=== PATIENT | male | born 1985 | race Caucasian/White ===

== ENCOUNTER 2017-10-28 10:52 | Day surgery (SDC) | payer OTHER ==
[2017-10-25 14:57] VITALS: BMI 23.0
--- NOTE | 2017-10-26 15:07 | History and Physical ---
History & Physical Date Oct 26, 2017. Chief Complaint right arm foreign body History of Present Illness The patient is a 32 year old male with complaints of a foreign body in his right forearm after doing metal work in his garage. A piece of metal came off of the work and implanted into his arm. He was seen at [facility] in [place] and the PA there tried to remove the piece of metal but was unsuccessful. He is now being set up for surgical tx. Past Medical/Surgical History PMH: None Past surgical hx: none Social hx: Denies tobacco use. 1-2 alcoholic drinks per day. Fam. Hx: noncontributory Allergies Coded Allergies: No Known Allergies (Unverified , 10/25/17) Home Medications Scheduled Buprenorphine Hcl (Subutex), 1.75 TAB SL DAILY Cephalexin Monohydrate (Keflex), 1 CAP PO BID Pantoprazole (Protonix), 40 MG PO QAM [Magnesium], 250 MG PO QPM [Vitamin D], 400 UNITS PO QPM Scheduled PRN Ranitidine (Zantac), 150 MG PO BID PRN for RN Physical Examination Skin: warm/dry, no rash Eyes: normal inspection ENT: normal ENT inspection Head: normocephalic, atraumatic Neck: supple, no adenopathy, trachea midline Respiratory/Chest: lungs clear, normal breath sounds, no respiratory distress Cardiovascular: regular rate, rhythm Abdomen / GI: normal bowel sounds, non tender Extremities: + pertinent finding (Right forearm: sutured laceration/incision near the dorsoradial aspect of the arm. No erythema. No streaking.) Neurologic/Psych: no motor/sensory deficits, alert, oriented x 3 Diagnosis Right upper extremity foreign body near the dorsoradial aspect of the forearm/ wrist. Plan of Treatment Recommend removal of the foreign body from the right forearm. All potential risks, benefits, complications, alternatives, and rehab have been discussed and the patient wishes to proceed. He will be scheduled for 10.28.17.
[~2017-10-28] VITALS: Ht 190.5 cm; Wt 86.4 kg
[~2017-10-28 10:52] MED LIST: BUPR8SUB19 SL; CEPH500C PO; LACTATED RINGER'S 1000ML 1,000 ML IV SCH; MAGNESIUM PO; PANT40TA PO; RANI150T85 PO; VITAMIN D PO
[2017-10-28] MEDS ORDERED: PROPOFOL IV EMULSION 10 MG/ML 20 ML VIAL IV ONE ×2 (10:56→14:16)
[2017-10-28] MEDS ORDERED: ONDANSETRON INJ 2 MG/ML 2 ML VIAL ONE (10:56)
[2017-10-28] MEDS ORDERED: LIDOCAINE HCL 2% 2 ML VIAL (20MG/ML) ONE (10:56)
[2017-10-28] MEDS ORDERED: DEXAMETHASONE SOD INJ 4 MG/ML VIAL ONE (10:56)
[2017-10-28] MEDS ORDERED: FENTANYL CITRATE INJ 50 MCG/1 ML 2 ML VIAL ONE (10:57)
[2017-10-28] MEDS ORDERED: MIDAZOLAM HCL 1 MG/ML 2ML VIAL ONE ×2 (10:57→12:32)
[2017-10-28 11:16] VITALS: BP 136/87; PULSE 56; TEMP 36.7; O2SAT 100; Ht 190.5 cm; Wt 86.4 kg
[2017-10-28] MEDS ORDERED: KETOROLAC TROMETHAMINE 30 MG/ML VIAL ONE ×2 (12:13→14:28)
[2017-10-28] MEDS ORDERED: ONDANSETRON INJ 2 MG/ML 2 ML VIAL IV PRN (12:15)
[2017-10-28] MEDS ORDERED: ATROPINE SULFATE 0.1 MG/ML 5ML SYR IV PRN (12:15)
[2017-10-28] MEDS ORDERED: EpHEDrine SULFATE INJ 50 MG/ML AMP IV PRN (12:15)
--- NOTE | 2017-10-28 13:31 | History & Physical Bridge Note ---
H&P Re-Evaluation Bridge Note: I have examined the patient, reviewed the History & Physical and in the interval since the performance of the History & Physical I have noted the following changes of clinical significance: No changes noted
[2017-10-28] MEDS ORDERED: CEFAZOLIN SOD 2000MG/15 ML IV PUSH IV ONE (13:40)
[2017-10-28] MEDS ORDERED: BUPIVACAINE/EPINEPHRINE 0.5% MPF 1:200,000 30 ML VIAL ONE (13:41)
[2017-10-28] MEDS ORDERED: BACITRACIN 50000 UNIT VIAL ONE (13:42)
[2017-10-28] MEDS ORDERED: BUPIVACAINE 0.5 % 5 MG/1 ML MPF 30ML VIAL ONE (13:42)
[2017-10-28] MEDS ORDERED: NURSING VERBAL MED ORDER ONE (13:45)
[2017-10-28] MEDS ORDERED: ACETAMINOPHEN 1000 MG/100 ML IV IV ONE (14:14)
[2017-10-28] MEDS ORDERED: EpHEDrine SULFATE 50MG/5ML SYR ONE (14:28)
[2017-10-28] MEDS ORDERED: PHENYLEPHRINE 100MCG/ML 5ML SYR ONE (14:28)
--- NOTE | 2017-10-28 15:00 | DIAGNOSTIC IMAGING REPORT ---
R FOREARM 2 VIEWS ROUTINE HISTORY: 32 years-old Male RT ARM FOREIGN BODY REMOVAL acute right arm pain status post foreign body removal COMPARISON: None available TECHNIQUE: 3 spot fluoroscopic images of the right forearm were obtained utilizing 39.2 seconds fluoroscopy time FINDINGS: There is skin irregularity with soft tissue swelling of the lateral aspect of the distal forearm which is likely postsurgical without opaque foreign body identified. No fracture. IMPRESSION: Fluoroscopic assistance as above. Please see procedural report for further details. The above report was generated using voice recognition software. It may contain grammatical, syntax or spelling errors. Electronically signed by: Praveen Ortiz M.D. 10/28/2017 2:58 PM Dictated Date/Time: 10/28/2017 2:56 PM
--- NOTE | 2017-10-28 15:07 | [facility] Post Operative Brief Note ---
Immediate Operative Summary Operative Date Oct 28, 2017. Pre-Operative Diagnosis Right upper extremity foreign body near the dorsoradial aspect of the forearm/wrist Post-Operative Diagnosis Right upper extremity foreign body near the dorsoradial aspect of the forearm/wrist Procedure(s) Performed Right Forearm Foreign Object Removal Surgeon Dr. Callahan Recovery Room Rn Surgeon(s) None Estimated Blood Loss 7 ml Findings Consistent with Post-Op Diagnosis Specimens A. Right Arm Foreign body Drains None (local) Anesthesia Type General Complication(s) none Disposition Accompanied Pt To Recover: no Disposition: Recovery Room / PACU
--- NOTE | 2017-10-28 15:43 | Anesthesiology Progress Note ---
Anesthesia Post Op Note Date & Time Oct 28, 2017 at 15:20 Vital Signs Vital Signs Past 12 Hours Date Time Temp Pulse Resp B/P (MAP) Pulse Ox O2 Delivery O2 Flow Rate FiO2 10/28/17 11:16 36.7 56 18 136/87 (103) 100 Room Air Notes Mental Status: alert / awake / arousable, participated in evaluation Pt Amnestic to Procedure: Yes Nausea / Vomiting: adequately controlled Pain: adequately controlled Airway Patency, RR, SpO2: stable & adequate BP & HR: stable & adequate Hydration State: stable & adequate Anesthetic Complications: no major complications apparent Patient is doing well in recovery with no complaints.
[2017-10-28 15:50] VITALS: BP 144/79; PULSE 53; TEMP 36.3; O2SAT 99
--- NOTE | 2017-10-28 16:14 | Discharge Instructions ---
Discharge Instructions Date of Service Oct 28, 2017. Admission Reason for Admission: Foreign Body of Right Upper Arm Discharge Discharge Diagnosis / Problem: Foreign Body of Right Upper Arm Discharge Goals Goal(s): Decrease discomfort, Improve function Activity Recommendations Activity Limitations: per Instructions/Follow-up section . Instructions / Follow-Up Instructions / Follow-Up ACTIVITY RECOMMENDATIONS: * Avoid lifting anything heavier than a medium water glass until your first post operative visit. SPECIAL CARE INSTRUCTIONS: * Your bandage should be left in place until Tuesday. * Some drainage onto the dressing may occur. This is normal. * If the bandage feels excessively tight, you may loosen the elastic bandage. Then call the physician's office for further instructions. * If possible, keep your hand elevated above the level of your heart for the first 3 post operative days. You may use a sling if necessary. * You should move your fingers regularly (50-100 motions per hour) unless otherwise instructed. SPECIAL PRECAUTIONS: * If you notice increased drainage, fever over 101 degrees F. or severe, unremitting pain, call your physician/office at . * You may have been prescribed pain medication. If you experience nausea and/or skin rash, discontinue this medication and contact our office for an alternative medication. FOLLOW UP VISIT: If appointment is not already scheduled: Please call [facility] to make a follow-up appointment with Garry Vilchis PA-C for 2 weeks post-op after your surgery at . Current Hospital Diet Patient's current hospital diet: Discharge Diet Recommended Diet: Regular Diet Procedures Procedures Performed: Right Forearm Foreign Object Removal Pending Studies Studies pending at discharge: no Medical Emergencies . Who to Call and When: Medical Emergencies: If at any time you feel your situation is an emergency, please call [phone] immediately. . Non-Emergent Contact Non-Emergency issues call your: Primary Care Provider, Surgeon Call Non-Emergent contact if: temperature is above 101, your pain is worsening , wound has increased drainage, wound has increased redness . "Provider Documentation" section prepared by Yossi Callahan. .
[2017-10-28 16:20] VITALS: BP 154/97; PULSE 55; TEMP 36.1; O2SAT 100
--- NOTE | 2017-11-15 22:19 | OPERATIVE REPORT ---
DATE OF OPERATION: 10/28/2017 PREOPERATIVE DIAGNOSIS: Right upper extremity foreign body adjacent to the dorsal radial aspect of the forearm. POSTOPERATIVE DIAGNOSIS: Right upper extremity foreign body adjacent to the dorsal radial aspect of the forearm. PROCEDURE: Right dorsal radial forearm removal of foreign body. SURGEON: Dr. Yossi Callahan. PILING CUTTER: None. ANESTHESIA: General with local. SPECIMENS: Foreign body, right dorsal radial forearm with bevel tip appearance of possible broken needle. DRAINS: None. COMPLICATIONS: None. BLOOD LOSS: 7 mL PERTINENT HISTORY: This is a 32-year-old gentleman who stated that he was working with a wire brush grinding wheel and apparently one of the grinding wheel bits broke off and states that it lodged in his right dorsal radial forearm. He was seen in the Emergency Department. They attempted removal at that time, unable to perform removal. Patient was then seen by orthopedics then scheduled for surgery as indicated. Patient has a history of IV drug abuse; however, was apparently noted to be drug free for the last several years per the patient. 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 All potential risks, benefits, complications, alternatives, rehab, potential for incomplete relief of symptoms, need for further surgery, DVT, PE, , pain, swelling, scarring, weakness, neurovascular injury, wound complications were discussed with the patient. The patient decided to proceed with the procedure as indicated. DESCRIPTION OF PROCEDURE: Patient was taken to operative suite, placed supine on the operating room table. After review of the consent and identification of proper operative site, patient was then anesthetized, general anesthetic administered. Tourniquet applied high on the right upper extremity over cast padding. Right upper extremity was then sterilely prepped and draped in usual fashion, elevated, and the tourniquet was then inflated to 250 mmHg. There was no exsanguination performed due to the nature of the foreign body in the forearm. Next, the area of a small punctate laceration and previous scarring in the dorsal radial aspect was then incised with a 15 blade scalpel. Careful dissection was performed through the cicatrix from the previous trauma and then careful dissection was performed proximal and distal to the area of the prior scarring to expand the incision to properly localize the foreign body as noted by previous radiographs. The incision was then carefully deepened through the scar and the fascia. The brachioradialis was identified, retracted and protected. Radial nerve was identified, retracted and protected. Next, the C-arm fluoroscope was then used to help localize the metallic foreign body. It was grasped with a small needle class b driver and the metallic oblong cylindrical hollow bevel tip foreign body was removed. It was noted to be broken, had the appearance of a hollow bevel tips broken needle possibly 25 or 27 gauge and this was then passed off as specimen and sent to pathology for confirmation of identification. Next, the region was then copiously irrigated with sterile normal saline until clear. Post-removal fluoroscopic scans were obtained in multiple projections to confirm removal of foreign body, which indeed had occurred. Next, the incision was then loosely closed with nylon sutures. The incision site was then injected with 0.5% Marcaine plain and then the sterile compressive dressing was applied overwrapped with a Webril and Lee wrap. A sterile compressive dressing was applied consisting of Xeroform gauze, sterile 4 x 4's, sterile cast padding, and Lee wrap. The tourniquet was released. The patient was awakened and taken to recovery in stable condition. I attest to the content of the Intraoperative Record and any orders documented therein. Any exception s are noted below.
== END 2017-10-28 16:40 | disposition home or self-care (01) ==
LOC: C.ACU 10:52
PROVIDERS: ATTEND Orthopaedic Surgery Sports Medicine
DX: S50.851A Superficial foreign body of right forearm, initial encounter (principal); W31.1XXA Contact with metalworking machines, initial encounter; Y92.008 Other place in unspecified non-institutional (private) residence as the place of occurrence of the external cause; K21.9 Gastro-esophageal reflux disease without esophagitis

== ENCOUNTER 2020-03-20 11:35 | Inpatient (IN) ==
[2020-03-20] MEDS ORDERED: ACETAMINOPHEN 325 MG TAB PO PRN ×2 (13:21→21:00)
[2020-03-20] MEDS ORDERED: ONDANSETRON INJ 2 MG/ML 2 ML VIAL IV PRN (13:21)
--- NOTE | 2020-03-20 13:48 | History & Physical Report ---
Date of Service March 20, 2020 Assessment & Plan (1) Acute pancreatitis: - admit to med surg - NSS x 1 L stat followed by aggressive fluid replacement with 200 ml/hr for now. PT had received total 2 L earlier today. - Follow am bmp and lipase with am labs - Pt on buprenorphine, continue, Avoid other opiods for pain. - pain control with tylenol IV for now, once nausea improved give PO. - zofran and phenergan IV for antiemetics - Cessation of alcohol use will need to be reinforced throughout admission - heavy etoh of whiskey and beer precipitated this event - no hx of pancreatitis before (2) Hx of intravenous drug use, in remission: - Last use was 11 years ago - Continue subutex (3) Tobacco use: - Smokes 1/3 ppd, denied need for nicotine patch (4) Alcohol abuse: - hx of such as above, cessation encouraged - Ativan protocol ordered, last drink was reported as 4 days ago per pt, tachycardic initially at 100 but now down to 59, improving. (5) DVT prophylaxis: teds, ambulatory CODE: Full Dispo: From home, likely to remain in the hospital x 1-2 days. History of Present Illness Primary Care Provider: Jatinder Low MD This is a 34 yo M with PMhx of alcohol abuse, IVDA 11 years ago [place], hx of endocarditis, tobacco abuse, who presented with acute abdominal pain and nausea/vomiting [facility] early this morning. He was diagnosed with acute pancreatitis on CT. He has not been eating or drinking anything for the past 4 days, only few sips of water occasionally. Pt notes he is a heavy drinker, has 6-7 beers daily, and has been mixing Black Velvet (whiskey) with soda, and can drink a 5th of this in 2 days. He was found to have acute pancreatitis on CT scan at OSH and elevated lipase of 12,706. His last drink was 4 days ago, he denies agitation, sweats, or withdrawal symptoms. His last BM was last Tuesday. He is urinating but it is very dark. Reports the ride here from [place] was not easy, and that his pain has been exacerbated by it. Allergies Allergy/AdvReac Type Severity Reaction Status Date / Time No Known Allergies Allergy Unverified 10/28/17 11:36 Home Medications Home Medications Medication Instructions Recorded Confirmed Type BUPRENORPHINE HCL (SUBUTEX) 1.5 tab SUBLINGUAL DAILY 7 Days 10/25/17 03/20/20 History #13 tab Pantoprazole (Protonix) 40 mg PO QAM #30 tab 10/25/17 03/20/20 History Nexium 40 mg PO DAILY 03/20/20 03/20/20 History trazodone 25 mg PO HS 03/20/20 03/20/20 History Past Med/Surg History Medical History Alcohol abuse Hx of intravenous drug use, in remission Tobacco use Family History (Updated 03/21/20 @ 08:37 by Juan Francisco Garcia) Other Family history non-contributory Social History Smoking Status: Current every day smoker Hx Alcohol Use: Yes Alcohol type: beer and hard liquor Hx Substance Use: Yes Preferred Language: Bulgarian Communication Ability: Effective Regional Director Required: No Beliefs That Will Affect Care: None Current Living Situation: Spouse Feels Safe at Home: Yes Safety Concerns: Feels Safe At This Time Review of Systems Review of Systems: Constitutional: No fever, sweats or chills Eyes: No diplopia, no worsening or blurred vision ENT: normal hearing, no trouble swallowing Respiratory: No cough, sputum, dyspnea at rest or on exertion Cardiovascular: No chest pain, tightness or palpitations Abdomen: + as per HPI, +pain, nausea, vomiting. No diarrhea. Last BM was tuesday. Musculoskeletal: No joint pain, calf pain, swelling Neurologic: No weakness, numbness/tingling, or balance problems Psychiatric: No anxiety or depression Skin: No rash or itch Physical Exam Physical Exam: General: awake, alert, mild distress, turning in bed frequently due to pain Head: Normocephalic, atraumatic ENT: PERRL, EOMI, no pharyngeal exudate, mucous membranes moist Chest: Clear to auscultation, on room air, no adventitious breath sounds Cardiac: +Sinus tach with HR = 100, no murmur, no JVD, normal peripheral pulses, good capillary refill Abdominal: +Hypoactive BS x 4 quadrants, nondistended, soft, + pain with palpation in the epigastric region, +guarding, no rebound tenderness. Extremities: Normal inspection, no peripheral edema or erythema, calfs nontender to palpation Psych: Normal mood and affect Neuro: AAO x 3, strength intact bilaterally and rated 5/5, no motor deficits, speech is clear, no peripheral sensory deficits Results & Data Results & Data ([facility]) Diagnostic Findings CT abd/pelvis Impression: -acute pancreatitis, moderate ascites, hepatic steatosis Code Status & VTE Plan Code Status Full code - discussed with the pt at bedside Supervising Physician Co-Signing Physician Notes Attending Attestation and Admission Note: Pt seen/examined, chart reviewed, care plan d/w VANNA Mccarthy. I agree w/ the ospina components of her documentation. 34yo male with prior IV drug abuse and prior episode of endocarditis years ago - drug abuse in remission - but continues with heavy etoh use presenting as transfer from [facility] with acute pancreatitis. CT abd/pelvis with pancreatitis, no biliary tract abnormalities, and moderate reactive ascites. Lipase 12,000. U/a somewhat suggestive of UTI. Pt c/o severe pain in abdomen during my bedside visit. PMH, allergies, meds, sochx, famhx - reviewed VSS, BPs high gen - looks uncomfortable due to abd pain mouth - MM dry heart - RRR, s1 s2 lungs - CTA b/l abd - liver edge palpable; BS+; tender mid-abdomen; BS present but decreased ext - no edema A/P: acute alcoholic pancreatitis abnormal LFTs - 2nd to etoh? could patient have HepB or HepC with prior IV drug abuse? reactive ascites seen on outside hospital CT heavy alcohol use ??UTI based on u/a at [place] change IVF to LR; keep rate 200cc/hr allow IV dilaudid prn; he was counseled that the effectiveness of dilaudid may be diminished by his subutex. NPO. IV H2 derrell. IV thiamine, folic acid. alcohol withdrawal protocol. need to call [place] about urine culture. strongly consider HepB and HepC testing. consider RUQ u/s to rule out biliary cause of pancreatitis but most likely this was from etoh. Juan Francisco Garcia MD PG Care Time/CCT Total # of Minutes Spent Total Time Spent with Patient: Total time spent is greater than 50% in coordination of care (as documented) at patient's floor/unit and/or counseling patient: Coding Level of Care Code 17243 Initial Inpt Care Lvl 3 Diagnoses Acute pancreatitis K85.90 Hx of intravenous drug use, in remission Z87.898 Tobacco use Z72.0 Alcohol abuse F10.10 DVT prophylaxis Z29.9
[2020-03-20] MEDS ORDERED: PROMETHAZINE HCL 12.5 MG in SODIUM CHLORIDE 0.9% 50 ML IV PRN (16:49)
[2020-03-20] MEDS: SODIUM CHLORIDE 0.9% 1000ML 1,000 ML IV SCH (17:02)
[2020-03-20] MEDS ORDERED: SODIUM CHLORIDE 0.9% 1000ML 1,000 ML IV SCH (17:07)
[2020-03-20] MEDS ORDERED: ACETAMINOPHEN 1000 MG/100 ML IV IV PRN (17:18)
[2020-03-20] MEDS ORDERED: ATIVAN IV ALCOHOL WITHDRAWL IV SCH (17:30)
[2020-03-20 17:43] LABS: Albumin Level 3.4 gm/dl (3.4-5.0); BUN Creatinine Ratio 13.9 (10-20); Calcium 9.1 mg/dl (8.5-10.1); Creatinine Clr Calc Pharmacy 164.5 ml/min; Est GFR (African American) 140.9; Est GFR (Non-African American) 121.6; Potassium 3.7 mmol/L (3.5-5.1)
[2020-03-20] MEDS ORDERED: LORAZEPAM 1MG IV ACTIVE PROTOCOL IV PRN (17:45)
[2020-03-20] MEDS ORDERED: LORAZEPAM 2MG IV ACTIVE PROTOCOL IV PRN (17:45)
[2020-03-20] MEDS ORDERED: LORAZEPAM 3MG IV ACTIVE PROTOCOL IV PRN (17:45)
[2020-03-20] MEDS ORDERED: LORAZEPAM 1MG TAB ACTIVE PROTOCOL PO PRN (17:45)
[2020-03-20 17:46] LABS: Albumin Globulin Ratio 0.9 (0.9-2); Globulin 3.9 gm/dl (2.5-4.0); Total Protein 7.3 gm/dl (6.4-8.2)
[2020-03-20] MEDS: TRAZODONE HCL 50 MG TAB PO SCH (20:17)
[2020-03-20] MEDS ORDERED: FOLIC ACID 1 MG in SYRINGE 9.8 ML IV ONE (20:30)
[2020-03-20] MEDS: THIAMINE HCL 200 MG in SODIUM CHLORIDE 0.9% 50 ML IV SCH (20:47)
[2020-03-20] MEDS: LACTATED RINGER'S 1,000 ML IV SCH (21:49)
[2020-03-20] MEDS: HYDROmorphone INJ 1 MG/ML SYRINGE IV PRN (21:49)
[2020-03-20] MEDS: FAMOTIDINE 20 MG in SYRINGE 3 ML IV SCH (21:49)
[2020-03-21] MEDS: HYDROmorphone INJ 1 MG/ML SYRINGE IV PRN (00:50)
[2020-03-21] MEDS: LACTATED RINGER'S 1,000 ML IV SCH ×5 (03:22→23:27)
[2020-03-21 06:34] LABS: Albumin Level 3.6 gm/dl (3.4-5.0); BUN Creatinine Ratio 8.4 (10-20); Creatinine Clr Calc Pharmacy 188.4 ml/min; Est GFR (Non-African American) 128.5; Potassium 3.3 mmol/L (3.5-5.1)
[2020-03-21 06:37] LABS: Albumin Globulin Ratio 0.9 (0.9-2); Bilirubin,Total 1.1 mg/dl (0.2-1); Globulin 3.9 gm/dl (2.5-4.0); Total Protein 7.5 gm/dl (6.4-8.2)
[2020-03-21 06:39] LABS: Basophils # (auto) 0.01 K/uL (0-0.2); Basophils % (auto) 0.1 %; Hematocrit (blood only) 40.3 % (42-52); Hemoglobin 14.3 g/dL (14.0-18.0); Immature Granulocytes # (auto) 0.01 K/uL (0.00-0.02); Immature Granulocytes % (auto) 0.1 %; Lymphocytes # (auto) 0.67 K/uL (1.2-3.4); Lymphocytes % (auto) 6.5 %; Mean Corpuscular Hemoglobin 33.3 pg (25-34); Mean Corpuscular Hgb Conc 35.5 g/dL (32-36); Mean Corpuscular Volume 93.9 fL (80-100); Mean Platelet Volume 10.1 fL (7.4-10.4); Monocytes # (auto) 0.77 K/uL (0.11-0.59); Monocytes % (auto) 7.4 %; Neutrophils % (auto) 85.9 %; Platelet Count 158 K/uL (130-400); RDW Coefficient of Variation 12.3 % (11.5-14.5); RDW Standard Deviation 41.5 fL (36.4-46.3); Red Blood Count 4.29 M/uL (4.7-6.1); White Blood Count 10.36 K/uL (4.8-10.8)
[2020-03-21] MEDS: buprenorphine HCL 8 MG SUBL SL SCH (08:41)
[2020-03-21] MEDS: THIAMINE HCL 200 MG in SODIUM CHLORIDE 0.9% 50 ML IV SCH ×2 (08:42→21:55)
[2020-03-21] MEDS: FOLIC ACID 1 MG in SYRINGE 9.8 ML IV SCH (08:44)
[2020-03-21] MEDS: FAMOTIDINE 20 MG in SYRINGE 3 ML IV SCH ×2 (08:51→21:55)
[2020-03-21] MEDS ORDERED: PANTOprazole 40 MG TAB PO SCH (09:00)
[2020-03-21] MEDS ORDERED: NEXIUM 40 MG PO SCH (09:00)
--- NOTE | 2020-03-21 11:21 | Medical Student H&P ---
Date of Service March 21, 2020 Assessment & Plan (1) Alcohol abuse: - Patient has significant hx of alcohol abuse dirnks 8-12 beers a day. has been abusing alcohol since he was 16. -Patient is willing to enroll in alcohol detoxification facility for rehabilitation - Plan is to admit patient to facility upon discharge. (2) Acute pancreatitis: - Patient Lipase was very high at a level above 3000. - Patient has been NPO for 24 hours - Continue IV hydration N/S at maintenance rate. - Patients pain is currently controlled. Will hold narcotics for now - Will slowly introducing food back into his diet over the next day. 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 -Stopped using heroin over 11 years ago -Patient currently takes buprenorphine (5) Tobacco use: - Uses one can of smokeless tobacco every 3 days - Smokes cigarettes when he drinks. Only a few cigarettes each time. -Encourage patient to enroll in tobacco cessation program -F/U with [facility] Admission and Anticipated Discharge Date Admission Date: March 20, 2020 History of Present Illness Primary Care Provider: Jatinder Low MD 34 y/o male with a hx of alcohol abuse and drinks 8-12 beers a night. He also has a remote hx of IV drug use and currently takes subutex. He presents today after transfer from [facility]. Patient was not feeling well five days ago. He has had symptoms of fatigue and some mild nausea and thought he had a cold. This progressed to severe epigastric pain with nausea and vomiting x 2 days ago. The pain was sharp and radiated across his abdomen. He was not able to eat or drink without having to vomit. He reported to the [facility] ED 2 nights ago. His pancreatic lipase was very high with a level above 3000. He was diagnosed with pancreatitis and placed on NPO. He was transferred to [facility] last night due to a bed shortage at [facility]. Today he is feeling much better. He does not endorse any nausea or vomiting. His adm pain has significantly decreased. He now has some minor epigastric discomfort that he describes as feeling like a he had a bruise. He says that he is hungry and he has not been able to eat any food since 3 days ago. He also has not had a bm x 5 days ago. He does not have any known hx of gall stones or fam hx of gall stones. He did not have any melena, hematochezia or steatorrhea. He does not endorse any SOB, chest pain, dizziness, palpitations, tremors, hallucinations, fever or chills. Allergies Allergy/AdvReac Type Severity Reaction Status Date / Time No Known Allergies Allergy Unverified 10/28/17 11:36 Home Medications Home Medications Medication Instructions Recorded Confirmed Type Pantoprazole (Protonix) 40 mg PO QAM #30 tab 10/25/17 03/20/20 History Nexium 40 mg PO DAILY 03/20/20 03/20/20 History trazodone 25 mg PO HS 03/20/20 03/20/20 History BUPRENORPHINE HCL (SUBUTEX) 1.5 tab SUBLINGUAL DAILY 7 Days #2 03/22/20 Rx tab Past Med/Surg History Medical History Alcohol abuse Hx of intravenous drug use, in remission Tobacco use Family History (Updated 03/21/20 @ 08:37 by Juan Francisco Garcia) Other Family history non-contributory Social History Smoking Status: Current every day smoker Hx Alcohol Use: Yes Alcohol type: beer and hard liquor Hx Substance Use: Yes Preferred Language: Faroese Communication Ability: Effective Soap Worker Required: No Beliefs That Will Affect Care: None Current Living Situation: Spouse Feels Safe at Home: Yes Review of Systems no fever, no chills, no malaise, no weight loss and no weight gain no diplopia, no eye pain and no worsening vision no dizziness no cough, no dyspnea, no hemoptysis and no pain on inspiration no chest pain, no chest pain with activity, no dyspnea at rest and no dyspnea on exertion as per Subjective / HPI no dysuria, no urinary frequency and no hematuria no myalgia, no muscle weakness and no body aches no rash, no erythema, no change in skin color and no unusual bruising no localized weakness, no loss of sensation and no paresthesia no hopelessness, no suicidal ideation and no homicidal ideation Physical Exam Constitutional: + acute distress and average body habitus Respiratory: normal respiratory effort, lungs clear to auscultation Cardiovascular: RRR, no murmur, no edema Heart Sounds: normal S1 and normal S2; no click, no gallop and no cardiac rub Vessels: dorsalis pedis pulses present; no JVD Extremities: no edema Gastrointestinal (Abdomen): Inspection/Auscultation: abdomen normal to inspection and normal bowel sounds Percussion/Palpation: + hepatomegaly and + abdomen firm; abdomen nontender and no guarding Results & Data ([facility]) Vital Signs (Past 12 Hours) Vital Signs Temp Pulse Pulse Resp BP Pulse Ox 03/21/20 07:08 36.9 C 89 16 154/88 H 97 03/21/20 03:20 36.9 C 76 15 157/83 H 96 03/21/20 00:36 68 180/85 H 03/20/20 23:21 36.7 C 68 16 171/91 H 100 Supervising Attestation This is a medical student note.
[2020-03-21] MEDS: TRAZODONE HCL 50 MG TAB PO SCH (22:02)
[2020-03-21] MEDS: SODIUM CHLORIDE 0.9% 1000ML 1,000 ML IV SCH (23:44)
[2020-03-22] MEDS: LACTATED RINGER'S 1,000 ML IV SCH ×2 (04:27→08:27)
[2020-03-22 06:32] LABS: Hematocrit (blood only) 38.1 % (42-52); Hemoglobin 13.5 g/dL (14.0-18.0); Mean Corpuscular Hemoglobin 33.8 pg (25-34); Mean Corpuscular Hgb Conc 35.4 g/dL (32-36); Mean Corpuscular Volume 95.5 fL (80-100); Mean Platelet Volume 9.3 fL (7.4-10.4); Platelet Count 131 K/uL (130-400); RDW Coefficient of Variation 12.1 % (11.5-14.5); RDW Standard Deviation 41.9 fL (36.4-46.3); Red Blood Count 3.99 M/uL (4.7-6.1); White Blood Count 14.77 K/uL (4.8-10.8)
[2020-03-22 07:02] LABS: Alanine Aminotransferase 22 U/L (12-78); Albumin Level 2.5 gm/dl (3.4-5.0); Aspartate Aminotransferase 24 U/L (15-37); BUN Creatinine Ratio 9.6 (10-20); Blood Urea Nitrogen 5 mg/dl (7-18); Calcium 7.9 mg/dl (8.5-10.1); Carbon Dioxide 29 mmol/L (21-32); Chloride 99 mmol/L (98-107); Creatinine Clr Calc Pharmacy 204.9 ml/min; Est GFR (African American) > 150.0; Glucose 96 mg/dl (70-99); Potassium 2.9 mmol/L (3.5-5.1); Sodium 136 mmol/L (136-145)
[2020-03-22 07:05] LABS: Albumin Globulin Ratio 0.6 (0.9-2); Alkaline Phosphatase 93 U/L (45-117); Bilirubin,Total 0.9 mg/dl (0.2-1); Total Protein 6.5 gm/dl (6.4-8.2)
--- NOTE | 2020-03-22 07:30 | Hospitalist Progress Note ---
Date of Service March 21, 2020 Assessment & Plan (1) Acute pancreatitis: - admit to med surg - continue IVF. -[place]ase improved [place] 3000 [place] [address] -will place on clear liquid diet and see how patient tolerates this. - Follow am bmp and lipase with am labs - Pt on buprenorphine, continue, Avoid other opiods for pain. - pain control with tylenol IV for now, once nausea improved give PO. - zofran and phenergan IV for antiemetics - Cessation of alcohol use will need to be reinforced throughout admission - heavy etoh of whiskey and beer precipitated this event - no hx of pancreatitis before (2) Hx of intravenous drug use, in remission: - Last use was 11 years ago - Continue subutex (3) Tobacco use: - Smokes 1/3 ppd, denied need for nicotine patch (4) Alcohol abuse: - hx of such as above, cessation encouraged - Ativan protocol ordered, last drink was reported as 4 days ago per pt, tachycardic initially at 100 ; improving. (5) DVT prophylaxis: skye, ambulatory CODE: Full Dispo: possible discharge tomorrow. Admission and Anticipated Discharge Date Admission Date: March 20, 2020 Subjective Patient appears to be feeling better. He states he has a plan to quit drinking. He reports feeling hungry and is interested in eating. He reports his abd. pain has improved. Review of Systems Review of Systems: All systems reviewed & are unremarkable except as noted in HPI & below Physical Exam Physical Exam: General: awake, alert, in no distress Head: Normocephalic, atraumatic ENT: PERRL, EOMI, no pharyngeal exudate, mucous membranes moist Chest: Clear to auscultation, on room air, no adventitious breath sounds Cardiac: +Sinus tach no murmur, no JVD, normal peripheral pulses, good capillary refill Abdominal: +Hypoactive BS x 4 quadrants, nondistended, soft, +no tenderness to palpation in the epigastric region, no guarding, no rebound tenderness. Extremities: Normal inspection, no peripheral edema or erythema, calfs nontender to palpation Psych: Normal mood and affect Neuro: AAO x 3, strength intact bilaterally and rated 5/5, no motor deficits, speech is clear, no peripheral sensory deficits Results & Data Results & Data ([facility]) Vital Signs (Past 12 Hours) Vital Signs Temp Pulse Resp BP Pulse Ox 03/21/20 23:30 36.9 C 03/21/20 23:14 37.9 C H 109 H 18 145/84 H 95 PG Care Time/CCT Total # of Minutes Spent Total Time Spent with Patient: Total time spent is greater than 50% in coordination of care (as documented) at patient's floor/unit and/or counseling patient: Coding Level of Care Code 62941 Subseq Hosp Care Lvl 2 Diagnoses Acute pancreatitis K85.90 Hx of intravenous drug use, in remission Z87.898 Tobacco use Z72.0 Alcohol abuse F10.10 DVT prophylaxis Z29.9 Time Spent (min) 25
[2020-03-22] MEDS: buprenorphine HCL 8 MG SUBL SL SCH (08:24)
[2020-03-22] MEDS: FAMOTIDINE 20 MG in SYRINGE 3 ML IV SCH (08:26)
[2020-03-22] MEDS: FOLIC ACID 1 MG in SYRINGE 9.8 ML IV SCH (08:26)
[2020-03-22] MEDS: THIAMINE HCL 200 MG in SODIUM CHLORIDE 0.9% 50 ML IV SCH (08:26)
[2020-03-22] MEDS ORDERED: POTASSIUM CHLORIDE 20 MEQ TABCR PO SCH (09:00)
[2020-03-22] MEDS ORDERED: ACETAMINOPHEN 325 MG TAB PO PRN (09:11)
--- NOTE | 2020-03-22 17:03 | Discharge Summary ---
Date of Service March 22, 2020 Admission HPI Per Admitting Provider 34 y/o male with a hx of alcohol abuse and drinks 8-12 beers a night. He also has a remote hx of IV drug use and currently takes subutex. He presents today after transfer from [facility]. Patient was not feeling well five days ago. He has had symptoms of fatigue and some mild nausea and thought he had a cold. This progressed to severe epigastric pain with nausea and vomiting x 2 days ago. The pain was sharp and radiated across his abdomen. He was not able to eat or drink without having to vomit. He reported to the [facility] ED 2 nights ago. His pancreatic lipase was very high with a level above 3000. He was diagnosed with pancreatitis and placed on NPO. He was transferred to [facility] last night due to a bed shortage at [facility]. Today he is feeling much better. He does not endorse any nausea or vomiting. His adm pain has significantly decreased. He now has some minor epigastric discomfort that he describes as feeling like a he had a bruise. He says that he is hungry and he has not been able to eat any food since 3 days ago. He also has not had a bm x 5 days ago. He does not have any known hx of gall stones or fam hx of gall stones. He did not have any melena, hematochezia or steatorrhea. He does not endorse any SOB, chest pain, dizziness, palpitations, tremors, hallucinations, fever or chills. Principal Diagnosis Alcohol-induced pancreatitis Discharge Exam Constitutional WD/WN, vitals as above Eyes EOM intact bilaterally; no conjunctival abnormality ENMT external ear and nose normal, oropharynx normal Neck trachea midline, no thyromegaly normal visual inspection Respiratory normal respiratory effort, lungs clear to auscultation no respiratory distress Cardiovascular RRR, no murmur, no edema Gastrointestinal (Abdomen) Inspection/Auscultation: abdomen normal to inspection; abdomen not distended Musculoskeletal no cyanosis or clubbing, extremities motor strength 5/5 Skin no rashes, warm and dry Neurologic moves all extremities and awake Psychiatric Orientation: alert, oriented to person and cooperative Discharge Data Allergies Allergy/AdvReac Type Severity Reaction Status Date / Time No Known Allergies Allergy Unverified 10/28/17 11:36 Consultations 03/20/20 13:20 Consult Case Management - Discharge Planning Routine Hospital Course (1) Acute pancreatitis: - Lipase improved [place] 3000 [place] [address]. Due to alcohol. - Gradual increase in diet with good tolerance. - Initially saw the patient on 03/22. He informed me he felt well and had been eating and would not be spending another night in the hospital. He had already called his girlfriend to pick him up. Given his overall good status, I didn't feel this was inappropriate, though he does have continued mild leukocytosis and borderline fever. - Declined additional alcohol resources from our CM, reporting he just needs to be "more open" about his drinking. (2) Hx of intravenous drug use, in remission: - Last use was 11 years ago - Continue subutex (3) Tobacco use: - Smokes 1/3 ppd, denied need for nicotine patch (4) Alcohol abuse: - hx of such as above, cessation encouraged - Ativan protocol ordered, last drink was reported as 4 days ago per pt, tachycardic initially at 100. - Resolved by discharge. Total Time Total Time Spent Total Time Spent (In Minutes): 35 Discharge Plan Discharge Items Patient Disposition: Home - Self-Care Reason For Visit: ACUTE PANCREATITIS Discharge Diagnosis: Pancreatitis from drinking alcohol Activity: Resume your previous activity Non-emergency contact: Primary Care Provider Call non-emergency contact if: your symptoms worsen Follow-up/Referrals: Jatinder Low MD [Primary Care Provider] - Diet: Low Fat Addtl Attending Provider Instructions: You were admitted to the hospital for pancreatitis from drinking alcohol. Please do not drink any alcohol at all because once this happens, you are pre-disposed to have it happen again. Please follow up with your alcohol counseling. Pending Studies at Discharge: No Stand-Alone Forms: My [facility] [employer], Work/School Release (Inpt), Smoking Cessation Medications and DC Order Prescriptions: Continued Pantoprazole (Protonix) 40 MG tablet 40 mg PO QAM Qty: 30 RF: 0 trazodone 25 mg 25 mg PO HS RF: 0 Nexium 40 mg 40 mg PO DAILY RF: 0 BUPRENORPHINE HCL (SUBUTEX) 8 MG SUB 1.5 tab Sublingual DAILY 7 Days Qty: 2 RF: 0 Discharge Orders: Discharge Order (Routine); Ordered 03/22/20 Ordered By: Marino Samson Admission Data Admit Date/Time: 08/13/20 16:29 Attending Provider: Marino Samson Admit Provider: Juan Francisco Garcia Primary Care Provider: Jatinder Low Other Interventions: Discharge Summary Assessment (RN) Last Done: 03/22/20 13:36 Coding Level of Care Code D/C Day Management >30 mins Diagnoses Acute pancreatitis K85.90 Hx of intravenous drug use, in remission Z87.898 Tobacco use Z72.0 Alcohol abuse F10.10
== END 2020-03-22 15:12 | disposition home or self-care (01) | DRG 440 ==
LOC: 3W 16:29 → SUATTDRO 16:29

== ENCOUNTER 2023-08-17 19:35 | Inpatient (IN) ==
[2023-08-17 21:29] LABS: Basophils # (auto) 0.02 K/uL (0.00-0.20); Basophils % (auto) 0.2 %; Eosinophils # (auto) 0.04 K/uL (0.00-0.50); Eosinophils % (auto) 0.3 %; Hemoglobin 11.4 g/dl (14.0-18.0); Immature Granulocytes # (auto) 0.23 K/uL (0.01-0.20); Immature Granulocytes % (auto) 1.8 %; Lymphocytes # (auto) 0.93 K/uL (1.20-3.40); Lymphocytes % (auto) 7.4 %; Mean Corpuscular Volume 102.7 fL (80.0-100.0); Mean Platelet Volume 9.4 fL (9.4-12.4); Monocytes # (auto) 0.75 K/uL (0.11-0.59); Neutrophils # (auto) 10.56 K/uL (1.40-6.50); Neutrophils % (auto) 84.3 %; Platelet Count 184 K/uL (130-400); RDW Coefficient of Variation 15.7 % (11.5-14.5); RDW Standard Deviation 58.3 fL (36.4-46.3); Red Blood Count 2.92 M/uL (4.70-6.10); White Blood Count 12.53 K/ul (4.8-10.8)
[2023-08-17] MEDS ORDERED: SODIUM CHLORIDE 0.9% 500 ML IV ONE (21:49)
[2023-08-17 21:50] LABS: Blood Urea Nitrogen 4 mg/dl (6-23)
[2023-08-17 21:51] LABS: Magnesium 1.2 mg/dl (1.7-2.4)
[2023-08-17 21:52] LABS: Alanine Aminotransferase 135 U/L (7-52); Albumin Globulin Ratio 0.7 (0.9-2); Albumin Level 2.8 gm/dl (3.4-5.0); Anion Gap 17 (3-11); Aspartate Aminotransferase 404 U/L (13-39); Calcium 7.5 mg/dl (8.6-10.3); Carbon Dioxide 23 mmol/L (21-32); Chloride 83 mmol/L (98-107); Globulin 4.1 gm/dl (2.5-4.0); Glucose 102 mg/dl (70-99(Fasting)); Potassium 2.9 mmol/L (3.5-5.1); Sodium 123 mmol/L (136-145); Total Protein 6.9 gm/dl (6.0-8.3); Troponin I High Sensitivity 9.5 pg/ml (0-20)
[2023-08-17 21:54] LABS: Partial Thromboplastin Ratio 2.2; Partial Thromboplastin Time 61 Seconds (21-31); Prothrombin Time 59.7 Seconds (9.0-12.0)
[2023-08-17] MEDS ORDERED: POTASSIUM CHLORIDE / WTR 10 MEQ/100 ML PLCT IV ONE (21:57)
[2023-08-17 22:04] LABS: Bilirubin,Total 34.5 mg/dl (0.2-1.0)
[2023-08-17] MEDS ORDERED: CALCIUM GLUCONATE 1,000 MG/60 ML BAG IV STA (22:07)
--- NOTE | 2023-08-17 22:07 | Emergency Department Note ---
Impression & Plan Acute liver failure, Acute hyponatremia, Hypomagnesemia, Hypokalemia, Hypocalcemia, Coagulopathy, Jaundice ED Provider Note NAME: SUSAN MARES AGE: 37 SEX: M : 1985 ARRIVES VIA: Walk-In INFORMANT: [Patient] ED PROVIDER(S): [Portillo Soto MD] CHIEF COMPLAINT: Skin problem HISTORY OF PRESENT ILLNESS: The patient is a 37-year-old male who is a heavy alcohol user. He has cut back on his alcohol intake the last month. He states that for 6 months, he has had some upper epigastric pain and some chest pain. The chest pain seems present a lot of times when he exhales. He saw his doctors office. He was referred to cardiology. He had a Holter monitor done. He was told by cardiology that his symptoms were likely from his medications. Apparently, on the Holter, they found a lot of extra beats. The patient states that his chest pain has continued despite the medication changes. In the last week, he has noticed a yellowness to his skin. He has noticed some swelling of his legs and some weeping of fluid from the legs. He does complain of pain in the epigastrium and right upper quadrant. There has has been no cough or congestion. No fever. He was never told that he had any issues with his liver. He has though had pancreatitis in the past. PMHx/PSHx/Social Hx: See Below PHYSICAL EXAM: GENERAL: Patient is in no acute distress. HEENT: No acute trauma, normocephalic atraumatic, mucous membranes moist, no nasal congestion. NECK: No stridor, no adenopathy, no meningismus, trachea is midline. LUNGS: Clear to auscultation bilaterally, no wheeze, no rhonchi, breath sounds equal. HEART: Mildly tachycardic, regular rhythm, no obvious murmur. ABDOMEN: Soft, tender in the epigastrium and right upper quadrant, some abdominal distention noted. EXTREMITIES: No cyanosis, full range of motion of all the joints without pain or difficulty. Patient does have some pedal edema with some chronic skin change. There is some weeping of clear fluid noted to the left leg. NEUROLOGIC: Oriented x 3, no acute motor or sensory deficits, no focal weakness. SKIN: Significant jaundice, no diaphoresis. DIFFERENTIAL DIAGNOSIS: Liver failure, renal failure, electrolyte imbalance, pancreatitis, biliary obstruction, cardiac ischemia, dysrhythmia, anemia, among others. EMERGENCY DEPARTMENT PROCEDURES: MEDICAL DECISION MAKING: There is a mild leukocytosis, this could be consistent with infection or just the stress of his current situation. Patient was anemic with a hemoglobin of 11.4. There was a normal platelet count. INR and PTT were elevated, likely from his severe liver disease. Renal panel testing showed a low sodium, low potassium, low calcium and low magnesium. Liver enzymes were quite elevated, bilirubin was over 34. A lipase value could not be run because of the icteric blood. ECG showed a sinus tachycardia, no obvious ischemia. Cardiac enzyme testing x 1 was not consistent with acute cardiac injury. Chest film does not show mediastinal widening, pneumonia or pneumothorax. Abdominal and pelvis CT shows some liver enlargement, no bowel obstruction, some trace ascites was seen. The pancreas was seen to be quite atrophic. No acute surgical process by CT imaging. On exam, the patient was quite jaundiced with pedal edema. The patient received IV saline, 500 cc. He received IV potassium, IV magnesium and IV calcium. The patient is quite ill. He is in acute liver failure. His MELD score is quite high. I explained my findings to the patient. He understands the seriousness of his diagnosis. I did speak with GI, the patient is not in need of emergent transfer to tertiary care this evening. The patient will be hospitalized. He requires hydration, electrolyte replacement and very close monitoring. I did speak with case management, the on-call hospitalist was consulted. Prior/Outside records/notes reviewed: Urology note from 06/20/2020 discussing his presentation for gross hematuria. No concerning findings by urology workup. ECG per my interpretation: Indication was tachycardia. The ECG shows a sinus tachycardia with a rate of 114. There is some diffuse nonspecific ST change. No ST elevation, no PVCs. The QTc is 496. Continuous Cardiac Monitoring per my interpretation: An order was placed for continuous cardiac monitoring. The monitor shows a rate of 102 with sinus tachycardia. Imaging/x-ray results per my interpretation: Chest x-ray does not show mediastinal widening, pneumonia or pneumothorax. Chronic Medical/Social conditions affecting care: Alcoholism Care/Management discussed with: Case management, the on-call hospitalist. GI- Dr. Herrera. Level of care consideration(s): After review of the information above and other included data: --I believe the patient requires escalation of care to admission Critical Care Note: I have personally spent 47 minutes of critical care time in the direct management of this patient. This includes bedside care, interpretation of diagnostic studies, and testing, discussion with consultants, patient, and family members, and other required patient management activities. This 47 minutes is in excess of all separately billable procedures. DISPOSITION: Admission Past Med/Surg History Medical History GERD (gastroesophageal reflux disease) Hx of intravenous drug use, 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, [address] drugs and in remission and on program Surgical History No history of previous surgery Family History Other Family history non-contributory Social History Smoking Status: Current every day smoker Tobacco Type: Cigarettes Cigarettes Per Day: 6-10 cig a day; Second Hand Exposure: No; Do You Dip or Chew Tobacco: Yes (advised); Hx Alcohol Use: No (quit) Hx Substance Use: Yes Last Used Substance Other:: over 10 years ago and no longer a problem follow with program Preferred Language: Amharic Communication Ability: Effective Phlebotomist Associate Required: No Beliefs That Will Affect Care: None Current Living Situation: Spouse Feels Safe at Home: Yes Assistive Devices: None Allergies Allergies Allergy/AdvReac Type Severity Reaction Status Date / Time carvedilol AdvReac Intermediate "MADE ME Verified 08/17/23 21:50 REALLY SICK". Home Meds Home Medications Medication Instructions Recorded Confirmed pantoprazole 40 mg tablet,delayed 40 mg PO QAM 05/13/20 08/17/23 release buprenorphine HCl 8 mg sublingual 2 mg sublingual DAILY 09/24/21 08/17/23 tablet Results & Data (ED) Vital Signs Vital Signs - 24 hr 08/17/23 19:51 08/17/23 21:09 08/17/23 21:09 Temperature 36.5 C Temperature Source Temporal Artery Scan Pulse Rate 115 H Pulse Rate [Apical] 104 H Respiratory Rate 16 18 Respiratory Effort / Characteristics Non-Labored Spontaneous Respiratory Depth Normal Respiratory Pattern Regular Blood Pressure 95/70 L Blood Pressure [Right Arm] 110/76 Blood Pressure Mean 78 Blood Pressure Mean [Right Arm] 87 Blood Pressure Position [Right Arm] Lying Pulse Oximetry 98 98 97 Oxygen Delivery Method Room Air Room Air Room Air Sepsis Recent Fever Within 48 Hours No Sepsis New/Unexplained Change in Mental Status No Sepsis Action Taken by Nursing No Action Required 08/17/23 21:12 Temperature Temperature Source Pulse Rate 91 H Pulse Rate [Apical] Respiratory Rate Respiratory Effort / Characteristics Respiratory Depth Respiratory Pattern Blood Pressure Blood Pressure [Right Arm] Blood Pressure Mean Blood Pressure Mean [Right Arm] Blood Pressure Position [Right Arm] Pulse Oximetry Oxygen Delivery Method Sepsis Recent Fever Within 48 Hours Sepsis New/Unexplained Change in Mental Status Sepsis Action Taken by Usp Medications Current Medication List: was personally reviewed by me Laboratory Data Attestation: I reviewed the patient's lab results. 08/17/23 21:10 08/17/23 21:10 Lab Results 08/17/23 08/17/23 Range/Units 21:10 21:11 WBC 12.53 H (4.8-10.8) K/ul RBC 2.92 L (4.70-6.10) M/uL Hgb 11.4 L (14.0-18.0) g/dl Hct 30.0 L (42.0-52.0) % MCV 102.7 H (80.0-100.0) fL MCH 39.0 H (25.0-34.0) pg MCHC 38.0 H (32.0-36.0) g/dL RDW Std Deviation 58.3 H (36.4-46.3) fL RDW Coeff of Danny 15.7 H (11.5-14.5) % Plt Count 184 (130-400) K/uL MPV 9.4 (9.4-12.4) fL Immature Gran % (Auto) 1.8 % Neut % (Auto) 84.3 % Lymph % (Auto) 7.4 % [place] % (Auto) 6.0 % Eos % (Auto) 0.3 % Baso % (Auto) 0.2 % Reticulocyte % (Auto) 3.6 H (0.5-2.0) % Neut # (Auto) 10.56 H (1.40-6.50) K/uL Lymph # (Auto) 0.93 L (1.20-3.40) K/uL [place] # (Auto) 0.75 H (0.11-0.59) K/uL Eos # (Auto) 0.04 (0.00-0.50) K/uL Baso # (Auto) 0.02 (0.00-0.20) K/uL Reticulocyte # 0.10 (0.02-0.10) 10^6/uL Immature Gran # (Auto) 0.23 H (0.01-0.20) K/uL PT 59.7 H (9.0-12.0) Seconds INR 6.1 H* (0.9-1.1) APTT 61 H (21-31) Seconds PTT Ratio 2.2 Sodium 123 L (136-145) mmol/L Potassium 2.9 L (3.5-5.1) mmol/L Chloride 83 L (98-107) mmol/L Carbon Dioxide 23 (21-32) mmol/L Anion Gap 17 H (3-11) BUN 4 L (6-23) mg/dl Creatinine TNP Est Cr Clr Drug Dosing TNP Est GFR ( Amer) TNP Est GFR (Non-Af Amer) TNP BUN/Creatinine Ratio TNP Glucose 102 H (70-99(Fasting)) mg/dl Osmolality 260 L (280-300) mOsm/kg Calcium 7.5 L (8.6-10.3) mg/dl Magnesium 1.2 L (1.7-2.4) mg/dl Total Bilirubin 34.5 H (0.2-1.0) mg/dl AST 404 H (13-39) U/L ALT 135 H (7-52) U/L Alkaline Phosphatase TNP Ammonia TNP Troponin I High Sens 9.5 (0-20) pg/ml Total Protein 6.9 (6.0-8.3) gm/dl Albumin 2.8 L (3.4-5.0) gm/dl Globulin 4.1 H (2.5-4.0) gm/dl Albumin/Globulin Ratio 0.7 L (0.9-2) Lipase TNP Procalcitonin 0.86 H (0-0.5) ng/ml Administered Medications Magnesium Sulfate/Dextrose (Magnesium Sulfate / D5w) 1 gm in 100 mls @ 100 mls/hr IV Q1H MUNA Stop: 08/17/23 23:56 Last Admin: 08/17/23 22:48 Dose: 100 mls/hr Documented By: ELIJAH Discontinued Medications Sodium Chloride (Nss) 500 mls @ 999 mls/hr IV .Q31M ONE Stop: 08/17/23 22:19 Last Admin: 08/17/23 21:54 Dose: 999 mls/hr Documented By: ELIJAH Potassium Chloride (K Apolinar / Wtr) 10 meq in 100 mls @ 100 mls/hr IV ONE ONE Stop: 08/17/23 22:56 Last Admin: 08/17/23 22:48 Dose: 100 mls/hr Documented By: ELIJAH Calcium Gluconate () 1,000 mg in 60 mls @ 240 mls/hr IV NOW STA Stop: 08/17/23 22:21 Last Infusion: 08/17/23 22:48 Dose: Infused Documented By: Admin: 08/17/23 22:20 Dose: 240 mls/hr Documented By: ELIJAH Ioversol (Optiray 320 500ml) 77 ml IV ONCE ONE Stop: 08/17/23 22:30 Last Admin: 08/17/23 22:30 Dose: 77 ml Documented By: FELICIA Imaging Data Radiologist's Impression: Chest X-Ray 08/17/23 19:56 SINGLE VIEW CHEST CLINICAL HISTORY: Fever FINDINGS: An AP, portable, upright chest radiograph is obtained. No prior studies are available for comparison at the time of dictation. The examination is degraded by portable technique and apical lordotic positioning. The cardiomediastinal silhouette is unremarkable. There is elevation of the right hemidiaphragm with right basilar atelectasis. The lungs and pleural spaces are otherwise clear. No pneumothorax is seen. The bony thorax is grossly intact. IMPRESSION: No active disease in the chest. ACT 112: Negative or not required by law. Electronically signed by: Portillo Loja M.D. 08/17/2023 10:21 PM Abdomen/Pelvis CT 08/17/23 21:49 Exam(s): CT ABDOMEN + PELVIS With Contrast IV Amt: 77 ml [id number] EXAM: CT Abdomen and Pelvis With Intravenous Contrast CLINICAL HISTORY: jaundice, abd pain. TECHNIQUE: Axial computed tomography images of the abdomen and pelvis with intravenous contrast. CTDI is 16.85 mGy and DLP is 931.67 mGy-cm. Automated exposure control was utilized for the study. A dose lowering technique was utilized adhering to the principles of ALARA. CONTRAST: Patient received 77 ml [id number] of IV contrast COMPARISON: CT abdomen and pelvis dated 09/24/2001 FINDINGS: Lung bases: Unremarkable. No mass. No consolidation. ABDOMEN: Liver: Progressive, slightly variable, hepatic steatosis involving the liver which is larger in size. Gallbladder and bile ducts: Cholecystectomy. No ductal dilation. Pancreas: The pancreas is diffusely atrophic in appearance when compared to the previous examination. Questionable subtle fat stranding noted about the head of the pancreas. No abnormal mass or ductal dilation. Spleen: Unremarkable. No splenomegaly. Adrenals: Unremarkable. No mass. Kidneys and ureters: Unremarkable. No solid mass. No hydronephrosis. Stomach and bowel: The stomach is decompressed. No bowel obstruction. Mucosal prominence of jejunal loops is new from the previous exam. Mural fat deposition within the ascending colon is noted. Minimal stool burden. PELVIS: Appendix: No findings to suggest acute appendicitis. Bladder: Unremarkable. No mass. Reproductive: Unremarkable as visualized. ABDOMEN and PELVIS: Intraperitoneal space: Mild free fluid noted in the dependent pelvis. No loculation. No free air. Bones/joints: No acute fracture. No dislocation. Soft tissues: Unremarkable. Vasculature: Unremarkable. No abdominal aortic aneurysm. Lymph nodes: Unremarkable. No enlarged lymph nodes. IMPRESSION: 1. The pancreas is diffusely atrophic in appearance when compared to the previous examination. Questionable subtle fat stranding noted about the head of the pancreas. No abnormal mass or ductal dilation. 2. The stomach is decompressed. No bowel obstruction. Mucosal prominence of jejunal loops is new from the previous exam. No pneumoperitoneum. 3. Progressive, slightly variable, hepatic steatosis involving the liver which is larger in size. 4. Mild free fluid noted in the dependent pelvis. No loculation. This may represent reactive changes from the small bowel process or represent new small volume ascites from the progressive hepatic changes. Electronically signed by: Jah Pimentel MD 08/17/23 23:07 PM Discharge Plan Visit Data Chief Complaint: Skin Problem Stated Complaint: YELLOW OF SKIN ED Provider: Portillo Soto Discharge Problem: Acute liver failure, Acute hyponatremia, Hypomagnesemia, Hypokalemia, Hypocalcemia, Coagulopathy, Jaundice Patient Disposition: Admitted As Inpatient Condition: Serious Forms Stand Alone Forms: [employer] Prescriptions Prescriptions: No Action pantoprazole 40 mg tablet,delayed release (DR/EC) 40 mg PO QAM buprenorphine HCl 8 mg tablet, sublingual 2 mg SUBLINGUAL DAILY Rx Instructions: PER PT "WEANED TO 1/4 OF A TAB". Referrals Referrals: Jatinder Low MD [Primary Care Provider] - Discharge Problem: Acute liver failure Qualifiers: Hepatic coma status: without hepatic coma Qualified Code(s): K72.00 - Acute and subacute hepatic failure without coma
[2023-08-17 22:18] LABS: INR 6.1 (0.9-1.1)
--- NOTE | 2023-08-17 22:22 | XRay Report ---
SINGLE VIEW CHEST CLINICAL HISTORY: Fever FINDINGS: An AP, portable, upright chest radiograph is obtained. No prior studies are available for c omparison at the time of dictation. The examination is degraded by portable technique and apical lord otic positioning. The cardiomediastinal silhouette is unremarkable. There is elevation of the right h emidiaphragm with right basilar atelectasis. The lungs and pleural spaces are otherwise clear. No pne umothorax is seen. The bony thorax is grossly intact. IMPRESSION: No active disease in the chest. ACT 112: Negative or not required by law. Electronically signed by: Portillo Loja M.D. 08/17/2023 10:21 PM
[2023-08-17] MEDS ORDERED: OPTIRAY 320 500ml IV ONE (22:29)
[2023-08-17] MEDS ORDERED: PHYTONADIONE 10 MG in DEXTROSE 5% 50 ML IV ONE (22:45)
[2023-08-17] MEDS: MAGNESIUM SULFATE / D5W 1 GM/100 ML BAG IV SCH (22:48)
[2023-08-17] MEDS ORDERED: POTASSIUM CHLORIDE CRTAB 20 MEQ TABCR PO STA (22:54)
--- NOTE | 2023-08-17 23:08 | CT Scan Report ---
Exam(s): CT ABDOMEN + PELVIS With Contrast IV Amt: 77 ml [id number] EXAM: CT Abdomen and Pelvis With Intravenous Contrast CLINICAL HISTORY: jaundice, abd pain. TECHNIQUE: Axial computed tomography images of the abdomen and pelvis with intravenous contrast. CTDI is 16.85 mGy and DLP is 931.67 mGy-cm. Automated exposure control was utilized for the study. A dose lowering technique was utilized adhering to the principles of ALARA. CONTRAST: Patient received 77 ml of IV contrast COMPARISON: CT abdomen and pelvis dated 09/24/2001 FINDINGS: Lung bases: Unremarkable. No mass. No consolidation. ABDOMEN: Liver: Progressive, slightly variable, hepatic steatosis involving the liver which is larger in size. Gallbladder and bile ducts: Cholecystectomy. No ductal dilation. Pancreas: The pancreas is diffusely atrophic in appearance when compared to the previous examination. Questionable subtle fat stranding noted about the head of the pancreas. No abnormal mass or ductal dilation. Spleen: Unremarkable. No splenomegaly. Adrenals: Unremarkable. No mass. Kidneys and ureters: Unremarkable. No solid mass. No hydronephrosis. Stomach and bowel: The stomach is decompressed. No bowel obstruction. Mucosal prominence of jejunal loops is new from the previous exam. Mural fat deposition within the ascending colon is noted. Minimal stool burden. PELVIS: Appendix: No findings to suggest acute appendicitis. Bladder: Unremarkable. No mass. Reproductive: Unremarkable as visualized. ABDOMEN and PELVIS: Intraperitoneal space: Mild free fluid noted in the dependent pelvis. No loculation. No free air. Bones/joints: No acute fracture. No dislocation. Soft tissues: Unremarkable. Vasculature: Unremarkable. No abdominal aortic aneurysm. Lymph nodes: Unremarkable. No enlarged lymph nodes. IMPRESSION: 1. The pancreas is diffusely atrophic in appearance when compared to the previous examination. Questionable subtle fat stranding noted about the head of the pancreas. No abnormal mass or ductal dilation. 2. The stomach is decompressed. No bowel obstruction. Mucosal prominence of jejunal loops is new from the previous exam. No pneumoperitoneum. 3. Progressive, slightly variable, hepatic steatosis involving the liver which is larger in size. 4. Mild free fluid noted in the dependent pelvis. No loculation. This may represent reactive changes from the small bowel process or represent new small volume ascites from the progressive hepatic changes. Electronically signed by: Jah Pimentel MD 08/17/23 23:07 PM
[2023-08-17] MEDS ORDERED: THIAMINE HCL 100 MG in SYRINGE 9 ML IV STA (23:11)
[2023-08-17 23:16] LABS: Reticulocyte % 3.6 % (0.5-2.0); Reticulocytes # 0.1 10^6/uL (0.02-0.10)
[2023-08-17] MEDS ORDERED: cefTRIAXone SODIUM 2,000 MG/50 ML BAG IV STA (23:56)
[2023-08-17] MEDS ORDERED: ALBUMIN 25% 25 GM/100 ML VIAL IV STA (23:58)
[2023-08-18 00:03] LABS: Folate (Folic Acid),Ser orPlas 4.33 ng/ml (>5.38)
[2023-08-18 00:04] LABS: Vitamin B12 > 1500 pg/ml (180-914)
[2023-08-18 00:17] LABS: Iron 110 mcg/dl (35-175); Transferrin < 95 mg/dl (200-360)
[2023-08-18 00:19] LABS: Thyroid Stimulating Hormone 0.905 uIu/ml (0.300-4.500)
[2023-08-18 00:26] LABS: Appearance Urine Cloudy (Clear); Blood Urine Negative (Negative); Cast Urine Automated 0 /lpf (0-5); Color Urine Dark Yellow; Glucose Urine UA Negative (Negative); Ketones Urine Negative (Negative); Leukocyte Esterase Urine Trace (Negative); Nitrite Urine Positive (Negative); Protein Urine Trace (Negative); RBC Urine Automated 0-4 /hpf (0-4); Specific Gravity Urine 1.017 (1.000-1.030); Urobilinogen Urine Negative (Negative)
[2023-08-18 00:44] LABS: Bilirubin Urine 3+ (Negative)
[2023-08-18 00:55] LABS: Bacteria Urine Automated 1+ (Negative)
[2023-08-18 00:57] LABS: Influenza A virus by PCR Negative (Neg); Influenza B virus by PCR Negative (Neg); RSV by PCR Negative (Neg); SARS CoV2 RNA(COVID-19) Ceph NEGATIVE (Negative)
[2023-08-18] MEDS ORDERED: MAGNESIUM SULFATE / D5W 1 GM/100 ML BAG IV ONE (01:00)
--- NOTE | 2023-08-18 01:18 | History & Physical Report ---
Date of Service August 18, 2023 Assessment & Plan (1) Hepatic failure: Plan: Hepatic steatosis, abnormal LFTs, coagulopathy History HCV status post Rx Ongoing alcohol abuse Severe sepsis SIRS plus lactic acidosis ? Complicated UTI Hyponatremia, hypokalemia, hypomagnesemia secondary to illness New onset anemia, patient denies overt GI/ bleed symptoms, FOBT done at the ER was negative. hx second-degree AV block type I (Wenckebach) atrial septal aneurysm chronic pain on Suboxone hx GERD ongoing tobacco abuse past history IVDU PCU [facility] transfer once bed available. (Patient accepted for transfer by Dr. Espinoza of Hospitalist service.) GI consult re: liver failure Vitamin K for coagulopathy CS, Ceftriaxone Hyponatremia workup, careful correction of sodium Recheck lactic acid and serum sodium after initial fluid bolus given at the ER (Guideline recommended 30 cc/kg crystalloid fluid administration over 3 hours currently precluded by concerns for rapid correction of serum sodium.) Utilize albumin for now Replace electrolytes Anemia workup DIONNE S at risk protocol Nicotine patch as needed DVT prophylaxis. SCDs Re: Coagulopathy Full code Patient friend requesting updates from providers. Rosalia Earl, contact #[phone]. Total critical care time was 50 minutes. Text document was generated using [employer] voice recognition software. It may contain grammatical or spelling errors. Kindly contact undersigned for clarification of any documentation item in question. History of Present Illness Chief Complaint: Weakness, lightheadedness Primary Care Provider: Jatinder Low MD History obtained from patient, family, and records. Medical history significant for second-degree AV block type I (Wenckebach), atrial septal aneurysm, HCV status post Rx, chronic pain on Suboxone, GERD, ongoing alcohol/tobacco abuse, past history IVDU. Last confinement March 2020 for alcoholic pancreatitis. 6 months history of intermittent palpitations and syncopal events. Outpatient ZIO monitor showed second-degree AV block type I Wenckebach. [facility] cardiology recommended stopping Subutex and/or clonidine. Outpatient TTE from March 2023 showed EF of 60 to 64%. No significant valvular disease. Incidental finding of atrial septal aneurysm probably congenital. Patient clonidine stopped. Syncopal events almost daily still happening as per patient with head/facial trauma last month leading to dental injury. Patient denies headache symptoms. No witnessed seizures at home. 2 weeks ago, patient had sinus congestion symptoms. Patient consulted urgent care center in [place]. He was noted to be jaundiced at the clinic. ER consultation recommended but patient declined. Unrecalled antibiotic taken for sinus infection. Worsening lightheadedness symptoms in the last week. Patient denies chest pain or unusual cough symptoms. SOB from weakness. Chronic upper achy belly pain without black or bloody stools. Some nausea with bilious emesis. Poor appetite. Patient denies headache symptoms. Episodic confusion noted at home by friend. Last EtOH intake was a few days ago. Patient brought to ER by friend for evaluation. Initial SBP of 90s upon arrival at the ER. [facility] GI specialist on-call (Dr. Herrera) recommended transfer to tertiary center. Patient accepted for transfer by [facility] hospital service after discussion with [facility] waste management engineer pending bed availability. 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 Home Medications Medication Instructions Recorded Confirmed Type pantoprazole 40 mg tablet,delayed 40 mg PO QAM 05/13/20 08/17/23 History release buprenorphine HCl 8 mg sublingual 2 mg sublingual DAILY 09/24/21 08/17/23 History tablet Past Med/Surg History Medical History GERD (gastroesophageal reflux disease) Hx of intravenous drug use, 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 drugs and in remission and on program Surgical History No history of previous surgery Family History Other Family history non-contributory Social History Smoking Status: Current every day smoker Tobacco Type: Cigarettes Cigarettes Per Day: 6-10 cig a day; Second Hand Exposure: No; Do You Dip or Chew Tobacco: Yes (advised); Hx Alcohol Use: No (quit) Hx Substance Use: Yes Last Used Substance Other:: over 10 years ago and no longer a problem follow with program Preferred Language: Occitan Communication Ability: Effective Bottling Machine Operator Required: No Beliefs That Will Affect Care: None Current Living Situation: Spouse Feels Safe at Home: Yes Assistive Devices: None Review of Systems Review of Systems: As per HPI, all other systems reviewed and negative Physical Exam Physical Exam: GENERAL: Slightly anxious, no respiratory distress, chronically ill, looks older than stated age SKIN: Jaundiced, warm, chronic rash over upper and lower extremities. HEENT: Alopecia, pale palpebral conjunctivae, no ptosis, icteric sclerae, dry buccal mucosa, chronic lip asymmetry from previous facial trauma, partially edentulous NECK : Supple, no tenderness CHEST : CTA, no tenderness HEART : RRR, no obvious murmurs ABDOMEN: Some distention, nontender RECTAL : Intact sphincter, brown stool (FOBT negative) EXTREMITIES : No LE swelling/tenderness, no other conspicuous deformities noted NEUROLOGIC : Coherent, chronic facial asymmetry, gait and stance not assessed Results & Data Results & Data Vital Signs (Past 12 Hours) Vital Signs Temp Pulse Pulse Resp BP BP Pulse Ox 08/18/23 01:11 89 08/17/23 21:12 91 H 08/17/23 21:09 97 08/17/23 21:09 104 H 18 110/76 98 08/17/23 19:51 36.5 C 115 H 16 95/70 L 98 O2 Del Method 08/18/23 01:11 08/17/23 21:12 08/17/23 21:09 Room Air 08/17/23 21:09 Room Air 08/17/23 19:51 Room Air Laboratory Results Laboratory Results WBC 12.53 K/ul (4.8-10.8) H 08/17/23 21:10 RBC 2.92 M/uL (4.70-6.10) L 08/17/23 21:10 Hgb 11.4 g/dl (14.0-18.0) L 08/17/23 21:10 Hct 30.0 % (42.0-52.0) L 08/17/23 21:10 MCV 102.7 fL (80.0-100.0) H 08/17/23 21:10 MCH 39.0 pg (25.0-34.0) H 08/17/23 21:10 MCHC 38.0 g/dL (32.0-36.0) H 08/17/23 21:10 RDW Std Deviation 58.3 fL (36.4-46.3) H 08/17/23 21:10 RDW Coeff of Danny 15.7 % (11.5-14.5) H 08/17/23 21:10 Plt Count 184 K/uL (130-400) 08/17/23 21:10 MPV 9.4 fL (9.4-12.4) 08/17/23 21:10 Immature Gran % (Auto) 1.8 % 08/17/23 21:10 Neut % (Auto) 84.3 % 08/17/23 21:10 Lymph % (Auto) 7.4 % 08/17/23 21:10 [place] % (Auto) 6.0 % 08/17/23 21:10 Eos % (Auto) 0.3 % 08/17/23 21:10 Baso % (Auto) 0.2 % 08/17/23 21:10 Reticulocyte % (Auto) 3.6 % (0.5-2.0) H 08/17/23 21:10 Neut # (Auto) 10.56 K/uL (1.40-6.50) H 08/17/23 21:10 Lymph # (Auto) 0.93 K/uL (1.20-3.40) L 08/17/23 21:10 [place] # (Auto) 0.75 K/uL (0.11-0.59) H 08/17/23 21:10 Eos # (Auto) 0.04 K/uL (0.00-0.50) 08/17/23 21:10 Baso # (Auto) 0.02 K/uL (0.00-0.20) 08/17/23 21:10 Reticulocyte # 0.10 10^6/uL (0.02-0.10) 08/17/23 21:10 Immature Gran # (Auto) 0.23 K/uL (0.01-0.20) H 08/17/23 21:10 PT 59.7 Seconds (9.0-12.0) H 08/17/23 21:10 INR 6.1 (0.9-1.1) H* 08/17/23 21:10 APTT 61 Seconds (21-31) H 08/17/23 21:10 PTT Ratio 2.2 08/17/23 21:10 Sodium 123 mmol/L (136-145) L 08/17/23 21:10 Potassium 2.9 mmol/L (3.5-5.1) L 08/17/23 21:10 Chloride 83 mmol/L (98-107) L 08/17/23 21:10 Carbon Dioxide 23 mmol/L (21-32) 08/17/23 21:10 Anion Gap 17 (3-11) H 08/17/23 21:10 BUN 4 mg/dl (6-23) L 08/17/23 21:10 Creatinine TNP 08/17/23 21:10 Est Cr Clr Drug Dosing TNP 08/17/23 21:10 Est GFR ( Amer) TNP 08/17/23 21:10 Est GFR (Non-Af Amer) TNP 08/17/23 21:10 BUN/Creatinine Ratio TNP 08/17/23 21:10 Glucose 102 mg/dl (70-99(Fasting)) H 08/17/23 21:10 Osmolality 260 mOsm/kg (280-300) L 08/17/23 21:11 Lactate 3.5 mmol/L (0.4-2.0) H* 08/17/23 23:35 Calcium 7.5 mg/dl (8.6-10.3) L 08/17/23 21:10 Magnesium 1.2 mg/dl (1.7-2.4) L 08/17/23 21:10 Iron 110 mcg/dl (35-175) 08/17/23 21:10 Transferrin < 95 mg/dl (200-360) L 08/17/23 21:10 Ferritin TNP 08/17/23 21:10 Total Bilirubin 34.5 mg/dl (0.2-1.0) H 08/17/23 21:10 AST 404 U/L (13-39) H 08/17/23 21:10 ALT 135 U/L (7-52) H 08/17/23 21:10 Alkaline Phosphatase TNP 08/17/23 21:10 Ammonia TNP 08/17/23 21:10 Troponin I High Sens 9.5 pg/ml (0-20) 08/17/23 21:10 Total Protein 6.9 gm/dl (6.0-8.3) 08/17/23 21:10 Albumin 2.8 gm/dl (3.4-5.0) L 08/17/23 21:10 Globulin 4.1 gm/dl (2.5-4.0) H 08/17/23 21:10 Albumin/Globulin Ratio 0.7 (0.9-2) L 08/17/23 21:10 Lipase TNP 08/17/23 21:10 Vitamin B12 > 1500 pg/ml (180-914) H 08/17/23 21:10 Folate 4.33 ng/ml (>5.38) L 08/17/23 21:10 Procalcitonin 0.86 ng/ml (0-0.5) H 08/17/23 21:11 TSH 0.905 uIu/ml (0.300-4.500) 08/17/23 21:10 Urine Color Dark Yellow 08/17/23 23:56 Urine Appearance Cloudy (Clear) A 08/17/23 23:56 Urine pH 7.0 (4.5-7.5) 08/17/23 23:56 Ur Specific Pease 1.017 (1.000-1.030) 08/17/23 23:56 Urine Protein Trace (Negative) H 08/17/23 23:56 Urine Glucose (UA) Negative (Negative) 08/17/23 23:56 Urine Ketones Negative (Negative) 08/17/23 23:56 Urine Blood Negative (Negative) 08/17/23 23:56 Urine Nitrite Positive (Negative) A 08/17/23 23:56 Urine Bilirubin 3+ (Negative) H 08/17/23 23:56 Urine Urobilinogen Negative (Negative) 08/17/23 23:56 Ur Leukocyte Esterase Trace (Negative) H 08/17/23 23:56 Urine WBC (Auto) 1-5 /hpf (0-5) 08/17/23 23:56 Urine RBC (Auto) 0-4 /hpf (0-4) 08/17/23 23:56 U Hyaline Cast (Auto) 0 /lpf (0-5) 08/17/23 23:56 U Epithel Cells (Auto) 10-20 /lpf (0-5) H 08/17/23 23:56 Urine Bacteria (Auto) 1+ (Negative) H 08/17/23 23:56 Urine Crystals Not Reportable 08/17/23 23:56 Other Crystals Ammonium Biurate (None Prsent) A 08/17/23 23:56 Urine Osmolality 148 mOsm/kg (500-800) L 08/17/23 23:56 Ur Random Sodium < 10 mmol/L 08/17/23 23:56 SARS-CoV-2 (PCR) NEGATIVE (Negative) 08/17/23 23:56 Influenza Type A (PCR) Negative (Neg) 08/17/23 23:56 Influenza Type B (PCR) Negative (Neg) 08/17/23 23:56 RSV (RT-PCR) Negative (Neg) 08/17/23 23:56 Blood Type O Positive 08/17/23 23:35 Antibody Screen NEGATIVE 08/17/23 23:35 Impressions Chest X-Ray 08/17/23 19:56 SINGLE VIEW CHEST CLINICAL HISTORY: Fever FINDINGS: An AP, portable, upright chest radiograph is obtained. No prior studie s are available for comparison at the time of dictation. The examination is degraded by portable technique and apical lordotic positioning. The cardiomediastinal silhouette is unremarkable. There is elevation of the right hemidiaphragm with right basilar atelectasis. The lungs and pleural spaces are otherwise clear. No pneumothorax is seen. The bony thorax is grossly intact. IMPRESSION: No active disease in the chest. ACT 112: Negative or not required by law. Electronically signed by: Portillo Loja M.D. 08/17/2023 10:21 PM Abdomen/Pelvis CT 08/17/23 21:49 Exam(s): CT ABDOMEN + PELVIS With Contrast IV Amt: 77 ml [id number] EXAM: CT Abdomen and Pelvis With Intravenous Contrast CLINICAL HISTORY: jaundice, abd pain. TECHNIQUE: Axial computed tomography images of the abdomen and pelvis with intravenous contrast. CTDI is 16.85 mGy and DLP is 931.67 mGy-cm. Automated exposure control was utilized for the study. A dose lowering technique was utilized adhering to the principles of ALARA. CONTRAST: Patient received 77 ml [id number] of IV contrast COMPARISON: CT abdomen and pelvis dated 09/24/2001 FINDINGS: Lung bases: Unremarkable. No mass. No consolidation. ABDOMEN: Liver: Progressive, slightly variable, hepatic steatosis involving the liver which is larger in size. Gallbladder and bile ducts: Cholecystectomy. No ductal dilation. Pancreas: The pancreas is diffusely atrophic in appearance when compared to the previous examination. Questionable subtle fat stranding noted about the head of the pancreas. No abnormal mass or ductal dilation. Spleen: Unremarkable. No splenomegaly. Adrenals: Unremarkable. No mass. Kidneys and ureters: Unremarkable. No solid mass. No hydronephrosis. Stomach and bowel: The stomach is decompressed. No bowel obstruction. Mucosal prominence of jejunal loops is new from the previous exam. Mural fat deposition within the ascending colon is noted. Minimal stool burden. PELVIS: Appendix: No findings to suggest acute appendicitis. Bladder: Unremarkable. No mass. Reproductive: Unremarkable as visualized. ABDOMEN and PELVIS: Intraperitoneal space: Mild free fluid noted in the dependent pelvis. No loculation. No free air. Bones/joints: No acute fracture. No dislocation. Soft tissues: Unremarkable. Vasculature: Unremarkable. No abdominal aortic aneurysm. Lymph nodes: Unremarkable. No enlarged lymph nodes. IMPRESSION: 1. The pancreas is diffusely atrophic in appearance when compared to the previous examination. Questionable subtle fat stranding noted about the head of the pancreas. No abnormal mass or ductal dilation. 2. The stomach is decompressed. No bowel obstruction. Mucosal prominence of jejunal loops is new from the previous exam. No pneumoperitoneum. 3. Progressive, slightly variable, hepatic steatosis involving the liver which is larger in size. 4. Mild free fluid noted in the dependent pelvis. No loculation. This may represent reactive changes from the small bowel process or represent new small volume ascites from the progressive hepatic changes. Electronically signed by: Jah Pimentel MD 08/17/23 23:07 PM Diagnostic Findings EKG as per my interpretation : Rate 115, sinus tachycardia, normal axis, T wave abnormalities inferior and anterolateral leads
--- OUTSIDE RECORDS SUMMARY | 2023-08-18 03:24 | External Medical Summary | Summary of Care ---
Author Name Unknown Organization [facility] Address [address] [facility] [place] [address] Phone [phone] Care Team Providers Care Residential Youth Counselor Name Role Phone Jatinder Low MD Primary Care Provider [phone] Reason for Visit * Reason Onset Date Comments Test Results 03/10/2023 Encounter Details Date Type Department Care Team Description 03/10/2023 Telephone Cardiology, [facility] [address] [facility] [place] [id number] Angel Sadler PA-C [address] [place] [id number] Test Results Allergies No known active allergiesdocumented as of this encounter (statuses as of 03/10/2023) Medications Medication Sig Dispensed Refills Start Date End Date Status buprenorphine HCl (SUBUTEX) 8 MG Sublingual tablet 0 08/15/2017 Active Pantoprazole Sodium 40 MG Oral Tablet Delayed Release (Protonix)Indications :Gastroesophageal reflux disease without esophagitis,Epigastri c pain TAKE ONE TABLET BY MOUTH IN THE MORNING 90 Tablet 1 10/29/2022 Active cloNIDine HCl 0.1 MG Oral Tablet (Catapres)Indications :HTN, goal below 140/90 Take 1 Tablet by mouth in the morning and 1 Tablet before bedtime. 60 Tablet 5 01/04/2023 Active documented as of this encounter (statuses as of 03/10/2023) Active Problems Problem Noted Date HTN, goal below 140/90 02/24/2023 Dizziness 02/24/2023 Atrioventricular block, Mobitz type 1, W enckebach 02/24/2023 Syncope 02/24/2023 Palpitations 02/24/2023 Gastroesophageal reflux disease without esophagitis 11/29/2017 Raynaud's phenomenon without gangrene documented as of this encounter (statuses as of 03/10/2023) Resolved Problems Problem Noted Date Resolved Date Routine child health exam 04/18/20022016 documented as of this encounter (statuses as of 03/10/2023) Immunizations Name Administration Dates Next Due Seasonal Influenza, Quadriva lent, No Preserve, 6 Mons & Above, IM 05/28/2022,04/29/2020,04/27/2019 TDAP (age 11 and older)(Adacel) 02/06/2016 documented as of this encounter Social History Tobacco Use Types Packs/Day Years Used Date Smoking Tobacco: Every Day Cigarettes 0.1 14 Started: 2002 Smokeless Tobacco: Current Chew Comments:2-3 cigarettes a da y as of 02/24/23. No chew in the last month as of 02/24/23 Alcohol Use Standard Drinks/Week Comments Not Currently 0 (1 standard drink = 0.6 oz pur e alcohol) Alcohol Habits Answer Date Recorded How often do you have a drink containing alcohol ? Not asked 10/08/2020 How many drinks containing a lcohol do you have on a typical day when you are drinking? 7 to 9 10/08/2020 How often do you have six or more drinks on one occasion? Not asked 10/08/2020 Food Insecurity Answer Date Recorded Within the past 12 months, y ou worried that your food would run out before you got money to buy more. Never true 06/10/2020 Within the past 12 months, t he food you bought just didn't last and you didn't have money to get more. Never true 06/10/2020 Sex Assigned at Date Recorded Not on file Job Start Date Occupation Industry Not on file Not on file Not on file documented as of this encounter Miscellaneous Notes * Telephone Encounter - Anderson Adkins LPN - 03/10/2023 4:39 PM EDT Sent patient a M-DAQ message to make aware. ----- Message from Angel Sadler PA-C sent at 03/10/2023 4:37 PM EDT ----- March 10, 2023 TTE Interpretation Summary (as per Dr. Suarez): The left ventricular cavity size is normal. The LV wall thickness is normal. The left ventricular wall motion is normal. The qualitative LV ejection fraction is 60- 64% (normal). The left ventricular diastolic function is mildly abnormal (grade I). There is no significant valvular disease. There is no evidence of an atrial septal defectbut resolution does not allow assessment for a patent foramen ovale. There is an atrial septal aneurysm. Echo looks OK. Incidental finding of an atrial septal aneurysm (bulging/bowing of the interatrial septum, probably congenital). Nothing further needed/recommended based on echo findings at this time. documented in this encounter Plan of Treatment Health Maintenance Due Date Last Done Comments COVID-19 Vaccine (#1) 03/15/1985 Pneumococcal Vaccine: Pediatrics (0 to 5 Years) and At-Risk Patients (6 to 64 Years) (1 - PCV) 1990 Albumin/Creatinine Ratio 2002 Hepatitis C Screening 2002 Depression Screening, Annual for Pts 12 and Over 06/10/2021 06/10/2020 Influenza Vaccine (FLU shot) (#1) 2023 05/28/2022, 04/29/2020, 04/27/2019 GFR 01/11/2024 01/10/2023, 09/08, 09/24/2021, Additional history exists DTaP,Tdap,and Td Vaccines (3 - Td or Tdap) 02/05/2026 02/06/2016, 11/19/2001 Hepatitis B Completed 11/29/2000, 05/08, 03/22/1997 GARDASIL-HPV IMMUNIZATION SERIES Aged Out No longer eligible based on patient's age to complete this topic MENINGOCOCCAL (MENACTRA/MENVEO) Aged Out No longer eligible based on patient's age to complete this topic documented as of this encounter Medical Devices Not on filedocumented as of this encounter Care Teams Residential Youth Counselor Relationship Specialty Start Date End Date Jatinder Low MD [address] [place] [address] [place] [phone] PCP - General Family Medicine 11/19/16 documented as of this encounter
--- OUTSIDE RECORDS SUMMARY | 2023-08-18 03:24 | External Medical Summary | Summary of Care ---
Author Name Unknown Organization [facility] Address [address] [facility] [place] [address] Phone [phone] Care Team Providers Care Slat Basket Maker Helper Name Role Phone Jatinder Douglas MD Primary Care Provider Reason for Visit * Reason Onset Date Comments Medication Refill 08/02/2023 Encounter Details Date Type Department Care Team (Late st Contact Info) Description 08/02/2023 Refill Family Medicine [address] [address] Jatinder Douglas MD [address] [place] [address] [place] [address] Gastroesophageal reflux disease without esophagitis; Epigastric pain Allergies No known active allergiesdocumented as of this encounter (statuses as of 08/03/2023) Medications Medication Sig Dispensed Refills Start Date End Date Status buprenorphine HCl (SUBUTEX) 8 MG Sublingual tablet 0 08/15/2017 Active cloNIDine HCl 0.1 MG Oral Tablet (Catapres)Indicat ions:HTN, goal below 140/90 Take 1 Tablet by mouth in the morning and 1 Tablet before bedtime. 60 Tablet 5 01/04/2023 Active Pantoprazole Sodium 40 MG Oral Tablet Delayed Release (Protonix)Indicat ions:Gastroesopha geal reflux disease without esophagitis,Epiga stric pain Take 1 Tablet by mouth in the morning. In the morning.. 90 Tablet 1 08/03/2023 Active Pantoprazole Sodium 40 MG Oral Tablet Delayed Release (Protonix)Indicat ions:Gastroesopha geal reflux disease without esophagitis,Epiga stric pain TAKE ONE TABLET BY MOUTH IN THE MORNING 90 Tablet 1 04/26/2023 08/02/2023 Discontinued (Refill) documented as of this encounter (statuses as of 08/03/2023) Active Problems Problem Noted Date Diagnosed Date HTN, goal below 140/90 02/24/2023 Dizziness 02/24/2023 Atrioventricular block, Mobitz type 1, Wenckebac h 02/24/2023 Syncope 02/24/2023 Palpitations 02/24/2023 Gastroesophageal reflux disease without esophagi tis 11/29/2017 Raynaud's phenomenon without gangrene 11/19/2016 documented as of this encounter (statuses as of 08/03/2023) Resolved Problems Problem Noted Date Diagnosed Date Resolved Date Routine child health exam 04/18/2002 documented as of this encounter (statuses as of 08/03/2023) Immunizations Name Administration Dates Next Due Seasonal Influenza, PF, 6 M & above, IM , (FluLaval or Fluzone) 05/28/2022,04/29/2020,04/27/2019 TDAP (age 11 and older)(Adacel) 02/06/2016 [...] drink = 0.6 oz pur e alcohol) AUDIT-C Answer Date Recorded Q1: How often do you have a drink containing alc ohol? Not asked 10/08/2020 Q2: How many drinks containi ng alcohol do you have on a typical day when you are drinking? 7 to 9 10/08/2020 Q3: How often do you have six or more drinks on one occasion? Not asked 10/08/2020 PHQ-2 Answer Date Recorded PHQ-2 Score 0 06/10/2020 Hunger Vital Sign Answer Date Recorded Worried About Running Out of Food in the Last Ye ar Never true 04/02/2019 Ran Out of Food in the Last Year Never true 04/02/2019 Sex and Gender Information Value Date Recorded Sex Assigned at Not on file Gender Identity Male 02/10/2023 7:15 PM EDT Sexual Orientation Straight 02/10/2023 7: 15 PM EDT Job Start Date Occupation Industry Not on file Not on file Not on file documented as of this encounter Miscellaneous Notes * [facility]36 AM EST Signed Prescriptions: Disp Refills Pantoprazole Sodium 40 MG Oral Tablet Jessica*90 Tab*1 Sig: Take 1 Tablet by mouth in the morning. In the morning..Authorizing Provider: JATINDER DOUGLAS User: AURELIANO RAMSEY * [facility] - [facility] 10[facility]36 AM EST Per refill protocol patient needs magnesium and vitamin B-12 labs on file within the past 2 years while using PPIs. Lab work was already ordered. Patient may obtain with next routine labs. Thank you, Aureliano Ramsey, PharmD Clinical Pharmacist [facility] ([facility]) (Formerly Telepharmacy) [phone] 08/03/2023, 10:36 AM documented in this encounter Plan of Treatment Health Maintenance Due Date Last Done Comments COVID-19 Vaccine (#1) 03/15/1985 Pneumococcal Vaccine: Pediatrics (0 to 5 Years) and At-Risk Patients (6 to 64 Years) (1 - PCV) 1990 Albumin/Creatinine Ratio 2002 Hepatitis C Screening 2002 Depression Screening 06/10/2021 06/10/2020 Influenza Vaccine (FLU shot) (#1) [...] Not on filedocumented as of this encounter Visit Diagnoses Diagnosis Gastroesophageal reflux disease without esophagitis Esophageal reflux Epigastric pain Abdominal pain, epigastric documented in this encounter Care Teams Slat Basket Maker Helper Relationship Specialty Start Date End Date Jatinder Douglas MD [address] [place] [address] [place] [phone] PCP - General Family Medicine 11/19/16 documented as of this encounter
--- OUTSIDE RECORDS SUMMARY | 2023-08-18 03:24 | External Medical Summary | Summary of Care ---
Author Name Unknown Organization [facility] Address [address] [facility] [place] [address] Phone [phone] Care Team Providers Care Product Development Engineer Name Role Phone Jatinder Low MD Primary Care Provider + [phone] Reason for Visit * Reason Comments eRx-Medication Refill Encounter Details Date Type Department Care Team Description 04/25/2023 Refill Family Medicine [address] [place] [address] Darnell Samuels PA-C [address] [place] [address] [place] [id number] Encounter for long-term (current) use of medications*; Gastroesophageal reflux disease without esophagitis; Epigastric pain Allergies No known active allergiesdocumented as of this encounter (statuses as of 04/26/2023) Medications Medication Sig Dispensed Refills Start Date [...] IN THE MORNING 90 Tablet 1 04/26/2023 Active Pantoprazole Sodium 40 MG Oral Tablet Delayed Release (Protonix)Indicat ions:Gastroesopha geal reflux disease without esophagitis,Epiga stric pain TAKE ONE TABLET BY MOUTH IN THE MORNING 90 Tablet 1 10/29/2022 04/26/2023 Discontinued documented as of this encounter (statuses as of 04/26/2023) Active Problems Problem Noted Date HTN, goal below 140/90 02/24/2023 Dizziness 02/24/2023 Atrioventricular block, Mobitz type 1, W enckebach 02/24/2023 Syncope 02/24/2023 Palpitations 02/24/2023 Gastroesophageal reflux disease without esophagitis 11/29/2017 Raynaud's phenomenon without gangrene documented as of this encounter (statuses as of 04/26/2023) Resolved Problems Problem Noted Date Resolved Date Routine child health exam 04/18/20022016 documented as of this encounter (statuses as of 04/26/2023) Immunizations Name Administration Dates Next Due Seasonal Influenza, PF, 6 mo ns & Above, IM , (Flulaval) 05/28/2022,04/29/2020,04/27/2019 TDAP (age 11 and older)(Adacel) 02/06/2016 [...] encounter Miscellaneous Notes * Telephone Encounter - Linnette Weeks [facility] - 04/26/2023 11:45 AM EDTSigned Prescriptions: Disp Refills Pantoprazole Sodium 40 MG Oral Tablet Jessica*90 Tab*1 Sig: TAKE ONE TABLET BY MOUTH IN THE MORNINGAuthorizing Provider: DARNELL SAMUELS User: LINNETTE WEEKS N * Telephone Encounter - Linnette Weeks [facility] - 04/26/2023 11:44 AM EDT Per refill protocol patient needs magnesium and vitamin B-12 labs on file within the past 2 years while using PPIs. Lab work ordered. Patient may obtain with next routine labs. Thanks, Linnette Weeks Clinical Pharmacist [facility] ([facility]) (Formerly Telepharmacy) [phone] 04/26/2023, 11:44 AM documented in this encounter Plan of Treatment Scheduled Orders Name Type Priority Associated Diagnoses Orde r Schedule MAGNESIUM Lab Routine Encounter for long-term (current) use of medications Expected: 05/03/2023 (Approximate), Expires: 04/26/2024 VITAMIN B12 Lab Routine Encounter for long-term (current) use of medications Expected: 05/03/2023 (Approximate), Expires: 04/26/2024 Health Maintenance Due Date Last Done Comments [...] as of this encounter Visit Diagnoses Diagnosis Encounter for long-term (current) use of medications- Primary Encounter for long-term (current) use of other medications Gastroesophageal reflux disease without esophagitis Esophageal reflux Epigastric pain Abdominal pain, epigastric documented in this encounter Care Teams Product Development Engineer Relationship Specialty Start Date End Date Jatinder Low MD [address] [place] [address] [place] [address] PCP - General Family Medicine 11/19/16 documented as of this encounter
--- OUTSIDE RECORDS SUMMARY | 2023-08-18 03:24 | External Medical Summary | Summary of Care ---
Author Name Unknown Organization [facility] Address [address] [facility] [place] [address] Phone [phone] Care Team Providers Care Brown Sourer Name Role Phone Jatinder Low MD Primary Care Provider + [phone] Reason for Referral * Precert (Within 10 days (routine)) - Pending Review Specialty Diagnoses / Procedures Referred By Contac t Referred To Contact Cardiac Studies Diagnoses Palpitations Syncope, unspecified syncope type Procedures ECHO, COMPLETE (2D), TRANS-THORACIC Angel Sadler PA-C [address] [place] [address] Referral ID Status Reason Start Date Expiration Date Visits Requested Visits Authorized [id number] Pending Review Precert 03/02/[phone] Reason for Visit * Reason Comments New Consultation Zio showed Wenckebac h 2nd degree AV block. Dizziness when bending over or standing up for few seconds and will become nausea and have SOB along with heart burn. Palpitations ongoing. Diaphoretic very easily and will have cold sweats at nights. 2 episodes of syncope in the last month- does not believe he was unconscious long. * Evaluate & Treat - Unlimited Visits (Within 10 days (routine)) - Pending Review Specialty Diagnoses / Procedures Referred By Contact Referred To Contact Cardiovascular Medicine / Cardiology Diagnoses Wenckebach second degree AV block Moni Fleming PA-C [address] [place] [address] [place] [address] Referral ID Status Reason Start Date Expiration Date Visits Requested Visits Authorized [id number] Pending Review Specialty Services Required 01/21/[phone] Encounter Details Date Type Department Care Team Description 02/24/2023 Office Visit Cardiology, [facility] [address] [place] [address] Angel Sadler PA-C [address] [place] [address] Atrioventricular block, Mobitz type 1, Wenckebach*; Palpitations; Syncope, unspecified syncope type; Dizziness; HTN, goal below 140/90 Allergies No known active allergiesdocumented as of this encounter (statuses as of 02/24/2023) Medications Medication Sig Dispensed Refills Start Date [...] as of this encounter (statuses as of 02/24/2023) Active Problems Problem Noted Date HTN, goal below 140/90 02/24/2023 Dizziness 02/24/2023 Atrioventricular block, Mobitz type 1, W enckebach 02/24/2023 Syncope 02/24/2023 Palpitations 02/24/2023 Gastroesophageal reflux disease without esophagitis 11/29/2017 Raynaud's phenomenon without gangrene documented as of this encounter (statuses as of 02/24/2023) Resolved Problems Problem Noted Date Resolved Date Routine child health exam 04/18/20022016 documented as of this encounter (statuses as of 02/24/2023) Immunizations Name Administration Dates Next Due Seasonal Influenza, Quadriva lent, No Preserve, 6 Mons & Above, IM 05/28/2022,04/29/2020,04/27/2019 TDAP (age 11 and older)(Adacel) 02/06/2016 documented as of this encounter Social History Tobacco Use Types Packs/Day Years Used Date Smoking Tobacco: Every Day Cigarettes 0.1 14 Started: 2002 Smokeless Tobacco: Current Chew Tobacco Cessation:Ready to Q uit: Not Asked; Counseling Given: Not Answered Comments:2-3 cigarettes a day as of 02/24/23. No chew in the [...] on file documented as of this encounter Last Filed Vital Signs Vital Sign Reading Time Taken Comments Blood Pressure 128/86 02/24/2023 11:24 AM EDT Pulse 108 02/24/2023 11:24 AM EDT Temperature - - Respiratory Rate 15 02/24/2023 11:24 AM EDT Oxygen Saturation - - Inhaled Oxygen Concentration - - Weight 76.9 kg (169 lb 8 oz) 02/24/2023 11:24 AM EDT Height - - Body Mass Index 21.19 05/28/2022 1:19 PM EDT documented in this encounter Progress Notes * Angel Sadler PA-C - 02/24/2023 11:28 AM EDT Date of Service: February 24, 2023 Cardiology Consultation Reason for Consultation: Luna Mathew History of Present Illness: Jimmy Yu is a 37 year old male who follows with Ms. Cinthya Ramirez, Family Nurse Practitioner, [facility] ([phone]) and Dr. Jatinder Low MD/Moni Fleming PA-C Ppioid use disorder, prescribed Buprenorphine (Subutex), He notes having high blood pressure the last 1.5 to 2 years. Approximately 4 months ago he was prescribed clonidine for the hypertension and anxiety that was associated with his recent divorce. Over the last 3 months or so he is had intermittent symptoms that he believes are side effects of clonidine. He describes getting winded, feeling asthough he is breathing through a blanket from time to time, feeling his heart is hitting hard against the chest. He notes experiencing dizziness with positional change as well as significant diaphoresis with simple activities. Notes occasionally missing clonidine, missing said medication x 3 days last week. He describes two episodes of syncope, one occurring approximately one month ago and one two weeks ago that was witnessed by his friend who was present for today's consultation. He notes sleeping in a recliner, getting up promptly to go to the bathroom and developing significant dizziness, having to hang on to the fall before finding himself on the floor. No prior cardiac history. Past Medical History: Opioid use disorder, on Subutex History of MRSA, prior chest abscess, right lower leg wound GERD Raynauds phenomenon Past Medical History: Diagnosis Date Acute pancreatitis 03/20/2020 [facility] History of drug abuse (HCC) on Subutex Idiopathic acute pancreatitis without infection or necrosis 09/24/2021 CT showed no necrosis, lipase 770, refused admission Raynaud's phenomenon without gangrene 11/19/2016 Screening for HIV without presence of risk factors 11/19/2016 negative Past Surgical History: Procedure Laterality Date EGD, FLEXIBLE, DIAGNOSTIC 09/24/2020 reflux esophagitis / ESOPHAGOGASTRODUODENOSCOPY (EGD), FLEXIBLE, TRANSORAL, DIAGNOSTIC performed byNika Langford DO at [facility] EGD, W/ENDOSCOPIC US 09/24/2020 fatty liver / ESOPHAGOGASTRODUODENOSCOPY (EGD), FLEXIBLE, TRANSORAL, ENDOSCOPIC ULTRASOUND performed by Nika Langford DO at [facility] FLUORO UPPER GI WITHOUT AIR WO KUB 08/22/2017 minimal GE reflux, no ulcer or scarring LAPAROSCOPY; CHOLECYSTECTOMY Family History: Mother without cardiac history, committed suicide. Father is alive without cardiac issues. Three brothers without cardiac issues. Paternal grandfather recently passed with a ? PE Social History: Smoker , 1/2 pack per day. + Chew. No significant alcohol use. Ten year history of heroin use, clean x1.5 years. One year history of methamphetamine use, last 1.5 years ago. Recently . 16-year-old daughter. Lives in [facility] [place] to [place] [employer]. Works at [employer] Review of Systems is as stated above, negative, or noncontributory. Review of patient's allergies indicates: No Known Allergies Current Outpatient Medications Medication Sig Dispense Refill buprenorphine HCl (SUBUTEX) 8 MG Sublingual tablet Pantoprazole Sodium 40 MG Oral Tablet Delayed Release (Protonix) TAKE ONE TABLET BY MOUTH IN THE MORNING 90 Tablet 1 cloNIDine HCl 0.1 MG Oral Tablet (Catapres) Take 1 Tablet by mouth in the morning and 1 Tablet before bedtime. 60 Tablet 5 No current facility-administered medications for this visit. OBJECTIVE/PHYSICAL EXAMINATION: BP 128/86 | Pulse 108 | Resp 15 | Wt 76.9 kg (169 lb 8 oz) | BMI 21.19 kg/m | BSA 2.02 m General: Alert and no distress Skin: No rash Eyes: PER. Conjunctiva pink, sclera clear. HENT: Normocephalic. Atraumatic. Neck: No carotid bruits. No JVD. Heart: Regular 100 bpm. No murmur. No rub. No gallop. PMI is nondisplaced. Lungs: Clear to auscultation Abdomen: +BS. Extremities: No clubbing, cyanosis, or edema. Pulses: Posterior tibial=2/4. Limited neurological examination: No focal deficit. Data Reviewed: January 04, 2023 EKG: Normal sinus rhythm. Possible left atrial enlargement. QTc 443 ms. December 2022 Zio Monitor: Duration: 8 days, 11 hours. Patient had a min HR of 28 bpm, max HR of 177 bpm, and avg HR of 78 bpm. Predominant underlying rhythm was Sinus Rhythm. Second Degree AV Block-Mobitz I (Wenckebach) was present. Isolated SVEs were rare (<1.0%), and no SVE Couplets or SVE Triplets were present. Isolated VEs were rare (<1.0%), VE Couplets were rare (<1.0%), and no VE Triple ts were present. Ventricular Trigeminy was present. Symptoms correlate with normal sinus rhythm, and sinus tachycardia. Laboratory work from January 10, 2023 reviewed and discussed today. TSH normal. CBC within normal limits, H&H 15.3 and 43.7. White blood cell count normal, 4.24. Platelet count 220 K. basic metabolicpanel demonstrated the following: BUN low at 4. Creatinine normal at 0 point 7. Sodium normal 139. Potassium normal 4.0. Chloride normal at 98. Anion gap elevated at 18. Glucose elevated at 149. Calci um normal at 9.9. ASSESSMENT: 1. Palpitations occurring in association with sinus rhythm as well as sinus tachycardia via December 2022 Zio monitor. 2. Asymptomatic second-degree AV block type 1, Wenckebach via December 2022 Zio Monitor. 3. Suspected adverse reactions/side effects of buprenorphine (Subutex) and/or clonidine RECOMMENDATIONS/PLAN: Recommend follow-up with Subutex provider, Cinthya Ramirez. Consider alternative medical treatment. Recommend referral for resting echocardiography to evaluate the heart structurally. No indication for permanent pacemaker implantation. Mr. Yu states that he understands the proposed plan and verbally consents. Patient advised to call with any questions, concerns, comments, etc. Cardiac follow-up with the results of the echocardiogram or as needed. ER with emergencies. Angel Sadler PA-C Department of Cardiology documented in this encounter Nursing Notes * Anderson Adkins LPN - 02/24/2023 11:23 AM EDT Patient identified by full name and date of Chief Complaint Patient presents with New Consultation Zio showed Wenckebach 2nd degree AV block. Dizziness when bending over or standing up for few seconds and will become nausea and have SOB along with heart burn. Palpitations ongoing. Diaphoretic veryeasily and will have cold sweats at nights. 2 episodes of syncope in the last month- does not believe he was unconscious long. Examination Room: 2 Name: Jimmy Yu Date of : (1985). Reason for Visit: New Patient Interim Hospitalization(s): Denies Problems/Concerns: See chief complaint Chest Pain/SOB: See chief complaint [facility] Discussed: Not applicable [facility] is a way you can talk to your provider online through e-mail. Would you like to sign up? I can activate it for you? ALREADY ACTIVE Patient was instructed to not get up on the exam table until directed and assisted by their provider; patient is to remain seated in the chair/ wheelchair/ exam table for fall prevention and safety reasons. Patient is aware to have assistance to step down off exam table with personnel. Patient voiced full comprehension of instructions. documented in this encounter Plan of Treatment Upcoming Encounters Date Type Specialty Care Team Description 03/10/2023 Cardiac Studies Cardiac Studies Scheduled Orders Name Type Priority Associated Diagnoses Orde r Schedule ECHO, COMPLETE (2D), TRANS-THORACIC Echocardiology Routine Palpitations Syncope, unspecified syncope type Expected: 03/02/2023, Expires: 02/24/2024 Health Maintenance Due Date Last Done Comments [...] as of this encounter Visit Diagnoses Diagnosis Atrioventricular block, Mobitz type 1, Wenckebach- Primary Other second degree atrioventricular block Palpitations Syncope, unspecified syncope type Dizziness Dizziness and giddiness HTN, goal below 140/90 Unspecified essential hypertension documented in this encounter Care Teams Brown Sourer Relationship Specialty Start Date End Date Jatinder Low MD [address] [place] [address] [place] [address] PCP - General Family Medicine 11/19/16 documented as of this encounter"
[2023-08-18] MEDS ORDERED: LORazepam 1 MG in SYRINGE 0.5 ML IV PRN (03:58)
[2023-08-18] MEDS ORDERED: ACETAMINOPHEN 325 MG TAB PO PRN (04:07)
[2023-08-18] MEDS ORDERED: PROMETHAZINE HCL 6.25 MG in SODIUM CHLORIDE 0.9% 50 ML IV PRN (04:07)
[2023-08-18] MEDS: MAGNESIUM SULFATE / D5W 1 GM/100 ML BAG IV SCH (04:29)
[2023-08-18] MEDS: ALBUMIN 25% 25 GM/100 ML VIAL IV SCH ×2 (05:40→18:37)
[2023-08-18] MEDS ORDERED: MAGNESIUM SULFATE 1GM / D5W BAG IV ONE ×2 (07:59→11:18)
[2023-08-18 09:26] LABS: Amphetamines+Metham, Urine Neg (Neg); Barbiturates, Urine Neg (Neg); Benzodiazepine, Urine Neg (Neg); Cocaine, Urine Neg (Neg); MDMA (Ecstacy), Urine Neg (Neg); Marijuana, Urine Neg (Neg); Methadone, Urine Neg (Neg); Opiate, Urine Neg (Neg); Phencyclidine, Urine Neg (Neg)
[2023-08-18 10:26] LABS: Basophils # (auto) 0.01 K/uL (0.00-0.20); Basophils % (auto) 0.1 %; Eosinophils # (auto) 0.04 K/uL (0.00-0.50); Eosinophils % (auto) 0.5 %; Hematocrit (blood only) 24.6 % (42.0-52.0); Hemoglobin 9.3 g/dl (14.0-18.0); Immature Granulocytes # (auto) 0.09 K/uL (0.01-0.20); Immature Granulocytes % (auto) 1.1 %; Lymphocytes # (auto) 0.74 K/uL (1.20-3.40); Lymphocytes % (auto) 9.1 %; Mean Corpuscular Hemoglobin 39.6 pg (25.0-34.0); Mean Corpuscular Hgb Conc 37.8 g/dL (32.0-36.0); Mean Corpuscular Volume 104.7 fL (80.0-100.0); Mean Platelet Volume 9.3 fL (9.4-12.4); Monocytes # (auto) 0.62 K/uL (0.11-0.59); Monocytes % (auto) 7.7 %; Neutrophils # (auto) 6.59 K/uL (1.40-6.50); Neutrophils % (auto) 81.5 %; Platelet Count 133 K/uL (130-400); RDW Coefficient of Variation 16.3 % (11.5-14.5); RDW Standard Deviation 61.5 fL (36.4-46.3); Red Blood Count 2.35 M/uL (4.70-6.10); White Blood Count 8.09 K/ul (4.8-10.8)
[2023-08-18] MEDS ORDERED: AcetylCYSTEINE IV 21 HR REGIMEN (>40KG) IV STA (10:29)
[2023-08-18] MEDS ORDERED: STAT IV/IM STA (10:29)
[2023-08-18] MEDS: FOLIC ACID 1 MG TAB PO SCH (10:34)
[2023-08-18] MEDS: MULTIVITAMIN TAB PO SCH (10:34)
[2023-08-18] MEDS: PANTOprazole 40 MG TAB PO SCH (10:34)
[2023-08-18] MEDS ORDERED: DEXTROSE 5% IV STA (10:35)
[2023-08-18] MEDS ORDERED: ACETYLCYSTEINE IV STA (10:35)
--- NOTE | 2023-08-18 10:37 | Gastrointestinal Consultation ---
Date of Consultation August 18, 2023 Assessment & Plan (1) Alcohol abuse: (2) Acute liver failure: Pt is a 37 yo male presented w weakness, jaundice, noted to have markedly elevated LFTs & lipase. Hx of HCV infection (treated) ETOH abuse, pancreatitis. DDx: DILI (recent amoxicillin use), ETOH hepatitis, viral hepatitis. MELD 35 (using Cr from 01/2023 of 0.6) Maddrey Discriminant Function Score 34.5 - Electrolyte correction per primary team - Trend LFTs; F/U urine and blood cultures - Serologies to r/o acute hepatitis a/b/e, HCV RNA, AIH serologies, EBV/HSV/CMV/Parvo serologies - Recommend transfer to tertiary care center for liver transplant eval, however pt refuses - N-Acytelcysteine 21 hr protocol - Prednisolone 40mg daily - Diet as tolerated - Strict ETOH cessation recommended - No APAP >2 a day if needed; avoid hepatotoxic med Supervising Physician Co-Signing Physician Notes I saw and evaluated the patient, he had previously been seen by our service several years ago and was found to have complications related to alcoholic liver disease in addition to longstanding drug abuse. The patient has not yet attended a treatment program and is continue to drink alcohol. His present MELD score is quite elevated at approximately 35 high mortality of up to 66% at 90 days. Given this I wonder if the patient would be best served with referral to a center with transplant capabilities. As there does not appear to be evidence of an infection at the present time we are recommending a course of prednisolone for 4 weeks for treatment of alcoholic hepatitis as he does have a significant elevation of his MADDREY score (35) Recomendations referral to a transplant center low sodium diet (< 2gm) thiamine / folate replacment Monitor electrolytes (Na, Mg, Phos) watch for withdrawl viral serologies (HAV, HBV, HCV RNA, CMV, EBV and HEV) Begin Prednisolone and NAC as above History of Present Illness Reason for Consultation: Liver Failure Requesting Physician: Dr. Shira Jeffery Attending Physician: Dr. Nika Langford History of Present Illness Patient is a 37 years old male with history of AV block type I, atrial septum aneurysm, HCV s/p treatment, chronic pain on Suboxone, GERD, history of IV drug use, alcoholic pancreatitis with confinement back in March 2020, alcohol and tobacco abuse who presented to the ED with complaints of worsening weakness and jaundice for the past 2 weeks. Denies any fevers but has had sore throat, sinus congestion, reportedly given amoxicillin few weeks ago for URI symptoms. Denies any chest pain or shortness of breath. Feels that his abdomen is distended but no pain. Did have some nausea with bilious emesis without any hematemesis or coffee-ground emesis. Bowel movements nonbloody nor having any black tarry stools. Patient reports that he went through a divorce couple years ago and started drinking alcohol. Last alcohol intake was a few days ago. On evaluation here he was noted to be anemic, with macrocytosis, no thrombocytopeni a, he was coagulopathic with INR 6.2. He has hyponatremia with sodium of 127 and hypokalemia with potassium 3.9. BUN normal but creatinine unable to be performed due to jaundice sample. Lipase elevated at 770. LFTs elevated with T. bili of 34.5, AST 404, ALT 135, alkaline phosphatase not able to be performed due to jaundice sample. CT abd/pelvis w contrast: 1. The pancreas is diffusely atrophic in appearance when compared to theprevious examination. Questionable subtle fat stranding noted about the head of the pancreas. No abnormal mass or ductal dilation. 2. The stomach is decompressed. No bowel obstruction. Mucosal prominence of jejunal loops is new from the previous exam. No pneumoperitoneum. 3. Progressive, slightly variable, hepatic steatosis involving the liver which is larger in size. 4. Mild free fluid noted in the dependent pelvis. No loculation. This may represent reactive changes from the small bowel process or represent new small volume ascites from the progressive hepatic changes. MELD: 21 (using previous Cr of 0.6) [facility] Discriminant Function score: 34.5 Allergies Allergy/AdvReac Type Severity Reaction Status Date / Time carvedilol AdvReac Intermediate "MADE ME Verified 08/17/23 21:50 REALLY SICK". Home Medications Medication Instructions Recorded Confirmed Type pantoprazole 40 mg tablet,delayed 40 mg PO QAM 05/13/20 08/17/23 History release buprenorphine HCl 8 mg sublingual 2 mg sublingual DAILY 09/24/21 08/17/23 History tablet Patient History Medical History GERD (gastroesophageal reflux disease) Hx of intravenous drug use, 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 drugs and in remission and on program Surgical History No history of previous surgery Family History Other Family history non-contributory Social History Smoking Status: Current every day smoker Tobacco Type: Cigarettes Cigarettes Per Day: 6-10 cig a day; Second Hand Exposure: No; Do You Dip or Chew Tobacco: Yes (advised); Hx Alcohol Use: No (quit) Hx Substance Use: Yes Last Used Substance Other:: over 10 years ago and no longer a problem follow with program Preferred Language: Belgian Communication Ability: Effective Electronic Health Records Specialist Required: No Beliefs That Will Affect Care: None Current Living Situation: Spouse Feels Safe at Home: Yes Assistive Devices: None Review of Systems Review of Systems: All systems reviewed & are unremarkable except as noted in HPI & below Physical Exam Constitutional: WD/WN, vitals as above well groomed, cooperative and comfortable Eyes: PERRL, conjunctivae normal, anicteric sclerae ENMT: external ear and nose normal, oropharynx normal (icteric sclera ) Respiratory: normal respiratory effort, lungs clear to auscultation Cardiovascular: RRR, no murmur, no edema Gastrointestinal (Abdomen): normal bowel sounds, soft, nontender, no hepatosplenomegaly Skin: no rashes, warm and dry + jaundice Neurologic: Motor/Sensory: + tremor Psychiatric: A+Ox3, euthymic affect Lymphatic: no lymphedema Results & Data Vital Signs (Past 12 Hours) Vital Signs Pulse Pulse Resp BP BP Pulse Ox Pulse Ox 08/18/23 06:53 84 08/18/23 06:43 82 20 121/67 93 08/18/23 06:00 82 13 95/59 L 08/18/23 06:00 98 08/18/23 05:30 78 16 08/18/23 05:11 84 08/18/23 05:00 82 16 96/58 L 08/18/23 04:30 84 13 108/67 96 08/18/23 04:00 83 12 107/65 97 08/18/23 03:43 97 H 16 97 08/18/23 03:00 81 12 08/18/23 03:00 98 08/18/23 02:30 86 12 96/63 L 08/18/23 02:00 90 23 102/62 98 08/18/23 01:30 85 14 108/74 08/18/23 01:11 89 08/18/23 01:00 90 13 114/76 08/18/23 00:30 82 15 101/67 08/18/23 00:00 84 13 103/71 99 08/17/23 23:43 82 15 124/77 08/17/23 23:00 83 15 100 O2 Del Method O2 Del Method 08/18/23 06:53 08/18/23 06:43 Room Air 08/18/23 06:00 08/18/23 06:00 Room Air 08/18/23 05:30 08/18/23 05:11 08/18/23 05:00 08/18/23 04:30 Room Air 08/18/23 04:00 Room Air 08/18/23 03:43 Room Air 08/18/23 03:00 08/18/23 03:00 Room Air 08/18/23 02:30 08/18/23 02:00 Room Air 08/18/23 01:30 08/18/23 01:11 08/18/23 01:00 08/18/23 00:30 08/18/23 00:00 Room Air 08/17/23 23:43 08/17/23 23:00 Room Air (2) Acute liver failure Hepatic coma status: without hepatic coma Qualified Code(s): K72.00 - Acute and subacute hepatic failure without coma
[2023-08-18 10:57] LABS: Prothrombin Time 30.3 Seconds (9.0-12.0)
[2023-08-18] MEDS: LACTATED RINGER'S 1,000 ML IV SCH ×3 (11:22→18:45)
[2023-08-18 11:31] LABS: Blood Urea Nitrogen 3 mg/dl (6-23)
[2023-08-18 11:32] LABS: Alkaline Phosphatase 233 U/L (34-104)
[2023-08-18 11:34] LABS: Magnesium 2.4 mg/dl (1.7-2.4)
[2023-08-18 11:40] LABS: Alanine Aminotransferase 94 U/L (7-52); Albumin Globulin Ratio 1.1 (0.9-2); Albumin Level 3.1 gm/dl (3.4-5.0); Anion Gap 12 (3-11); Aspartate Aminotransferase 262 U/L (13-39); Calcium 7.7 mg/dl (8.6-10.3); Carbon Dioxide 26 mmol/L (21-32); Chloride 91 mmol/L (98-107); Globulin 2.8 gm/dl (2.5-4.0); Glucose 148 mg/dl (70-99(Fasting)); Potassium 2.5 mmol/L (3.5-5.1); Sodium 129 mmol/L (136-145); Total Protein 5.9 gm/dl (6.0-8.3)
[2023-08-18] MEDS ORDERED: ACETYLCYSTEINE IV ONE ×2 (11:45→15:45)
[2023-08-18] MEDS ORDERED: DEXTROSE 5% IV ONE ×2 (11:45→15:45)
[2023-08-18] MEDS: prednisoLONE sod phosphate 15 MG/5 ML PO SCH (11:54)
--- NOTE | 2023-08-18 12:41 | Electrocardiogram Report ---
Test Reason : Blood Pressure : / mmHG Vent. Rate : 114 BPM Atrial Rate : 114 BPM P-R Int : 140 ms QRS Dur : 086 ms QT Int : 360 ms P-R-T Axes : 055 037 013 degrees QTc Int : 496 ms Sinus tachycardia Left atrial enlargement Diffuse Minor Nonspecific T wave abnormality Abnormal ECG No previous ECGs available Confirmed by Wojciech Brizuela ([id number]) on 08/18/2023 12:41:02 PM Referred By: REFERRED SELF Confirmed By:Wojciech Brizuela
[2023-08-18] MEDS: buprenorphine HCL 2 MG SUBL SL SCH (13:34)
[2023-08-18] MEDS ORDERED: PNEUMOCOCCAL VACCINE (PCV20) 20-VAL CONJ-DIP CRM/PF 0.5 ML SYR IM ONE (17:37)
[2023-08-18] MEDS ORDERED: POTASSIUM CHLORIDE CRTAB 20 MEQ TABCR PO STA (17:59)
--- NOTE | 2023-08-18 18:12 | Communication Note ---
Date of Service: August 18, 2023 Pt was seen in the early AM. Was sitting at the foot of the bed. At first stating that he did not want to be transferred but upon being advised that it was being recommended as the services he needed for definitive management were not in house, he was agreeable. Replete electrolytes especially potassium. Repeat CMP ordered for midnight. Repeat lactate ordered, mag and phos, will follow. Currently on LR, NAC and steroids started by GI, appreciate recs. Awaiting transfer. For further details, please see H & P from the same date.
[2023-08-18] MEDS ORDERED: LACTATED RINGER'S 1,000 ML IV SCH (18:15)
[2023-08-18 20:19] LABS: Magnesium 2.3 mg/dl (1.7-2.4); Phosphorus < 1.0 mg/dl (2.5-4.9)
[2023-08-18] MEDS: POTASSIUM CHLORIDE / WTR 10 MEQ/100 ML PLCT IV SCH ×3 (20:55→23:04)
[2023-08-18] MEDS ORDERED: POTASSIUM PHOSPHATE 40 MMOL in SODIUM CHLORIDE 0.9% 1,000 ML IV ONE (21:15)
[2023-08-19] MEDS: POTASSIUM CHLORIDE / WTR 10 MEQ/100 ML PLCT IV SCH (00:06)
[2023-08-19] MEDS ORDERED: POTASSIUM PHOS 3 MMOL/1 ML INFUSION IV ONE (01:00)
[2023-08-19] MEDS: LACTATED RINGER'S 1,000 ML IV SCH ×2 (01:07→14:03)
[2023-08-19 07:53] LABS: INR 2.2 (0.9-1.1); Prothrombin Time 22.9 Seconds (9.0-12.0)
[2023-08-19 08:50] LABS: Alanine Aminotransferase 75 U/L (7-52); Albumin Globulin Ratio 1.1 (0.9-2); Albumin Level 2.6 gm/dl (3.4-5.0); Anion Gap 9 (3-11); Aspartate Aminotransferase 166 U/L (13-39); Bilirubin,Total 27.7 mg/dl (0.2-1.0); Calcium 7.7 mg/dl (8.6-10.3); Carbon Dioxide 26 mmol/L (21-32); Chloride 101 mmol/L (98-107); Globulin 2.4 gm/dl (2.5-4.0); Glucose 119 mg/dl (70-99(Fasting)); Phosphorus 1.6 mg/dl (2.5-4.9); Potassium 2.9 mmol/L (3.5-5.1); Sodium 136 mmol/L (136-145)
[2023-08-19] MEDS: cefTRIAXone SODIUM 2,000 MG in DEXTROSE 5 % MINI-B 50 ML IV SCH (09:18)
[2023-08-19 09:21] LABS: Basophils # (auto) 0.01 K/uL (0.00-0.20); Basophils % (auto) 0.1 %; Eosinophils # (auto) 0.01 K/uL (0.00-0.50); Eosinophils % (auto) 0.1 %; Hematocrit (blood only) 22.3 % (42.0-52.0); Hemoglobin 8.1 g/dl (14.0-18.0); Immature Granulocytes # (auto) 0.07 K/uL (0.01-0.20); Immature Granulocytes % (auto) 0.9 %; Lymphocytes # (auto) 0.66 K/uL (1.20-3.40); Lymphocytes % (auto) 8.7 %; Mean Corpuscular Hemoglobin 39.5 pg (25.0-34.0); Mean Corpuscular Hgb Conc 36.3 g/dL (32.0-36.0); Mean Corpuscular Volume 108.8 fL (80.0-100.0); Mean Platelet Volume 8.9 fL (9.4-12.4); Monocytes # (auto) 0.67 K/uL (0.11-0.59); Monocytes % (auto) 8.8 %; Neutrophils # (auto) 6.19 K/uL (1.40-6.50); Neutrophils % (auto) 81.4 %; Platelet Count 101 K/uL (130-400); RDW Coefficient of Variation 16.6 % (11.5-14.5); RDW Standard Deviation 65.4 fL (36.4-46.3); Red Blood Count 2.05 M/uL (4.70-6.10); White Blood Count 7.61 K/ul (4.8-10.8)
[2023-08-19] MEDS: THIAMINE HCL 100 MG TAB PO SCH (09:24)
[2023-08-19] MEDS: prednisoLONE sod phosphate 15 MG/5 ML PO SCH (09:24)
[2023-08-19] MEDS: FOLIC ACID 1 MG TAB PO SCH (09:24)
[2023-08-19] MEDS: PANTOprazole 40 MG TAB PO SCH (09:25)
[2023-08-19] MEDS: MULTIVITAMIN TAB PO SCH (09:25)
[2023-08-19] MEDS ORDERED: POTASSIUM CHLORIDE CRTAB 20 MEQ TABCR PO STA ×2 (09:28→18:04)
[2023-08-19] MEDS ORDERED: POTASSIUM PHOS 3 MMOL/1 ML INFUSION IV STA (09:31)
[2023-08-19] MEDS ORDERED: POTASSIUM PHOSPHATE 24 MMOL in SODIUM CHLORIDE 0.9% 500 ML IV ONE (09:45)
--- NOTE | 2023-08-19 09:48 | Gastroenterology Progress Note ---
Date of Service August 19, 2023 Assessment & Plan (1) Alcohol abuse: (2) Acute liver failure: Plan: Pt is a 37 yo male presented w weakness, jaundice, noted to have markedly elevated LFTs & lipase. Hx of HCV infection (treated) ETOH abuse, pancreatitis. DDx: DILI (recent amoxicillin use), ETOH hepatitis, viral hepatitis. MELD 35 (using Cr from 01/2023 of 0.6) Maddrey Discriminant Function Score 34.5 - Electrolyte correction per primary team - Trend LFTs; F/U urine culture - Serologies to r/o acute hepatitis a/b/e, HCV RNA, AIH serologies, EBV/HSV/CMV/Parvo serologies - Recommend transfer to tertiary care center for liver transplant eval, however pt refuses - N-Acytelcysteine 21 hr protocol - Prednisolone 40mg daily ; Calculate Lille score at day 7 - Diet as tolerated - Strict ETOH cessation recommended; would benefit from rehab/counseling program - No APAP >2 a day if needed; avoid hepatotoxic med Admission and Anticipated Discharge Date Admission Date: August 18, 2023 Subjective He denies CP, SOB, abd pain, n/v. Stools loose, but denies any blood Review of Systems Review of Systems: All systems reviewed & are unremarkable except as noted in HPI & below Physical Exam Constitutional: WD/WN, vitals as above well groomed, cooperative and comfortable Eyes: PERRL, conjunctivae normal, anicteric sclerae ENMT: external ear and nose normal, oropharynx normal (icteric sclera ) Respiratory: normal respiratory effort, lungs clear to auscultation Cardiovascular: RRR, no murmur, no edema Gastrointestinal (Abdomen): normal bowel sounds, soft, nontender, no hepatosplenomegaly Skin: no rashes, warm and dry + jaundice Neurologic: Motor/Sensory: + tremor and + asterixis Psychiatric: A+Ox3, euthymic affect Lymphatic: no lymphedema Results & Data Vital Signs (Past 12 Hours) Vital Signs Temp Pulse Pulse Resp BP Pulse Ox O2 Del Method 08/19/23 08:10 36.4 C L 83 18 96/61 L 96 Room Air 08/19/23 06:00 08/19/23 04:02 37.0 C 87 20 131/91 96 Room Air 08/19/23 00:51 74 08/18/23 23:07 36.4 C L 92 H 20 128/89 95 Room Air O2 Del Method 08/19/23 08:10 08/19/23 06:00 Room Air 08/19/23 04:02 08/19/23 00:51 08/18/23 23:07 (2) Acute liver failure Hepatic coma status: without hepatic coma Qualified Code(s): K72.00 - Acute and subacute hepatic failure without coma
[2023-08-19] MEDS: buprenorphine HCL 2 MG SUBL SL SCH (10:21)
[2023-08-19 12:46] LABS: Alanine Aminotransferase 79 U/L (7-52); Albumin Globulin Ratio 1.2 (0.9-2); Albumin Level 2.8 gm/dl (3.4-5.0); Anion Gap 9 (3-11); Aspartate Aminotransferase 170 U/L (13-39); Bilirubin,Total 33.9 mg/dl (0.2-1.0); Calcium 7.7 mg/dl (8.6-10.3); Carbon Dioxide 25 mmol/L (21-32); Chloride 100 mmol/L (98-107); Globulin 2.4 gm/dl (2.5-4.0); Glucose 133 mg/dl (70-99(Fasting)); Potassium 2.8 mmol/L (3.5-5.1); Sodium 134 mmol/L (136-145); Total Protein 5.2 gm/dl (6.0-8.3)
[2023-08-19] MEDS: POT PHOSPHATE MONOBASIC W/ SOD TAB PO SCH ×3 (14:04→19:39)
--- NOTE | 2023-08-19 19:13 | Hospitalist Progress Note ---
Date of Service August 19, 2023 Assessment & Plan (1) Hepatic failure: Plan: Pt is a 37yoM with PMhx significant for second-degree AV block type I (Wenckebach), atrial septal aneurysm, HCV status post Rx, chronic pain on Suboxone, GERD, ongoing alcohol/tobacco abuse, past history IVDU admitted with acute hepatic failure and currently awaiting transfer. Sepsis WBC elevated >12K on admission, tachycardic Chest XRAY with no acute changes CT abd/pelvis with no major acute findings, questionable pancreatic fat stranding UA suggestive of infection, urine Cx with NGTD Blood Cx x 2 with NGTD lactate elevated at 3.5 on admission, remained elevated after multiple attempts at fluid resuscitation SIRS plus lactic acidosis Pt without documented fever, but with abdominal pain, very jaundiced, liver enzymes elevated. Currently on Rocephin, continue Acute hepatic failure Elevated liver enzymes/Transaminitis Pt without documented fever, but with abdominal pain, very jaundiced, liver enzymes elevated. Hx of heavy chronic alcohol use CT abd/pelvis with no major acute findings, questionable pancreatic fat stranding Does not appear to be acute cholangitis at this time, GI consult placed with the following recommendations: "referral to a transplant center low sodium diet (< 2gm) thiamine / folate replacement Monitor electrolytes (Na, Mg, Phos) watch for withdrawal viral serologies (HAV, HBV, HCV RNA, CMV, EBV and HEV) Begin Prednisolone and NAC..." Pt completed 21hr NAC protocol Follow liver enzymes Continue antibiotics C transfer once bed available (Patient accepted for transfer by Dr. Espinoza of Hospitalist service.) Hepatic steatosis, abnormal LFTs, coagulopathy History HCV status post Rx Ongoing alcohol abuse GI followup as above AWSS protocol for withdrawal monitoring and treatment Electrolyte Abnormalities, severe Hypophosphatemia- consistently as low as 1.3. Repleted with daily scheduled phos supplements and IV supplementation Hypokalemia- repleted with daily scheduled po potassium supplements and IV supplementation Hyponatremia- currently within normal limits after fluid resuscitation Hx of IV Drug Use Chronic Pain On suboxone Pt states he has been weaning himself down, currently wants only 1mg New onset anemia Thrombocytopenia Hgb 11.4 on admission patient denies overt GI/ bleed symptoms, FOBT done at the ER was negative. Macrocytosis noted- folate level decreased on supplementation B12 currently oversupplemented Low blood counts likely in setting of chronic alcohol use hx second-degree AV block type I (Wenckebach) EKG with sinus tachycardia hs-trop of 9.5, within normal limits Continue telemetry monitoring Consider Cardiology followup if changes GERD Continue home ppi Diet: Clear liquid, low sodium DVT prophylaxis: SCDs Re: Coagulopathy CODE STATUS: Full code [place] [facility] [place] [facility] [place] friend requesting updates from providers. Ms. Rosalia Elliott, contact #[phone]. Admission and Anticipated Discharge Date Admission Date: August 18, 2023 Subjective Pt was seen with friend at bedside. Denied acute concerns. Review of Systems Review of Systems: All systems reviewed & are unremarkable except as noted in Subjective Physical Exam Physical Exam: General: Alert, oriented. Jaundiced Skin: Jaundiced skin Psych: Appropriate mood and affect Neuro: No gross deficits HEENT: jaundiced head and neck, scleral icterus CV: RRR Resp: Breath sounds clear bilaterally, no increased effort of breathing. Abdomen: Soft, nontender Extremities: edema in lower extremities bilaterally. Results & Data Results & Data Vital Signs (Past 12 Hours) Vital Signs Temp Pulse Pulse Resp BP Pulse Ox O2 Del Method 08/19/23 12:15 36.5 C 80 18 110/75 97 Room Air 08/19/23 10:53 74 08/19/23 08:10 36.4 C L 83 18 96/61 L 96 Room Air 08/19/23 06:00 08/19/23 04:02 37.0 C 87 20 131/91 96 Room Air O2 Del Method 08/19/23 12:15 08/19/23 10:53 08/19/23 08:10 08/19/23 06:00 Room Air 08/19/23 04:02
[2023-08-19] MEDS: NSS + 20MEQ KCL 20 MEQ/1,000 ML BAG IV SCH (19:34)
[2023-08-19] MEDS: POTASSIUM CHLORIDE CRTAB 20 MEQ TABCR PO SCH (20:20)
[2023-08-20] MEDS: NSS + 20MEQ KCL 20 MEQ/1,000 ML BAG IV SCH ×4 (01:50→20:45)
[2023-08-20] MEDS: cefTRIAXone SODIUM 2,000 MG in DEXTROSE 5 % MINI-B 50 ML IV SCH (04:49)
[2023-08-20 05:37] LABS: Basophils # (auto) 0.01 K/uL (0.00-0.20); Basophils % (auto) 0.1 %; Eosinophils # (auto) 0.01 K/uL (0.00-0.50); Eosinophils % (auto) 0.1 %; Hematocrit (blood only) 21.9 % (42.0-52.0); Hemoglobin 7.8 g/dl (14.0-18.0); Immature Granulocytes % (auto) 1.2 %; Lymphocytes # (auto) 0.67 K/uL (1.20-3.40); Mean Corpuscular Hemoglobin 40.2 pg (25.0-34.0); Mean Corpuscular Hgb Conc 35.6 g/dL (32.0-36.0); Mean Corpuscular Volume 112.9 fL (80.0-100.0); Mean Platelet Volume 9.4 fL (9.4-12.4); Monocytes # (auto) 0.75 K/uL (0.11-0.59); Neutrophils # (auto) 6.79 K/uL (1.40-6.50); Neutrophils % (auto) 81.6 %; Platelet Count 104 K/uL (130-400); RDW Coefficient of Variation 17.2 % (11.5-14.5); RDW Standard Deviation 70.4 fL (36.4-46.3); Red Blood Count 1.94 M/uL (4.70-6.10); White Blood Count 8.33 K/ul (4.8-10.8)
[2023-08-20 06:07] LABS: Alanine Aminotransferase 72 U/L (7-52); Anion Gap 8 (3-11); Aspartate Aminotransferase 139 U/L (13-39); Calcium 7.6 mg/dl (8.6-10.3); Carbon Dioxide 22 mmol/L (21-32); Chloride 109 mmol/L (98-107); Glucose 81 mg/dl (70-99(Fasting)); Potassium 3.3 mmol/L (3.5-5.1); Prothrombin Time 20.7 Seconds (9.0-12.0); Sodium 139 mmol/L (136-145)
[2023-08-20 06:08] LABS: Albumin Level 2.4 gm/dl (3.4-5.0); Bilirubin,Total 26.9 mg/dl (0.2-1.0); Globulin 2.3 gm/dl (2.5-4.0); Total Protein 4.7 gm/dl (6.0-8.3)
[2023-08-20 06:09] LABS: Phosphorus 1.3 mg/dl (2.5-4.9); Target Cells 1+
[2023-08-20 06:10] LABS: Alkaline Phosphatase 162 U/L (34-104); Magnesium 1.7 mg/dl (1.7-2.4)
[2023-08-20] MEDS ORDERED: POTASSIUM PHOS 3 MMOL/1 ML INFUSION IV STA (06:25)
[2023-08-20] MEDS ORDERED: POTASSIUM CHLORIDE PWD 20 MEQ PACK PO STA (06:26)
[2023-08-20] MEDS ORDERED: POTASSIUM PHOSPHATE 30 MMOL in SODIUM CHLORIDE 0.9% 500 ML IV ONE (06:45)
[2023-08-20] MEDS: buprenorphine HCL 2 MG SUBL SL SCH (08:50)
[2023-08-20] MEDS: POT PHOSPHATE MONOBASIC W/ SOD TAB PO SCH ×4 (08:51→19:58)
[2023-08-20] MEDS: POTASSIUM CHLORIDE CRTAB 20 MEQ TABCR PO SCH ×2 (08:51→19:57)
[2023-08-20] MEDS: THIAMINE HCL 100 MG TAB PO SCH ×2 (08:51→11:41)
[2023-08-20] MEDS: prednisoLONE sod phosphate 15 MG/5 ML PO SCH (08:51)
[2023-08-20] MEDS: MULTIVITAMIN TAB PO SCH (08:51)
[2023-08-20] MEDS: PANTOprazole 40 MG TAB PO SCH (08:51)
[2023-08-20] MEDS: FOLIC ACID 1 MG TAB PO SCH (08:51)
--- NOTE | 2023-08-20 21:35 | Hospitalist Progress Note ---
Date of Service August 20, 2023 Assessment & Plan (1) Hepatic failure: Plan: Pt is a 37yoM with PMhx significant for second-degree AV block type I (Wenckebach), atrial septal aneurysm, HCV status post Rx, chronic pain on Suboxone, GERD, ongoing alcohol/tobacco abuse, past history IVDU admitted with acute hepatic failure and currently awaiting transfer. Sepsis WBC elevated >12K on admission, tachycardic Chest XRAY with no acute changes CT abd/pelvis with no major acute findings, questionable pancreatic fat stranding UA suggestive of infection, urine Cx with NGTD Blood Cx x 2 with NGTD lactate elevated at 3.5 on admission, remained elevated after multiple attempts at fluid resuscitation SIRS plus lactic acidosis Pt without documented fever, but with abdominal pain, very jaundiced, liver enzymes elevated. Currently on Rocephin, continue Acute hepatic failure Elevated liver enzymes/Transaminitis Pt without documented fever, but with abdominal pain, very jaundiced, liver enzymes elevated. Hx of heavy chronic alcohol use CT abd/pelvis with no major acute findings, questionable pancreatic fat stranding Does not appear to be acute cholangitis at this time, GI consult placed with the following recommendations: "referral to a transplant center low sodium diet (< 2gm) thiamine / folate replacement Monitor electrolytes (Na, Mg, Phos) watch for withdrawal viral serologies (HAV, HBV, HCV RNA, CMV, EBV and HEV) Begin Prednisolone and NAC..." Pt completed 21hr NAC protocol Follow liver enzymes Continue antibiotics C transfer once bed available (Patient accepted for transfer by Dr. Espinoza of Hospitalist service.) Hepatic steatosis, abnormal LFTs, coagulopathy History HCV status post Rx Ongoing alcohol abuse GI followup as above AWSS protocol for withdrawal monitoring and treatment Electrolyte Abnormalities, severe Hypophosphatemia- consistently as low as 1.3. Repleted with daily scheduled phos supplements and IV supplementation Hypokalemia- repleted with daily scheduled po potassium supplements and IV supplementation Hyponatremia- currently within normal limits after fluid resuscitation Hx of IV Drug Use Chronic Pain On suboxone Pt states he has been weaning himself down, currently wants only 1mg New onset anemia Thrombocytopenia Hgb 11.4 on admission patient denies overt GI/ bleed symptoms, FOBT done at the ER was negative. Macrocytosis noted- folate level decreased on supplementation B12 currently oversupplemented Low blood counts likely in setting of chronic alcohol use hx second-degree AV block type I (Wenckebach) EKG with sinus tachycardia hs-trop of 9.5, within normal limits Continue telemetry monitoring Consider Cardiology followup if changes GERD Continue home ppi Diet: Clear liquid, low sodium DVT prophylaxis: SCDs Re: Coagulopathy CODE STATUS: Full code [place] [facility] [place] requesting updates from providers. Ms. Rosalia Elliott, contact #[phone]. Admission and Anticipated Discharge Date Admission Date: August 18, 2023 Subjective Pt with lots of questions today. Discussion of suboxone dose. States that he does not want to have to pay out of pocket and has been weaning himself off, currently down to 1mg. States that this is the dose he would like to receive here. Review of Systems Review of Systems: All systems reviewed & are unremarkable except as noted in Subjective Physical Exam Physical Exam: General: Alert, oriented. Jaundiced Skin: Jaundiced skin Psych: Appropriate mood and affect Neuro: No gross deficits HEENT: jaundiced head and neck, scleral icterus CV: RRR Resp: Breath sounds clear bilaterally, no increased effort of breathing. Abdomen: Soft, nontender Extremities: edema in lower extremities bilaterally. Results & Data Results & Data Vital Signs (Past 12 Hours) Vital Signs Temp Pulse Pulse Resp BP Pulse Ox O2 Del Method 08/20/23 11:37 84 08/20/23 11:23 36.9 C 96 H 18 105/71 95 Room Air 08/20/23 08:00 36.5 C 90 18 100/62 96 Room Air 08/20/23 05:52 08/20/23 03:46 36.6 C 81 20 106/73 94 Room Air O2 Del Method 08/20/23 11:37 08/20/23 11:23 08/20/23 08:00 08/20/23 05:52 Room Air 08/20/23 03:46
--- NOTE | 2023-08-20 22:30 | Discharge Summary ---
Discharge Summary Date of Service August 20, 2023 Notes For Next Care Provider See summary below Medication Changes From Visit See summary below Admission HPI Per Admitting Provider History obtained from patient, family, and records. Medical history significant for second-degree AV block type I (Wenckebach), atrial septal aneurysm, HCV status post Rx, chronic pain on Suboxone, GERD, ongoing alcohol/tobacco abuse, past history IVDU. Last confinement March 2020 for alcoholic pancreatitis. 6 months history of intermittent palpitations and syncopal events. Outpatient ZIO monitor showed second-degree AV block type I Wenckebach. [facility] cardiology recommended stopping Subutex and/or clonidine. Outpatient TTE from March 2023 showed EF of 60 to 64%. No significant valvular disease. Incidental finding of atrial septal aneurysm probably congenital. Patient clonidine stopped. Syncopal events almost daily still happening as per patient with head/facial trauma last month leading to dental injury. Patient denies headache symptoms. No witnessed seizures at home. 2 weeks ago, patient had sinus congestion symptoms. Patient consulted urgent care center in [place]. He was noted to be jaundiced at the clinic. ER consultation recommended but patient declined. Unrecalled antibiotic taken for sinus infection. Worsening lightheadedness symptoms in the last week. Patient denies chest pain or unusual cough symptoms. SOB from weakness. Chronic upper achy belly pain without black or bloody stools. Some nausea with bilious emesis. Poor appetite. Patient denies headache symptoms. Episodic confusion noted at home by friend. Last EtOH intake was a few days ago. Patient brought to ER by friend for evaluation. Initial SBP of 90s upon arrival at the ER. [facility] GI specialist on-call (Dr. Herrera) recommended transfer to tertiary center. Patient accepted for transfer by [facility] hospital service after discussion with [facility] supervisor [employer] former pending bed availability. 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 HEENT: Alopecia, pale palpebral conjunctivae, no ptosis, icteric sclerae, dry buccal mucosa, chronic lip asymmetry from previous facial trauma, partially edentulous NECK : Supple, no tenderness CHEST : CTA, no tenderness HEART : RRR, no obvious murmurs ABDOMEN: Some distention, nontender RECTAL : Intact sphincter, brown stool (FOBT negative) EXTREMITIES : No LE swelling/tenderness, no other conspicuous deformities noted NEUROLOGIC : Coherent, chronic facial asymmetry, gait and stance not assessed Principal Dx & Hospital Course #1 = Principal Diagnosis (1) Hepatic failure: Pt is a 37yoM with PMhx significant for second-degree AV block type I (Wenckebach), atrial septal aneurysm, HCV status post Rx, chronic pain on Suboxone, GERD, ongoing alcohol/tobacco abuse, past history IVDU admitted with acute hepatic failure and currently awaiting transfer. Sepsis WBC elevated >12K on admission, tachycardic Chest XRAY with no acute changes CT abd/pelvis with no major acute findings, questionable pancreatic fat stranding UA suggestive of infection, urine Cx with NGTD Blood Cx x 2 with NGTD lactate elevated at 3.5 on admission, remained elevated after multiple attempts at fluid resuscitation SIRS plus lactic acidosis Pt without documented fever, but with abdominal pain, very jaundiced, liver enzymes elevated. Currently on Rocephin, continue Acute hepatic failure Elevated liver enzymes/Transaminitis Pt without documented fever, but with abdominal pain, very jaundiced, liver enzymes elevated. Hx of heavy chronic alcohol use CT abd/pelvis with no major acute findings, questionable pancreatic fat stranding Does not appear to be acute cholangitis at this time, GI consult placed with the following recommendations: "referral to a transplant center low sodium diet (< 2gm) thiamine / folate replacement Monitor electrolytes (Na, Mg, Phos) watch for withdrawal viral serologies (HAV, HBV, HCV RNA, CMV, EBV and HEV) Begin Prednisolone and NAC..." Pt completed 21hr NAC protocol Follow liver enzymes Continue antibiotics C transfer once bed available (Patient accepted for transfer by Dr. Espinoza of Hospitalist service.) Hepatic steatosis, abnormal LFTs, coagulopathy History HCV status post Rx Ongoing alcohol abuse GI followup as above AWSS protocol for withdrawal monitoring and treatment Electrolyte Abnormalities, severe Hypophosphatemia- consistently as low as 1.3. Repleted with daily scheduled phos supplements and IV supplementation Hypokalemia- repleted with daily scheduled po potassium supplements and IV supplementation Hyponatremia- currently within normal limits after fluid resuscitation Hx of IV Drug Use Chronic Pain On suboxone Pt states he has been weaning himself down, currently wants only 1mg New onset anemia Thrombocytopenia Hgb 11.4 on admission patient denies overt GI/ bleed symptoms, FOBT done at the ER was negative. Macrocytosis noted- folate level decreased on supplementation B12 currently oversupplemented Low blood counts likely in setting of chronic alcohol use hx second-degree AV block type I (Wenckebach) EKG with sinus tachycardia hs-trop of 9.5, within normal limits Continue telemetry monitoring Consider Cardiology followup if changes GERD Continue home ppi Diet: Clear liquid, low sodium DVT prophylaxis: SCDs Re: Coagulopathy CODE STATUS: Full code Dispo: Awaiting transfer to [facility] Patient friend requesting updates from providers. Ms. Rosalia Elliott, contact #[phone]. Discharge Exam General: Alert, oriented. Jaundiced Skin: Jaundiced skin Psych: Appropriate mood and affect Neuro: No gross deficits HEENT: jaundiced head and neck, scleral icterus CV: RRR Resp: Breath sounds clear bilaterally, no increased effort of breathing. Abdomen: Soft, nontender Extremities: edema in lower extremities bilaterally. Updated Medication List Medication Instructions Recorded Confirmed Type pantoprazole 40 mg tablet,delayed 40 mg PO QAM 05/13/20 08/17/23 History release buprenorphine HCl 8 mg sublingual 2 mg sublingual DAILY 09/24/21 08/17/23 History tablet Hospital Stay Data Consultations 08/17/23 22:39 ED Decision to Admit Stat 08/18/23 04:15 Burn CD for patient Stat 08/18/23 05:10 Consult Gastroenterology Routine Diagnostic Imagining Performed 08/17/23 21:49 CT abd pelvis IV con only Stat Chest X-Ray 08/17/23 19:56 SINGLE VIEW CHEST CLINICAL HISTORY: Fever FINDINGS: An AP, portable, upright chest radiograph is obtained. No prior studies are available for comparison at the time of dictation. The examination is degraded by portable technique and apical lordotic positioning. The cardiomediastinal silhouette is unremarkable. There is elevation of the right hemidiaphragm with right basilar atelectasis. The lungs and pleural spaces are otherwise clear. No pneumothorax is seen. The bony thorax is grossly intact. IMPRESSION: No active disease in the chest. ACT 112: Negative or not required by law. Electronically signed by: Portillo Loja M.D. 08/17/2023 10:21 PM Abdomen/Pelvis CT 08/17/23 21:49 Exam(s): CT ABDOMEN + PELVIS With Contrast IV Amt: 77 ml EXAM: CT Abdomen and Pelvis With Intravenous Contrast CLINICAL HISTORY: jaundice, abd pain. TECHNIQUE: Axial computed tomography images of the abdomen and pelvis with intravenous contrast. CTDI is 16.85 mGy and DLP is 931.67 mGy-cm. Automated exposure control was utilized for the study. A dose lowering technique was utilized adhering to the principles of ALARA. CONTRAST: Patient received 77 ml [id number] of IV contrast COMPARISON: CT abdomen and pelvis dated 09/24/2001 FINDINGS: Lung bases: Unremarkable. No mass. No consolidation. ABDOMEN: Liver: Progressive, slightly variable, hepatic steatosis involving the liver which is larger in size. Gallbladder and bile ducts: Cholecystectomy. No ductal dilation. Pancreas: The pancreas is diffusely atrophic in appearance when compared to the previous examination. Questionable subtle fat stranding noted about the head of the pancreas. No abnormal mass or ductal dilation. Spleen: Unremarkable. No splenomegaly. Adrenals: Unremarkable. No mass. Kidneys and ureters: Unremarkable. No solid mass. No hydronephrosis. Stomach and bowel: The stomach is decompressed. No bowel obstruction. Mucosal prominence of jejunal loops is new from the previous exam. Mural fat deposition within the ascending colon is noted. Minimal stool burden. PELVIS: Appendix: No findings to suggest acute appendicitis. Bladder: Unremarkable. No mass. Reproductive: Unremarkable as visualized. ABDOMEN and PELVIS: Intraperitoneal space: Mild free fluid noted in the dependent pelvis. No loculation. No free air. Bones/joints: No acute fracture. No dislocation. Soft tissues: Unremarkable. Vasculature: Unremarkable. No abdominal aortic aneurysm. Lymph nodes: Unremarkable. No enlarged lymph nodes. IMPRESSION: 1. The pancreas is diffusely atrophic in appearance when compared to the previous examination. Questionable subtle fat stranding noted about the head of the pancreas. No abnormal mass or ductal dilation. 2. The stomach is decompressed. No bowel obstruction. Mucosal prominence of jejunal loops is new from the previous exam. No pneumoperitoneum. 3. Progressive, slightly variable, hepatic steatosis involving the liver which is larger in size. 4. Mild free fluid noted in the dependent pelvis. No loculation. This may represent reactive changes from the small bowel process or represent new small volume ascites from the progressive hepatic changes. Electronically signed by: Jah Pimentel MD 08/17/23 23:07 PM Pending Results Patient Have Any Pending Studies at Discharge: Yes Discharge Instructions Given to Patient (Per Discharging Provider) Pt is a 37yoM with PMhx significant for second-degree AV block type I (Wenckebach), atrial septal aneurysm, HCV status post Rx, chronic pain on Suboxone, GERD, ongoing alcohol/tobacco abuse, past history IVDU admitted with acute hepatic failure and currently awaiting transfer. Sepsis WBC elevated >12K on admission, tachycardic Chest XRAY with no acute changes CT abd/pelvis with no major acute findings, questionable pancreatic fat stranding UA suggestive of infection, urine Cx with NGTD Blood Cx x 2 with NGTD lactate elevated at 3.5 on admission, remained elevated after multiple attempts at fluid resuscitation SIRS plus lactic acidosis Pt without documented fever, but with abdominal pain, very jaundiced, liver enzymes elevated. Currently on Rocephin, continue Acute hepatic failure Elevated liver enzymes/Transaminitis Pt without documented fever, but with abdominal pain, very jaundiced, liver enzymes elevated. Hx of heavy chronic alcohol use CT abd/pelvis with no major acute findings, questionable pancreatic fat stranding Does not appear to be acute cholangitis at this time, GI consult placed with the following recommendations: "referral to a transplant center low sodium diet (< 2gm) thiamine / folate replacement Monitor electrolytes (Na, Mg, Phos) watch for withdrawal viral serologies (HAV, HBV, HCV RNA, CMV, EBV and HEV) Begin Prednisolone and NAC..." Pt completed 21hr NAC protocol Follow liver enzymes Continue antibiotics [facility] transfer once bed available (Patient accepted for transfer by Dr. Espinoza of Hospitalist service.) Hepatic steatosis, abnormal LFTs, coagulopathy History HCV status post Rx Ongoing alcohol abuse GI followup as above AWSS protocol for withdrawal monitoring and treatment Electrolyte Abnormalities, severe Hypophosphatemia- consistently as low as 1.3. Repleted with daily scheduled phos supplements and IV supplementation Hypokalemia- repleted with daily scheduled po potassium supplements and IV supplementation Hyponatremia- currently within normal limits after fluid resuscitation Hx of IV Drug Use Chronic Pain On suboxone Pt states he has been weaning himself down, currently wants only 1mg New onset anemia Thrombocytopenia Hgb 11.4 on admission patient denies overt GI/ bleed symptoms, FOBT done at the ER was negative. Macrocytosis noted- folate level decreased on supplementation B12 currently oversupplemented Low blood counts likely in setting of chronic alcohol use hx second-degree AV block type I (Wenckebach) EKG with sinus tachycardia hs-trop of 9.5, within normal limits Continue telemetry monitoring Consider Cardiology followup if changes GERD Continue home ppi Diet: Clear liquid, low sodium DVT prophylaxis: SCDs Re: Coagulopathy CODE STATUS: Full code Dispo: Awaiting transfer to [facility] Patient friend requesting updates from providers. Delilah Rosalia Azulanca, contact #[phone]. Pt was also seen by GI with the following recommendations: "referral to a transplant center low sodium diet (< 2gm) thiamine / folate replacment Monitor electrolytes (Na, Mg, Phos) watch for withdrawl viral serologies (HAV, HBV, HCV RNA, CMV, EBV and HEV) Begin Prednisolone and NAC as above" Total Time Total Time Spent Total Time Spent (In Minutes): > 30 minutes
[2023-08-21 01:17] LABS: Reference Quest Test 2 REPORT; Reference Quest Test 3 REPORT
[2023-08-21] MEDS ORDERED: buprenorphine HCL 2 MG SUBL SL SCH (09:00)
[2023-08-22 11:43] LABS: HBSAG NON-REACTIVE (NON-REACTIVE); Hepatitis A Antibody IgM NON-REACTIVE (NON-REACTIVE); Hepatitis B Core Antibody IgM NON-REACTIVE (NON-REACTIVE); Hepatitis C Vira RNA (Log) PCR <1.18 DETECTED Log IU/mL (NOT DETECTED); Hepatitis C Viral RNA by PCR <15 DETECTED IU/mL (NOT DETECTED)
[2023-08-23 20:41] LABS: HSV Type 1 DNA Not Detected (Not Detected); HSV Type 1&2 DNA Source Serum; HSV Type 2 DNA Not Detected (Not Detected)
[2023-08-25 10:17] LABS: Alpha 1 Antitrypsin 153 mg/dL (83-199); Anti Mitochondrial Antibody NEGATIVE (NEGATIVE); Anti Nuclear Antibody Screen NEGATIVE (NEGATIVE); CMV IgG Antibody <0.60 U/mL; CMV IgM Antibody <30.00 AU/mL; Ceruloplasmin 24 mg/dL (18-36); Parvovirus IgG 2.7 (<0.9); Parvovirus IgM 0.9 (<0.9); Smooth Muscle Antibody NEGATIVE (NEGATIVE)
== END 2023-08-20 21:57 | disposition short-term general hospital (02) | DRG 441 ==
LOC: ED 19:35 → EDINP 08-18 03:56 → 4W 08-18 17:05

== ENCOUNTER 2023-09-16 15:06 | Inpatient (IN) ==
--- NOTE | 2023-09-16 15:25 | ED Triage Note ---
Date of Service September 16, 2023 Provider in Triage Author: Lisa Costa History of Present Illness This patient was briefly evaluated while in triage. An abbreviated physical exam was performed. This patient is a 38-year-old Male who presents to the ED for evaluation of confusion, change in medication, shob, worsening of jaundice. Physical Exam Initial orders for labs and / or imaging were placed and patient was placed in t he waiting area until a bed is available. Please see further documentation for the full ED course.
--- NOTE | 2023-09-16 16:19 | XRay Report ---
SINGLE VIEW CHEST CLINICAL HISTORY: Generalized weakness. FINDINGS: An AP, portable, upright chest radiograph is compared to study dated 08/26/2023. The cardiom ediastinal silhouette is unremarkable. There is chronic elevation of the right hemidiaphragm with mil d atelectasis. The lungs and pleural spaces are otherwise clear. No pneumothorax is seen. The bony th orax is grossly intact. IMPRESSION: No active disease in the chest. ACT 112: Negative or not required by law. Electronically signed by: Portillo Loja M.D. 09/16/2023 4:18 PM
--- NOTE | 2023-09-16 16:47 | Electrocardiogram Report ---
Test Reason : Blood Pressure : / mmHG Vent. Rate : 105 BPM Atrial Rate : 105 BPM P-R Int : 138 ms QRS Dur : 084 ms QT Int : 350 ms P-R-T Axes : 033 -07 022 degrees QTc Int : 462 ms Sinus tachycardia Poor R wave progression, consider anterior CT vs. lead placement vs. LVH Abnormal ECG When compared with ECG of 26-AUG-2023 12:39, QT has lengthened Confirmed by Latrell De Guzman ([id number]) on 09/16/2023 4:47:23 PM Referred By: Confirmed By:Latrell De Guzman
[2023-09-16 16:59] LABS: Hematocrit (blood only) 36.8 % (42.0-52.0); Hemoglobin 12.6 g/dl (14.0-18.0); Mean Corpuscular Hemoglobin 37.5 pg (25.0-34.0); Mean Corpuscular Hgb Conc 34.2 g/dL (32.0-36.0); Mean Corpuscular Volume 109.5 fL (80.0-100.0); Mean Platelet Volume 11.1 fL (9.4-12.4); Platelet Count 160 K/uL (130-400); RDW Coefficient of Variation 13.3 % (11.5-14.5); RDW Standard Deviation 53.4 fL (36.4-46.3); Red Blood Count 3.36 M/uL (4.70-6.10); White Blood Count 25.23 K/ul (4.8-10.8)
[2023-09-16 17:15] LABS: Basophils # (auto) 0.09 K/uL (0.00-0.20); Basophils % (auto) 0.4 %; Eosinophils # (auto) 0.02 K/uL (0.00-0.50); Eosinophils % (auto) 0.1 %; Immature Granulocytes # (auto) 0.69 K/uL (0.01-0.20); Immature Granulocytes % (auto) 2.7 %; Lymphocytes # (auto) 0.39 K/uL (1.20-3.40); Lymphocytes % (auto) 1.5 %; Macrocytosis Present; Monocytes # (auto) 0.78 K/uL (0.11-0.59); Monocytes % (auto) 3.1 %; Neutrophils # (auto) 23.26 K/uL (1.40-6.50); Neutrophils % (auto) 92.2 %; Polychromasia 1+; Tear Drop Cells 1+
[2023-09-16 17:17] LABS: Alanine Aminotransferase 168 U/L (7-52); Albumin Globulin Ratio 0.9 (0.9-2); Albumin Level 2.7 gm/dl (3.4-5.0); Anion Gap 17 (3-11); Aspartate Aminotransferase 224 U/L (13-39); Bilirubin,Total 24.9 mg/dl (0.2-1.0); Calcium 7.8 mg/dl (8.6-10.3); Carbon Dioxide 17 mmol/L (21-32); Chloride 96 mmol/L (98-107); Globulin 2.9 gm/dl (2.5-4.0); Glucose 219 mg/dl (70-99(Fasting)); Potassium 2.9 mmol/L (3.5-5.1); Sodium 130 mmol/L (136-145); Total Protein 5.6 gm/dl (6.0-8.3)
[2023-09-16 17:18] LABS: Alkaline Phosphatase 242 U/L (34-104)
--- NOTE | 2023-09-16 17:21 | Emergency Department Note ---
Impression & Plan Acute liver failure, Jaundice ED Provider Note NAME: MARISA MARES AGE: 38 SEX: M : 1985 ARRIVES VIA: Walk-In INFORMANT: Patient, ED PROVIDER(S): Edyta Saleh MD CHIEF COMPLAINT: Increased jaundice, confusion HPI: This is a 38-year-old male with history of hepatic failure, jaundice presenting for confusion, and difficulty walking. Patient is with his friend/roommate who the patient states is his legal POA. She is a good historian and tells me that over the past few days patient was recently decreased on his lactulose dosing and increased on a new diuretic pill. He has had increasing confusion of these past few days and has become more unsteady on his feet. More wobbly as they say. His eyes has also become significant more yellow. ROS: See above HPI for pertinent positives & negatives. A total of 10 systems reviewed and were otherwise negative. PAST MEDICAL HISTORY: See Below PAST SURGICAL HISTORY: See Below FAMILY HISTORY: See Below SOCIAL HISTORY: See Below HOME MEDICATIONS: See Below ALLERGIES: See Below VITALS: See Below PHYSICAL EXAMINATION: General: Significantly jaundiced Head: Normocephalic and atraumatic, Eyes: Normal inspection, extraocular muscles intact,scleral icterus Ear, nose, throat: Normal external exam Neck: Normal range of motion Respiratory: lungs clear to auscultation bilaterally Cardiovascular: Regular rate/rhythm, no murmur GI: soft, nontender, no guarding or rebound, nondistended Extremities: 3+ pitting edema to bilateral lower extremities, no significant asterixis at this time Neuro: The patient awake and alert, appropriately conversive, no focal deficits, symmetric faces Skin: Warm, dry, and intact MEDICAL DECISION MAKING: This is a 38-year-old male with history of liver failure, jaundice presenting for confusion/difficulty walking. Patient is very significantly jaundiced at this time. He was decreased on lactulose, increased on a new diuretic pill. As time patient appears to be not significantly confused but does state he feels confused to me. He otherwise gets his care at [facility] and is supposed to see a mud grinder on October 17 but has not seen them yet. He was recently transferred there previously where they gave him medications to help lower his ammonia level -Patient after significant abnormal, his lactic acid is 6.9, his bilirubin is 24.9. He also has an significant elevated leukocytosis to 25. Despite patient having no clear signs of sepsis such as hypotension, fever, pain, shortness of breath, will do septic workup due to patient's obviously decompensated liver failure -LFTs are also elevated persistently -To do bedside ultrasound to look for areas for paracentesis. Unfortunately patient is, fluid, bowel break against the abdominal wall. Do not believe there is enough space in order to do diagnostic paracentesis at this time. -However patient does have no abdominal tenderness, pain, fluctuance, warmth making peritonitis unlikely -Discussed with on-call mud grinder [facility] who states that patient could likely stay here as there is no acute intervention that they would do there. -Started ceftriaxone empirically for patient's possible sepsis. Patient is have 3+ pitting edema to bilateral lower extremities making fluid resuscitation somewhat difficult. With his previously reported shortness of breath, will defer fluid resuscitation at this time -Patient admitted to hospitalist service, Dr. Navarro while here -Patient's labs are unable to be done such as ammonia due to patient's significant icterus - Differential diagnosis: Elevated ammonia, decompensated liver failure, sepsis ER treatment provided: See below Diagnostics interpreted by me: ECG: ECG independently interpreted by me with sinus tachycardia, rate of 105, normal axis, normal MA, normal QRS, normal QTc, no ST segment elevations consistent with STEMI criteria Cardiac Monitoring: An order was placed for continuous cardiac monitoring. The monitor shows a rate 88 with sinus Laboratory studies: As stated above and show below. Imaging studies: See below. Critical Care Note: I have personally spent 35 minutes of critical care time in the direct management of this patient. This includes bedside care, interpretation of diagnostic studies, and testing, discussion with consultants, patient, and family members, and other required patient management activities. This 35 minutes is in excess of all separately billable procedures. 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 Surgical History No history of previous surgery Family History Other Family history non-contributory Social History Smoking Status: Former smoker Tobacco Type: Cigarettes Cigarettes Per Day: 3; Second Hand Exposure: Yes; Do You Dip or Chew Tobacco: Yes; Hx Alcohol Use: Yes Alcohol type: beer and hard liquor Hx Substance Use: Yes Last Used Substance Other:: ~ 2 years ago Preferred Language: Serbian Communication Ability: Effective Presetter Operator Required: No Beliefs That Will Affect Care: None Current Living Situation: Other Current Living Situation Comment: Friend Feels Safe at Home: Yes Assistive Devices: None Allergies Allergies Allergy/AdvReac Type Severity Reaction Status Date / Time carvedilol AdvReac Intermediate "MADE ME Verified 09/16/23 17:49 REALLY SICK". clonidine AdvReac Intermediate "MADE ME Verified 09/16/23 17:49 REALLY SICK". Home Meds Home Medications Medication Instructions Recorded Confirmed pantoprazole 40 mg tablet,delayed 40 mg PO QAM 05/13/20 09/16/23 release Therapeutic-M/Lutein Tablet 1 tab PO QDL 08/26/23 09/16/23 baclofen 10 mg tablet 10 mg PO TID 08/26/23 09/16/23 folic acid 1 mg tablet 1 mg PO QAM 08/26/23 09/16/23 lactulose 10 gram/15 mL oral See Rx Instructions .Route .COMPLEX 08/26/23 09/16/23 solution (Constulose) potassium, sodium phosphates 280 1 packet PO TID 08/26/23 09/16/23 mg-160 mg-250 mg oral powder packet (Phos-NaK) prednisolone sodium phosphate 15 0 mg PO QAM 08/26/23 09/16/23 mg/5 mL (3 mg/mL) oral solution thiamine HCl (vitamin B1) 100 mg 100 mg PO QAM 08/26/23 09/16/23 tablet (Vitamin B-1) furosemide 20 mg tablet 20 mg PO QAM 09/16/23 09/16/23 ondansetron HCl 4 mg tablet 4 mg PO Q8H PRN Nausea And Vomiting 09/16/23 09/16/23 rifaximin 550 mg tablet (Xifaxan) 550 mg PO BID 09/16/23 09/16/23 Results & Data (ED) Vital Signs Vital Signs - 24 hr 09/16/23 15:22 09/16/23 16:33 09/16/23 16:37 Temperature 36 C L Temperature Source Temporal Artery Scan Pulse Rate 80 86 84 Pulse Rate from SpO2 Sensor 86 Respiratory Rate 18 16 Respiratory Effort / Characteristics Non-Labored Spontaneous Respiratory Depth Normal Blood Pressure 110/78 Blood Pressure Mean 88 Pulse Oximetry 100 100 Oxygen Delivery Method Room Air Room Air Sepsis Recent Fever Within 48 Hours No Sepsis New/Unexplained Change in Mental Status No Sepsis Action Taken by Nursing No Action Required 09/16/23 16:40 09/16/23 16:50 09/16/23 17:00 Temperature Temperature Source Pulse Rate 89 92 H Pulse Rate from SpO2 Sensor 86 Respiratory Rate 15 18 Respiratory Effort / Characteristics Respiratory Depth Blood Pressure 101/66 Blood Pressure Mean 77 Pulse Oximetry 97 99 95 Oxygen Delivery Method Room Air Room Air Room Air Sepsis Recent Fever Within 48 Hours Sepsis New/Unexplained Change in Mental Status Sepsis Action Taken by Nursing 09/16/23 17:30 09/16/23 18:00 09/16/23 18:30 Temperature Temperature Source Pulse Rate 77 88 80 Pulse Rate from SpO2 Sensor Respiratory Rate 19 17 18 Respiratory Effort / Characteristics Respiratory Depth Blood Pressure 119/72 108/80 Blood Pressure Mean 87 89 Pulse Oximetry 99 99 100 Oxygen Delivery Method Room Air Room Air Room Air Sepsis Recent Fever Within 48 Hours Sepsis New/Unexplained Change in Mental Status Sepsis Action Taken by Nursing 09/16/23 18:50 09/16/23 19:00 09/16/23 19:10 Temperature Temperature Source Pulse Rate 81 85 87 Pulse Rate from SpO2 Sensor 81 84 87 Respiratory Rate 19 21 24 Respiratory Effort / Characteristics Respiratory Depth Blood Pressure Blood Pressure Mean Pulse Oximetry 99 100 99 Oxygen Delivery Method Sepsis Recent Fever Within 48 Hours Sepsis New/Unexplained Change in Mental Status Sepsis Action Taken by Nursing 09/16/23 19:20 09/16/23 19:30 09/16/23 19:51 Temperature Temperature Source Pulse Rate 79 82 Pulse Rate from SpO2 Sensor 78 82 Respiratory Rate 17 14 Respiratory Effort / Characteristics Non-Labored Respiratory Depth Normal Blood Pressure Blood Pressure Mean Pulse Oximetry 100 98 Oxygen Delivery Method Sepsis Recent Fever Within 48 Hours Sepsis New/Unexplained Change in Mental Status Sepsis Action Taken by Nursing 09/16/23 19:54 09/16/23 19:59 09/16/23 20:00 Temperature Temperature Source Pulse Rate 88 94 H Pulse Rate from SpO2 Sensor 89 Respiratory Rate 20 12 Respiratory Effort / Characteristics Respiratory Depth Blood Pressure Blood Pressure Mean Pulse Oximetry 98 100 Oxygen Delivery Method Room Air Sepsis Recent Fever Within 48 Hours Sepsis New/Unexplained Change in Mental Status Sepsis Action Taken by Nursing 09/16/23 20:10 09/16/23 20:12 09/16/23 20:20 Temperature 36.6 C Temperature Source Oral Pulse Rate 82 78 Pulse Rate from SpO2 Sensor 80 78 Respiratory Rate 22 17 Respiratory Effort / Characteristics Respiratory Depth Blood Pressure Blood Pressure Mean Pulse Oximetry 100 100 Oxygen Delivery Method Sepsis Recent Fever Within 48 Hours Sepsis New/Unexplained Change in Mental Status Sepsis Action Taken by Nursing 09/16/23 20:30 09/16/23 20:40 09/16/23 20:43 Temperature Temperature Source Pulse Rate 81 76 84 Pulse Rate from SpO2 Sensor 79 77 Respiratory Rate 21 17 Respiratory Effort / Characteristics Respiratory Depth Blood Pressure Blood Pressure Mean Pulse Oximetry 100 100 Oxygen Delivery Method Sepsis Recent Fever Within 48 Hours Sepsis New/Unexplained Change in Mental Status Sepsis Action Taken by Nursing 09/16/23 20:50 09/16/23 21:00 09/16/23 21:10 Temperature Temperature Source Pulse Rate 77 78 79 Pulse Rate from SpO2 Sensor 78 78 79 Respiratory Rate 16 19 13 Respiratory Effort / Characteristics Respiratory Depth Blood Pressure Blood Pressure Mean Pulse Oximetry 100 99 98 Oxygen Delivery Method Sepsis Recent Fever Within 48 Hours Sepsis New/Unexplained Change in Mental Status Sepsis Action Taken by Nursing 09/16/23 21:20 Temperature Temperature Source Pulse Rate 88 Pulse Rate from SpO2 Sensor 88 Respiratory Rate 15 Respiratory Effort / Characteristics Respiratory Depth Blood Pressure Blood Pressure Mean Pulse Oximetry 99 Oxygen Delivery Method Sepsis Recent Fever Within 48 Hours Sepsis New/Unexplained Change in Mental Status Sepsis Action Taken by Nursing Laboratory Data 09/16/23 16:24 09/16/23 16:24 Lab Results 09/16/23 09/16/23 09/16/23 Range/Units 16:24 18:19 18:56 WBC 25.23 H (4.8-10.8) K/ul RBC 3.36 L (4.70-6.10) M/uL Hgb 12.6 L (14.0-18.0) g/dl POC Hgb (14.0-18.0) g/dl Hct 36.8 L (42.0-52.0) % POC Hct (42-52) % MCV 109.5 H (80.0-100.0) fL MCH 37.5 H (25.0-34.0) pg MCHC 34.2 (32.0-36.0) g/dL RDW Std Deviation 53.4 H (36.4-46.3) fL RDW Coeff of Danny 13.3 (11.5-14.5) % Plt Count 160 (130-400) K/uL MPV 11.1 (9.4-12.4) fL Immature Gran % (Auto) 2.7 % Neut % (Auto) 92.2 % Lymph % (Auto) 1.5 % Hardin % (Auto) 3.1 % Eos % (Auto) 0.1 % Baso % (Auto) 0.4 % Neut # (Auto) 23.26 H (1.40-6.50) K/uL Lymph # (Auto) 0.39 L (1.20-3.40) K/uL Hardin # (Auto) 0.78 H (0.11-0.59) K/uL Eos # (Auto) 0.02 (0.00-0.50) K/uL Baso # (Auto) 0.09 (0.00-0.20) K/uL Immature Gran # (Auto) 0.69 H (0.01-0.20) K/uL Polychromasia 1+ Macrocytosis Present Tear Drop Cells 1+ PT 20.4 H (9.0-12.0) Seconds INR 1.9 H (0.9-1.1) POC Sodium (135-144) mmol/L Sodium 130 L (136-145) mmol/L POC Potassium (3.3-5.0) mmol/L Potassium 2.9 L (3.5-5.1) mmol/L POC Chloride (101-112) mmol/L Chloride 96 L (98-107) mmol/L Carbon Dioxide 17 L (21-32) mmol/L POC Total CO2 (24-31) mmol/L Anion Gap 17 H (3-11) POC Anion Gap (16-25) mmol/L POC BUN (7-18) mg/dl BUN TNP Creatinine TNP POC Creatinine (0.6-1.3) mg/dl Est Cr Clr Drug Dosing TNP Est GFR ( Amer) TNP Est GFR (Non-Af Amer) TNP BUN/Creatinine Ratio TNP Glucose 219 H (70-99(Fasting)) mg/dl POC Glucose (other) (70-99) mg/dl Osmolality 291 (280-300) mOsm/kg Lactate 6.9 H* 4.8 H* (0.4-2.0) mmol/L Calcium 7.8 L (8.6-10.3) mg/dl POC Ioniz Calcium Margarita (1.12-1.32) mmol/l Magnesium 1.6 L (1.7-2.4) mg/dl Total Bilirubin 24.9 H (0.2-1.0) mg/dl AST 224 H (13-39) U/L ALT 168 H (7-52) U/L Alkaline Phosphatase 242 H (34-104) U/L Ammonia TNP Troponin I High Sens 18.9 (0-20) pg/ml Total Protein 5.6 L (6.0-8.3) gm/dl Albumin 2.7 L (3.4-5.0) gm/dl Globulin 2.9 (2.5-4.0) gm/dl Albumin/Globulin Ratio 0.9 (0.9-2) TSH 1.418 (0.300-4.500) uIu/ml Urine Color Dark Yellow Urine Appearance Clear (Clear) Urine pH 6.0 (4.5-7.5) Ur Specific [place] 1.016 (1.000-1.030) Urine Protein Negative (Negative) Urine Glucose (UA) Negative (Negative) Urine Ketones Negative (Negative) Urine Blood Negative (Negative) Urine Nitrite Positive A (Negative) Urine Bilirubin 3+ H (Negative) Urine Urobilinogen Negative (Negative) Ur Leukocyte Esterase Trace H (Negative) Urine WBC (Auto) 0 (0-5) /hpf Urine RBC (Auto) 0-4 (0-4) /hpf U Hyaline Cast (Auto) 10-30 H (0-5) /lpf U Epithel Cells (Auto) 0-5 (0-5) /lpf Urine Bacteria (Auto) Negative (Negative) 09/16/23 Range/Units 19:02 WBC (4.8-10.8) K/ul RBC (4.70-6.10) M/uL Hgb (14.0-18.0) g/dl POC Hgb 12.2 L (14.0-18.0) g/dl Hct (42.0-52.0) % POC Hct 36 L (42-52) % MCV (80.0-100.0) fL MCH (25.0-34.0) pg MCHC (32.0-36.0) g/dL RDW Std Deviation (36.4-46.3) fL RDW Coeff of Danny (11.5-14.5) % Plt Count (130-400) K/uL MPV (9.4-12.4) fL Immature Gran % (Auto) % Neut % (Auto) % Lymph % (Auto) % Hardin % (Auto) % Eos % (Auto) % Baso % (Auto) % Neut # (Auto) (1.40-6.50) K/uL Lymph # (Auto) (1.20-3.40) K/uL Hardin # (Auto) (0.11-0.59) K/uL Eos # (Auto) (0.00-0.50) K/uL Baso # (Auto) (0.00-0.20) K/uL Immature Gran # (Auto) (0.01-0.20) K/uL Polychromasia Macrocytosis Tear Drop Cells PT (9.0-12.0) Seconds INR (0.9-1.1) POC Sodium 133 L (135-144) mmol/L Sodium (136-145) mmol/L POC Potassium 2.9 L (3.3-5.0) mmol/L Potassium (3.5-5.1) mmol/L POC Chloride 99 L (101-112) mmol/L Chloride (98-107) mmol/L Carbon Dioxide (21-32) mmol/L POC Total CO2 18 L (24-31) mmol/L Anion Gap (3-11) POC Anion Gap 20.0 (16-25) mmol/L POC BUN 28 H (7-18) mg/dl BUN Creatinine POC Creatinine 1.6 H (0.6-1.3) mg/dl Est Cr Clr Drug Dosing Est GFR ( Amer) Est GFR (Non-Af Amer) BUN/Creatinine Ratio Glucose (70-99(Fasting)) mg/dl POC Glucose (other) 148 H (70-99) mg/dl Osmolality (280-300) mOsm/kg Lactate (0.4-2.0) mmol/L Calcium (8.6-10.3) mg/dl POC Ioniz Calcium Margarita 1.03 L (1.12-1.32) mmol/l Magnesium (1.7-2.4) mg/dl Total Bilirubin (0.2-1.0) mg/dl AST (13-39) U/L ALT (7-52) U/L Alkaline Phosphatase (34-104) U/L Ammonia Troponin I High Sens (0-20) pg/ml Total Protein (6.0-8.3) gm/dl Albumin (3.4-5.0) gm/dl Globulin (2.5-4.0) gm/dl Albumin/Globulin Ratio (0.9-2) TSH (0.300-4.500) uIu/ml Urine Color Urine Appearance (Clear) Urine pH (4.5-7.5) Ur Specific [place] (1.000-1.030) Urine Protein (Negative) Urine Glucose (UA) (Negative) Urine Ketones (Negative) Urine Blood (Negative) Urine Nitrite (Negative) Urine Bilirubin (Negative) Urine Urobilinogen (Negative) Ur Leukocyte Esterase (Negative) Urine WBC (Auto) (0-5) /hpf Urine RBC (Auto) (0-4) /hpf U Hyaline Cast (Auto) (0-5) /lpf U Epithel Cells (Auto) (0-5) /lpf Urine Bacteria (Auto) (Negative) Administered Medications Albumin Human (Albumin 25%) 25 gm in 100 mls @ 50 mls/hr IV Q2H MUNA Stop: 09/17/23 01:14 Last Admin: 09/16/23 23:46 Dose: 50 mls/hr Documented By: Infusion: 09/16/23 23:06 Dose: Infused Documented By: Admin: 09/16/23 21:06 Dose: 50 mls/hr Documented By: GIANNI Discontinued Medications Ceftriaxone Sodium (Rocephin) 2,000 mg in 50 mls @ 100 mls/hr IV NOW STA Stop: 09/16/23 18:51 Last Infusion: 09/16/23 20:20 Dose: Infused Documented By: Admin: 09/16/23 19:20 Dose: 100 mls/hr Documented By: GIANNI Thiamine HCl 100 mg/ Syringe 10 mls @ 2 mls/min IV NOW ONE Stop: 09/16/23 21:19 Last Admin: 09/16/23 21:26 Dose: 2 mls/min Documented By: GIANNI Cefepime HCl (Maxipime) 2,000 mg in 20 mls @ 5 mls/min IV NOW ONE; Protocol Stop: 09/16/23 21:18 Last Admin: 09/16/23 22:53 Dose: 5 mls/min Documented By: GIANNI Phytonadione 10 mg/ Dextrose 51 mls @ 102 mls/hr IV ONE ONE Stop: 09/16/23 22:08 Last Admin: 09/16/23 22:54 Dose: 102 mls/hr Documented By: GIANNI Ioversol (Optiray 320 500ml) 88 ml IV ONCE ONE Stop: 09/16/23 19:48 Last Admin: 09/16/23 19:47 Dose: 88 ml Documented By: MOJGAN Lactulose (Lactulose Syrup 30 Gm/45 Ml Udp) 30 gm PO NOW ONE Stop: 09/16/23 21:16 Last Admin: 09/16/23 21:17 Dose: 30 gm Documented By: GIANNI Potassium Chloride (Potassium Chloride Crtab 20 Meq Tabcr) 40 meq PO NOW ONE Stop: 09/16/23 21:16 Last Admin: 09/16/23 21:06 Dose: 40 meq Documented By: GIANNI Potassium Chloride (Potassium Chloride Crtab 20 Meq Tabcr) 40 meq PO NOW STA Stop: 09/16/23 21:39 Last Admin: 09/16/23 22:53 Dose: 40 meq Documented By: IGANNI Imaging Data Radiologist's Impression: Chest X-Ray 09/16/23 15:10 SINGLE VIEW CHEST CLINICAL HISTORY: Generalized weakness. FINDINGS: An AP, portable, upright chest radiograph is compared to study dated 08/26/2023. The cardiomediastinal silhouette is unremarkable. There is chronic elevation of the right hemidiaphragm with mild atelectasis. The lungs and pleural spaces are otherwise clear. No pneumothorax is seen. The bony thorax is grossly intact. IMPRESSION: No active disease in the chest. ACT 112: Negative or not required by law. Electronically signed by: Portillo Loja M.D. 09/16/2023 4:18 PM Abdomen/Pelvis CT 09/16/23 18:20 Exam(s): CT ABDOMEN + PELVIS With Contrast IV Amt: 88ML OPTIRAY 320 EXAM: CT Abdomen and Pelvis With Intravenous Contrast CLINICAL HISTORY: Reason for exam: abd pain. TECHNIQUE: Axial computed tomography images of the abdomen and pelvis with intravenous contrast. CTDI is 24.03 mGy and DLP is 1432.15 mGy-cm. Automated exposure control was utilized for the study. A dose lowering technique was utilized adhering to the principles of ALARA. CONTRAST: Patient received 88ML OPTIRAY 320 of IV contrast COMPARISON: No relevant prior studies available. FINDINGS: Lung bases: Unremarkable. No mass. No consolidation. ABDOMEN: Liver: Unremarkable. No mass. Gallbladder and bile ducts: Cholecystectomy. No ductal dilation. Pancreas: Unremarkable. No mass. No ductal dilation. Spleen: Unremarkable. No splenomegaly. Adrenals: Unremarkable. No mass. Kidneys and ureters: Unremarkable. No solid mass. No hydronephrosis. Stomach and bowel: Wall thickening of small bowel, concerning for enteritis versus spontaneous bacterial peritonitis. No obstruction. PELVIS: Appendix: No findings to suggest acute appendicitis. Bladder: Unremarkable. No mass. Reproductive: Unremarkable as visualized. ABDOMEN and PELVIS: Intraperitoneal space: Abdominal and pelvic ascites. No free air. Bones/joints: No acute fracture. No dislocation. Soft tissues: Anasarca. Vasculature: Unremarkable. No abdominal aortic aneurysm. Lymph nodes: Unremarkable. No enlarged lymph nodes. IMPRESSION: Ascites. Wall thickening of small bowel, concerning for enteritis versus spontaneous bacterial peritonitis. Electronically signed by: Ubaldo Soto MD 09/16/23 20:43 PM Chest X-Ray 09/16/23 18:20 SINGLE VIEW CHEST CLINICAL HISTORY: Leukocytosis. FINDINGS: An AP, portable, upright chest radiograph is compared to study performed earlier the same day 09/16/2023. The examination is degraded by portable technique and patient rotation. The cardiomediastinal silhouette is unremarkable. There is chronic elevation of the right hemidiaphragm with bibasilar atelectasis. The lungs and pleural spaces are otherwise clear. No pneumothorax is seen. The bony thorax is grossly intact. IMPRESSION: No active disease in the chest. No change from today's earlier examination. ACT 112: Negative or not required by law. Electronically signed by: Portillo Loja M.D. 09/16/2023 6:51 PM Discharge Plan Visit Data Chief Complaint: Confusion Stated Complaint: JAUNDICE, CONFUSION, DEHYDRATION ED Provider: Edyta Saleh Discharge Problem: Acute liver failure, Jaundice
[2023-09-16 17:31] LABS: Troponin I High Sensitivity 18.9 pg/ml (0-20)
[2023-09-16 17:35] LABS: Thyroid Stimulating Hormone 1.418 uIu/ml (0.300-4.500)
[2023-09-16 18:33] LABS: Appearance Urine Clear (Clear); Bacteria Urine Automated Negative (Negative); Blood Urine Negative (Negative); Color Urine Dark Yellow; Epithelial Cell Urine Auto 0-5 /lpf (0-5); Glucose Urine UA Negative (Negative); Ketones Urine Negative (Negative); Leukocyte Esterase Urine Trace (Negative); Nitrite Urine Positive (Negative); Protein Urine Negative (Negative); RBC Urine Automated 0-4 /hpf (0-4); Specific Gravity Urine 1.016 (1.000-1.030); Urobilinogen Urine Negative (Negative); WBC Urine Automated 0 /hpf (0-5)
[2023-09-16 18:35] LABS: Bilirubin Urine 3+ (Negative)
--- NOTE | 2023-09-16 18:52 | XRay Report ---
SINGLE VIEW CHEST CLINICAL HISTORY: Leukocytosis. FINDINGS: An AP, portable, upright chest radiograph is compared to study performed earlier the same d ay 09/16/2023. The examination is degraded by portable technique and patient rotation. The cardiomedia stinal silhouette is unremarkable. There is chronic elevation of the right hemidiaphragm with bibasil ar atelectasis. The lungs and pleural spaces are otherwise clear. No pneumothorax is seen. The bony t horax is grossly intact. IMPRESSION: No active disease in the chest. No change from today's earlier examination. ACT 112: Negative or not required by law. Electronically signed by: Portillo Loja M.D. 09/16/2023 6:51 PM
[2023-09-16] MEDS: cefTRIAXone SODIUM 2,000 MG/50 ML BAG IV STA (19:20)
[2023-09-16] MEDS: OPTIRAY 320 500ml IV ONE (19:47)
--- NOTE | 2023-09-16 20:15 | History & Physical Report ---
Date of Service September 16, 2023 Assessment & Plan (1) Severe sepsis with lactic acidosis: (2) Hepatic failure: (3) Hypokalemia: (4) Acute hyponatremia: (5) Alcohol abuse: (6) Hx of intravenous drug use, in remission: (7) GERD (gastroesophageal reflux disease): Plan Mr. Yu is a 37 year old male who was recently admitted 08/18-08/20 for severe sepsis and was transferred to [facility] where he was treated for alcoholic hepatitis with ascites. Today he presents with generalized fatigue and weakness. He reports feeling dizzy as well. Since his hospitalization the only medication changes include a new prescription for prednisone and Lasix and he has been in the process of lowering his lactulose due to increased bowel movements. He started taking his Lasix on Tuesday this week and reports that he has been urinating very infrequently. He reports that since Tuesday he has only urinated 4 or 5 times. He does not have any hematuria and his stream is uninterrupted but his urine is tea colored and coffee colored as he reports. Patient has a complex past medical history that includes history of AV block type I, atrial septum aneurysm, HCV s/p treatment, chronic pain, GERD, history of IV drug use, and alcoholic pancreatitis. Reports smoking 3 cigarettes/day, has abstained from alcohol for the last month and a half and his last IV drug use was 1 year ago. ER physician evaluated for possible paracentesis, but limited fluid identified. Leukocytosis WBC 25.23, lactic acid 4.8, chronic hyponatremia serum sodium 130, serum potassium 2.9, ammonia level undetectable, AST 2024, ALT 168, alk phos 24 2. Calculated MELD score 21. Abdomen/pelvis CT: Ascites, wall thickening of small bowel, concerning for enteritis versus spontaneous bacterial peritonitis. This is an unfortunate gentleman that meets SIRS criteria with lactic acidosis and concerns for SBP. Will admit to PCU for IV antibiotics, IV albumin, electrolyte replacement; slowly correct sodium, will check coag levels, repeat Ammonia level, nicotine patch, teds and SCDs for now pending coagulopathy workup GI consultation, indwelling Mo with bladder scan to monitor oliguria and consider nephrology consultation for input with regards to worsening hepatitis with possible kidney failure with oliguria. Severe sepsis with lactic acidosis: Acute Likely secondary to UTI vs SBP secondary to alcoholic Hepatitis UA positive for nitrates Leukocytosis 25.23, lactate 4.8 Blood cultures pending Troponin 18.9; will trend x 1. Do not suspect ACS or other ischemic demand due to sepsis Ishmael pedraza placed in ER Ceftriaxone started in ED; continue and adjust based on culture results Abdomen/Pelvis CT: Ascites, wall thickening of small bowel, concerning for enteritis versus spontaneous bacterial peritonitis GI Consultation placed Alcoholic Hepatitis: Chronic Secondary to alcohol use Recent admission transferred to [facility] treated for alcohol hepatitis MELD score 21 Ammonia level undetectable today; seems to be improving as pt mental status improving AST 224, ALT 168, alk phos 242 Thiamine and folate ordered Last alcohol intake 1.5 months ago Takes Xifaxan; continue Recent decrease of Lactulose due to increased BM's Check Coags Electrolyte abnormalities: Hypokalemia: Hyponatremia: Serum potassium 2.9; replace IV Serum sodium 130; cautious correction Serum mag ordered History of IV drug abuse: Chronic Was weaned off of Suboxone over last few months IV Subutex last use last year Tobacco use: Smokes 3 cigarettes per day Would like a Nicotine patch Disposition: PCP: Dr. 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 We discussed this tonight and patient has a living father who is estranged from and a 17-year-old daughter. Goal is to have Rafael Lancaster visit them during this admission for completed decision-maker paperwork. I spent a total of 87 minutes coordinating, documenting, and providing care for this patient excluding time spent in the performance of separately billed services. All of the aforementioned completed while collaborating with the assigned attending physician for a full treatment plan. Please see their addendum for further details. History of Present Illness Chief Complaint: [facility] Primary Care Provider: Radha Sigala MD Mr. Yu is a 37 year old male who was recently admitted 08/18-08/20 for severe sepsis and was transferred to [facility] where he was treated for alcoholic hepatitis with ascites. Today he presents with generalized fatigue and weakness. He reports feeling dizzy as well. Since his hospitalization the only medication changes include a new prescription for prednisone and Lasix and he has been in the process of lowering his lactulose due to increased bowel movements. He started taking his Lasix on Tuesday this week and reports that he has been urinating very infrequently. He reports that since Tuesday he has only urinated 4 or 5 times. He does not have any hematuria and his stream is uninterrupted but his urine is tea colored and coffee colored as he reports. Patient has a complex past medical history that includes history of AV block type I, atrial septum aneurysm, HCV s/p treatment, chronic pain, GERD, history of IV drug use, and alcoholic pancreatitis. Reports smoking 3 cigarettes/day, has abstained from alcohol for the last month and a half and his last IV drug use was 1 year ago Leukocytosis WBC 25.23, lactic acid 4.8, chronic hyponatremia serum sodium 130, serum potassium 2.9, ammonia level undetectable, AST 2024, ALT 168, alk phos 242. Calculated MELD score 21. Abdomen/pelvis CT: Ascites, wall thickening of small bowel, concerning for enteritis versus spontaneous bacterial peritonitis. 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 We discussed this tonight and patient has a living father who is estranged from and a 17-year-old daughter. Goal is to have Rafael Lancaster visit them during this admission for completed decision-maker paperwork. This is an unfortunate gentleman that meets SIRS criteria with lactic acidosis and concerns for SBP. Will admit to PCU for IV antibiotics, IV albumin, electrolyte replacement; slowly correct sodium, will check coag levels, repeat Ammonia level, nicotine patch, teds and SCDs for now pending coagulopathy workup GI consultation, indwelling Mo with bladder scan to monitor oliguria and consider nephrology consultation for input with regards to worsening hepatitis with possible kidney failure with oliguria. Patient will be admitted for further evaluation and management. Please see A/P for further details. Allergies Allergy/AdvReac Type Severity Reaction Status Date / Time carvedilol AdvReac Intermediate "MADE ME Verified 09/16/23 17:49 REALLY SICK". clonidine AdvReac Intermediate "MADE ME Verified 09/16/23 17:49 REALLY SICK". Home Medications Medication Instructions Recorded Confirmed Type pantoprazole 40 mg tablet,delayed 40 mg PO QAM 05/13/20 09/16/23 History release Therapeutic-M/Lutein Tablet 1 tab PO QDL 08/26/23 09/16/23 History baclofen 10 mg tablet 10 mg PO TID 08/26/23 09/16/23 History folic acid 1 mg tablet 1 mg PO QAM 08/26/23 09/16/23 History lactulose 10 gram/15 mL oral See Rx Instructions .Route .COMPLEX 08/26/23 09/16/23 History solution (Constulose) potassium, sodium phosphates 280 1 packet PO TID 08/26/23 09/16/23 History mg-160 mg-250 mg oral powder packet (Phos-NaK) prednisolone sodium phosphate 15 0 mg PO QAM 08/26/23 09/16/23 History mg/5 mL (3 mg/mL) oral solution thiamine HCl (vitamin B1) 100 mg 100 mg PO QAM 08/26/23 09/16/23 History tablet (Vitamin B-1) furosemide 20 mg tablet 20 mg PO QAM 09/16/23 09/16/23 History ondansetron HCl 4 mg tablet 4 mg PO Q8H PRN Nausea And Vomiting 09/16/23 09/16/23 History rifaximin 550 mg tablet (Xifaxan) 550 mg PO BID 09/16/23 09/16/23 History 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 Surgical History No history of previous surgery Family History Other Family history non-contributory Social History Smoking Status: Current every day smoker Tobacco Type: Cigarettes Cigarettes Per Day: 3; Second Hand Exposure: Yes; Do You Dip or Chew Tobacco: Yes; Tobacco Cessation Education Requested by Patient: Yes Hx Alcohol Use: Yes Alcohol type: hard liquor Hx Substance Use: Yes Last Used Substance Other:: about 1 year ago, finished subutex in [facility] in august Preferred Language: Tajik Communication Ability: Effective Hose Handler Required: No Beliefs That Will Affect Care: None Current Living Situation: Other Current Living Situation Comment: Lives with friend Feels Safe at Home: Yes Safety Concerns: Feels Safe At This Time Assistive Devices: Walker Review of Systems Review of Systems: Neuro: (-) Falls, trauma, slurred speech HEENT: (-) DURAN, dizziness, dysphagia, visual or auditory changes CV: (-) CP, palpitations, swelling Resp: (-) SOB GI: (-) appetite changes, N/V/D, bowel changes : (-) urinary changes Skin: (-) rashes Psych: (-) anxiety, depression Physical Exam Physical Exam: Neuro: AAOx4, PERRLA, no aphagia, recent confusion, CNII-XII grossly intact HEENT: head normocephalic, moist mucus membranes CV: S1/S2, (-) M/G/R, (+)3 BL LE edema, cap refill < 3 seconds Resp: Lungs CTA in all jacobsen. On RA GI: Abdomen large, soft, NT/ND, Ax4 bowel sounds, (-) CVA tenderness Musculoskeletal: 5/5 B/L UE strength, 5/5 B/L LE strength. No gait disturbance Skin: (-) rashes , (-) erythema. Psych: euthymic mood Results & Data Results & Data Vital Signs (Past 12 Hours) Vital Signs Temp Pulse Resp BP Pulse Ox O2 Del Method 09/16/23 18:30 80 18 100 Room Air 09/16/23 18:00 88 17 108/80 99 Room Air 09/16/23 17:30 77 19 119/72 99 Room Air 09/16/23 17:00 92 H 18 101/66 95 Room Air 09/16/23 16:50 99 Room Air 09/16/23 16:40 89 15 97 Room Air 09/16/23 16:37 84 09/16/23 16:33 86 16 100 Room Air 09/16/23 15:22 36 C L 80 18 110/78 100 Room Air Laboratory Results Short CBC 09/16/23 Range/Units 16:24 WBC 25.23 H (4.8-10.8) K/ul Hgb 12.6 L (14.0-18.0) g/dl Hct 36.8 L (42.0-52.0) % Plt Count 160 (130-400) K/uL BMP 09/16/23 16:24 Sodium 130 L Potassium 2.9 L Chloride 96 L Carbon Dioxide 17 L BUN TNP Creatinine TNP Glucose 219 H Calcium 7.8 L Liver Function 09/16/23 Range/Units 16:24 Total Bilirubin 24.9 H (0.2-1.0) mg/dl AST 224 H (13-39) U/L ALT 168 H (7-52) U/L Alkaline Phosphatase 242 H (34-104) U/L Albumin 2.7 L (3.4-5.0) gm/dl Urine 09/16/23 Range/Units 18:19 Urine Color Dark Yellow Urine Appearance Clear (Clear) Urine pH 6.0 (4.5-7.5) Ur Specific [place] 1.016 (1.000-1.030) Urine Protein Negative (Negative) Urine Glucose (UA) Negative (Negative) Diagnostic Findings Chest X-Ray 09/16/23 15:10 SINGLE VIEW CHEST CLINICAL HISTORY: Generalized weakness. FINDINGS: An AP, portable, upright chest radiograph is compared to study dated 08/26/2023. The cardiomediastinal silhouette is unremarkable. There is chronic elevation of the right hemidiaphragm with mild atelectasis. The lungs and pleural spaces are otherwise clear. No pneumothorax is seen. The bony thorax is grossly intact. IMPRESSION: No active disease in the chest. ACT 112: Negative or not required by law. Electronically signed by: Portillo Loja M.D. 09/16/2023 4:18 PM Chest X-Ray 09/16/23 18:20 SINGLE VIEW CHEST CLINICAL HISTORY: Leukocytosis. FINDINGS: An AP, portable, upright chest radiograph is compared to study performed earlier the same day 09/16/2023. The examination is degraded by portable technique and patient rotation. The cardiomediastinal silhouette is unremarkable. There is chronic elevation of the right hemidiaphragm with bibasilar atelectasis. The lungs and pleural spaces are otherwise clear. No pneumothorax is seen. The bony thorax is grossly intact. IMPRESSION: No active disease in the chest. No change from today's earlier examination. ACT 112: Negative or not required by law. Electronically signed by: Portillo Loja M.D. 09/16/2023 6:51 PM Code Status & VTE Plan Code Status Full code in the event of cardiac respiratory arrest Supervising Physician Co-Signing Physician Notes IM ATTENDING : Patient seen and examined. History obtained from patient and records. Concur with salient points from preceding documentation by VASILE Richards upon review. I take responsibility for plan of care below. FINAL ASSESSMENT AND PLAN as follows : Severe sepsis SIRS plus lactic acidosis Secondary to complicated UTI ? SBP given ascites/decompensated alcoholic cirrhosis - patient denies abdominal pain Recent bout of alcohol hepatitis status post steroid Rx Hyponatremia, hypokalemia, hypomagnesemia secondary to illness Chronic anemia, hemoglobin at baseline hx second-degree AV block type I (Wenckebach) atrial septal aneurysm chronic pain hx GERD Steroid induced hyperglycemia rule out DM Past alcohol abuse ongoing tobacco abuse past history IVDU Medical telemetry CS, cefepime Follow lactic acid response to IV albumin (Unable to administer guideline recommended 30 cc/kg IBW fluid bolus administration over 3 hours to third spacing.) GI consult re: ascites IV vitamin K to reverse coagulopathy in anticipation of paracentesis Nicotine replacement therapy as needed DVT prophylaxis. SCDs Re: Coagulopathy Full code Patient friend requesting updates from providers. Ms. Rosalia Elliott, contact #[phone]. Text document was generated using [employer] voice recognition software. It may contain grammatical or spelling errors. Kindly contact undersigned for clarification of any documentation item in question.
--- NOTE | 2023-09-16 20:43 | CT Scan Report ---
Exam(s): CT ABDOMEN + PELVIS With Contrast IV Amt: 88ML OPTIRAY 320 EXAM: CT Abdomen and Pelvis With Intravenous Contrast CLINICAL HISTORY: Reason for exam: abd pain. TECHNIQUE: Axial computed tomography images of the abdomen and pelvis with intravenous contrast. CTDI is 24.03 mGy and DLP is 1432.15 mGy-cm. Automated exposure control was utilized for the study. A dose lowering technique was utilized adhering to the principles of ALARA. CONTRAST: Patient received 88ML OPTIRAY 320 of IV contrast COMPARISON: No relevant prior studies available. FINDINGS: Lung bases: Unremarkable. No mass. No consolidation. ABDOMEN: Liver: Unremarkable. No mass. Gallbladder and bile ducts: Cholecystectomy. No ductal dilation. Pancreas: Unremarkable. No mass. No ductal dilation. Spleen: Unremarkable. No splenomegaly. Adrenals: Unremarkable. No mass. Kidneys and ureters: Unremarkable. No solid mass. No hydronephrosis. Stomach and bowel: Wall thickening of small bowel, concerning for enteritis versus spontaneous bacterial peritonitis. No obstruction. PELVIS: Appendix: No findings to suggest acute appendicitis. Bladder: Unremarkable. No mass. Reproductive: Unremarkable as visualized. ABDOMEN and PELVIS: Intraperitoneal space: Abdominal and pelvic ascites. No free air. Bones/joints: No acute fracture. No dislocation. Soft tissues: Anasarca. Vasculature: Unremarkable. No abdominal aortic aneurysm. Lymph nodes: Unremarkable. No enlarged lymph nodes. IMPRESSION: Ascites. Wall thickening of small bowel, concerning for enteritis versus spontaneous bacterial peritonitis. Electronically signed by: Ubaldo Soto MD 09/16/23 20:43 PM
[2023-09-16] MEDS: POTASSIUM CHLORIDE CRTAB 20 MEQ TABCR PO ONE (21:06)
[2023-09-16] MEDS: ALBUMIN 25% 25 GM/100 ML VIAL IV SCH (21:06)
[2023-09-16] MEDS: LACTULOSE SYRUP 30 GM/45 ML UDP PO ONE (21:17)
[2023-09-16 21:21] LABS: INR 1.9 (0.9-1.1); Prothrombin Time 20.4 Seconds (9.0-12.0)
[2023-09-16 21:23] LABS: Magnesium 1.6 mg/dl (1.7-2.4)
[2023-09-16] MEDS: THIAMINE HCL 100 MG in SYRINGE 9 ML IV ONE (21:26)
[2023-09-16] MEDS ORDERED: ACETAMINOPHEN 325 MG TAB PO PRN (21:37)
[2023-09-16] MEDS ORDERED: PROMETHAZINE HCL 6.25 MG in SODIUM CHLORIDE 0.9% 50 ML IV PRN (21:37)
[2023-09-16] MEDS: CEFEPIME 2,000 MG/20 ML VIAL IV ONE (22:53)
[2023-09-16] MEDS: POTASSIUM CHLORIDE CRTAB 20 MEQ TABCR PO STA (22:53)
--- OUTSIDE RECORDS SUMMARY | 2023-09-16 22:53 | External Medical Summary | Summary of Care ---
Author Name Unknown Organization [facility] Address [address] [facility] [place] [address] Phone [phone] Care Team Providers Care Pet Training Instructor Name Role Phone Radha Sigala MD Primary Care Provide r Reason for Visit * Reason Comments Outpatient Testing Encounter Details Date Type Department Care Team (Late st Contact Info) Description 2023 11:40 AM EST Laboratory Laboratory [address] [place] [phone] [place] [address] HTN, goal below 140/90; Acute liver failure without hepatic coma Allergies No known active allergiesdocumented as of this encounter (statuses as of 2023) Medications Medication Sig Dispensed Refills Start Date End Date Status Pantoprazole Sodium 40 MG Oral Tablet Delayed Release (Protonix)Indications :Gastroesophageal reflux disease without esophagitis,Epigastri c pain Take 1 Tablet by mouth in the morning. In the morning.. 90 Tablet 1 08/03/2023 Active Baclofen 10 MG Oral Tablet (Lioresal) Take 1 Tablet by mouth 3 times daily (morning, noon, before bedtime). 90 Tablet 0 08/24/2023 Active Folic Acid 1 MG Oral Tablet Take 1 Tablet by mouth daily in the morning. 30 Tablet 0 08/25/2023 Active Thiamine HCl 100 MG Oral Tablet (vitamin B-1) Take 1 Tablet by mouth daily in the morning. 30 Tablet 0 08/25/2023 Active Therapeutic-M/Lutein Oral Tablet Take 1 Tablet by mouth daily at noon. Do not start before August 25, 2023. 30 Tablet 0 08/25/2023 Active Phos-NaK 280-160-250 MG Oral Packet (potassium and sodium phosphate) Take 1 Packet by mouth in the morning and 1 Packet at noon and 1 Packet before bedtime. 9 Packet 0 08/29/2023 Active rifAXIMin 550 MG Oral Tablet (Xifaxan) Take 1 Tablet by mouth in the morning and 1 Tablet before bedtime daily. 60 Tablet 0 08/29/2023 Active prednisoLONE Sodium Phosphate 15 MG/5ML Oral Solution (Orapred) Take 13.3 mL by mouth every morning. 279.3 mL 0 08/29/2023 Active Furosemide 20 MG Oral Tablet (Lasix)Indications:Lo calized swelling of both lower legs Take 1 Tablet by mouth in the morning. 30 Tablet 11 09/12/2023 Active Lactulose 10 GM/15ML Oral Solution (Constulose)Indicatio ns:Acute liver failure without hepatic coma Take 5 mL by mouth in the morning. 237 mL 1 09/12/2023 Active Ondansetron HCl 4 MG Oral TabletIndications:Yuniel sea and vomiting, unspecified vomiting type Take 1 Tablet by mouth every 8 hours as needed for Nausea. 30 Tablet 0 09/12/2023 Active documented as of this encounter (statuses as of 2023) Active Problems Problem Noted Date Diagnosed Date Alcoholic cirrhosis of liver without ascites Hypophosphatemia 08/24/2023 Tobacco abuse disorder 08/24/2023 Alcoholic hepatitis without ascites 08/22/2023 Acute liver failure 08/21/2023 Hepatic encephalopathy 08/21/2023 Opioid use disorder 08/21/2023 Alcohol use disorder, severe, dependence 024 Alcoholic hepatitis with ascites 08/21/2023 HTN, goal below 140/90 02/24/2023 Atrioventricular block, Mobitz type 1, Wenckebac h 02/24/2023 Syncope 02/24/2023 Palpitations 02/24/2023 Gastroesophageal reflux disease without esophagi tis 11/29/2017 Raynaud's phenomenon without gangrene 11/19/2016 documented as of this encounter (statuses as of 2023) Resolved Problems Problem Noted Date Diagnosed Date Resolved Date Dizziness 02/24/2023 08/24/2023 Routine child health exam 04/18/2002 documented as of this encounter (statuses as of 2023) Immunizations Name Administration Dates Next Due Seasonal Influenza, PF, 6 M & above, IM , (FluLaval or Fluzone) 05/28/2022,04/29/2020,04/27/2019 TDAP (age 11 and older)(Adacel) 02/06/2016 documented as of this encounter Social History Tobacco Use Types Packs/Day Years Used Date Smoking Tobacco: Former Cigarettes 0.1 14 0 2002 - 08/13/2023 Smokeless Tobacco: Current Chew Comments:2-3 cigarettes a da y as of 02/24/23. No chew in the last month as of 02/24/23 Alcohol Use Standard Drinks/Week Comments Yes 0 (1 standard drink = 0.6 oz [...] on file documented as of this encounter Functional Status Functional Status Response Date of Assess ment Are you deaf or do you have serious difficulty h earing? No 08/26/2023 Are you blind or do you have serious difficulty seeing, even when wearing glasses? No 08/26/2023 Do you have serious difficul ty walking or climbing stairs? (5 years old or older) Yes 08/26/2023 Do you have difficulty dress ing or bathing? (5 years old or older) No 08/26/2023 Because of a physical, menta l, or emotional condition, do you have difficulty doing errands alone such as visiting a doctor s office or shopping? (15 years old or older) No 08/26/19 24 Cognitive Status Response Date of Assessm ent Because of a physical, menta l, or emotional condition, do you have serious difficulty concentrating, remembering, or making decisions? (5 years old or older) Yes 08/26/2023 documented as of this encounter Plan of Treatment Upcoming Encounters Date Type Department Care Team (Late st Contact Info) Description 10/18/2023 2:20 PM EDT Office Visit Hepatology, [place] [address] [place] [address] Iban Chaidez MD [address] [place] [address] 10/20/2023 8:20 AM EDT Office Visit Family Medicine [address] [phone] [place] [place] [address] Scheduled Orders Name Type Priority Associated Diagnoses Orde r Schedule ANEMIA CBC Lab Routine Acute liver failure without hepatic coma Ordered: 2023 DIFFERENTIAL, AUTOMATED Lab Routine Acute liver failure without hepatic coma Ordered: 2023 ANEMIA REFLEX CHEMISTRY HOLD Lab Routine Acute liver failure without hepatic coma Ordered: 2023 Health Maintenance Due Date Last Done Comments COVID-19 Vaccine (#1) 03/15/1985 Albumin/Creatinine Ratio 2002 Hepatitis C Screening 2002 Depression Screening 06/10/2021 06/10/2020 Influenza Vaccine (FLU shot) (#1) 2023 05/28/2022, 04/29/2020, 04/27/2019 GFR 09/05/2024 09/05/2023, 08/09, 08/28/2023, Additional history exists DTaP,Tdap,and Td Vaccines (3 - Td or Tdap) 02/05/2026 02/06/2016, 11/19/2001 Hepatitis B Completed 11/29/2000, 05/08, 03/22/1997 Pneumococcal Vaccine: Pediatrics (0 to 5 Years) and At-Risk Patients (6 to 64 Years) Completed 08/20/2023 GARDASIL-HPV IMMUNIZATION SERIES Aged Out No longer eligible based on patient's age to complete this topic MENINGOCOCCAL (MENACTRA/MENVEO) Aged Out No longer eligible based on patient's age to complete this topic documented as of this encounter Medical Devices Not on filedocumented as of this encounter Visit Diagnoses Diagnosis HTN, goal below 140/90 Unspecified essential hypertension Acute liver failure without hepatic coma documented in this encounter Advance Directives Latest Code Status on File Code Status Date Activated Date Inactivated Comments Full Code 08/26/2023 9:50 PM 08/29/2023 9:43 PM This order reflects the patients wishes and were consensually agreed upon. Question Answer Comments Discussion of Advance Directives occurred with: Patient Code Status History Code Status Date Activated Date Inactivated Comments Full Code 08/21/2023 12:59 AM 08/24/2023 9:04 PM This order reflects the patients wishes and were consensually agreed upon. Question Answer Comments Discussion of Advance Directives occurred with: Patient Care Teams Pet Training Instructor Relationship Specialty Start Date End Date Radha Sigala MD [address] [place] [address] [place] [id number] PCP - General Family Medicine 08/31/23 documented as of this encounter
--- OUTSIDE RECORDS SUMMARY | 2023-09-16 22:53 | External Medical Summary | Summary of Care ---
Author Name Unknown Organization [facility] Address [address] [facility] [place] [address] Phone [phone] Care Team Providers Care Garment Fitter Name Role Phone Radha Sigala MD Primary Care Provide r Reason for Visit * Reason Comments Outpatient Testing Encounter Details Date Type Department Care Team (Late st Contact Info) Description 2023 11:40 AM EST Laboratory Laboratory [address] [place] [phone] [place] [address] HTN, goal below 140/90; Acute liver failure [...] 10/18/2023 2:20 PM EDT Office Visit Hepatology, [place] [address] [place] [address] Iban Chaidez MD [address] [place] [address] 10/20/2023 8:20 AM EDT Office Visit Family Medicine [address] [phone] [address] [place] [phone] Pending Results Name Type Priority Associated Diagnoses Date /Time ALBUMIN / CREATININE RATIO, URINE Lab Routine HTN, goal below 140/90 2023 11:41 AM EST CBC WITH WBC DIFFERENTIAL AND ANEMIA REFLEX WORKUP Lab Routine Acute liver failure without hepatic coma 2023 11:41 AM EST ANEMIA REFLEX CHEMISTRY HOLD Lab Routine Acute liver failure without hepatic coma 2023 11:41 AM EST Scheduled Orders Name Type Priority Associated Diagnoses [...] Advance Directives occurred with: Patient Care Teams Garment Fitter Relationship Specialty Start Date End Date Radha Sigala MD [address] [place] [address] [place] [address] PCP - General Family Medicine 08/31/23 documented as of this encounter
--- OUTSIDE RECORDS SUMMARY | 2023-09-16 22:53 | External Medical Summary | Summary of Care ---
Author Name Unknown Organization [facility] Address [address] [facility] [place] [address] Phone [phone] Care Team Providers Care Casino Games Dealer Name Role Phone Radha Sigala MD Primary Care Provide r Reason for Visit * Reason Comments Outpatient Testing Encounter Details Date Type Department Care Team (Late st Contact Info) Description 2023 11:40 AM EST Laboratory Laboratory [address] [place] [phone] [place] [address] HTN, goal below 140/90; Acute liver failure [...] 10/18/2023 2:20 PM EDT Office Visit Hepatology, [place] [address] [place] [address] Iban Chaidez MD [address] [place] [address] 10/20/2023 8:20 AM EDT Office Visit Family Medicine [address] [phone] [place] [address] Pending Results Name Type Priority Associated Diagnoses Date /Time ALBUMIN / CREATININE RATIO, URINE Lab Routine HTN, goal below 140/90 2023 11:41 AM EST Scheduled Orders Name [...] Advance Directives occurred with: Patient Care Teams Casino Games Dealer Relationship Specialty Start Date End Date Radha Sigala MD [address] [place] [address] [place] [address] PCP - General Family Medicine 08/31/23 documented as of this encounter
--- OUTSIDE RECORDS SUMMARY | 2023-09-16 22:53 | External Medical Summary | Summary of Care ---
Author Name Unknown Organization [facility] Address [address] [facility] [place] [address] Phone [phone] Care Team Providers Care Plastic Welding Machine Operator Name Role Phone Radha Sigala MD Primary Care Provide r Reason for Visit * Reason Comments Outpatient Testing Encounter Details Date Type Department Care Team (Late st Contact Info) Description 2023 11:40 AM EST Laboratory Laboratory [address] [place] [phone] [place] [address] HTN, goal below 140/90; Acute liver failure [...] 10/18/2023 2:20 PM EDT Office Visit Hepatology, [place] [address] [place] [address] Iban Chaidez MD [address] [place] [address] 10/20/2023 8:20 AM EDT Office Visit Family Medicine [address] [phone] Brady Royal[address] [place] [phone] Pending Results Name Type Priority Associated Diagnoses [...] Advance Directives occurred with: Patient Care Teams Plastic Welding Machine Operator Relationship Specialty Start Date End Date Radha Sigala MD [address] [place] [address] [place] [address] PCP - General Family Medicine 08/31/23 documented as of this encounter
[2023-09-16] MEDS: PHYTONADIONE 10 MG in DEXTROSE 5% 50 ML IV ONE (22:54)
--- OUTSIDE RECORDS SUMMARY | 2023-09-16 22:54 | External Medical Summary | Summary of Care ---
Author Name Unknown Organization [facility] Address [address] [facility] [place] [address] Phone [phone] Care Team Providers Care Manager Of Finance Name Role Phone Radha Sigala MD Primary Care Provide r Reason for Referral * Evaluate & Treat - Unlimited Visits (Within 10 days (routine)) - Pending Review Specialty Diagnoses / Procedures Referred By Kelsey ware Referred To Contact HOME CARE / Home Care Diagnoses Acute liver failure without hepatic coma Localized swelling of both lower legs Fatigue, unspecified type Brady Royal [address] [place] [address] Referral ID Status Reason Start Date Expiration Date Visits Requested Visits Authorized [id number] Pending Review Specialty Services Required 09/12/[phone] Question Answer Referral Priority Within 10 days (routine) Where should this appointment be scheduled? External Comments Documentation of [id number]-[id number] Encounter Addendum Patient Name: Jimmy Yu I certify that this patient is under my care and that I, or a nurse practitioner or physician's graphic design assistant working with me, had a [id number] encounter that meets the physician [id number] encounter requirements with this patient on: 09/12/2023 The encounter with the patient was in whole, or in part, for the following medical condition, which is the primary reason for home health care (List medical condition): Convalescence from acute illness I certify that, based on my findings, the following services are medically necessary home health services: Physical Therapy My clinical findings support the need for the above services because: patient is experiencing generalized weakness following a hospital discharge. Further, I certify that my clinical findings support that this patient is homebound (i.e. Absences from home require considerable and taxing effort and are for medical reasons or voodoo services or infrequently or of short duration when for other reason) because: of liver failure, edema, and generalized weakness making it difficulty for patient to travel. Physician Signature: Date of Signature: Physician Printed Name: VASILE Cook Reason for Visit * Reason Onset Date Comments Hospital Follow-Up Hospital Follow-Up 09/12/2023 Encounter Details Date Type Department Care Team (Late st Contact Info) Description 09/12/2023 8:20 AM EST Office Visit Family Medicine [address] [place] [phone] Brady Royal CRNP [address] [place] [address] [place] [address] Acute liver failure without hepatic coma*; HTN, goal below 140/90; Gastroesophageal reflux disease without esophagitis; Alcoholic hepatitis with ascites; Localized swelling of both lower legs; Fatigue, unspecified type; Nausea and vomiting, unspecified vomiting type; Hospital discharge follow-up Allergies No known active allergiesdocumented as of this encounter (statuses as of 09/12/2023) Medications Medication Sig Dispensed Refills Start Date End Date Status Pantoprazole Sodium 40 MG Oral Tablet Delayed Release (Protonix)Indicati ons:Gastroesophage al reflux disease without esophagitis,Epigas tric pain Take 1 Tablet by mouth in [...] the morning. 30 Tablet 0 08/25/2023 Active Therapeutic-M/Lute in Oral Tablet Take 1 Tablet by mouth [...] 08/29/2023 Active Furosemide 20 MG Oral Tablet (Lasix)Indications :Localized swelling of both lower legs Take 1 Tablet by mouth in the morning. 30 Tablet 11 09/12/2023 Active Lactulose 10 GM/15ML Oral Solution (Constulose)Indica tions:Acute liver failure without hepatic coma Take 5 mL by mouth in the morning. 237 mL 1 09/12/2023 Active Ondansetron HCl 4 MG Oral TabletIndications: Nausea and vomiting, unspecified vomiting type Take 1 Tablet by mouth every 8 hours as needed for Nausea. 30 Tablet 0 09/12/2023 Active Lactulose 20 GM/30ML Oral Solution (Constulose) Take 15 mL by mouth in the morning and 15 mL at noon and 15 mL before bedtime. 240 mL 12 08/29/2023 09/12/2023 Discontinued documented as of this encounter (statuses as of 09/12/2023) Active Problems Problem Noted Date Diagnosed Date [...] as of this encounter (statuses as of 09/12/2023) Resolved Problems Problem Noted Date Diagnosed Date Resolved Date Dizziness 02/24/2023 08/24/2023 Routine child health exam 04/18/2002 documented as of this encounter (statuses as of 09/12/2023) Immunizations Name Administration Dates Next Due HEP B - Hepatitis B (Adole/H igh Risk Ped, 11-15 yrs 05/24/1997,03/22/1997 Hepatitis B, 0-19 yrs 11/29/2000 MMR - Measles/Mumps/Rubella Vaccine 05/24/1995 Seasonal Influenza, PF, 6 M & above, IM , (FluLaval or Fluzone) 05/28/2022,04/29/2020,04/27/2019 TD - Tetanus/Diptheria (ADULT) 11/19/2001 TDAP (age 11 and older)(Adacel) 02/06/2016 documented as of this encounter Social History Tobacco Use Types Packs/Day Years Used Date Smoking Tobacco: Former Cigarettes 0.1 14 0 2002 - 08/13/2023 Smokeless Tobacco: Current Chew Tobacco Cessation:Ready to [...] Sign Reading Time Taken Comments Blood Pressure 102/70 09/12/2023 8:21 AM EST Pulse 108 09/12/2023 8:21 AM EST Temperature 36.4 C (97.5 F) 09/12/2023 8:21 AM ES T Respiratory Rate 12 09/12/2023 8:21 AM EST Oxygen Saturation - - Inhaled Oxygen Concentration - - Weight 81.8 kg (180 lb 4 oz) 09/12/2023 8:21 AM EST Height - - Body Mass Index 22.53 08/26/2023 9:35 PM EST documented in this encounter Functional Status Functional Status Response [...] (15 years old or older) No 08/26/19 Cognitive Status Response Date of Assessm ent Because of a physical, menta l, or emotional condition, do you have serious difficulty concentrating, remembering, or making decisions? (5 years old or older) Yes 08/26/2023 documented as of this encounter Progress Notes * Brady Royal Tea, VASILE - 09/12/2023 8:21 AM EST Images from the original note were not included. History of Present Illness Jimmy Yu is a 37 year old male that presents for Hospital Follow-Up Past medical hx of alcohol use disorder, alcoholic cirrhosis, alcoholic hepatitis with ascites, HTN, and GERD. Patient presents with concerns for generalized fatigue/weakness following hospital discharge on 08/29/23. In addition, patient reports new abdominal distention, bloating, back spasms, N/V, frequent BM's, rosalind colored stool with tinges of pink color, and difficulty sleeping. Denies any fever, chills, chest pain, shortness of breath, dizziness, or falls. Reports decrease activity at home due to leg swelling, weakness, and fatigue. Denies hx of ascites or paracentesis. Reports last drinkwas in the beginning of August a few days prior to his admission on 08/14/23 and is doing well abstaining from alcohol. Currently still taking Prednisolone and reports has 2 days left of medication. Patient Active Problem List Diagnosis Code Raynaud's phenomenon without gangrene I73.00 Gastroesophageal reflux disease without esophagitis K21.9 HTN, goal below 140/90 I10 Atrioventricular block, Mobitz type 1, Wenckebach I44.1 Syncope R55 Palpitations R00.2 Acute liver failure K72.00 Hepatic encephalopathy (HCC) K76.82 Opioid use disorder F11.90 Alcohol use disorder, severe, dependence (HCC) F10.20 Alcoholic hepatitis with ascites K70.11 Alcoholic hepatitis without ascites K70.10 Alcoholic cirrhosis of liver without ascites (HCC) K70.30 Hypophosphatemia E83.39 Tobacco abuse disorder Z72.0 Current Outpatient Medications Medication Sig Dispense Refill Pantoprazole Sodium 40 MG Oral Tablet Delayed Release (Protonix) Take 1 Tablet by mouth in the morning. In the morning.. 90 Tablet 1 Baclofen 10 MG Oral Tablet (Lioresal) Take 1 Tablet by mouth 3 times daily (morning, noon, before bedtime). 90 Tablet 0 Folic Acid 1 MG Oral Tablet Take 1 Tablet by mouth daily in the morning. 30 Tablet 0 Thiamine HCl 100 MG Oral Tablet (vitamin B-1) Take 1 Tablet by mouth daily in the morning. 30 Tablet 0 Therapeutic-M/Lutein Oral Tablet Take 1 Tablet by mouth daily at noon. Do not start before August 25, 2023. 30 Tablet 0 Phos-NaK 280-160-250 MG Oral Packet (potassium and sodium phosphate) Take 1 Packet by mouth in the morning and 1 Packet at noon and 1 Packet before bedtime. 9 Packet 0 rifAXIMin 550 MG Oral Tablet (Xifaxan) Take 1 Tablet by mouth in the morning and 1 Tablet before bedtime daily. 60 Tablet 0 prednisoLONE Sodium Phosphate 15 MG/5ML Oral Solution (Orapred) Take 13.3 mL by mouth every morning. 279.3 mL 0 Furosemide 20 MG Oral Tablet (Lasix) Take 1 Tablet by mouth in the morning. 30 Tablet 11 Lactulose 10 GM/15ML Oral Solution (Constulose) Take 5 mL by mouth in the morning. 237 mL 1 Ondansetron HCl 4 MG Oral Tablet Take 1 Tablet by mouth every 8 hours as needed for Nausea. 30 Tablet 0 No current facility-administered medications for this visit. Review of patient's allergies indicates: No Known Allergies Past Medical History: Diagnosis Date Acute liver failure 08/21/2023 [facility] Acute pancreatitis 03/20/2020 [facility] Alcohol use disorder, severe, dependence (HCC) 08/21/2023 Alcoholic cirrhosis of liver without ascites (HCC) 08/24/2023 History of drug abuse (HCC) on Subutex Idiopathic acute pancreatitis without infection or necrosis 09/24/2021 CT showed no necrosis, lipase 770, refused admission Raynaud's phenomenon without gangrene 11/19/2016 Screening for HIV without presence of risk factors 11/19/2016 negative Tobacco abuse disorder Past Surgical History: Procedure Laterality Date EGD, FLEXIBLE, DIAGNOSTIC 09/24/2020 reflux esophagitis / ESOPHAGOGASTRODUODENOSCOPY (EGD), FLEXIBLE, TRANSORAL, DIAGNOSTIC performed byNika Langford DO at END[facility] EGD, W/ENDOSCOPIC US 09/24/2020 fatty liver / ESOPHAGOGASTRODUODENOSCOPY (EGD), FLEXIBLE, TRANSORAL, ENDOSCOPIC ULTRASOUND performed by Nika Langford DO at END[facility] FLUORO UPPER GI WITHOUT AIR WO KUB 08/22/2017 minimal GE reflux, no ulcer or scarring LAPAROSCOPY; CHOLECYSTECTOMY Social History Socioeconomic History Marital status: Single Spouse name: Not on file Number of children: Not on file Years of education: Not on file Highest education level: Not on file Occupational History Not on file Tobacco Use Smoking status: Former Packs/day: 0.10 Years: 14.00 Additional pack years: 0.00 Total pack years: 1.40 Types: Cigarettes Start date: 2002 Quit date: 08/13/2023 Years since quittin.0 Smokeless tobacco: Current Types: Chew Tobacco comments: 2-3 cigarettes a day as of 02/24/23. No chew in the last month as of 02/24/23 Vaping Use Vaping Use: Never used Substance and Sexual Activity Alcohol use: Yes Drug use: Not Currently Sexual activity: Not on file Other Topics Concern Not on file Social History Narrative Not on file Social Determinants of Health Financial Resource Strain: Not on file Food Insecurity: No Food Insecurity (04/02/2019) Hunger Vital Sign Worried About Running Out of Food in the Last Year: Never true Ran Out of Food in the Last Year: Never true Transportation Needs: Not on file Physical Activity: Not on file Stress: Not on file Social Connections: Not on file Intimate Partner Violence: Not on file Housing Stability: Not on file Physical Exam Vitals: 09/12/23 0821 Temp: 36.4 C (97.5 F) Pulse: 108 Resp: 12 BP: 102/70 Physical Exam Vitals and nursing note reviewed. HENT: Head: Normocephalic and atraumatic. Right Ear: Tympanic membrane normal. Left Ear: Tympanic membrane normal. Nose: Nose normal. Mouth/Throat: Mouth: Mucous membranes are moist. Pharynx: Oropharynx is clear. Eyes: General: Scleral icterus present. Pupils: Pupils are equal, round, and reactive to light. Cardiovascular: Rate and Rhythm: Normal rate and regular rhythm. Pulses: Normal pulses. Heart sounds: Normal heart sounds, S1 normal and S2 normal. Pulmonary: Effort: Pulmonary effort is normal. Breath sounds: Normal breath sounds. Abdominal: General: Bowel sounds are normal. There is distension. Palpations: Abdomen is rigid. Tenderness: There is generalized abdominal tenderness. Musculoskeletal: General: Normal range of motion. Right lower le+ Pitting Edema present. Left lower le+ Pitting Edema present. Skin: General: Skin is warm and dry. Capillary Refill: Capillary refill takes less than 2 seconds. Coloration: Skin is jaundiced. Neurological: General: No focal deficit present. Mental Status: He is alert and oriented to person, place, and time. Psychiatric: Mood and Affect: Mood normal. Behavior: Behavior normal. Behavior is cooperative. I have reviewed the following results: PT/INR, CMP, CBC, and B12 Assessment and Plan Acute liver failure without hepatic coma - no concerns for SBP today - plan will be to recheck labs on 09/15/23 to reassess liver function - decrease lactulose goal is 3-4 BM's a day and drink plenty of fluids - CBC WITH WBC DIFFERENTIAL AND ANEMIA REFLEX WORKUP; Future - COMPREHENSIVE METABOLIC PANEL; Future - Lactulose 10 GM/15ML Oral Solution (Constulose); Take 5 mL by mouth in the morning. - HOME HEALTH REFERRAL OP HTN, goal below 140/90 - closely monitor blood pressure at home especially with starting Lasix - call for any blood pressure less than 90/50 - drink plenty of fluids - ALBUMIN / CREATININE RATIO, URINE; Future Gastroesophageal reflux disease without esophagitis - continue taking Protonix Alcoholic hepatitis with ascites - will recheck liver function on 09/15/23 Localized swelling of both lower legs - try compression socks or may use bi bandages until swelling reduces enough for compression socksto fit - keep legs elevated when sitting or laying - Furosemide 20 MG Oral Tablet (Lasix); Take 1 Tablet by mouth in the morning. - DURABLE MEDICAL EQUIPMENT [place] - HOME HEALTH REFERRAL OP Fatigue, unspecified type - to set up home PT to regain strength - HOME HEALTH REFERRAL OP Nausea and vomiting, unspecified vomiting type - Ondansetron HCl 4 MG Oral Tablet; Take 1 Tablet by mouth every 8 hours as needed for Nausea. Hospital discharge follow-up - DISCH MED RECON CUR MED LIS Addendum By Exam: moderate b/l LE pitting edema Abd: mild distended, NT, very slight fluid wave, no rebound or guarding A/P: -will initiate diuretics for leg swelling --- home BP check, CMP in 3 days -Decreased lactulose dose to maintain BM 3-4/day - sched to follow up with hepatology - pt still having elevated t bili and LFTs ----- no worsening symptoms ----- will continue to monitor it - ER precautions given Wrap-Up Follow Up: Return in 1 month (on 10/11/2023) for Return with Physician. | For: Return with Physician Time: I spent a total of 40-54 minutes (exact time 50 mins) on the date of service in preparation, delivery, and documentation of the care provided to Jimmy Yu excluding any time spent in the performance of separately billed services. documented in this encounter Nursing Notes * Yasmin Kilpatrick LPN - 09/12/2023 10:04 AM EST I faxed information to [employer], regarding the compression socks. * Yasmin Kilpatrick LPN - 09/12/2023 8:18 AM EST [facility] follow up documented in this encounter Plan of Treatment Upcoming Encounters Date Type Department Care Team (Late st Contact Info) Description 10/18/2023 2:20 PM EDT [facility] [address] [place] [address] Iban Chaidez MD [address] [place] [address] 10/20/2023 8:20 AM EDT Office Visit Family Medicine [address] [place] [phone] [address] [place] [address] Scheduled Orders Name Type Priority Associated Diagnoses Orde r Schedule ALBUMIN / CREATININE RATIO, URINE Lab Routine HTN, goal below 140/90 Expected: 09/12/2023 (Approximate), Expires: 09/11/2024 CBC WITH WBC DIFFERENTIAL AND ANEMIA REFLEX WORKUP Lab Routine Acute liver failure without hepatic coma Expected: 2023 (Approximate), Expires: 09/12/2024 COMPREHENSIVE METABOLIC PANEL Lab Routine Acute liver failure without hepatic coma Expected: 2023 (Approximate), Expires: 09/11/2024 Scheduled Referrals Name Type Priority Associated Diagnoses Orde r Schedule HOME HEALTH REFERRAL OP Referral Within 10 days (routine) Acute liver failure without hepatic coma Localized swelling of both lower legs Fatigue, unspecified type Ordered: 09/12/2023 Health Maintenance Due Date Last Done Comments [...] as of this encounter Visit Diagnoses Diagnosis Acute liver failure without hepatic coma- Primary HTN, goal below 140/90 Unspecified essential hypertension Gastroesophageal reflux disease without esophagitis Esophageal reflux Alcoholic hepatitis with ascites Acute alcoholic hepatitis Localized swelling of both lower legs Fatigue, unspecified type Nausea and vomiting, unspecified vomiting type Hospital discharge follow-up Other follow-up examination documented in this encounter Advance Directives Latest [...] Advance Directives occurred with: Patient Care Teams Manager Of Finance Relationship Specialty Start Date End Date Radha Sigala MD [address] [place] [address] [place] [address] PCP - General Family Medicine 08/31/23 documented as of this encounter"
--- OUTSIDE RECORDS SUMMARY | 2023-09-16 22:54 | External Medical Summary | Summary of Care ---
Author Name Unknown Organization [facility] Address [address] [facility] [place] [address] Phone [phone] Care Team Providers Care Product Support Sales Representative Name Role Phone Radha Sigala MD Primary Care Provide r Reason for Referral * Evaluate & Treat - Unlimited Visits (Within 10 days (routine)) - Pending Review Specialty Diagnoses / Procedures Referred By Kelsey ware Referred To Contact HOME CARE / Home Care Diagnoses Acute liver failure without hepatic coma Localized swelling of both lower legs Fatigue, unspecified type Brady Royal [address] [place] [address] Referral ID Status Reason Start Date Expiration Date Visits Requested Visits Authorized [id number] Pending Review Specialty Services Required 09/12/[phone] Question Answer Referral Priority Within 10 days (routine) Where should this appointment be scheduled? External Comments Documentation of Racx-vp-Mtwj Encounter Addendum Patient Name: Jimmy Yu I certify that this patient is under my care and that I, or a nurse practitioner or physician's home based assistant working with me, had a lohx-th-mksd encounter that meets the physician tyoz-ab-xjmc encounter requirements with this patient on: 09/12/2023 [...] effort and are for medical reasons or faith services or infrequently or of short duration [...] 8:20 AM EST Office Visit Family Medicine [address] [place] [phone] Brady Royal CRNP [address] [place] [address] [place] [address] Acute liver failure without [...] History: Diagnosis Date Acute liver failure 08/21/2023 [facility] Acute pancreatitis 03/20/2020 [facility] Alcohol use disorder, severe, dependence (HCC) 08/21/2023 [...] DIAGNOSTIC performed byNika Langford DO at ENDOSCOPY [facility] EGD, W/ENDOSCOPIC US 09/24/2020 fatty liver / ESOPHAGOGASTRODUODENOSCOPY (EGD), FLEXIBLE, TRANSORAL, ENDOSCOPIC ULTRASOUND performed by Nika Langford DO at ENDOSCOPY [facility] FLUORO UPPER GI WITHOUT AIR WO KUB [...] in the morning. - DURABLE MEDICAL EQUIPMENT [place] - HOME HEALTH REFERRAL OP Fatigue, unspecified [...] 10:04 AM EST I faxed information to [employer], regarding the compression socks. I faxed HH referral for PT to [facility] Nursing. * Yasmin Kilpatrick LPN - 09/12/2023 8:18 AM EST [facility] follow up documented in this encounter Plan of Treatment Upcoming Encounters Date Type Department Care Team (Late st Contact Info) Description 10/18/2023 2:20 PM EDT [facility] [address] [place] [address] Iban Chaidez MD [address] [place] [address] 10/20/2023 8:20 AM EDT Office Visit Family Medicine [address] [place] [phone] Brady Royal [address] [place] [address] Scheduled Orders Name Type Priority Associated Diagnoses [...] Advance Directives occurred with: Patient Care Teams Product Support Sales Representative Relationship Specialty Start Date End Date Radha Sigala MD [address] [place] [address] [place] [address] PCP - General Family Medicine 08/31/23 documented as of this encounter"
--- OUTSIDE RECORDS SUMMARY | 2023-09-16 22:54 | External Medical Summary | Summary of Care ---
Author Name Unknown Organization [facility] Address [address] [facility] [place] [address] Phone [phone] Care Team Providers Care Refueling Ramp Attendant Name Role Phone Radha Sigala MD Primary Care Provide r Reason for Referral * Evaluate & Treat - Unlimited Visits (Within 10 days (routine)) - Pending Review Specialty Diagnoses / Procedures Referred By Kelsey ware Referred To Contact HOME CARE / Home Care Diagnoses Acute liver failure without hepatic coma Localized swelling of both lower legs Fatigue, unspecified type Brady Royal [address] [place] [address] Referral ID Status Reason Start Date Expiration Date Visits Requested Visits Authorized [id number] Pending Review Specialty Services Required 09/12/[phone] Question Answer Referral Priority Within 10 days (routine) Where should this appointment be scheduled? External Comments Documentation of Yuwx-va-Lrvw Encounter Addendum Patient Name: Jimmy Yu I certify that this patient is under my care and that I, or a nurse practitioner or physician's technical support assistant working with me, had a cxrm-tn-lgku encounter that meets the physician gziw-br-hxgd encounter requirements with this patient on: 09/12/2023 [...] effort and are for medical reasons or baptist services or infrequently or of short duration [...] 8:20 AM EST Office Visit Family Medicine [address] [place] [phone] Brady Royal CRNP [address] [place] [address] [place] [address] Acute liver failure without [...] History: Diagnosis Date Acute liver failure 08/21/2023 [facility] Acute pancreatitis 03/20/2020 [facility] Alcohol use disorder, severe, dependence (HCC) 08/21/2023 [...] DIAGNOSTIC performed byNika Langford DO at ENDOSCOPY [facility] EGD, W/ENDOSCOPIC US 09/24/2020 fatty liver / ESOPHAGOGASTRODUODENOSCOPY (EGD), FLEXIBLE, TRANSORAL, ENDOSCOPIC ULTRASOUND performed by Nika Langford DO at ENDOSCOPY [facility] FLUORO UPPER GI WITHOUT AIR WO KUB [...] in the morning. - DURABLE MEDICAL EQUIPMENT [place] - HOME HEALTH REFERRAL OP Fatigue, unspecified [...] Notes * Yasmin Kilpatrick LPN - 09/12/2023 8:18 AM EST [facility] follow up documented in this encounter Plan of Treatment Upcoming Encounters Date Type Department Care Team (Late st Contact Info) Description 10/18/2023 2:20 PM EDT Office Visit Hepatology, [place] [address] [place] [address] Iban Chaidez MD [address] [place] [address] 10/20/2023 8:20 AM EDT Office Visit Family Medicine [address] [phone] Brady Royal[address] [place] [address] Scheduled Orders Name Type Priority Associated Diagnoses [...] Advance Directives occurred with: Patient Care Teams Refueling Ramp Attendant Relationship Specialty Start Date End Date Radha Sigala MD [address] [place] [address] [place] [address] PCP - General Family Medicine 08/31/23 documented as of this encounter"
--- OUTSIDE RECORDS SUMMARY | 2023-09-16 22:54 | External Medical Summary | Summary of Care ---
Author Name Unknown Organization [facility] Address [address] [facility] [place] [address] Phone [phone] Care Team Providers Care Oracle Iam Consultant Name Role Phone Radha Sigala MD Primary Care Provide r Reason for Visit * Reason Comments Outpatient Testing Encounter Details Date Type Department Care Team (Late st Contact Info) Description 2023 11:40 AM EST Laboratory Laboratory [address] [place] [phone] [place] [address] HTN, goal below 140/90; Acute liver failure [...] 10/18/2023 2:20 PM EDT Office Visit Hepatology, [place] [address] [place] [address] Iban Chaidez MD [address] [place] [address] 10/20/2023 8:20 AM EDT Office Visit Family Medicine [address] [phone] Brady Royal[address] [place] [address] Pending Results Name Type Priority Associated Diagnoses Date /Time ALBUMIN / CREATININE RATIO, URINE Lab Routine HTN, goal below 140/90 2023 11:41 AM EST CBC WITH WBC DIFFERENTIAL AND ANEMIA REFLEX WORKUP Lab Routine Acute liver failure without hepatic coma 2023 11:41 AM EST COMPREHENSIVE METABOLIC PANEL Lab Routine Acute liver failure without hepatic coma 2023 11:41 AM EST ANEMIA CBC Lab Routine Acute liver failure without hepatic coma 2023 11:41 AM EST DIFFERENTIAL, AUTOMATED Lab Routine Acute liver failure without hepatic coma 2023 11:41 AM EST ANEMIA REFLEX CHEMISTRY HOLD Lab Routine Acute liver failure without hepatic coma 2023 11:41 AM EST Health Maintenance Due Date Last Done Comments [...] Advance Directives occurred with: Patient Care Teams Oracle Iam Consultant Relationship Specialty Start Date End Date Radha Sigala MD [address] [place] [address] [place] [phone] PCP - General Family Medicine 08/31/23 documented as of this encounter
--- OUTSIDE RECORDS SUMMARY | 2023-09-16 22:54 | External Medical Summary | Summary of Care ---
Author Name Unknown Organization [facility] Address [address] [facility] [place] [address] Phone [phone] Care Team Providers Care Handstitching Machine Armhole Feller Name Role Phone Radha Sigala MD Primary Care Provide r Reason for Referral * Evaluate & Treat - Unlimited Visits (Within 10 days (routine)) - Pending Review Specialty Diagnoses / Procedures Referred By Kelsey ware Referred To Contact HOME CARE / Home Care Diagnoses Acute liver failure without hepatic coma Localized swelling of both lower legs Fatigue, unspecified type Brady Royal [address] [place] [address] Referral ID Status Reason Start Date Expiration Date Visits Requested Visits Authorized [id number] Pending Review Specialty Services Required 09/12/[phone] Question Answer Referral Priority Within 10 days (routine) Where should this appointment be scheduled? External Comments Documentation of Wqpr-zo-Hkfl Encounter Addendum Patient Name: Jimmy Yu I certify that this patient is under my care and that I, or a nurse practitioner or physician's assistant director of public works working with me, had a akpv-dz-zhti encounter that meets the physician fdnz-ld-hpza encounter requirements with this patient on: 09/12/2023 [...] effort and are for medical reasons or hindu services or infrequently or of short duration [...] 8:20 AM EST Office Visit Family Medicine [address] [place] [phone] Brady Royal CRNP [address] [place] [address] [place] [address] Acute liver failure without hepatic coma*; HTN, goal below 140/90; Gastroesophageal reflux disease without esophagitis; Alcoholic hepatitis with ascites; Localized swelling of both lower legs; Fatigue, unspecified type; Nausea and vomiting, unspecified vomiting type; Hospital discharge follow-up Allergies No known active allergiesdocumented as of this encounter (statuses as of 09/13/2023) Medications Medication Sig Dispensed Refills Start Date [...] as of this encounter (statuses as of 09/13/2023) Active Problems Problem Noted Date Diagnosed Date [...] as of this encounter (statuses as of 09/13/2023) Resolved Problems Problem Noted Date Diagnosed Date Resolved Date Dizziness 02/24/2023 08/24/2023 Routine child health exam 04/18/2002 documented as of this encounter (statuses as of 09/13/2023) Immunizations Name Administration Dates Next Due HEP [...] History: Diagnosis Date Acute liver failure 08/21/2023 [facility] Acute pancreatitis 03/20/2020 [facility] Alcohol use disorder, severe, dependence (HCC) 08/21/2023 [...] DIAGNOSTIC performed byNika Langford DO at ENDOSCOPY [facility] EGD, W/ENDOSCOPIC US 09/24/2020 fatty liver / ESOPHAGOGASTRODUODENOSCOPY (EGD), FLEXIBLE, TRANSORAL, ENDOSCOPIC ULTRASOUND performed by Nika Langford DO at ENDOSCOPY [facility] FLUORO UPPER GI WITHOUT AIR WO KUB [...] in the morning. - DURABLE MEDICAL EQUIPMENT [place] - HOME HEALTH REFERRAL OP Fatigue, unspecified [...] 10:04 AM EST I faxed information to [employer], regarding the compression socks. I faxed HH referral for PT to [facility] Nursing. * Yasmin Kilpatrick LPN - 09/12/2023 8:18 AM EST [facility] follow up documented in this encounter Plan of Treatment Upcoming Encounters Date Type Department Care Team (Late st Contact Info) Description 10/18/2023 2:20 PM EDT [facility] [address] [place] [address] Iban Chaidez MD [address] [place] [address] 10/20/2023 8:20 AM EDT Office Visit Family Medicine [address] [place] [phone] Brady Royal [address] [place] [address] Scheduled Orders Name Type Priority Associated Diagnoses [...] Advance Directives occurred with: Patient Care Teams Handstitching Machine Armhole Feller Relationship Specialty Start Date End Date Radha Sigala MD [address] [place] [address] [place] [address] PCP - General Family Medicine 08/31/23 documented as of this encounter"
--- OUTSIDE RECORDS SUMMARY | 2023-09-16 22:54 | External Medical Summary | Summary of Care ---
Author Name Unknown Organization [facility] Address [address] [facility] [place] [address] Phone [phone] Care Team Providers Care Director Of Occupational Health Name Role Phone Radha Sigala MD Primary Care Provide r Reason for Referral * Evaluate & Treat - Unlimited Visits (Within 10 days (routine)) - Pending Review Specialty Diagnoses / Procedures Referred By Kelsey ware Referred To Contact HOME CARE / Home Care Diagnoses Acute liver failure without hepatic coma Localized swelling of both lower legs Fatigue, unspecified type Brady Royal [address] [place] [address] Referral ID Status Reason Start Date Expiration Date Visits Requested Visits Authorized [id number] Pending Review Specialty Services Required 09/12/[phone] Question Answer Referral Priority Within 10 days (routine) Where should this appointment be scheduled? External Comments Documentation of Kltr-ah-Kdpt Encounter Addendum Patient Name: Jimmy Yu I certify that this patient is under my care and that I, or a nurse practitioner or physician's assistant manager trainee working with me, had a dgnk-ik-rtpw encounter that meets the physician mtqd-nq-oell encounter requirements with this patient on: 09/12/2023 [...] effort and are for medical reasons or uatsdin services or infrequently or of short duration [...] 8:20 AM EST Office Visit Family Medicine [address] [place] [phone] Brady Royal CRNP [address] [place] [address] [place] [address] Acute liver failure without [...] 7:15 PM EDT Sexual Orientation Straight 02/10/2023 7 :15 PM EDT Job Start Date Occupation Industry [...] History: Diagnosis Date Acute liver failure 08/21/2023 [facility] [place]itis 03/20/2020 [facility] Alcohol use disorder, severe, dependence (HCC) [...] DIAGNOSTIC performed byNika Langford DO at ENDOSCOPY [facility] EGD, W/ENDOSCOPIC US 09/24/2020 fatty liver / ESOPHAGOGASTRODUODENOSCOPY (EGD), FLEXIBLE, TRANSORAL, ENDOSCOPIC ULTRASOUND performed by Nika Langford DO at ENDOSCOPY [facility] FLUORO UPPER GI WITHOUT AIR WO [...] Kilpatrick LPN - 09/12/2023 8:18 AM EST [facility] follow up documented in this encounter Plan of Treatment Upcoming Encounters Date Type Department Care Team (Late st Contact Info) Description 10/18/2023 2:20 PM EDT Office Visit Hepatology, [place] [address] [place] [address] Iban Chaidez MD [address] [place] [address] 10/20/2023 8:20 AM EDT Office Visit Family Medicine [address] [phone] Brady Royal[address] [place] [address] Scheduled Orders Name Type Priority Associated Diagnoses [...] Advance Directives occurred with: Patient Care Teams Director Of Occupational Health Relationship Specialty Start Date End Date Radha Sigala MD [address] [place] [address] [place] [address] PCP - General Family Medicine 08/31/23 documented as of this encounter"
--- OUTSIDE RECORDS SUMMARY | 2023-09-16 22:54 | External Medical Summary | Summary of Care ---
Author Name Unknown Organization [facility] Address [address] [facility] [place] [address] Phone [phone] Care Team Providers Care Sales Agent Casualty Insurance Name Role Phone Radha Sigala MD Primary Care Provide r Reason for Referral * Evaluate & Treat - Unlimited Visits (Within 10 days (routine)) - Pending Review Specialty Diagnoses / Procedures Referred By Kelsey ware Referred To Contact HOME CARE / Home Care Diagnoses Acute liver failure without hepatic coma Localized swelling of both lower legs Fatigue, unspecified type Brady Royal [address] [place] [address] Referral ID Status Reason Start Date Expiration Date Visits Requested Visits Authorized [id number] Pending Review Specialty Services Required 09/12/[phone] Question Answer Referral Priority Within 10 days (routine) Where should this appointment be scheduled? External Comments Documentation of Cqsi-kb-Lpli Encounter Addendum Patient Name: Jimmy Yu I certify that this patient is under my care and that I, or a nurse practitioner or physician's delinquent tax collector assistant working with me, had a mnhj-cp-lqtn encounter that meets the physician qrrd-gw-lsne encounter requirements with this patient on: 09/12/2023 [...] effort and are for medical reasons or hinduism services or infrequently or of short duration [...] 8:20 AM EST Office Visit Family Medicine [address] [place] [phone] Brady Royal CRNP [address] [place] [address] [place] [address] Acute liver failure without [...] History: Diagnosis Date Acute liver failure 08/21/2023 [facility] Acute pancreatitis 03/20/2020 [facility] Alcohol use disorder, severe, dependence (HCC) [...] DIAGNOSTIC performed byNika Langford DO at ENDOSCOPY [facility] EGD, W/ENDOSCOPIC US 09/24/2020 fatty liver / ESOPHAGOGASTRODUODENOSCOPY (EGD), FLEXIBLE, TRANSORAL, ENDOSCOPIC ULTRASOUND performed by Nika Langford DO at ENDOSCOPY [facility] FLUORO UPPER GI WITHOUT AIR WO KUB [...] in the morning. - DURABLE MEDICAL EQUIPMENT [place] - HOME HEALTH REFERRAL OP Fatigue, unspecified [...] 10:04 AM EST I faxed information to [employer], regarding the compression socks. I faxed HH referral for PT to [facility] Nursing. * Yasmin Kilpatrick LPN - 09/12/2023 8:18 AM EST [facility] follow up documented in this encounter Plan of Treatment Upcoming Encounters Date Type Department Care Team (Late st Contact Info) Description 10/18/2023 2:20 PM EDT [facility] [address] [place] [address] Iban Chaidez MD [address] [place] [address] 10/20/2023 8:20 AM EDT Office Visit Family Medicine [address] [place] [phone] Brady Royal [address] [place] [address] Scheduled Orders Name Type Priority Associated Diagnoses [...] Advance Directives occurred with: Patient Care Teams Sales Agent Casualty Insurance Relationship Specialty Start Date End Date Radha Sigala MD [address] [place] [address] [place] [address] PCP - General Family Medicine 08/31/23 documented as of this encounter"
--- OUTSIDE RECORDS SUMMARY | 2023-09-16 22:54 | External Medical Summary | Summary of Care ---
Author Name Unknown Organization [facility] Address [address] [facility] [place] [address] Phone [phone] Care Team Providers Care Ticket Chopper Assembler Name Role Phone Radha Sigala MD Primary Care Provide r Reason for Referral * Evaluate & Treat - Unlimited Visits (Within 10 days (routine)) - Pending Review Specialty Diagnoses / Procedures Referred By Kelsey ware Referred To Contact HOME CARE / Home Care Diagnoses Acute liver failure without hepatic coma Localized swelling of both lower legs Fatigue, unspecified type Brady Royal [address] [place] [address] Referral ID Status Reason Start Date Expiration Date Visits Requested Visits Authorized [id number] Pending Review Specialty Services Required 09/12/[phone] Question Answer Referral Priority Within 10 days (routine) Where should this appointment be scheduled? External Comments Documentation of Mmjp-ht-Hmhc Encounter Addendum Patient Name: Jimmy Yu I certify that this patient is under my care and that I, or a nurse practitioner or physician's journeyman operator assistant working with me, had a rcgm-bw-vyps encounter that meets the physician hrrb-aw-izdx encounter requirements with this patient on: 09/12/2023 [...] effort and are for medical reasons or taoism services or infrequently or of short duration [...] 8:20 AM EST Office Visit Family Medicine [address] [place] [phone] Brady Royal CRNP [address] [place] [address] [place] [address] Acute liver failure without [...] History: Diagnosis Date Acute liver failure 08/21/2023 [facility] Acute pancreatitis 03/20/2020 [facility] Alcohol use disorder, severe, dependence (HCC) [...] DIAGNOSTIC performed byNika Langford DO at ENDOSCOPY [facility] EGD, W/ENDOSCOPIC US 09/24/2020 fatty liver / ESOPHAGOGASTRODUODENOSCOPY (EGD), FLEXIBLE, TRANSORAL, ENDOSCOPIC ULTRASOUND performed by Nika Langford DO at ENDOSCOPY [facility] FLUORO UPPER GI WITHOUT AIR [...] in the morning. - DURABLE MEDICAL EQUIPMENT [place] - HOME HEALTH REFERRAL OP Fatigue, unspecified [...] 10:04 AM EST I faxed information to [employer], regarding the compression socks. I faxed HH referral for PT to [facility]. * Yasmin Kilpatrick LPN - 09/12/2023 8:18 AM EST [facility] follow up documented in this encounter Plan of Treatment Upcoming Encounters Date Type Department Care Team (Late st Contact Info) Description 10/18/2023 2:20 PM EDT [facility] [address] [place] [address] Iban Chaidez MD [address] [place] [address] 10/20/2023 8:20 AM EDT Office Visit Family Medicine [address] [place] [phone] Brady Royal [address] [place] [address] Scheduled Orders Name Type Priority Associated Diagnoses [...] Advance Directives occurred with: Patient Care Teams Ticket Chopper Assembler Relationship Specialty Start Date End Date Radha Sigala MD [address] [place] [address] [place] [address] PCP - General Family Medicine 08/31/23 documented as of this encounter"
--- OUTSIDE RECORDS SUMMARY | 2023-09-16 22:54 | External Medical Summary | Summary of Care ---
Author Name Unknown Organization [facility] Address [address] [facility] [address] Phone [phone] Care Team Providers Care Photographer'S Model Name Role Phone Radha Sigala MD Primary Care Provide r Reason for Visit * Reason Onset Date Comments Advice 09/02/2023 Call Tuesday afte r speaking to Dr. Land Pre Cert/Prior Auth 09/02/2023 Prior auth s ubmitted on 09/06/2023 for Xifaxan Order Request 09/02/2023 Prior auth on [facility] at [facility] Encounter Details Date Type Department Care Team (Late st Contact Info) Description 09/02/2023 Telephone Family Medicine [address] [place] [address] Radha Sigala MD [address] [place] [address] [place] [phone] Advice (Call Tuesday after speaking to ... Allergies No known active allergiesdocumented as of [...] the morning. 30 Tablet 0 08/25/2023 Active Therapeutic-M/Lut ein Oral Tablet Take 1 Tablet by mouth [...] every morning. 279.3 mL 0 08/29/2023 Active Lactulose 20 GM/30ML Oral Solution (Constulose) [...] Yes 08/26/2023 documented as of this encounter Miscellaneous Notes * Telephone Encounter - Marylu Galo RN - 09/12/2023 3:40 PM EST Spoke to patient while here for appointment today, he did get his shower chair on Tuesday. * Telephone Encounter - Marylu Galo RN - 09/09/2023 12:32 PM EST Shira called from [facility], patient can moss picker the shower chair today, she verified his insurance and its covered. Patient notified. * Telephone Encounter - Marylu Galo RN - 09/09/2023 11:25 AM EST Spoke to patient he tried to call [facility] re his shower chair and couldn't get through. He received a message from [employer] that we needed to verify information on the shower chair. I spoke to Shonda at [employer] and she said patient just needs to go to a participating vendor , which [facility] was participating and if its less than 750$ no prior auth is needed. I called [facility] and spoke to Shira she said its less than $50 dollars, they would just need the order faxed to them. I fax'ed order and she will let me know if patient can pick it up. [employer] # Hans's fax # was [phone] Reason for Call: Advice (Call Tuesday after speaking to Dr. Land) and Pre Cert/Prior Auth (Prior auth submitted on 09/06/2023 for Xifaxan) Contact: Telephone Call Contact Type: Complicated / High Acuity Patient Outcome: see note Face to face time spent with Patient (minutes): 0 Total Time including non face to face (minutes): 30 * Telephone Encounter - Jill Bray OSA - 09/09/2023 11:10 AM EST Reason for patient's call: Jimmy Yu is calling in requesting to speak directly with Marylu. Caller was transferred to Marylu at the clinic. * Telephone Encounter - Marylu Galo RN - 09/09/2023 8:52 AM EST Spoke to patient to see how he is feeling, patient is eating well the last couple days, 8 BM since midnight , but his feet are still swollen, he did get the compression socks yesterday , he is voiding again. Patient did call the pharmacy and they are hoping to hear from his insurance today re the Xifaxan. Denies any change in mental status. He is also going to call [employer] re the shower chair. If he has any problems he will let me know. Per Dr. Sigala patient to continue same dosage of Lactulose 5ml BID. Patient ok with advice,and will keep appointment Tuesday * Telephone Encounter - Marylu Galo RN - 09/07/2023 4:22 PM EST I will call patient Tuesday to see how he is feeling and see if he has heard back from his insurancewhether med was approved. * Telephone Encounter - Mayrlu Galo RN - 09/06/2023 1:44 PM EST Patient notified and per Dr. Sigala he can try to decrease his laculose to 5ML BID. Also recommend patient not to be using any form of CBD, patient to keep feet elevated and wear compression socks. While on the phone patient and Rosalia they statehe is out of his Xifaxan 550 one in am and one in PM he states medication needs prior auth. I called Bill at Pharmacy and he had me call [facility] for prior auth. I called and spoke to Lata, She asked if I wanted to start the prior auth on the medication suggested. ICD codes given Acute liver failure 572.00 Hepatic encephalopathy (HCC) 576.82 Lata submitted the prior auth and turnaround time is 24hrs. After 24hrs and review they will notify the PCP office and patient. They will fax us at [phone] Patient notified about prior auth submitted and if patient girlfriend should notice any change in mental status she is to let us know MINDY * Telephone Encounter - Radha Sigala MD - 09/06/2023 1:00 PM EST Agree pt's leg swelling is likely due to recent hepatic failure - will evaluate the pt for potential diuretic during clinic visit - liver enzymes are stable - his kidney function normal - albumin is stable * Telephone Encounter - Marylu Galo RN - 09/06/2023 7:56 AM EST Labs are finalized. Message sent to Radha Sigala MD to review * Telephone Encounter - Marylu Galo RN - 09/05/2023 3:37 PM EST Spoke to patient he is doing much better since starting the protonix back up, patient did come in for labs today, (still in process). Patient states he noticed his ankles started swelling up on Tuesday and "they are really bad today" patient states he has not wore socks for 2days and had to wear flip flops to come in for labs. Patient is not currently taking any diuretics, he is still trying to stay hydrated and doing pedialyte. Patient states he did not void all weekend. Patient denies feeling uncomfortable bladder crocker, he continues to have the same bloating that he has had. Denies any SOBunless he goes from cold to warm, denies any swelling in his hands. I did speak to Dr. Jones re advice and she said its most likely related to the liver failure. We will wait for the lab results andspeak to Radha Sigala MD first thing in the morning. These are his last Hep Funtion Test done in [place] 08/28/23 and 08/29/23 Hospital follow up is still scheduled for 09/12/23. Component Latest Ref Rng 08/28/2023 08/29/2023 Albumin 3.8 - 5.0 g/dL 2.5 (L) 2.9 (L) AST 10 - 50 U/L 152 (H) 185 (H) Alkaline Phosphatase 35 - 130 U/L 175 (H) 195 (H) ALT 10 - 50 U/L 83 (H) 103 (H) Bilirubin, Total <=1.2 mg/dL 25.6 (H) 29.7 (H) Bilirubin, Direct 0.0 - 0.3 mg/dL >10.0 (H) >10.0 (H) Protein 6.0 - 8.3 g/dL 5.3 (L) 6.2 * Telephone Encounter - Dunia Dubose CPhT - 09/05/2023 1:54 PM EST Patient returned call. COntacted office. States that Marylu will return call to patient. Thank you, Dunia Dubose Basketball Referee [facility] ([facility]) (Formerly Telepharmacy) 09/05/2023,1:57 PM * Telephone Encounter - Marylu Galo RN - 09/05/2023 12:58 PM EST Left message for the patient to call the office. I wanted to see how his weekend went, Radha Sigala MD is suppose to be in the office tomorrow I will call the patient again tomorrow. If any problems patient to call me back today. I do see patient was in for his labwork today. Reason for Call: Advice (Call Tuesday after speaking to Dr. Land) Contact: Telephone Call Contact Type: Follow-up Outcome: see note Face to face time spent with Patient (minutes): 0 Total Time including non face to face (minutes): 10 * Telephone Encounter - Marylu Galo RN - 09/02/2023 3:55 PM EST Patient called states he has one more question, patient has a relative who has a medical marijuana card and where she goes they offer all these free samples to try for anxiety, pain, to help with appetite, some of the samples are oil or cigarettes. Patient wanted to know if this would help with hispain or increase appetite. I counseled patient Radha Sigala MD is gone for the day and I can't recommend any of those. I counseled patient I can message him for advice but I won't get back to him by Tuesday. I encouraged him to work on the changes we talked about this morning and maybe if he starts feeling better and sleeping better , maybe the pain will get better. He has been eating and drinking better. Patient was going to try the melatonin Starting the Protonix back up and Decrease the lactulose Patient just worried and doesn't want to try anything that may cause more "problems" I will get back to him on Tuesday. documented in this encounter Plan of Treatment Upcoming Encounters Date Type Department Care Team (Late st Contact Info) Description 10/18/2023 2:20 PM EDT Office Visit Hepatology, [facility] [address] [place] [address] Iban Chaidez MD [address] [place] [address] 10/20/2023 8:20 AM EDT Office Visit Family Medicine [address] [phone] Brady Royal [address] [place] [address] Health Maintenance Due Date Last Done Comments [...] Not on filedocumented as of this encounter Advance Directives Latest Code Status [...] Advance Directives occurred with: Patient Care Teams Photographer'S Model Relationship Specialty Start Date End Date Radha Sigala MD [address] [place] [address] [place] [phone] PCP - General Family Medicine 08/31/23 documented as of this encounter
--- OUTSIDE RECORDS SUMMARY | 2023-09-16 22:54 | External Medical Summary | Summary of Care ---
Author Name Unknown Organization [facility] Address [address] [facility] [place] [address] Phone [phone] Care Team Providers Care Gm Mobile Name Role Phone Radha Sigala MD Primary Care Provide r Reason for Referral * Evaluate & Treat - Unlimited Visits (Within 10 days (routine)) - Pending Review Specialty Diagnoses / Procedures Referred By Kelsey ware Referred To Contact HOME CARE / Home Care Diagnoses Acute liver failure without hepatic coma Localized swelling of both lower legs Fatigue, unspecified type Brady Royal [address] [place] [address] Referral ID Status Reason Start Date Expiration Date Visits Requested Visits Authorized [id number] Pending Review Specialty Services Required 09/12/[phone] Question Answer Referral Priority Within 10 days (routine) Where should this appointment be scheduled? External Comments Documentation of Zgoe-qz-Zneb Encounter Addendum Patient Name: Jimmy Yu I certify that this patient is under my care and that I, or a nurse practitioner or physician's housekeeper and laundry assistant working with me, had a gggt-yg-wzkk encounter that meets the physician yfst-uy-gzzp encounter requirements with this patient on: 09/12/2023 [...] effort and are for medical reasons or mu-ism services or infrequently or of short duration [...] 8:20 AM EST Office Visit Family Medicine [address] [place] [address] Brady Royal CRNP [address] [place] [address] [place] [address] Acute liver failure without [...] 2023) Immunizations Name Administration Dates Next Due HEP [...] History: Diagnosis Date Acute liver failure 08/21/2023 [facility] Acute pancreatitis 03/20/2020 [facility] Alcohol use disorder, severe, dependence (HCC) [...] DIAGNOSTIC performed byNika Langford DO at [facility] EGD, W/ENDOSCOPIC US 09/24/2020 fatty liver / ESOPHAGOGASTRODUODENOSCOPY (EGD), FLEXIBLE, TRANSORAL, ENDOSCOPIC ULTRASOUND performed by Nika Langford DO at [facility] FLUORO UPPER GI WITHOUT AIR WO KUB [...] in the morning. - DURABLE MEDICAL EQUIPMENT CO - HOME HEALTH REFERRAL OP Fatigue, unspecified [...] 10:04 AM EST I faxed information to [employer], regarding the compression socks. I faxed HH referral for PT to [facility]. * Yasmin Kilpatrick LPN - 09/12/2023 8:18 AM EST [facility] follow up documented in this encounter Plan of Treatment Upcoming Encounters Date Type Department Care Team (Late st Contact Info) Description 10/18/2023 2:20 PM EDT [facility] [address] [place] [address] Iban Chaidez MD [address] [place] [address] 10/20/2023 8:20 AM EDT Office Visit Family Medicine [address] [place] [phone] Brady Royal [address] [place] [address] Scheduled Orders Name Type Priority Associated Diagnoses [...] Advance Directives occurred with: Patient Care Teams Gm Mobile Relationship Specialty Start Date End Date Radha Sigala MD [address] [place] [address] [place] [address] PCP - General Family Medicine 08/31/23 documented as of this encounter"
--- OUTSIDE RECORDS SUMMARY | 2023-09-16 22:54 | External Medical Summary | Summary of Care ---
Author Name Unknown Organization [facility] Address [address] [facility] [address] Phone [phone] Care Team Providers Care Principal Administrative Clerk Name Role Phone Radha Sigala MD Primary Care Provide r Reason for Visit * Reason Onset Date Comments Advice 09/02/2023 Call Tuesday afte r speaking to Dr. aLnd Pre Cert/Prior Auth 09/02/2023 Prior auth s ubmitted on 09/06/2023 for Xifaxan Order Request 09/02/2023 Prior auth on [facility] Chair at [facility] Encounter Details Date Type Department Care Team (Late st Contact Info) Description 09/02/2023 Telephone Family Medicine [address] [place] [address] Radha Sigala MD [address] [place] [address] [place] [phone] Advice (Call Tuesday after speaking to ... Allergies No known active allergiesdocumented as of this encounter (statuses as of 09/09/2023) Medications Medication Sig Dispensed Refills Start Date [...] before bedtime. 9 Packet 0 08/29/2023 Active Lactulose 20 GM/30ML Oral Solution (Constulose) Take 15 mL by mouth in the morning and 15 mL at noon and 15 mL before bedtime. 240 mL 12 08/29/2023 Active rifAXIMin 550 MG Oral Tablet (Xifaxan) Take 1 Tablet by mouth in the morning and 1 Tablet before bedtime daily. 60 Tablet 0 08/29/2023 Active prednisoLONE Sodium Phosphate 15 MG/5ML Oral Solution (Orapred) Take 13.3 mL by mouth every morning. 279.3 mL 0 08/29/2023 Active documented as of this encounter (statuses as of 09/09/2023) Active Problems Problem Noted Date Diagnosed Date [...] as of this encounter (statuses as of 09/09/2023) Resolved Problems Problem Noted Date Diagnosed Date Resolved Date Dizziness 02/24/2023 08/24/2023 Routine child health exam 04/18/2002 documented as of this encounter (statuses as of 09/09/2023) Immunizations Name Administration Dates Next Due HEP [...] Spoke to patient he tried to call [place] re his shower chair and couldn't get through. He received a message from [employer] that we needed to verify information on the shower chair. I spoke to Shonda at [employer] and she said patient just needs to go to a participating vendor , which [facility] was participating and if its less than 750$ no prior auth is needed. I called [facility] and spoke to Shira she said its less than $50 dollars, they would just need the order faxed to them. I fax'ed order and she will let me know if patient can pick it up. [employer] # Hans's fax # was [phone] Reason for Call: Advice (Call Tuesday after speaking to Dr. Land) and Pre Cert/Prior Auth (Prior auth submitted on 09/06/2023 for Alejandro) Contact: Telephone Call Contact Type: Complicated / [...] status. He is also going to call [employer] re the shower chair. If he has [...] if he has heard back from his [facility] med was approved. * Telephone Encounter - Marylu Galo RN - 09/06/2023 1:44 PM EST [...] at Pharmacy and he had me call [facility] for prior auth. I called and spoke to Lata, She asked if I wanted to start the prior auth on the medication suggested. ICD codes given Acute liver failure 572.00 Hepatic encephalopathy (HCC) 576.82 [employer] submitted the prior auth and turnaround time is 24hrs. After 24hrs and review they will notify the PCP office and patient. They will fax us at [phone] Patient notified about prior auth submitted and [...] his last Hep Funtion Test done in [place] 08/28/23 and 08/29/23 Hospital follow up is [...] call to patient. Thank you, Dunia Dubose Chemical Compounder Helper [facility] ([facility]) (Formerly Telepharmacy) [...] 8:20 AM EST Office Visit Family Medicine [address] [place] [phone] Brady Royal CRNP [address] [place] [address] [place] [phone] 10/18/2023 2:20 PM EDT Office Visit Hepatology [place] [address] [place] [address] Iban Chaidez MD [address] [place] [address] Health Maintenance Due Date Last Done Comments [...] Advance Directives occurred with: Patient Care Teams Principal Administrative Clerk Relationship Specialty Start Date End Date Radha Sigala MD [address] [place] [address] [place] [phone] PCP - General Family Medicine 1/24/24 documented as of this encounter
--- OUTSIDE RECORDS SUMMARY | 2023-09-16 22:54 | External Medical Summary | Summary of Care ---
Author Name Unknown Organization [facility] Address [address] [facility] [place] [address] Phone [phone] Care Team Providers Care Garment Looper Name Role Phone Radha Sigala MD Primary Care Provide r Reason for Referral * Evaluate & Treat - Unlimited Visits (Within 10 days (routine)) - Pending Review Specialty Diagnoses / Procedures Referred By Kelsey ware Referred To Contact HOME CARE / Home Care Diagnoses Acute liver failure without hepatic coma Localized swelling of both lower legs Fatigue, unspecified type Brady Royal [address] [place] [address] Referral ID Status Reason Start Date Expiration Date Visits Requested Visits Authorized [id number] Pending Review Specialty Services Required 09/12/[phone] Question Answer Referral Priority Within 10 days (routine) Where should this appointment be scheduled? External Comments Documentation of Qupk-xy-Cofb Encounter Addendum Patient Name: Jimmy Yu I certify that this patient is under my care and that I, or a nurse practitioner or physician's office manager executive assistant working with me, had a pvss-ve-gdyn encounter that meets the physician ozkg-td-tbch encounter requirements with this patient on: 09/12/2023 [...] effort and are for medical reasons or religion services or infrequently or of short duration [...] 8:20 AM EST Office Visit Family Medicine [address] [place] [phone] Brady Royal CRNP [address] [place] [address] [place] [address] Acute liver failure without [...] History: Diagnosis Date Acute liver failure 08/21/2023 [facility] Acute pancreatitis 03/20/2020 [facility] Alcohol use disorder, severe, dependence (HCC) [...] DIAGNOSTIC performed byNika Langford DO at [facility] EGD, W/ENDOSCOPIC US 09/24/2020 fatty liver / ESOPHAGOGASTRODUODENOSCOPY (EGD), FLEXIBLE, TRANSORAL, ENDOSCOPIC ULTRASOUND performed by Nika Langford DO at [facility] FLUORO UPPER GI WITHOUT AIR WO [...] in the morning. - DURABLE MEDICAL EQUIPMENT [place] - HOME HEALTH REFERRAL OP Fatigue, unspecified [...] 10:04 AM EST I faxed information to [employer], regarding the compression socks. I faxed HH referral for PT to [facility]. * Yasmin Kilpatrick LPN - 09/12/2023 8:18 AM EST [facility] follow up documented in this encounter Plan of Treatment Upcoming Encounters Date Type Department Care Team (Late st Contact Info) Description 10/18/2023 2:20 PM EDT [facility] [address] [place] [address] Iban Chaidez MD [address] [place] [address] 10/20/2023 8:20 AM EDT Office Visit Family Medicine [address] [place] [phone] Brady Royal [address] [place] [address] Scheduled Orders Name Type Priority Associated Diagnoses [...] Directives occurred with: Patient Care Teams Garment Looper Relationship Specialty Start Date End Date Radha Sigala MD [address] [place] [address] [place] [address] PCP - General Family Medicine 08/31/23 documented as of this encounter"
--- OUTSIDE RECORDS SUMMARY | 2023-09-16 22:54 | External Medical Summary | Summary of Care ---
Author Name Unknown Organization [facility] Address [address] [facility] [place] [address] Phone [phone] Care Team Providers Care Ski Top Trimmer Name Role Phone Radha Sigala MD Primary Care Provide r Reason for Referral * Evaluate & Treat - Unlimited Visits (Within 10 days (routine)) - Pending Review Specialty Diagnoses / Procedures Referred By Kelsey ware Referred To Contact HOME CARE / Home Care Diagnoses Acute liver failure without hepatic coma Localized swelling of both lower legs Fatigue, unspecified type Brady Royal [address] [place] [address] Referral ID Status Reason Start Date Expiration Date Visits Requested Visits Authorized [id number] Pending Review Specialty Services Required 09/12/[phone] Question Answer Referral Priority Within 10 days (routine) Where should this appointment be scheduled? External Comments Documentation of Keud-tc-Ohvs Encounter Addendum Patient Name: Jimmy Yu I certify that this patient is under my care and that I, or a nurse practitioner or physician's agency sales management assistant working with me, had a aqgl-fu-vkci encounter that meets the physician bcut-cx-ejwi encounter requirements with this patient on: 09/12/2023 [...] effort and are for medical reasons or caodaism services or infrequently or of short duration [...] 8:20 AM EST Office Visit Family Medicine [address] [place] [phone] Brady Royal CRNP [address] [place] [address] [place] [address] Acute liver failure without [...] Date Acute liver failure 08/21/2023 [facility] Acute pancreatitis 03/20/2020 [facility] Alcohol [...] byNika Langford DO at [facility] EGD, W/ENDOSCOPIC US 09/24/2020 fatty liver / ESOPHAGOGASTRODUODENOSCOPY (EGD), FLEXIBLE, TRANSORAL, ENDOSCOPIC ULTRASOUND performed by Nika Langford DO at [facility] FLUORO UPPER GI WITHOUT AIR [...] in the morning. - DURABLE MEDICAL EQUIPMENT [place] - HOME HEALTH REFERRAL OP Fatigue, unspecified [...] 10:04 AM EST I faxed information to [employer], regarding the compression socks. I faxed HH referral for PT to [facility]. * Yasmin Kilpatrick LPN - 09/12/2023 8:18 AM EST [facility] follow up documented in this encounter Plan of Treatment Upcoming Encounters Date Type Department Care Team (Late st Contact Info) Description 10/18/2023 2:20 PM EDT [facility] [address] [place] [address] Iban Chaidez MD [address] [place] [address] 10/20/2023 8:20 AM EDT Office Visit Family Medicine [address] [place] [phone] Brady Royal [address] [place] [address] Scheduled Orders Name Type Priority Associated Diagnoses [...] Advance Directives occurred with: Patient Care Teams Ski Top Trimmer Relationship Specialty Start Date End Date Radha Sigala MD [address] [place] [address] [place] [address] PCP - General Family Medicine 08/31/23 documented as of this encounter"
--- OUTSIDE RECORDS SUMMARY | 2023-09-16 22:54 | External Medical Summary | Summary of Care ---
Author Name Unknown Organization [facility] [address] [facility] [address] Phone [phone] Care Team Providers Care Agency Operator Name Role Phone Radha Sigala MD Primary Care Provide r Reason for Visit * Reason Onset Date Comments Advice 09/02/2023 Call Tuesday afte r speaking to Dr. Land Pre Cert/Prior Auth 09/02/2023 Prior auth s ubmitted on 09/06/2023 for Xifaxan Order Request 09/02/2023 Prior auth on [facility] Chair at [facility] Encounter Details Date Type Department Care Team (Late st Contact Info) Description 09/02/2023 Telephone Family Medicine [address] [place] [phone] Radha Sigala MD [address] [place] [address] [place] [phone] Advice (Call Tuesday after speaking to ... 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 Patient notified. * Telephone Encounter - Marylu Galo RN - 09/09/2023 11:25 AM EST Spoke to patient he tried to call [place] re his shower chair and couldn't get through. He received a message from [employer] that we needed to verify information on the shower chair. I spoke to Shonda at [employer] and she said patient just needs to go to a participating vendor , which [facility] was participating and if its less than 750$ no prior auth is needed. I called [facility] and spoke to Shira she said its less than $50 dollars, they would just need the order faxed to them. I fax'ed order and she will let me know if patient can pick it up. [employer] # Hans's fax # was [phone] Reason for Call: Advice (Call Tuesday after [...] status. He is also going to call [place] re the shower chair. If he has [...] at Pharmacy and he had me call [facility] for prior auth. I called and spoke to Lata, She asked if I wanted to start the prior auth on the medication suggested. ICD codes given Acute liver failure 572.00 Hepatic encephalopathy (HCC) 576.82 Lata submitted the prior auth and turnaround time is 24hrs. After 24hrs and review they will notify the PCP office and patient. They will fax us at [phone] Patient notified about prior auth submitted and [...] his last Hep Funtion Test done in [place] 08/28/23 and 08/29/23 Hospital follow up is [...] call to patient. Thank you, Dunia Dubose [employer] [facility] (CCPS) (Formerly Telepharmacy) [...] 8:20 AM EST Office Visit Family Medicine [address] [place] [phone] Brady Royal [address] [place] [address] 10/18/2023 2:20 PM EDT Office Visit Hepatology [place] [address] [place] [address] Iban Chaidez MD [address] [place] [address] Health Maintenance Due Date Last Done Comments [...] Advance Directives occurred with: Patient Care Teams Agency Operator Relationship Specialty Start Date End Date Radha Sigala MD [address] [place] [address] [place] [address] PCP - General Family Medicine 08/31/23 documented as of this encounter
--- OUTSIDE RECORDS SUMMARY | 2023-09-16 22:54 | External Medical Summary | Summary of Care ---
Author Name Unknown Organization [facility] Address [address] [facility] [address] Phone [phone] Care Team Providers Care Construction Consultant Name Role Phone Radha Sigala MD Primary Care Provide r Reason for Visit * Reason Onset Date Comments Advice 09/02/2023 Call Tuesday afte r speaking to Dr. Land Pre Cert/Prior Auth 09/02/2023 Prior auth s ubmitted on 09/06/2023 for Xifaxan Order Request 09/02/2023 Prior auth on [facility] Chair at [facility] Encounter Details Date Type Department Care Team (Late st Contact Info) Description 09/02/2023 Telephone Family Medicine [address] [place] [phone] Radha Sigala MD [address] [place] [address] [place] [phone] Advice (Call Tuesday after speaking to ... [...] 09/09/2023 12:32 PM EST Shira called from [facility], patient can pick remover the shower chair today, she verified his insurance and its covered. * Telephone Encounter - Marylu Galo RN - 09/09/2023 11:25 AM EST Spoke to patient he tried to call [place] re his shower chair and couldn't get through. He received a message from [employer] that we needed to verify information on the shower chair. I spoke to Shonda at [employer] and she said patient just needs to go to a participating vendor , which [facility] was participating and if its less than 750$ no prior auth is needed. I called [facility] and spoke to Shira she said its less than $50 dollars, they would just need the order faxed to them. I fax'ed order and she will let me know if patient can pick it up. [employer] # Hans's fax # was [phone] Reason for Call: Advice (Call Tuesday after [...] status. He is also going to call [place] re the shower chair. If he has [...] at Pharmacy and he had me call [facility] for prior auth. I called and spoke to Lata, She asked if I wanted to start the prior auth on the medication suggested. ICD codes given Acute liver failure 572.00 Hepatic encephalopathy (HCC) 576.82 Lata submitted the prior auth and turnaround time is 24hrs. After 24hrs and review they will notify the PCP office and patient. They will fax us at [phone] Patient notified about prior auth submitted and [...] his last Hep Funtion Test done in [place] 08/28/23 and 08/29/23 Hospital follow up is [...] call to patient. Thank you, Dunia Dubose [employer] Central[facility] Pharmacy Services (CCPS) (Formerly Telepharmacy) [...] 8:20 AM EST Office Visit Family Medicine [address] [place] [phone] Brady [address] [place] [address] 10/18/2023 2:20 PM EDT Office Visit Hepatology, [place] [address] [place] [address] Iban Chaidez MD [address] [place] [address] Health Maintenance Due Date Last Done Comments [...] Advance Directives occurred with: Patient Care Teams Construction Consultant Relationship Specialty Start Date End Date Radha Sigala MD [address] [place] [address] [place] [address] PCP - General Family Medicine 08/31/23 documented as of this encounter
--- OUTSIDE RECORDS SUMMARY | 2023-09-16 22:55 | External Medical Summary ---
Author Name Unknown Address Unknown Organization K01:LABORATORY [facility] - [address] [place] [id number] Laboratory Report Ordering Provider Test Date Status KING RUGGIERO 09/05/2023 10:04:39 Final Observation Date Value Abnormality Reference (Units ) Status Vitamin B12 09/05/2023 10:04:39 >2000 Above high normal 232-1245 (pg/mL) Final Performing Location LABORATORY C - [address] [place] [id number]
--- OUTSIDE RECORDS SUMMARY | 2023-09-16 22:55 | External Medical Summary | Summary of Care ---
Author Name Unknown Organization [facility] Address [address] [facility] [address] Phone [phone] Care Team Providers Care Maternity Floor Supervisor Name Role Phone Radha Sigala MD Primary Care Provide r Reason for Visit * Reason Onset Date Comments Advice 09/02/2023 Call Tuesday afte r speaking to Dr. Land Pre Cert/Prior Auth 09/02/2023 Prior auth s ubmitted on 09/06/2023 for Xifaxan Encounter Details Date Type Department Care Team (Late st Contact Info) Description 09/02/2023 Telephone Family Medicine [address] [place] [phone] Radha Sigala MD [address] [place] [address] [place] [phone] Advice (Call Tuesday after speaking to ... Allergies No known active allergiesdocumented as of this encounter (statuses as of 09/07/2023) Medications Medication Sig Dispensed Refills Start Date [...] as of this encounter (statuses as of 09/07/2023) Active Problems Problem Noted Date Diagnosed Date [...] as of this encounter (statuses as of 09/07/2023) Resolved Problems Problem Noted Date Diagnosed Date Resolved Date Dizziness 02/24/2023 08/24/2023 Routine child health exam 04/18/2002 documented as of this encounter (statuses as of 09/07/2023) Immunizations Name Administration Dates Next Due HEP [...] at Pharmacy and he had me call [facility] for prior auth. I called and spoke to Lata, She asked if I wanted to start the prior auth on the medication suggested. ICD codes given Acute liver failure 572.00 Hepatic encephalopathy (HCC) 576.82 Lata submitted the prior auth and turnaround time is 24hrs. After 24hrs and review they will notify the PCP office and patient. They will fax us at [phone] Patient notified about prior auth submitted and [...] his last Hep Funtion Test done in [place] 08/28/23 and 08/29/23 Hospital follow up is [...] call to patient. Thank you, Dunia Dubose [employer] Central[facility] Clinical Pharmacy Services (CCPS) (Formerly Telepharmacy) [...] 8:20 AM EST Office Visit Family Medicine [address] [phone] Brady Royal [address] [place] [address] 10/18/2023 2:20 PM EDT Office Visit [facility] [address] [place] [address] Iban Chaidez MD [address] [place] [address] Health Maintenance Due Date Last Done Comments [...] Advance Directives occurred with: Patient Care Teams Maternity Floor Supervisor Relationship Specialty Start Date End Date Radha Sigala MD [address] [place] [address] [place] [phone] PCP - General Family Medicine 08/31/23 documented as of this encounter
--- OUTSIDE RECORDS SUMMARY | 2023-09-16 22:55 | External Medical Summary ---
Author Name Unknown Address Unknown Organization K01:LABORATORY [facility] - [address] [place] [address] Laboratory Report Ordering Provider Test Date Status RAEGAN CESAR 09/05/2023 10:04:39 Final Discharge Order Observation Date Value Abnormality Reference (Units ) Status Phosphate 09/05/2023 10:04:39 1.5 Below low normal 2.5 -4.8 (mg/dL) Final Performing Location LABORATORY C - [address] [place] [id number]
--- OUTSIDE RECORDS SUMMARY | 2023-09-16 22:55 | External Medical Summary | Summary of Care ---
Author Name Unknown Organization [facility] Address [address] [facility] [place] [address] Phone [phone] Care Team Providers Care Shift Commander Name Role Phone Radha Sigala MD Primary Care Provide r Reason for Visit * Reason Onset Date Comments Advice 08/30/2023 Encounter Details Date Type Department Care Team (Late st Contact Info) Description 08/30/2023 Telephone Ancillary [address] [place] [phone] Marylu Galo, bowling floor manager Allergies No known active allergiesdocumented as of this encounter (statuses as of 08/31/2023) Medications Medication Sig Dispensed Refills Start Date [...] as of this encounter (statuses as of 08/31/2023) Active Problems Problem Noted Date Diagnosed Date [...] as of this encounter (statuses as of 08/31/2023) Resolved Problems Problem Noted Date Diagnosed Date Resolved Date Dizziness 02/24/2023 08/24/2023 Routine child health exam 04/18/2002 documented as of this encounter (statuses as of 08/31/2023) Immunizations Name Administration Dates Next Due HEP [...] Telephone Encounter - Marylu Galo RN - 08/31/2023 9:47 AM EST Spoke to patient he said last night was a little better with 8 BM, patient did self adjust to 5ml of lactulose at 6am, Counsled patient Dr. Sigala would recommend 15ml BID and I will call him in2 days to see how he is feeling, patient to call me if symptoms worsen. Patient also wanted to knowwhat he could do about his back spams, I counseled to try heating pad or moist heat. Patient unableto take any NSAIDs or Tylenol. Patient unable to get in the tub safely. I will call patient Tuesday for update, He said if Dr. Sigala does getting any cancellations before 09/12 he is willing to come in sooner. Patient was able to sleep some last night and voiding for the first time in a month that it appeared normal. Patient states his urine in the hospital was coffee ground color. Patient is trying to stay hydrated and was able to eat and keep food down. Patient did sound like he felt better today. Reason for Call: Advice Contact: Telephone Call Contact Type: Assessment Outcome: see note Face to face time spent with Patient (minutes): 0 Total Time including non face to face (minutes): 20 * Telephone Encounter - Radha Sigala MD - 08/31/2023 9:24 AM EST Since pt is having multiple BMs - I recommend that pt decrease his lactulose to BID - inform us how he is doing in 2 days --- will adjust dosing accordingly * Telephone Encounter - Radha Sigala MD - 08/31/2023 9:22 AM EST ----- Message from Marylu Galo RN sent at 08/30/2023 4:11 PM EST ----- Patient was admitted again to [facility] and needs to est with Dr. Sigala , he is scheduled for a HD appointment 09/12/22 with Brady. I feel patient needs to be seen sooner , can you please look at patient chart and give advice. Patient is having problems with his loose bowels and wants and needs to stay on top of his meds, patient is afraid he is not taking them correctly and does not want to get put in the hospital again. Patient states he has gone from an active person, not on any meds to unable to walk without his walker and lots of meds. Admitted to [facility] from [facility] 08/10 and again 08/26 Let me know what you suggest. * Telephone Encounter - Marylu Galo RN - 08/30/2023 3:19 PM EST Transitions of Care Note Reason for Referral:Recent Admission Phone visit for follow up: GLORY Admitted to: [facility], Date: 08.26.23 patient was a direct transfer from [facility] Discharged to: home, Date: 08.29.23 Diagnosis driving hospitalization: Acute liver failure He was also referred to MAT clinic for alcohol abuse. Source/Contact: Patient SUBJECTIVE Consent: Verbal consent for review of hospital discharge: Yes REVIEW OF SYSTEMS Patient/Other Reports: Current patient/caregiver problems or concerns: patient wants to stay on top of things, and establish with a provider that will stay with him CV: Denies problems Pulmonary: Denies problems Chills/Sweats/Fever:patient states he is cold, but no thermoter at home to check, he doesn't feel he has a temp Appetite:Denies problems such as nausea, vomiting, burning, decreased appetite Patient is trying to stick with high protein , he is able to keep food down if he just takes his time Current diet: protein Bowel: diarrhea, patient states he continues to have 20BM that are loose, he is suppose to adjust his meds accordingly, but unsure if he is "messing things up" patient states "he needs to stay on topof this " Bladder: patient states he continues to have incontinent issues and once urgency comes he can not control the flow, he wakes up wet all the time. Wound (If applicable): N/A Pain:patient states he does have some discomfort with the "bloating in the abdomen" and "back spasms" Sleep:Problematic-patient states he does not sleep well FUNCTIONAL STATUS: ADL'S: Needs Assistance With:N/A as pt is independent IADL'S: Needs Assistance With:Grocery Shopping, Cooking food, Routine Housework, Taking medications, and Attending to safety Cognitive and Mental Health: denies problems, alert and oriented x 3, and able to communicate, understand instructions, process information. MEDICATION RECONCILIATION Medications: Reports all medications taken as prescribed. OBJECTIVE ASSESSMENT Medication Risk Assessment: No risks identified Did patient fail outpatient treatment? No Discharge instructions available for review? Yes PLAN Symptom Monitoring Interventions:Member/caregiver education - signs and symptoms to contact PrimaryCare (DO NOT DELETE-Three ospina symptoms patient is to report to PCP) 1. Increased nausea 2. Worsening symptoms 3. Chest pain or sob Pediatric SurgeonStudy Specialist of Care interventions/Action Plan: Patient is scheduled for 09/12/23 for Hospital discharge appointment, but I will message Dr. Sigala for advice. I feel patient needs seen sooner Educated on role of GLORY completed with patient/caregiver. Educated patient/caregiver on patient right to have input on GLORY plan of care. Verification of Home Health/DME if indicated: NO , patient states he was not allowed to leave the hospital until he could walk with a walker, patient states he is getting better and almost can wipe himself. Patient states he went from an active person to this and is so week. Patient did get laid off from his job in January and has a room mate who does work but she is a property caretaker too. Identified Care Gaps: Yes Care Gaps closed this call: Transition of Care follow-up communication Re-evaluation of Plan of Care and progress towards goals achievement: Patient education this visit: Verbal, counseled patient I will need to speak with Dr. Sigala tomorrow to see if we can offera sooner appointment. Plan to instructed to call Primary Care Provider with change in symptoms or as needed before next follow-up, verbalizes understanding and agrees with plan. Finish course of prednisolone as prescribed CMP and PT INR in 1 week Follow up with hepatology on 10/18/23 Marylu Galo RN documented in this encounter Plan of Treatment Upcoming Encounters Date Type Department Care Team (Late st Contact Info) Description 09/12/2023 8:20 AM EST Office Visit Family Medicine [address] [phone] Brady Royal [address] [place] [address] 10/18/2023 2:20 PM EDT [facility] [address] [place] [address] Iban Chaidez MD [address] [place], [place] [phone] Health Maintenance Due Date Last Done Comments COVID-19 Vaccine (#1) 03/15/1986 Albumin/Creatinine Ratio 2002 Hepatitis C Screening 2002 Depression Screening 06/10/2021 06/10/2020 Influenza Vaccine (FLU shot) (#1) 2023 05/28/2022, 04/29/2020, 04/27/2019 GFR 08/29/2024 08/29/2023, 08/09, 08/27/2023, Additional history exists DTaP,Tdap,and Td Vaccines (3 [...] Advance Directives occurred with: Patient Care Teams Shift Commander Relationship Specialty Start Date End Date Radha Sigala MD [address] [place] [address] [place] [address] PCP - General Family Medicine 08/31/23 documented as of this encounter
--- OUTSIDE RECORDS SUMMARY | 2023-09-16 22:55 | External Medical Summary | Summary of Care ---
Author Name Unknown Organization [facility] Address [address] [facility] [place] [address] Phone [phone] Care Team Providers Care Data Analyst Name Role Phone Radha Sigala MD Primary Care Provide r Reason for Visit * Reason Onset Date Comments Hospital Follow-Up 08/30/2023 [place] for [facility] Advice 08/30/2023 Encounter Details Date Type Department Care Team (Late st Contact Info) Description 08/30/2023 Telephone Anc[address] [place] [address] Marylu Galo RN Hospital Follow-Up ([place] for [facility]); Advice Allergies No known active allergiesdocumented as of this encounter (statuses as of 09/01/2023) Medications Medication Sig Dispensed Refills Start Date [...] as of this encounter (statuses as of 09/01/2023) Active Problems Problem Noted Date Diagnosed Date [...] as of this encounter (statuses as of 09/01/2023) Resolved Problems Problem Noted Date Diagnosed Date Resolved Date Dizziness 02/24/2023 08/24/2023 Routine child health exam 04/18/2002 documented as of this encounter (statuses as of 09/01/2023) Immunizations Name Administration Dates Next Due HEP [...] encounter Miscellaneous Notes * Telephone Encounter - Pamela Sheffield OSA - 09/01/2023 5:08 PM EST Pt calling back in as he was supposed to call back if they got worse. He spoke with a RN yesterday.What is the reason for call? Feeling worse What Clinic is the patient trying to reach? [facility] Clinic: [facility] - CallType: Red Flag- route the telephone encounter as routine to professor of geography p [phone] Caller: patient Return Phone #: [phone] Call was warm transferred to Lizeth * Telephone Encounter - Marylu Galo RN [...] Dr. Sigala does getting any cancellations before 2/5 he is willing to come in sooner. [...] EST ----- Patient was admitted again to [facility] and needs to est with Dr. Sigala [...] walker and lots of meds. Admitted to [facility] from [facility] 08/10 and again 08/26 Let me know what you suggest. * Telephone Encounter - Marylu Galo RN - 08/30/2023 3:19 PM EST Transitions of Care Note Reason for Referral:Recent Admission Phone visit for follow up: TIGRE Admitted to: [facility], Date: 08.26.23 patient was a direct transfer from [facility] Discharged to: home, Date: 08.29.23 Diagnosis driving [...] Worsening symptoms 3. Chest pain or sob Special Events AssistantPrecinct Police Sergeant of Care interventions/Action Plan: Patient is scheduled for 09/12/23 for Hospital discharge appointment, but I will message Dr. Sigala for advice. I feel patient needs seen sooner Educated on role of TIGER completed with patient/caregiver. Educated patient/caregiver on patient right to have input on TIGRE plan of care. Verification of Home Health/DME [...] who does work but she is a child care team lead too. Identified Care Gaps: Yes Care Gaps [...] 8:20 AM EST Office Visit Family Medicine [address] [phone] Brady Royal [address] [place] [address] 10/18/2023 2:20 PM EDT Office Visit [facility] [address] [place] [address] Iban Chaidez MD [address] [place], [place] [phone] Health Maintenance Due Date Last Done Comments [...] Advance Directives occurred with: Patient Care Teams Data Analyst Relationship Specialty Start Date End Date Radha Sigala MD [address] [place] [address] [place] [address] PCP - General Family Medicine 08/31/23 documented as of this encounter
--- OUTSIDE RECORDS SUMMARY | 2023-09-16 22:55 | External Medical Summary ---
Author Name Unknown Address Unknown Organization K01:LABORATORY C - [address] [place] [address] Laboratory Report Ordering Provider Test Date Status KING RUGGIERO 09/05/2023 10:04:39 Final Observation Date Value Abnormality Reference (Units ) Status Magnesium 09/05/2023 10:04:39 1.9 1.5-2.6 (m g/dL) Final Performing Location LABORATORY [facility] - [address] [place] [address]
--- OUTSIDE RECORDS SUMMARY | 2023-09-16 22:55 | External Medical Summary | Summary of Care ---
Author Name Unknown Organization [facility] Address [address] [place] [address] Phone [phone] Care Team Providers Care Edge Bonder Name Role Phone Radha Sigala MD Primary Care Provide r Reason for Visit * Reason Onset Date Comments Referral 08/31/2023 Encounter Details Date Type Department Care Team ([facility] st Contact Info) Description 08/31/2023 Telephone Addiction Medicine[address] [address] Lopez Estrada MD [address] [place] [phone] Referral Allergies No known active allergiesdocumented as of [...] 08/31/2023) Immunizations Name Administration Dates Next Due Seasonal [...] encounter Miscellaneous Notes * Telephone Encounter - Rosalia Newton LPN - 08/31/2023 12:14 PM EST Spoke with pt about MAT referral, he is not interested in going anywhere at this time, he said he is too weak, has no strength to do anything. Gave him some information on a clinic closer to him and he has our number if he would like to reach out to us. documented in this encounter Plan of Treatment Upcoming Encounters Date Type Department Care Team (Late st Contact Info) Description 09/12/2023 8:20 AM EST Office Visit Family Medicine [address] [phone] Brady Royal [address] [place] [address] 10/18/2023 2:20 PM EDT [facility] [address] [place] [address] Iban Chaidez MD [address] [place], [place] [phone] Health Maintenance Due Date Last Done Comments [...] Advance Directives occurred with: Patient Care Teams Edge Bonder Relationship Specialty Start Date End Date Radha Sigala MD [address] [place] [address] [place] [phone] PCP - General Family Medicine 08/31/23 documented as of this encounter
--- OUTSIDE RECORDS SUMMARY | 2023-09-16 22:55 | External Medical Summary | Summary of Care ---
Author Name Unknown Organization [facility] [address] [facility] [address] Phone [phone] Care Team Providers Care Stitching Department Supervisor Name Role Phone Radha Sigala MD Primary Care Provide r Reason for Visit * Reason Onset Date Comments Advice 09/02/2023 Call Tuesday afte r speaking to Dr. Land Pre Cert/Prior Auth 09/02/2023 Prior auth s ubmitted on 09/06/2023 for Xifaxan Encounter Details Date Type Department Care Team (Late st Contact Info) Description 09/02/2023 Telephone Family Medicine [address] [place] [address] Radha Sigala MD [address] [place] [address] [place] [phone] Advice (Call Tuesday after speaking to ... Allergies No known active allergiesdocumented as of this encounter (statuses as of 09/06/2023) Medications Medication Sig Dispensed Refills Start Date [...] as of this encounter (statuses as of 09/06/2023) Active Problems Problem Noted Date Diagnosed Date [...] as of this encounter (statuses as of 09/06/2023) Resolved Problems Problem Noted Date Diagnosed Date Resolved Date Dizziness 02/24/2023 08/24/2023 Routine child health exam 04/18/2002 documented as of this encounter (statuses as of 09/06/2023) Immunizations Name Administration Dates Next Due HEP [...] at Pharmacy and he had me call [facility] for prior auth. I called and spoke to Lata, She asked if I wanted to start the prior auth on the medication suggested. ICD codes given Acute liver failure 572.00 Hepatic encephalopathy (HCC) 576.82 Lata submitted the prior auth and turnaround time is 24hrs. After 24hrs and review they will notify the PCP office and patient. They will fax us at [phone] Patient notified about prior auth submitted and [...] his last Hep Funtion Test done in [place] 08/28/23 and 08/29/23 Hospital follow up is [...] call to patient. Thank you, Dunia Dubose Boom Conveyor Operator [facility] Services (CCPS) (Formerly Telepharmacy) [...] 8:20 AM EST Office Visit Family Medicine [address] [phone] Brady Royal[address] [place] [address] 10/18/2023 2:20 PM EDT Office Visit Hepatology, [place] [address] [place] [address] Iban Chaidez MD [address] [place] [address] Health Maintenance Due Date Last Done Comments [...] Advance Directives occurred with: Patient Care Teams Stitching Department Supervisor Relationship Specialty Start Date End Date Radha Sigala MD [address] [place] [address] [place] [address] PCP - General Family Medicine 08/31/23 documented as of this encounter
--- OUTSIDE RECORDS SUMMARY | 2023-09-16 22:55 | External Medical Summary | Summary of Care ---
Author Name Unknown Organization [facility] [address] [facility] [address] Phone [phone] Care Team Providers Care Numerical Control Machine Machinist Name Role Phone Radha Sigala MD Primary Care Provide r Reason for Visit * Reason Onset Date Comments Advice 09/02/2023 Call Tuesday afte r speaking to Dr. Land Pre Cert/Prior Auth 09/02/2023 Prior auth s ubmitted on 09/06/2023 for Xifaxan Order Request 09/02/2023 Prior auth on [facility] Chair at [facility] Encounter Details Date Type Department Care Team (Late st Contact Info) Description 09/02/2023 Telephone Family Medicine [address] [place] [address] Radha Sigala MD [address] [place] [address] [place] [phone] Advice (Call Tuesday after speaking to ... [...] Spoke to patient he tried to call [facility] re his shower chair and couldn't get through. He received a message from [employer] that we needed to verify information on the shower chair. I spoke to Shonda at [employer] and she said patient just needs to go to a participating vendor , which [facility] was participating and if its less than 750$ no prior auth is needed. I called [facility] and spoke to Shira she said its less than $50 dollars, they would just need the order faxed to them. I fax'ed order and she will let me know if patient can pick it up. mInfo # Hans's fax # was [phone] Reason for Call: Advice (Call Tuesday after [...] status. He is also going to call [facility] re the shower chair. If he has [...] if [facility] * Telephone Encounter - [...] at Pharmacy and he had me call [facility] for prior auth. I called and spoke to Lata, She asked if I wanted to start the prior auth on the medication suggested. ICD codes given Acute liver failure 572.00 Hepatic encephalopathy (HCC) 576.82 Lata submitted the prior auth and turnaround time is 24hrs. After 24hrs and review they will notify the PCP office and patient. They will fax us at [phone] Patient notified about prior auth submitted and [...] his last Hep Funtion Test done in [place] 08/28/23 and 08/29/23 Hospital follow up is [...] call to patient. Thank you, Dunia Dubose Drier [facility] Services (CCPS) (Formerly Telepharmacy) [...] 8:20 AM EST Office Visit Family Medicine [address] [place] [phone] Brady Royal CRNP [address] [place] [address] [place] [address] 10/18/2023 2:20 PM EDT Office Visit Hepatology [place] [address] [place] [address] Iban Chaidez MD [address] [place] [address] Health Maintenance Due Date Last Done Comments [...] Advance Directives occurred with: Patient Care Teams Numerical Control Machine Machinist Relationship Specialty Start Date End Date Radha Sigala MD [address] [place] [address] [place] [phone] PCP - General Family Medicine 1/24/24 documented as of this encounter
--- OUTSIDE RECORDS SUMMARY | 2023-09-16 22:55 | External Medical Summary | Summary of Care ---
Author Name Unknown Organization [facility] Address [address] [facility] [place] [address] Phone [phone] Care Team Providers Care Real Estate Closer Name Role Phone Radha Sigala MD Primary Care Provide r Reason for Visit * Reason Onset Date Comments Advice 09/02/2023 Call Tuesday afte r speaking to Dr. Land Encounter Details Date Type Department Care Team (Late st Contact Info) Description 09/02/2023 Telephone Family [address] [phone] Radha Sigala MD [address] [place] [address] [place] [phone] Advice (Call Tuesday after speaking to ... [...] 09/06/2023) Immunizations Name Administration Dates Next Due Seasonal [...] encounter Miscellaneous Notes * Telephone Encounter - Radha Sigala MD [...] his last Hep Funtion Test done in [place] 08/28/23 and 08/29/23 Hospital follow up is [...] call to patient. Thank you, Dunia Dubose Journeyman Wireman [facility] Pharm[facility] Services (CCPS) (Formerly Telepharmacy) [...] 8:20 AM EST Office Visit Family Medicine [address] [phone] Brady Royal [address] [place] [address] 10/18/2023 2:20 PM EDT Office Visit [facility] [address] [place] [address] Iban Chaidez MD [address] [place] [address] Health Maintenance Due Date Last Done Comments [...] Advance Directives occurred with: Patient Care Teams Real Estate Closer Relationship Specialty Start Date End Date Radha Sigala MD [address] [place] [address] [place] [address] PCP - General Family Medicine 08/31/23 documented as of this encounter
--- OUTSIDE RECORDS SUMMARY | 2023-09-16 22:55 | External Medical Summary | Summary of Care ---
Author Name Unknown Organization [facility] Address [address] [facility] [place] [address] Phone [phone] Care Team Providers Care Long Term Care Pharmacist Name Role Phone Radha Sigala MD Primary Care Provide r Reason for Visit * Reason Onset Date Comments Hospital Follow-Up 08/30/2023 [place] for [facility] Encounter Details Date Type Department Care Team (Late st Contact Info) Description 08/30/2023 Telephone Ancillary [address] [place] [address] Marylu Galo, EULOGIO Hospital Follow-Up ([facility] for [facility]) Allergies No known active allergiesdocumented as of [...] EST ----- Patient was admitted again to [facility] and needs to est with Dr. Sigala [...] walker and lots of meds. Admitted to [facility] from [facility] 08/10 and again 08/26 Let me know what you suggest. * Telephone Encounter - Marylu Galo RN - 08/30/2023 3:19 PM EST Transitions of Care Note Reason for Referral:Recent Admission Phone visit for follow up: TIGRE Admitted to: [facility], Date: 08.26.23 patient was a direct transfer from [facility] Discharged to: home, Date: 08.29.23 Diagnosis driving [...] Worsening symptoms 3. Chest pain or sob Layer UpTaxation Agent of Care interventions/Action Plan: Patient is scheduled for 09/12/23 for Hospital discharge appointment, but I will message Dr. Sigala for advice. I feel patient needs seen sooner Educated on role of TIGRE completed with patient/caregiver. 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 Identified Care Gaps: Yes Care Gaps [...] 8:20 AM EST Office Visit Family Medicine [address] [place] [phone] [address] Royal [address] [place] [address] 10/18/2023 2:20 PM EDT Office Visit Hepatology [place] [address] [place], [place] [phone] Iban Chaidez MD [address] [place] [address] Health Maintenance Due Date Last Done Comments [...] Advance Directives occurred with: Patient Care Teams Long Term Care Pharmacist Relationship Specialty Start Date End Date Radha Sigala MD [address] [place] [address] [place] [address] PCP - General Family Medicine 08/31/23 documented as of this encounter
--- OUTSIDE RECORDS SUMMARY | 2023-09-16 22:55 | External Medical Summary | Summary of Care ---
Author Name Unknown Organization [facility] Address [address] [facility] [place] [address] Phone [phone] Care Team Providers Care Platform Worker Name Role Phone Radha Sigala MD Primary Care Provide r Reason for Visit * Reason Comments Outpatient Testing Encounter Details Date Type Department Care Team (Late st Contact Info) Description 09/05/2023 10:10 AM EST Laboratory Laboratory [address] [place] [phone] [place] [address] Encounter for long-term (current) use of medications; Alcoholic hepatitis without ascites; Alcoholic cirrhosis of liver without ascites (HCC); Hepatic encephalopathy (HCC); Alcoholic hepatitis with ascites; Hypophosphatemia Allergies No known active allergiesdocumented as of this encounter (statuses as of 09/05/2023) Medications Medication Sig Dispensed Refills Start Date [...] as of this encounter (statuses as of 09/05/2023) Active Problems Problem Noted Date Diagnosed Date [...] as of this encounter (statuses as of 09/05/2023) Resolved Problems Problem Noted Date Diagnosed Date Resolved Date Dizziness 02/24/2023 08/24/2023 Routine child health exam 04/18/2002 documented as of this encounter (statuses as of 09/05/2023) Immunizations Name Administration Dates Next Due Seasonal [...] 8:20 AM EST Office Visit Family Medicine [address] [phone] [place] [address] 10/18/2023 2:20 PM EDT [facility] [address] [place] [address] Iban Chaidez MD [address] [place], [place] [phone] Pending Results Name Type Priority Associated Diagnoses Date /Time MAGNESIUM Lab Routine Encounter for long-term (current) use of medications 09/05/2023 10:04 AM EST VITAMIN B12 Lab Routine Encounter for long-term (current) use of medications 09/05/2023 10:04 AM EST PT INR Lab Routine Alcoholic hepatitis without ascites Alcoholic cirrhosis of liver without ascites (HCC) Hepatic encephalopathy (HCC) Alcoholic hepatitis with ascites 09/05/2023 10:04 AM EST PHOSPHORUS Lab Routine Hypophosphatemia 09/05/2023 10:04 AM EST COMPREHENSIVE METABOLIC PANEL Lab Routine Alcoholic cirrhosis of liver without ascites (HCC) 09/05/2023 10:04 AM EST BILIRUBIN, DIRECT Lab Routine Alcoholic hepatitis without ascites Alcoholic cirrhosis of liver without ascites (HCC) Hepatic encephalopathy (HCC) Alcoholic hepatitis with ascites 09/05/2023 10:04 AM EST Health Maintenance Due Date Last [...] Diagnosis Encounter for long-term (current) use of medications Encounter for long-term (current) use of other medications Alcoholic hepatitis without ascites Acute alcoholic hepatitis Alcoholic cirrhosis of liver without ascites (HCC) Alcoholic cirrhosis of liver Hepatic encephalopathy (HCC) Hepatic encephalopathy Alcoholic hepatitis with ascites Acute alcoholic hepatitis Hypophosphatemia Disorders of phosphorus metabolism documented in this encounter Advance Directives Latest [...] Advance Directives occurred with: Patient Care Teams Platform Worker Relationship Specialty Start Date End Date Radha Sigala MD [address] [place] [address] [place] [address] PCP - General Family Medicine 08/31/23 documented as of this encounter
--- OUTSIDE RECORDS SUMMARY | 2023-09-16 22:55 | External Medical Summary | Summary of Care ---
Author Name Unknown Organization [facility] Address [address] [facility] [place] [address] Phone [phone] Care Team Providers Care Erp Manager Name Role Phone Radha Sigala MD Primary Care Provide r Reason for Visit * Reason Onset Date Comments Advice 08/30/2023 Hospital Follow-Up 08/30/2023 Encounter Details Date Type Department Care Team (Late st Contact Info) Description 08/30/2023 Telephone Ancillary [address] [place] [address] Marylu Galo, manager inspection; Hospital Follow-Up Allergies No known active allergiesdocumented as of [...] EST ----- Patient was admitted again to [facility] [place] and needs to est with Dr. Sigala [...] walker and lots of meds. Admitted to [facility] [place] from [facility] 08/10 and again 08/26 Let me know what you suggest. * Telephone Encounter - Marylu Galo RN - 08/30/2023 3:19 PM EST Transitions of Care Note Reason for Referral:Recent Admission Phone visit for follow up: [place] Admitted to: [facility] [place], Date: 08.26.23 patient was a direct transfer from [facility] Discharged to: home, Date: 08.29.23 Diagnosis driving [...] Worsening symptoms 3. 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 Identified Care Gaps: Yes Care Gaps [...] 8:20 AM EST Office Visit Family Medicine [address] [phone] [address] [place] [address] 10/18/2023 2:20 PM EDT Office Visit Hepatology [place] [address] [place], [place] [phone] Iban Chaidez MD [address] [place] [address] Health Maintenance Due Date Last Done Comments [...] Advance Directives occurred with: Patient Care Teams Erp Manager Relationship Specialty Start Date End Date Rahda Sigala MD [address] [place] [address] [place] [address] PCP - General Family Medicine 08/31/23 documented as of this encounter
--- OUTSIDE RECORDS SUMMARY | 2023-09-16 22:55 | External Medical Summary ---
Author Name Unknown Address Unknown Organization [id number]:[facility] [place] - [address] [place] [address] Laboratory Report Ordering Provider Test Date Status MEHUL VILLAGOMEZ 09/05/2023 10:04:39 Final Discharge Order Observation Date Value Abnormality Reference (Units ) Status Bilirubin, Direct 09/05/2023 10:04:39 >10.0 Above high normal 0.0-0.3 (mg/dL) Final Performing Location [facility] [place] - [address] [place] [address]
--- OUTSIDE RECORDS SUMMARY | 2023-09-16 22:55 | External Medical Summary ---
Author Name Unknown Address Unknown Organization [id number]:[facility] [place] [address] [place] [address] Laboratory Report Ordering Provider Test Date Status DAHLIAGEN TonyaSUHAS 09/05/2023 10:04:39 Final Discharge Order

War farin Therapy
INR: 2.0-3.0 conventional anticoagulation
INR: 2.5-3.5 high intensity anticoagulation Observation Date Value Abnormality Reference (Units ) Status PT 09/05/2023 10:04:39 19.7 Above high normal 11 .6-15.2 (seconds) Final INR 09/05/2023 10:04:39 1.7 Above high normal 0. 8-1.2 Final Performing Location [facility] [place] [address] [place] [address]
--- OUTSIDE RECORDS SUMMARY | 2023-09-16 22:55 | External Medical Summary | Summary of Care ---
Author Name Unknown Organization [facility] Address [address] [facility] [place] [address] Phone [phone] Care Team Providers Care Sand Mixer Machine Name Role Phone Radha Sigala MD Primary Care Provide r Reason for Visit * Reason Onset Date Comments Appointment 08/19/2023 Encounter Details Date Type Department Care Team (Late st Contact Info) Description 08/19/2023 Telephone Gastroenterology, [facility] [address] [place] [address] Tali Estes CRNP [address] [place] [address] Appointment Allergies No known active allergiesdocumented as of this encounter (statuses as of 09/02/2023) Medications Medication Sig Dispensed Refills Start Date End Date Status Pantoprazole Sodium 40 MG Oral Tablet Delayed Release (Protonix)Indicat ions:Gastroesopha geal reflux disease without esophagitis,Epiga stric pain Take 1 Tablet by mouth in the morning. In the morning.. 90 Tablet 1 08/03/2023 Active buprenorphine HCl (SUBUTEX) 8 MG Sublingual tablet 0 08/15/2017 08/24/2023 Discont inued cloNIDine HCl 0.1 MG Oral Tablet (Catapres)Indicat ions:HTN, goal below 140/90 Take 1 Tablet by mouth in the morning and 1 Tablet before bedtime. 60 Tablet 5 01/04/2023 08/24/2023 Discontinued documented as of this encounter (statuses as of 09/02/2023) Active Problems Problem Noted Date Diagnosed Date [...] as of this encounter (statuses as of 09/02/2023) Resolved Problems Problem Noted Date Diagnosed Date Resolved Date Dizziness 02/24/2023 08/24/2023 Routine child health exam 04/18/2002 documented as of this encounter (statuses as of 09/02/2023) Immunizations Name Administration Dates Next Due HEP [...] encounter Miscellaneous Notes * Telephone Encounter - Belén Schulte OSA - 09/02/2023 1:07 PM EST Pt is scheduled with Hepatology on 10/18/23 @2:20 PM with Iban Chaidez. * Telephone Encounter - Tali Estes CRNP - 08/19/2023 3:58 PM EST Pt admitted at [facility] for ETOH hepatitis. He needs f/u in Hepatology clinic within 1 month. Pls assist with appt VASILE Barron documented in this encounter Plan of Treatment Upcoming Encounters Date Type Department Care Team (Late st Contact Info) Description 09/12/2023 8:20 AM EST Office Visit Family Medicine [address] [place] [phone] Brady Ryoal CRNP [address] [place] [address] [place] [address] 10/18/2023 2:20 PM EDT Office Visit Hepatology, [facility] [address] [place] [address] Iban Chaidez MD [address] [place] [address] Health Maintenance Due Date Last Done Comments [...] Advance Directives occurred with: Patient Care Teams Sand Mixer Machine Relationship Specialty Start Date End Date Radha Sigala MD [address] [place] [address] [place] [address] PCP - General Family Medicine 08/31/23 documented as of this encounter
--- OUTSIDE RECORDS SUMMARY | 2023-09-16 22:55 | External Medical Summary | Summary of Care ---
Author Name Unknown Organization [facility] Address [address] [facility] [place] [address] Phone [phone] Care Team Providers Care Crm Manager Name Role Phone Radha Sigala MD Primary Care Provide r Reason for Visit * Reason Onset Date Comments Hospital Follow-Up 08/30/2023 [place] [facility] [place] 08/30/2023 Encounter Details Date Type Department Care Team (Late st Contact Info) Description 08/30/2023 Telephone Ancillary [address] [place] [address] Marylu Galo RN Hospital Follow-Up ([place] [facility] Advice Allergies No known active allergiesdocumented as [...] Encounter - Marylu Galo RN - 09/02/2023 10:40 AM EST See other encounter, I spoke to patient and will follow up with him next Tuesday, if symptoms get worse patient to call me Tuesday. * Telephone Encounter - Pamela Sheffield OSA - 09/01/2023 5:08 PM EST Pt calling back in as he was supposed to call back if they got worse. He spoke with a RN yesterday.What is the reason for call? Feeling worse What Clinic is the patient trying to reach? [facility] Clinic: [facility] - CallType: Red Flag- route the telephone encounter as routine to zinc furnace charger p [phone] Caller: patient Return Phone #: [phone] Call was warm transferred to [facility] * Telephone Encounter - Marylu Galo RN [...] EST ----- Patient was admitted again [place] [facility] and needs to est with Dr. Sigala [...] walker and lots of meds. [place] [facility] 08/10 and again 08/26 Let me know what you suggest. * Telephone Encounter - Marylu Galo RN - 08/30/2023 3:19 PM EST Transitions of Care Note Reason for Referral:Recent Admission Phone visit for follow up: [place] Ad[place]: [facility], Date: 08.26.23 patient was a direct transfer from [facility] Discharged to: home, Date: 08.29.23 Diagnosis [...] Worsening symptoms 3. 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 Identified Care Gaps: Yes Care Gaps [...] AM EST Office Visit Family Medicine [address] [place] [phone] Brady Royal CRNP [address] [place] [address] [place] [phone] 10/18/2023 2:20 PM EDT Office Visit Hepatology, [address] [place] [phone] Iban Chaidez MD [address] [facility] [place] [address] Health Maintenance Due Date Last Done Comments [...] Advance Directives occurred with: Patient Care Teams Crm Manager Relationship Specialty Start Date End Date Radha Sigala MD [address] [place] [address] [place] [address] PCP - General Family Medicine 08/31/23 documented as of this encounter
--- OUTSIDE RECORDS SUMMARY | 2023-09-16 22:55 | External Medical Summary | Summary of Care ---
Author Name Unknown Organization [facility] Address [address] [facility] [place] [address] Phone [phone] Care Team Providers Care Society Editor Name Role Phone Radha Sigala MD Primary Care Provide r Reason for Visit * Reason Comments Outpatient Testing Encounter Details Date Type Department Care Team (Late st Contact Info) Description 09/05/2023 10:10 AM EST Laboratory Laboratory [address] [place] [phone] [place] [address] Encounter for long-term (current) use of medications; [...] AM EST Office Visit Family Medicine [address] [phone] [place] [address] 10/18/2023 2:20 PM EDT [facility] [address] [place] [address] Iban Chaidez MD [address] [place], [place] [phone] Pending Results Name Type Priority Associated Diagnoses [...] Advance Directives occurred with: Patient Care Teams Society Editor Relationship Specialty Start Date End Date Radha Sigala MD [address] [place] [address] [place] [address] PCP - General Family Medicine 08/31/23 documented as of this encounter
--- OUTSIDE RECORDS SUMMARY | 2023-09-16 22:55 | External Medical Summary | Summary of Care ---
Author Name Unknown Organization [facility] [address] [facility] [address] Phone [phone] Care Team Providers Care Rotary Lithographic Press Operator Name Role Phone Radha Sigala MD Primary Care Provide r Reason for Visit * Reason Onset Date Comments Advice 09/02/2023 Call Tuesday afte r speaking to Dr. Land Pre Cert/Prior Auth 09/02/2023 Prior auth s ubmitted on 09/06/2023 for Xifaxan Encounter Details Date Type Department Care Team (Late st Contact Info) Description 09/02/2023 Telephone Family Medicine [address] [place] [phone] Radha Sigala MD [address] [place] [address] [place] [phone] Advice (Call Tuesday after speaking to ... [...] [facility] Denies any change in mental status. He is also going to call [place] re the shower chair. If he has [...] at Pharmacy and he had me call [facility] for prior auth. I called and spoke to Lata, She asked if I wanted to start the prior auth on the medication suggested. ICD codes given Acute liver failure 572.00 Hepatic encephalopathy (HCC) 576.82 Lata submitted the prior auth and turnaround time is 24hrs. After 24hrs and review they will notify the PCP office and patient. They will fax us at [phone] Patient notified about prior auth submitted and [...] to review * Telephone Encounter - Marylu Gaol RN - 09/05/2023 3:37 PM EST Spoke [...] his last Hep Funtion Test done in [place] 08/28/23 and 08/29/23 Hospital follow up is [...] call to patient. Thank you, Dunia Dubose Automobile Rental Agent Centralized Clinical Pharmacy Services (CCPS) (Formerly Telepharmacy) [...] 09/12/2023 8:20 AM EST Office Visit Family [address] [place] [address] Brady Royal [address] [place] [address] 10/18/2023 2:20 PM EDT Office Visit Hepatology, [place] [address] [place] [address] Iban Chaidez MD [address] [place] [address] Health Maintenance Due Date Last Done Comments [...] Advance Directives occurred with: Patient Care Teams Rotary Lithographic Press Operator Relationship Specialty Start Date End Date Radha Sigala MD [address] [place] [address] [place] [phone] PCP - General Family Medicine 08/31/23 documented as of this encounter
--- OUTSIDE RECORDS SUMMARY | 2023-09-16 22:55 | External Medical Summary ---
Author Name Unknown Address Unknown Organization [id number]:[facility] [place] [address] [facility] [place] [address] Laboratory Report Ordering Provider Test Date Status RAEGAN CESAR 09/05/2023 10:04:39 Final Discharge Order Observation Date Value Abnormality Reference (Units ) Status BUN 09/05/2023 10:04:39 11 6-20 (mg/d L) Final Creatinine 09/05/2023 10:04:39 0.6 0.6-1.2 ( mg/dL) Final Result may be falsely decrea sed due to icterus. Glomerular filtration rate/1 .73 sq M.predicted [Volume Rate/Area] in Serum, Plasma or Blood by Creatinine-based formula (CKD-EPI) 09/05/2023 10:04:39 >90 >=60 (mL/min) Final eGFR is calculated based on the CKD-EPI 2020 equation SODIUM 09/05/2023 10:04:39 134 Below low normal 135 -146 (mmol/L) Final Potassium 09/05/2023 10:04:39 4.2 3.5-5.1 (m mol/L) Final Cl 09/05/2023 10:04:39 102 98-107 (mm ol/L) Final CO2 09/05/2023 10:04:39 15 Below low normal 22- 32 (mmol/L) Final Anion gap 09/05/2023 10:04:39 17 Above high normal 7- 15 (mmol/L) Final Glucose 09/05/2023 10:04:39 247 Above high normal 70 -120 (mg/dL) Final Albumin 09/05/2023 10:04:39 2.9 Below low normal 3.8 -5.0 (g/dL) Final AST (Aspartate aminotransferase) 09/05/2023 10:04:39 148 Above high normal 10-50 (U/L) Final Alk Phos 09/05/2023 10:04:39 178 Above high normal 35 -130 (U/L) Final Bilirubin, Total 09/05/2023 10:04:39 30.0 Above high no rmal <=1.2 (mg/dL) Final Calcium 09/05/2023 10:04:39 7.6 Below low normal 8.4 -10.2 (mg/dL) Final Protein 09/05/2023 10:04:39 5.8 Below low normal 6.0 -8.3 (g/dL) Final Result may be falsely decrea sed due to icterus. ALT (Alanine aminotransferase) 09/05/2023 10:04:39 146 Above high normal 10-50 (U/L) Final Performing Location [facility] [place] [address] [facility] [address]
--- OUTSIDE RECORDS SUMMARY | 2023-09-16 22:55 | External Medical Summary ---
Author Name Unknown Address Unknown Organization : Laboratory Report Ordering Provider Test Date Status MEHUL VILLAGOMEZ 09/05/2023 10:04:39 Final Observation Date Value Abnormality Reference (Units ) Status Source 09/05/2023 10:04:39 Whole Blood Final EBV DNA 09/05/2023 10:04:39 Not Detected (copies /mL) Final EBV DNA 09/05/2023 10:04:39 Not Detected (Log cp s/mL) Final Reference Range: Not Detecte d
For additional information, please refer to
http://education.[employer]/faq/CMVandEBVPCR
(This link is being provided for informational/
educational purposes only.)
This test was developed and its analytical performance
characteristics have been determined by [facility] [place]. It has
not been cleared or approved by the U.S. Food and Drug
Administration. This assay has been validated pursuant
to the CLIA regulations and is used for clinical
purposes.

Test Performed at:
[facility]
[address] [facility]
[place], [place] [address]
Sarath Suggs M.D., Ph.D.,Director of Laboratories Performing Location
--- OUTSIDE RECORDS SUMMARY | 2023-09-16 22:55 | External Medical Summary | Summary of Care ---
Author Name Unknown Organization [facility] Address [address] [facility] [place] [address] Phone [phone] Care Team Providers Care Dry Roller Name Role Phone Radha Sigala MD Primary Care Provide r Reason for Visit * Reason Onset Date Comments Hospital Follow-Up 08/30/2023 [facility] 1 wk pcp f/u needed. No appt avail. Please assist patient with scheduling. Thank you. Encounter Details Date Type Department Care Team (Late st Contact Info) Description 08/30/2023 Telephone [address] [phone] Jatinder Douglas MD [address] [place] [address] [place] [address] Hospital Follow-Up ([facility] 08/29/23 1 wk p... Allergies No known active allergiesdocumented as of [...] 09/05/2023) Immunizations Name Administration Dates Next Due HEP [...] encounter Miscellaneous Notes * Telephone Encounter - Hillary Jones RN - 09/05/2023 10:36 AM EST Pt is scheduled * Telephone Encounter - Tiana Fink OSA - 08/30/2023 6:06 AM EST [facility] 08/29/23 1 wk pcp f/u needed. No appt avail. Please assist patient with scheduling. Thank you. Jimmy Yu 08/26/2023 9:22 PM Admission Description: 37 year old male Department: [facility] Message Patient Name: JIMMY YU([id number]) Sex: Male : 1985 PCP: JATINDER DOUGLAS Center: [facility] Types of orders made on 08/29/2023: Communication, IP Discharge, IP Post Discharge , Lab, Medications, Point of Care Testing - Unsolicited Res ts Order Date:08/29/2023 Ordering User:MARILOU DODSON [[id number]] Attending Provider:Piedad Mancia MD [[id number]] Authorizing Provider: Marilou Dodson DO [[id number]] Department:[facility][[id number]] Order Specific Information Order: RETURN APPT [CUSTOM: IP355] Order #: [id number]: 1 Priority: Routine Class: Nursing Unit Department (Single Entry) -> Family Practice Appt Needed Within: (Specify # of Days, Weeks, Months) -> 1 Wk Provider -> JATINDER DOUGLAS Released on: 08/29/2023 3:05 PM Priority: Routine Class: Nursing Unit Department (Single Entry) -> Family Practice Appt Needed Within: (Specify # of Days, Weeks, Months) -> 1 Wk Provider -> JATINDER DOUGLAS Released on: 08/29/2023 3:05 PM documented in this encounter Plan of Treatment Upcoming Encounters Date Type Department Care Team (Late st Contact Info) Description 09/12/2023 8:20 AM EST Office Visit [address] [phone] Brady Royal [address] [address] 10/18/2023 2:20 PM EDT [facility] [address] [place], [place] [phone] Iban Chaidez MD [address] [place], [place] [phone] Health Maintenance Due Date Last Done Comments [...] Advance Directives occurred with: Patient Care Teams Dry Roller Relationship Specialty Start Date End Date Radha Sigala MD [address] [place] [address] [place] [phone] PCP - General Family Medicine 08/31/23 documented as of this encounter
--- OUTSIDE RECORDS SUMMARY | 2023-09-16 22:55 | External Medical Summary | Summary of Care ---
Author Name Unknown Organization [facility] [address] [facility] [address] Phone [phone] Care Team Providers Care It Architecture Consultant Name Role Phone Radha Sigala MD Primary Care Provide r Reason for Visit * Reason Onset Date Comments Advice 09/02/2023 Call Tuesday afte r speaking to Dr. Land Pre Cert/Prior Auth 09/02/2023 Prior auth s ubmitted on 09/06/2023 for Xifaxan Encounter Details Date Type Department Care Team (Late st Contact Info) Description 09/02/2023 Telephone Family Medicine [address] [place] [phone] Radha Sigala MD [address] [place] [address] [place] [phone] Advice (Call Tuesday after speaking to ... [...] encounter Miscellaneous Notes * Telephone Encounter - Jill Bray OSA - 09/09/2023 11:10 AM EST Reason for patient's call: Jimmy Ryanaustin is calling in requesting to speak directly [...] status. He is also going to call [place] re the shower chair. If he has [...] at Pharmacy and he had me call [facility] for prior auth. I called and spoke to Lata, She asked if I wanted to start the prior auth on the medication suggested. ICD codes given Acute liver failure 572.00 Hepatic encephalopathy (HCC) 576.82 Lata submitted the prior auth and turnaround time is 24hrs. After 24hrs and review they will notify the PCP office and patient. They will fax us at [phone] Patient notified about prior auth submitted and [...] his last Hep Funtion Test done in [place] 08/28/23 and 08/29/23 Hospital follow up is [...] call to patient. Thank you, Dunia Dubose Sales And Marketing Administrator Centralized Clinical Pharmacy Services (CCPS) (Formerly Telepharmacy) [...] AM EST Office Visit Family Medicine [address] [place] [address] [address] Royal [address] [place] [address] 10/18/2023 2:20 PM EDT Office Visit Hepatology, [place] [address] [place], [place] [phone] Iban Chaidez MD [address] [place], [place] [phone] Health Maintenance Due Date Last Done Comments [...] Advance Directives occurred with: Patient Care Teams It Architecture Consultant Relationship Specialty Start Date End Date Radha Sigala MD [address] [place] [address] [place] [phone] PCP - General Family Medicine 08/31/23 documented as of this encounter
--- OUTSIDE RECORDS SUMMARY | 2023-09-16 22:56 | External Medical Summary ---
Author Name Unknown Address Unknown Organization K01:[facility] [place] [address] [facility] [address] Laboratory Report Ordering Provider Test Date Status RAEGAN CESAR 08/29/2023 06:37:00 Final Observation Date Value Abnormality Reference (Units ) Status Albumin 08/29/2023 06:37:00 2.9 Below low normal 3.8-5.0 (g/dL) Final AST (Aspartate aminotransferase) 08/29/2023 06:37:00 185 Above high normal 10-50 (U/L) Final Result may be falsely elevat ed due to hemolysis. Alk Phos 08/29/2023 06:37:00 195 Above high normal 35 -130 (U/L) Final ALT (Alanine aminotransferase) 08/29/2023 06:37:00 103 Above high normal 10-50 (U/L) Final Bilirubin, Total 08/29/2023 06:37:00 29.7 Above high no rmal <=1.2 (mg/dL) Final Bilirubin, Direct 08/29/2023 06:37:00 >10.0 Above high n ormal 0.0-0.3 (mg/dL) Final Result may be falsely decrea sed due to hemolysis. Protein 08/29/2023 06:37:00 6.2 6.0-8.3 (g /dL) Final Result may be falsely decrea sed due to icterus. Performing Location [facility] [place] [address] [place] [address]
--- OUTSIDE RECORDS SUMMARY | 2023-09-16 22:56 | External Medical Summary ---
Author Name Unknown Address Unknown Organization K01:[facility] [place] - [address] [place] [address] Laboratory Report Ordering Provider Test Date Status JENNY ALVAREZ 08/26/2023 22:27:00 Final Observation Date Value Abnormality Reference (Units ) Status Lactic Acid 08/26/2023 22:27:00 2.1 Above high normal 0.4-2.0 (mmol/L) Final Icterus may interfere with r esult. Performing Location [facility] [place] - [address] [place] [address]
--- OUTSIDE RECORDS SUMMARY | 2023-09-16 22:56 | External Medical Summary | Summary of Care ---
Author Name Unknown Organization [facility] Address [address] [place] [address] Phone [phone] Care Team Providers Care Medical Communication Specialist Name Role Phone Jatinder Low MD Primary Care Provider Reason for Visit * Auth/Cert Specialty Diagnoses / Procedures Referred By Kelsey t Referred To Contact Diagnoses Encephalopathy encephalopathy Referral ID Status Reason Start Date Expiration Date Visits Re quested Visits Authorized [id number] Encounter Details Date Type Department Care Team (Latest Contact Info) Description 08/26/2023 9:22 PM EST - 08/29/2023 5:38 PM EST Hospital Encounter [id number] [facility] 5TH FLOOR [address] [place] [address] Piedad Mancia MD [address] [place] [address] Robinson Castro DO [address] [place] [address] Ayush Mancilla MD [address] [place] [address] Discharge Disposition: Home - Self Care Allergies No known active allergiesdocumented as of this encounter (statuses as of 08/30/2023) Medications Medication Sig Dispensed Refills Start Date End Date Status Pantoprazole Sodium 40 MG Oral Tablet Delayed Release (Protonix)Indica tions:Gastroesop hageal reflux disease without esophagitis,Epig astric pain Take 1 Tablet by mouth in [...] the morning. 30 Tablet 0 08/25/2023 Active Therapeutic-M/Sandra tein Oral Tablet Take 1 Tablet by mouth [...] Lactulose 20 GM/30ML Oral Solution (Constulose) Take 30 mL by mouth 3 times daily (morning, noon, before bedtime). 240 mL 12 08/24/2023 4 Discontinued(Refi ll) prednisoLONE Sodium Phosphate 15 MG/5ML Oral Solution (Orapred) Take 13.3 mL by mouth daily in the morning for 21 days. 279.3 mL 0 08/25/2023 4 Discontinued(Refi ll) Phos-NaK 280-160-250 MG Oral Packet (potassium and sodium phosphate) Take 1 Packet by mouth in the morning and 1 Packet at noon and 1 Packet before bedtime. Do all this for 3 days. Mix as directed. 9 Packet 0 08/24/2023 4 Discontinued rifAXIMin 550 MG Oral Tablet (Xifaxan) Take 1 Tablet by mouth in the morning and 1 Tablet before bedtime. 60 Tablet 0 08/29/2023 4 Discontinued(Refi ll) documented as of this encounter (statuses as of 08/30/2023) Active Problems Problem Noted Date Diagnosed Date [...] as of this encounter (statuses as of 08/30/2023) Resolved Problems Problem Noted Date Diagnosed Date Resolved Date Dizziness 02/24/2023 08/24/2023 Routine child health exam 04/18/2002 documented as of this encounter (statuses as of 08/30/2023) Immunizations Name Administration Dates Next Due Seasonal [...] Sign Reading Time Taken Comments Blood Pressure 102/62 08/29/2023 6:00 AM EST Pulse 78 08/29/2023 6:00 AM EST Temperature 36.2 C (97.2 F) 08/29/2023 6:00 AM ES T Respiratory Rate 16 08/29/2023 6:00 AM EST Oxygen Saturation 97% 08/29/2023 6:00 AM EST Inhaled Oxygen Concentration - - Weight 78.9 kg (174 lb) 08/29/2023 6:00 AM EST Height 190.5 cm (6' 3") 08/26/2023 9:35 PM EST Body Mass Index 21.75 08/26/2023 9:35 PM EST documented in this [...] Yes 08/26/2023 documented as of this encounter Discharge Summaries * Amol Lopez, DO - 08/29/2023 4:59 PM EST Images from the original note were not included. [address] [address] Admission Date: 08/26/2023 Discharge Date: 08/29/2023 RECOMMENDED TO DO FOR NEXT PROVIDER(S): Finish course of prednisolone as prescribed CMP and PT INR in 1 week Follow up with hepatology on 10/18/23 REASON(S) FOR MEDICATION CHANGE(S): - C/w Prednisolone liquid course for alcoholic hepatitis treatment - C/w decreased dose of Lactulose, 3-4 bowel movements per day is target - C/w Rifaximin, started in the hospital, to decrease ammonia levels DISPOSITION ON DISCHARGE: Home - Self Care (w/ DME) Active Hospital Problems Diagnosis *Principal Diagnosis - Acute liver failure Alcoholic cirrhosis of liver without ascites (HCC) Tobacco abuse disorder Alcohol use disorder, severe, dependence (HCC) Opioid use disorder Alcoholic hepatitis with ascites Atrioventricular block, Mobitz type 1, Wenckebach Gastroesophageal reflux disease without esophagitis Resolved Hospital Problems No resolved problems to display. ADMISSION HISTORY & PHYSICAL EXAM (focused): Per Admitting team: "HPI: This is a 37 year old male: Alcoholic Cirrhosis without ascites HCV s/p treatment OUD Alcohol use disorder 2nd degree AV block type 1 GERD Congential Atrial Septal Aneurysm He presents to [facility] today as a direct transfer from [facility] due to worsening acute liver failure despite treatment. Patient was recently admitted to [facility] from 08/10- 08/24 where he was found to have encephalopathy 2/2 acute liver failure thought due to his alcohol use. Patient was started on steroids and clinically improved during his hospital course. He was discharged with continued steroid treatment andto follow up with hepatology. He was also referred to MAT clinic for alcohol abuse. Since discharge, patient states that he had progressively worsening weakness, jaundice, and intermittent confusion. Due to his weakness, patient fell, but denies LOC or head trauma. The weakness prompted him to go to [facility] ED to be further evaluated. At [facility], patient was clinically and hemodynamically stable. He was found to have worsening LFTs andso the case was discussed with Hepatology at [facility] who recommended transfer for further evaluation. While at [facility], patient underwent trauma work-up for fall which was unremarkable. On arrival to [facility], patient was clinically and hemodynamically stable. He continues to endorse fatigue and weakness. States his abdomen is mildly sore from dry heaving previous days. Patient denies DURAN, lightheadness, dizziness, fever/chills, cough, sore throat, changes in vision, changes in hearing, CP/pressure, SOB, constipation, diarrhea, hematochezia, melena, dysuria, hematuria, or swelling in extremities. - stopped smoking 2 weeks ago - has not had a drink of alcohol since 08/15/23 - History of IVDU but states he quit 10 years ago - currently chews tobacco Physical Exam Most Recent Vital Signs: BP: 110 mmHg/76 mmHg (08/26/232134) Pulse: 70 (08/26/232134) Temp: 36.22 C (08/26/232134) Resp: 18 (08/26/232134) SpO2: 100 % (08/26/232134) General: No acute distress, lying comfortably in bed HEENT: NCAT, PERRL, bilateral conjunctival icterus CVS: Normal rate and rhythm, S1 and S2 heard in all heart jacobsen, no murmurs, rubs, gallops Chest: Normal respiratory effort, CTABL, no chest wall tenderness Abdomen: Soft, diffuse mild tenderness, normal bowel sounds Extremities: 2+ bilateral LE pitting edema, no cyanosis Skin: Warm, dry, intact Neuro: Alert and oriented x3 Psych: Normal mood and affect" HOSPITAL COURSE (focused): Jimmy Yu is a 37 year old gentleman with a PMH of alcohol use disorder, alcoholic cirrhosis, HCVstatus post treatment, opioid use disorder who presented to [facility] as a transfer from [facility] for worsening liver chemistries compared to recent admission, where he was being treated for Alcoholic Hepatitis. He was followed by Hepatology with instructions to continue his prior course of Prednisolone for alcoholic hepatitis. His MELD labs and symptoms remained stable. He received a few more days of prednisolone and his LFT's improved. He was also started on a high protein diet per recommendations. He was discharged in stable condition with instruction to finish his prednisolone course and also take his lactulose and rifaximin. DAY OF DISCHARGE PHYSICAL EXAM: BP 102/62 | Pulse 78 | Temp 36.2 C (97.2 F) (Tympanic) | Resp 16 | Ht 1.905 m (6' 3") | Wt 78.9kg (174 lb) | SpO2 97% | BMI 21.75 kg/m | BSA 2.04 m General: Grossly jaundiced, ill appearing but conversational, alert and oriented x 4, no signs of confusion HEENT: Sublingual jaundice, scleral icterus Cardiovascular: Regular rate and rhythm, S1 and S2 present, no murmurs on auscultation Respiratory: Clear to auscultation bilaterally, no wheezes, rhonchi, crackles Abdomen: Soft, non-tender, mildly-distended, normal bowel sounds Musculoskeletal: No joint deformity Extremities: No lower extremity edema bilaterally Neuro: Moves all extremities equally, no focal deficits Skin: Grossly Jaundiced Operations & Procedures: none Complications: none applicable Significant Lab and Imaging Results: As mentioned above Results Pending at Discharge: Lab Results Pending at Discharge: PT INR Routine Hepatic Function Panel Routine BASIC METABOLIC PANEL Routine MEDICATION UPDATES AT DISCHARGE START taking these medications INSTRUCTIONS Xifaxan 550 MG Tablet Generic drug: rifAXIMin Take 1 Tablet by mouth in the morning and 1 Tablet before bedtime daily. CHANGE how you take these medications INSTRUCTIONS Lactulose 20 GM/30ML solution Commonly known as: Constulose What changed: how much to take Take 15 mL by mouth in the morning and 15 mL at noon and 15 mL before bedtime. CONTINUE taking these medications INSTRUCTIONS Baclofen 10 MG Tablet Commonly known as: Lioresal Take 1 Tablet by mouth 3 times daily (morning, noon, before bedtime). folic acid 1 MG Tablet Take 1 Tablet by mouth daily in the morning. pantoprazole 40 MG Tbec Commonly known as: Protonix Take 1 Tablet by mouth in the morning. In the morning.. Phos-NaK 280-160-250 MG packet Generic drug: potassium and sodium phosphate Take 1 Packet by mouth in the morning and 1 Packet at noon and 1 Packet before bedtime. prednisoLONE 15 MG/5ML solution Commonly known as: Orapred Take 13.3 mL by mouth every morning. Therapeutic-M/Lutein Tabs Take 1 Tablet by mouth daily at noon. Do not start before August 25, 2023. THIAMINE 100 MG Tablet Commonly known as: vitamin B-1 Take 1 Tablet by mouth daily in the morning. SCHEDULED FOLLOW-UP: Future Appointments Appt Date/Time Provider Department 10/18/2023 2:20 PM [facility] Metabolic Panel PT INR Other Information Indwelling Devices: LINES None Vital Signs (last recorded): Most Recent Systolic BP: 102 mmHg (08/29/23599) Most Recent Diastolic BP: 62 mmHg (08/29/23599) Pulse: 78 (08/29/23599) Resp: 16 (08/29/23599) Most Recent Temperature: 36.22 C (08/29/23599) Weight: 78.9 kg (174 lb) (08/29/23599) SpO2: 97 % (08/29/23599) O2 flow rate: 0 L/MIN (08/28/231932) Allergies: Patient has no known allergies. Activity: as tolerated Diet: age appropriate diet Code status (this admission): Full Code Discussion of adv directives occurred with - adult: Patient Condition on Discharge: stable Isolation status: None Cognition: normal HOSPITAL CONSULTS ORDERED: HEPATOLOGY CONSULT IP NUTRITION SERVICES (DIETITIAN) CONSULT IP ADULT PHYSICAL THERAPY CONSULT IP ADULT OCCUPATIONAL THERAPY CONSULT IP REFERRING PHYSICIAN: Ref: ANTONIETTA OLIVEIRA[[id number]] [address] [place] [address] (office) [phone] (fax) PRIMARY CARE PROVIDER: PCP: Jatinder Low MD [address] [place] [address] / [place] [phone] (office) [phone] (fax) Note: To contact a physician responsible for this patients hospital care, please call [facility] [phone]. Associated attestation - Robinson Castro DO - 08/29/2023 6:36 PM EST I saw and evaluated the patient today. I have reviewed the trainee note and agree. I spent a total of 32 minutes providing discharge day management for this patient. The management included final examination of the patient, discussion of the hospital stay with the patient and/or caregivers, and preparation of discharge records, prescriptions, and referral forms that relate to the patient's hospital stay. This time is reflective of my part in the discharge day management as documented in the summary and notes, and doesn't include resident or other providers time providing the above to the patient. documented in this encounter Discharge Instructions * Discharge Instr - AVS* Marilou Dodson DO - 08/29/2023 2:10 PM EST Discharge Date: 08/29/2023 The information below provides you with the instructions and the list of medications you need to betaking following discharge from the hospital. If you have any questions, please ask before leaving. If you have questions after leaving, you can reach us at the numbers below. YOUR HOSPITAL PROVIDERS: Discharging Provider: Robinson Castro DO & Marilou Dodson DO Provider Department: Hospital Medicine To reach this Provider Tuesday through Tuesday (8:00 AM to 4:30 PM) for any questions or test results: Call [phone] For after-hours concerns: Call [phone] and have your provider paged, or the provider adult nurse practitioner for the Department of Hospital Medicine paged. Please note, the discharging provider will not be able to provide you with any medications refills.Please discuss these with your primary care provider. Worsening Symptoms: If you have new symptoms, or your symptoms get worse, please contact your Discharge Provider or Primary Care Provider (PCP). If these providers are not available, you can go to your local [facility] or [facility] during their business hours. In an EMERGENCY situation: Call 911 or go to the nearest emergency room. A BRIEF SUMMARY OF YOUR HOSPITAL STAY: You came to the hospital with: You came to the hospital with complaints of worsening weakness and jaundice. [facility] were [facility] to [facility] to see the hepatologists, or liver doctors. They saw you and recommended continuing your current prednisolone course for alcoholic hepatitis. Your Lactulose was decreased and you were started on Rifaximin. Otherwise, no medchanges were made. Please follow up with Hepatology in October 17 as scheduled Your main diagnosis at discharge was: Acute Alcoholic Hepatitis Operations & Procedures performed: none Complications: none applicable Inpatient test results that are pending at discharge: none Advance Directive Documented: Advance Directive Does the Patient have an Advance Directive? No YOUR FOLLOW UP APPOINTMENTS: Primary Care Provider Information: PCP: Jatinder Low MD [address] [place] [address] / [place] [phone] (office) [phone] (fax) An appointment was requested with your PCP (Jatinder Low MD) within 7 days. (Please take this form to this visit with your primary care physician.) You need the following studies in the future: CMP and PT INR: date - 1 week INSTRUCTIONS: Diet: Normal diet, High protein Activity: No restrictions, As tolerated, and 100% supervision Additional Instructions: - Call your primary care physician or seek medical attention if you begin to experience fevers, chills, chest pain, difficulties breathing, swelling in your legs/belly. - Do not use alcohol products in anyway! - Use caution when standing or walking since you are at an increased risk for falls - Do not take [id number] NSAIDs (nonsteroid anti-inflammatory medications); ie. Advil, Motrin, Ibuprofen, etc. documented in this encounter Progress Notes * jC Hawkins MD - 08/29/2023 1:08 PM EST PROGRESS NOTE - Gastroenterology Service [facility] [address] Name: Jimmy Yu SUBJECTIVE: Patient denied fever or abdominal pain. He is eager to go home ROS: Negative unless otherwise stated above. OBJECTIVE: Vital Signs Last 24 Hours: Systolic BP: Most Recent Systolic BP Av.4 mmHg Min: 102 mmHg Max: 136 mmHg Temperature: Most Recent Temperature Av.8 C Min: 36.22 C Max: 37.22 C Pulse: Pulse Av.8 Min: 64 Max: 83 Respirations: Resp Av.8 Min: 16 Max: 18 SpO2: SpO2 Av.8 % Min: 97 % Max: 99 % Constitutional: NAD. A&Ox3. +scleral icterus CV: no tachycardia or bradycardia Chest: no accessory muscle use in room air GI: Soft, NT/ND. Extremities: No edema. Neurology: Moves all extremities. LABS: [facility]. MELD 3.0: 27 at 08/29/2023 6:37 AM Calculated from: Serum Creatinine: 0.5 mg/dL (Using min of 1 mg/dL) at 08/29/2023 6:37 AM Serum Sodium: 136 mmol/L at 08/29/2023 6:37 AM Total Bilirubin: 29.7 mg/dL at 08/29/2023 6:37 AM Serum Albumin: 2.9 g/dL at 08/29/2023 6:37 AM INR(ratio): 1.7 at 08/29/2023 6:37 AM Age at listing (hypothetical): 37 years Sex: Male at 08/29/2023 6:37 AM Latest Reference Range & Units 08/24/23 08:06 08/26/23 22:27 08/27/23 09:34 08/28/23 07:19 08/29/23 06:37 Albumin 3.8 - 5.0 g/dL 2.6 (L) 3.1 (L) 2.7 (L) 2.5 (L) 2.9 (L) AST 10 - 50 U/L 164 (H) 180 (H) 172 (H) 152 (H) 185 (H) ALT 10 - 50 U/L 88 (H) 98 (H) 91 (H) 83 (H) 103 (H) Alkaline Phosphatase 35 - 130 U/L 195 (H) 220 (H) 195 (H) 175 (H) 195 (H) Bilirubin, Total <=1.2 mg/dL 27.2 (H) 30.7 (H) 28.0 (H) 25.6 (H) 29.7 (H) Bilirubin, Direct 0.0 - 0.3 mg/dL >10.0 (H) >10.0 (H) >10.0 (H) >10.0 (H) >10.0 (H) (L): Data is abnormally low (H): Data is abnormally high IMAGING: Reviewed in Epic. ASSESSMENT: Jimmy Yu is a 37 year old male with alcohol associated liver disease, active alcohol use disorder, and history of hepatitis-C s/p treatment who was recently admitted from 08/17 to 08/24 for alcohol associated hepatitis, started on prednisone with Lille score on day 7 less than 0.45. Aboutone day after discharge with oral steroid, he was readmitted for worsening jaundice and weakness. Infectious workup including blood culture NGTD, unremarkable U/A. He was continued on steroid and clinically improves. RECOMMENDATIONS/PLAN: Continue prednisolone 40 mg daily to complete a 28-day course (start date was around 08/18) Follow-up EBV DNA PCR, f/u EBV viral capsid IgM Continue lactulose, titrated for bowel movements 3-5 bowel movements per day. C/w baclofen 10 mg TID for alcohol use disorder. Diet recommendation: 2 g Na restriction, 1.5 g/kg/day protein supplementation, 25-40 kcal/kg/day energy intake Patient will need to follow up MAT clinic as outpatient. Follow up with hepatology as outpatient (message sent to scheduling staff) Discussed with my attending, Dr. Hawkins. Faviola Moore MD Gastroenterology Fellow [facility] Attending Attestation: I have discussed the patient's management with the medical trainee and agree with the note. Please refer to the documented findings and plan of care. The patient's bedside service today consisted of an evaluation. I was present and confirmed the findings of the history and exam. * Amol Lopez DO - 08/28/2023 7:12 AM EST Images from the original note were not included. [facility] A575/A INTERVAL HISTORY: Jimmy Yu is a 37 y/o M pmhx alcoholic cirrhosis without ascites, HCV s/p treatment, 2nd degree av block mobitz 1, GERD, who presented as a re-admission for alcoholic hepatitis. This morning, he states that he feels in pain all over. He says he feels that he has been beaten up. He admits to having 5+ bowel movements overnight on the lactulose. He denies any chest pain, shortness of breath or abdominal pain. All systems are reviewed, the pertinent findings documented in the HPI, otherwise negative. Objective Physical Exam Most Recent Vital Signs: BP: 105 mmHg/68 mmHg (08/28/23240) Pulse: 62 (08/28/23240) Temp: 36.39 C (08/28/23240) Resp: 18 (08/28/23240) SpO2: 92 % (08/28/23240) General: Grossly jaundiced, ill appearing HEENT: Sclera white, extraocular muscles intact Cardiovascular: Regular rate and rhythm, S1 and S2 present, no murmurs on auscultation Respiratory: Clear to auscultation bilaterally, no wheezes, rhonchi, crackles Abdomen: Soft, non-tender, mildly-distended, normal bowel sounds Musculoskeletal: No joint deformity Extremities: No lower extremity edema bilaterally Neuro: Moves all extremities equally, no focal deficits Skin: Gross jaundice with sublingual jaundice as well Peripheral Line Right;Upper 20 Gauge (Active) Number of days: STUDIES: Encounter Orders Labs and other studies reviewed with pertinent findings noted below: Laboratory Values: reviewed. -- Brief labs below include the 7 most recent results over the past week. Blood Gas: No results in the last 7 days - inpatent use only Chemistry Panel: Lab results within last 7 days (see chart for full results) Units 08/27/23 0934 08/26/23 2227 08/24/23 0806 08/23/23 1435 08/22/23 0655 Sodium mmol/L 143 141 138 139 136 Potassium mmol/L 3.8 3.9 3.6 3.9 4.6 Chloride mmol/L 113* 108* 108* 110* 109* CO2 mmol/L 16* 17* 16* 17* 15* BUN mg/dL 11 9 5* 3* 3* Creatinine mg/dL 0.5* 0.5* 0.4* 0.4* 0.4* Estimated Glomerular Filtration Rate mL/min >90 >90 >90 >90 >90 Glucose mg/dL 96 103 94 130* 76 Calcium mg/dL 8.4 8.9 8.4 8.3* 8.3* Magnesium mg/dL -- 2.2 2.0 1.5 1.7 Phosphorus mg/dL -- 1.8* 1.6* 1.5* 1.5* Anion Gap mmol/L 14 16* 14 12 12 Complete Blood Count: Lab results within last 7 days (see chart for full results) Units 08/26/23 2340 08/24/23 0806 08/23/23 1435 08/22/23 0655 WBC K/uL 20.24* 14.67* 13.43* 12.05* HGB g/dL 9.4* 9.1* 8.5* 8.5* HCT % 27.1* 27.9* 24.2* 26.8* PLT K/uL 138* 148 127* 140 MCV fL 116.8 123.5 114.2 127.0 Cardiac Studies: No results in the last 7 days - inpatent use only Coagulation Studies: Lab results within last 7 days (see chart for full results) Units 08/27/23 0934 08/26/23 2227 08/24/23 0806 08/22/23 0655 Prothrombin Time seconds 19.8* 20.8* 21.1* 21.6* INR 1.7* 1.8* 1.8* 1.9* Liver Function Panel: Lab results within last 7 days (see chart for full results) Units 08/27/23 0934 08/26/23 2227 08/24/23 0806 08/23/23 1435 08/22/23 0655 Albumin g/dL 2.7* 3.1* 2.6* 2.6* 2.6* Protein g/dL 5.5* 6.0 5.1* 4.7* 5.1* Bilirubin, Total mg/dL 28.0* 30.7* 27.2* 26.3* 26.1* Bilirubin, Direct mg/dL >10.0* >10.0* >10.0* >10.0* -- AST U/L 172* 180* 164* 159* 186* ALT U/L 91* 98* 88* 85* 88* Alkaline Phosphatase U/L 195* 220* 195* 186* 185* Infectious Studies: Lab results within last 7 days (see chart for full results) Units 08/26/232226 Lactate mmol/L 2.1* Cultures: reviewed. Lab results within last 7 days (see chart for full results) Units 08/26/23 2247 SARS-CoV-2 (COVID-19) Result Negative Recent Cultures (2 Weeks) 08/27/2023 08/27/2023 06/10/2020 9:40 AM 9:34 AM 4:00 PM SPECIMEN DESCRIPTION -- -- CLEAN CATCH URINE CULTURE -- -- LESS THAN 100 COLONIES/ML (NO GROWTH) BLOOD CULTURE GROWTH No growth to date No growth to date -- Radiographic Studies: reviewed. No imaging results in the last 72 hours Assessment and Plan IMPRESSION : Principal Problem: Acute liver failure Active Problems: Gastroesophageal reflux disease without esophagitis Atrioventricular block, Mobitz type 1, Wenckebach Opioid use disorder Alcohol use disorder, severe, dependence (HCC) Alcoholic hepatitis with ascites Alcoholic cirrhosis of liver without ascites (HCC) Tobacco abuse disorder Resolved Problems: * No resolved hospital problems. * DIFFERENTIAL AND PLAN: Jimmy Yu is a 37 y/o M pmhx alcoholic cirrhosis without ascites, HCV s/p treatment, 2nd degree av block mobitz 1, GERD, who presented as a re-admission for alcoholic hepatitis. Alcoholic Hepatitis History of Alcoholic Cirrhosis without Ascites HCV s/p Treatment - Hepatology consulted, recommend continuing prednisolone course and better diet - Olive Grader following, boost high protein and breeze added to diet - C/w LOCKSTITCH TOPSTITCHER prednisolone 40 mg for 28 day course and then taper after - Decreased Lactulose to 10 g TID due to an excess of bowel movements - C/w Folic acid, thiamine, MVI - Baclofen 10 mg TID for alcohol use disorder - No benefit in trending Lille score at this point Leukocytosis - No acute sign of infection, likely from prednisolone use - Bcx and UA negative for any infection source, patient afebrile and not tachycardic Chronic medical problems Tobacco use: Start a nicotine patch daily GERD: Continue LOCKSTITCH TOPSTITCHER PPI PHARMACOLOGIC VTE PROPHYLAXIS: Enoxaparin CODE STATUS: Full Code EXPECTED DISCHARGE DATE: No information available Patient was discussed with Robinson Castro DO. Amol Lopez DO Internal Medicine Resident Associated attestation - Robinson Castro DO - 08/28/2023 5:36 PM EST I saw and evaluated the patient today. I have reviewed the trainee note and agree. LFTs slightly improved today. Cont prednisone as per Hepatology. Titrate lactulose as indicated. * Marilou Dodson, - 08/27/2023 8:18 AM EST Images from the original note were not included. [facility] A575/A INTERVAL HISTORY: Overnight, patient admitted as a transfer from [facility] for the evaluation of worsening fatigue and found to have worsening liver chemistries from prior discharge. Patient seen and examined at bedside. He reports overall feeling weak and queasy however endorses no other complaints. No fevers, chills, abdominal pain, dysuria, SOB, LE edema at home. Objective Physical Exam Most Recent Vital Signs: BP: 108 mmHg/75 mmHg (08/27/23414) Pulse: 78 (08/27/23414) Temp: 36.72 C (08/27/23414) Resp: 20 (08/27/23414) SpO2: 99 % (08/27/23414) General: Chronically ill gentleman sitting up in bed in [facility] HEENT: Moist mucous membranes, Sclera icteric Cardio: Regular rate and rhythm with no murmurs, rubs or gallops Pulm: Normal respiratory effort and work of breathing. Lungs clear to auscultation without wheezes,rales or rhonchi. Good air entry bilaterally GI: Abdomen soft, non distended. No obvious ascites. Bowel sounds normoactive. No tenderness to palpation. No masses, rebound or guarding : No suprapubic tenderness to palpation Extremities: Distal pulses intact. No cyanosis or edema. Skin: Jaundiced Neuro: Following commands, alert and oriented x 3, CN 2-12 grossly intact, No focal neurologic deficits Psych: Constricted affect. Reasonable insight and judgment. Peripheral Line Right;Upper 20 Gauge (Active) Number of days: STUDIES: Encounter Orders Labs and other studies reviewed with pertinent findings noted below: Laboratory Values: reviewed. -- Brief labs below include the 7 most recent results over the past week. Blood Gas: No results in the last 7 days - inpatent use only Chemistry Panel: Lab results within last 7 days (see chart for full results) Units 08/26/23 2227 08/24/23 0806 08/23/23 1435 08/22/23 0655 08/21/23 0053 Sodium mmol/L 141 138 139 136 140 Potassium mmol/L 3.9 3.6 3.9 4.6 4.5 Chloride mmol/L 108* 108* 110* 109* 113* CO2 mmol/L 17* 16* 17* 15* 16* BUN mg/dL 9 5* 3* 3* 2* Creatinine mg/dL 0.5* 0.4* 0.4* 0.4* 0.3* Estimated Glomerular Filtration Rate mL/min >90 >90 >90 >90 >90 Glucose mg/dL 103 94 130* 76 109 Calcium mg/dL 8.9 8.4 8.3* 8.3* 7.9* Magnesium mg/dL 2.2 2.0 1.5 1.7 1.7 Phosphorus mg/dL 1.8* 1.6* 1.5* 1.5* 1.9* Anion Gap mmol/L 16* 14 12 12 11 Complete Blood Count: Lab results within last 7 days (see chart for full results) Units 08/26/23 2340 08/24/23 0806 08/23/23 1435 08/22/23 0655 08/21/23 0337 WBC K/uL 20.24* 14.67* 13.43* 12.05* 12.04* HGB g/dL 9.4* 9.1* 8.5* 8.5* 8.5* HCT % 27.1* 27.9* 24.2* 26.8* 24.4* PLT K/uL 138* 148 127* 140 135* MCV fL 116.8 123.5 114.2 127.0 117.3 Cardiac Studies: No results in the last 7 days - inpatent use only Coagulation Studies: Lab results within last 7 days (see chart for full results) Units 08/26/23 2227 08/24/23 0806 08/22/23 0655 08/21/23 0201 Prothrombin Time seconds 20.8* 21.1* 21.6* 23.6* INR 1.8* 1.8* 1.9* 2.1* Liver Function Panel: Lab results within last 7 days (see chart for full results) Units 08/26/23 2227 08/24/23 0806 08/23/23 1435 08/22/23 0655 08/21/23 0053 Albumin g/dL 3.1* 2.6* 2.6* 2.6* 2.7* Protein g/dL 6.0 5.1* 4.7* 5.1* 4.8* Bilirubin, Total mg/dL 30.7* 27.2* 26.3* 26.1* 28.6* Bilirubin, Direct mg/dL >10.0* >10.0* >10.0* -- >10.0* AST U/L 180* 164* 159* 186* 155* ALT U/L 98* 88* 85* 88* 89* Alkaline Phosphatase U/L 220* 195* 186* 185* 198* Infectious Studies: Lab results within last 7 days (see chart for full results) Units 08/26/23222608/21/23 0053 Lactate mmol/L 2.1* 2.6* Cultures: reviewed. Lab results within last 7 days (see chart for full results) Units 08/26/237 SARS-CoV-2 (COVID-19) Result Negative Recent Cultures (2 Weeks) 06/10/2020 4:00 PM SPECIMEN DESCRIPTION CLEAN CATCH URINE CULTURE LESS THAN 100 COLONIES/ML (NO GROWTH) Radiographic Studies: reviewed. No imaging results in the last 72 hours Assessment and Plan IMPRESSION : Principal Problem: Acute liver failure Active Problems: Gastroesophageal reflux disease without esophagitis Atrioventricular block, Mobitz type 1, Wenckebach Opioid use disorder Alcohol use disorder, severe, dependence (HCC) Alcoholic hepatitis with ascites Alcoholic cirrhosis of liver without ascites (HCC) Tobacco abuse disorder Resolved Problems: * No resolved hospital problems. * DIFFERENTIAL AND PLAN: Jimmy Yu is a 37 year old gentleman with a PMH of alcohol use disorder, alcoholic cirrhosis, HCVstatus post treatment, opioid use disorder who presented to [facility] as a transfer from [facility] for worsening liver chemistries compared to recent admission, where he was being treated for Alcoholic Hepatitis. Alcoholic Hepatitis History of Alcoholic Cirrhosis without Ascites HCV s/p Treatment Hepatology following, recommendations appreciated MELD score 27 today, similar to prior admission Continue LOCKSTITCH TOPSTITCHER Prednisolone 40 mg daily for 28 day course followed by taper Continue LOCKSTITCH TOPSTITCHER lactulose 20 g three times daily, Rifaximin 550 mg BID Continue folic acid, thiamine, MVI Baclofen 10 mg TID for alcohol use disorder Low Na diet, protein supplements at mealtimes Daily MELD labs Monitor BM's closely Leukocytosis Most likely related to prednisolone use Urinalysis not suggestive of infection, blood cultures x2 obtained and pending Monitor clinically for signs of infection Chronic medical problems Tobacco use: Start a nicotine patch daily GERD: Continue LOCKSTITCH TOPSTITCHER PPI PHARMACOLOGIC VTE PROPHYLAXIS: Enoxaparin CODE STATUS: Full Code EXPECTED DISCHARGE DATE: No information available Patient was discussed with Dr. Matthew DO. Associated attestation - Robinson Castro DO - 08/27/2023 3:01 PM EST I saw and evaluated the patient today. I have reviewed the trainee note and agree. I spent a total of 42 minutes providing care for this patient. Management included assessment and examination of thepatient and detailed review and preparation of records. More than half of my time was spent counseling the patient or family and coordinating care for the patient on the floor. Principal Problem: Acute liver failure (POA: Yes) Active Problems: Gastroesophageal reflux disease without esophagitis (POA: Yes) Atrioventricular block, Mobitz type 1, Wenckebach (POA: Yes) Opioid use disorder (POA: Yes) Alcohol use disorder, severe, dependence (HCC) (POA: Yes) Alcoholic hepatitis with ascites (POA: Yes) Alcoholic cirrhosis of liver without ascites (HCC) (POA: Yes) Tobacco abuse disorder (POA: Yes) Resolved Problems: * No resolved hospital problems. * POA = Present On Admission Unfortunately readmitted to the hospital due to continued generalized malaise after discharge. Lille score on Day 7 (08/26) shows that he may be a poor responder to glucocorticoids for his alcoholic hepatitis. Will ask hepatology for input - ?role for pentoxifylline. His friend/roommate was updated of his clinical status at length at bedside alongside him. documented in this encounter H&P Notes * Juan R Matute MD - 08/26/2023 9:50 PM EST Images from the original note were not included. [facility] A575/A PRESENTING PROBLEM: Acute Liver Failure HPI: This is a 37 year old male: Alcoholic Cirrhosis without ascites HCV s/p treatment OUD Alcohol use disorder 2nd degree AV block type 1 GERD Congential Atrial Septal Aneurysm He presents to [facility] today as a direct transfer from [facility] due to worsening acute liver failure despite treatment. Patient was recently admitted to [facility] from 08/10- 08/24 where he was found to have encephalopathy 2/2 acute liver failure thought due to his alcohol use. Patient was started on steroids and clinically improved during his hospital course. He was discharged with continued steroid treatment andto follow up with hepatology. He was also referred to MAT clinic for alcohol abuse. Since discharge, patient states that he had progressively worsening weakness, jaundice, and intermittent confusion. Due to his weakness, patient fell, but denies LOC or head trauma. The weakness prompted him to go to [facility] ED to be further evaluated. At [facility], patient was clinically and hemodynamically stable. He was found to have worsening LFTs andso the case was discussed with Hepatology at [facility] who recommended transfer for further evaluation. While at [facility], patient underwent trauma work-up for fall which was unremarkable. On arrival to [facility], patient was clinically and hemodynamically stable. He continues to endorse fatigue and weakness. States his abdomen is mildly sore from dry heaving previous days. Patient denies DURAN, lightheadness, dizziness, fever/chills, cough, sore throat, changes in vision, changes in hearing, CP/pressure, SOB, constipation, diarrhea, hematochezia, melena, dysuria, hematuria, or swelling in extremities. - stopped smoking 2 weeks ago - has not had a drink of alcohol since 08/15/23 - History of IVDU but states he quit 10 years ago - currently chews tobacco Subjective Patient's past history, medications, and allergies were reviewed. Objective Physical Exam Most Recent Vital Signs: BP: 110 mmHg/76 mmHg (08/26/232134) Pulse: 70 (08/26/232134) Temp: 36.22 C (08/26/232134) Resp: 18 (08/26/232134) SpO2: 100 % (08/26/232134) General: No acute distress, lying comfortably in bed HEENT: NCAT, PERRL, bilateral conjunctival icterus CVS: Normal rate and rhythm, S1 and S2 heard in all heart jacobsen, no murmurs, rubs, gallops Chest: Normal respiratory effort, CTABL, no chest wall tenderness Abdomen: Soft, diffuse mild tenderness, normal bowel sounds Extremities: 2+ bilateral LE pitting edema, no cyanosis Skin: Warm, dry, intact Neuro: Alert and oriented x3 Psych: Normal mood and affect STUDIES: Encounter Orders Laboratory Values: reviewed. -- Brief labs below include the 7 most recent results over the past week. Blood Gas: No results in the last 7 days - inpatent use only Chemistry Panel: Lab results within last 7 days (see chart for full results) Units 08/26/23 2227 08/24/23 0806 08/23/23 1435 08/22/23 0655 08/21/23 0053 Sodium mmol/L -- 138 139 136 140 Potassium mmol/L -- 3.6 3.9 4.6 4.5 Chloride mmol/L -- 108* 110* 109* 113* CO2 mmol/L -- 16* 17* 15* 16* BUN mg/dL -- 5* 3* 3* 2* Creatinine mg/dL -- 0.4* 0.4* 0.4* 0.3* Estimated Glomerular Filtration Rate mL/min -- >90 >90 >90 >90 Glucose mg/dL -- 94 130* 76 109 Calcium mg/dL -- 8.4 8.3* 8.3* 7.9* Magnesium mg/dL 2.2 2.0 1.5 1.7 1.7 Phosphorus mg/dL -- 1.6* 1.5* 1.5* 1.9* Anion Gap mmol/L -- 14 12 12 11 Complete Blood Count: Lab results within last 7 days (see chart for full results) Units 08/26/23 2340 08/24/23 0806 08/23/23 1435 08/22/23 0655 08/21/23 0337 WBC K/uL 20.24* 14.67* 13.43* 12.05* 12.04* HGB g/dL 9.4* 9.1* 8.5* 8.5* 8.5* HCT % 27.1* 27.9* 24.2* 26.8* 24.4* PLT K/uL 138* 148 127* 140 135* MCV fL 116.8 123.5 114.2 127.0 117.3 Cardiac Studies: No results in the last 7 days - inpatent use only Coagulation Studies: Lab results within last 7 days (see chart for full results) Units 08/26/23 2227 08/24/23 0806 08/22/23 0655 08/21/23 0201 Prothrombin Time seconds 20.8* 21.1* 21.6* 23.6* INR 1.8* 1.8* 1.9* 2.1* Liver Function Panel: Lab results within last 7 days (see chart for full results) Units 08/24/23 0806 08/23/23 1435 08/22/23 0655 08/21/23 0053 Albumin g/dL 2.6* 2.6* 2.6* 2.7* Protein g/dL 5.1* 4.7* 5.1* 4.8* Bilirubin, Total mg/dL 27.2* 26.3* 26.1* 28.6* Bilirubin, Direct mg/dL >10.0* >10.0* -- >10.0* AST U/L 164* 159* 186* 155* ALT U/L 88* 85* 88* 89* Alkaline Phosphatase U/L 195* 186* 185* 198* Infectious Studies: Lab results within last 7 days (see chart for full results) Units 08/26/237 08/21/23 0053 Lactate mmol/L 2.1* 2.6* Cultures: reviewed. No results in the last 7 days - inpatent use only Recent Cultures (2 Weeks) 06/10/2020 4:00 PM SPECIMEN DESCRIPTION CLEAN CATCH URINE CULTURE LESS THAN 100 COLONIES/ML (NO GROWTH) Radiographic Studies (last 72 hours): reviewed. No imaging results in the last 72 hours MELD 3.0: 28 at 08/26/2023 10:27 PM Calculated from: Serum Creatinine: 0.5 mg/dL (Using min of 1 mg/dL) at 08/26/2023 10:27 PM Serum Sodium: 141 mmol/L (Using max of 137 mmol/L) at 08/26/2023 10:27 PM Total Bilirubin: 30.7 mg/dL at 08/26/2023 10:27 PM Serum Albumin: 3.1 g/dL at 08/26/2023 10:27 PM INR(ratio): 1.8 at 08/26/2023 10:27 PM Age at listing (hypothetical): 37 years Sex: Male at 08/26/2023 10:27 PM Assessment and Plan IMPRESSION: Principal Problem: Acute liver failure Active Problems: Gastroesophageal reflux disease without esophagitis Atrioventricular block, Mobitz type 1, Wenckebach Opioid use disorder Alcohol use disorder, severe, dependence (HCC) Alcoholic hepatitis with ascites Alcoholic cirrhosis of liver without ascites (HCC) Tobacco abuse disorder Resolved Problems: * No resolved hospital problems. * DIFFERENTIAL AND PLAN: This is a 37 year old male with a past medical history as stated above presenting to the hospital with worsening fatigue and jaundice concerned for acute liver failure not responding to steroids. Acute liver failure Alcoholic Cirrhosis H/O Hepatitis OUD Alcohol use Patient recently admitted to the hospital where he was found to have acute liver failure thought 2/2 alcohol use. Hepatology was consulted at that time who decided to start steroids. Patient improvedduring that time and was cleared for discharge with a 21 day course of steroids and OP hepatology follow-up. Patient had worsening fatigue at home, and found to have worsening LFTs at [facility]. [facility] hepatology consulted who recommended transfer for further evaluation. - Hepatology consult placed, will TT in the AM - Continue LOCKSTITCH TOPSTITCHER steroids - will keep patient npo for now in the event he may need a procedure - low concern for withdrawal given that his last drink was 1/8 - Continue LOCKSTITCH TOPSTITCHER lactulose - MELD labs ordered, current MELD score is 28 - Continue LOCKSTITCH TOPSTITCHER folate and thiamine Chronic Medical Conditions - GERD: Continue LOCKSTITCH TOPSTITCHER PPI PHARMACOLOGIC VTE PROPHYLAXIS:Enoxaparin CODE STATUS: Full Code EXPECTED DISCHARGE DATE: No information available This patient was discussed with Ayush Mancilla MD at the time of admission. Associated attestation - Ayush Mancilla MD - 08/27/2023 5:07 PM EST I saw and evaluated the patient on 08/26/2023. I have reviewed the trainee note and agree. I spent a total of 55 minutes coordinating, documenting, and providing care for this patient excluding time spent in the performance of separately billed services. documented in this encounter Consult Notes * Lata Tian, OTR/L - 08/29/2023 11:47 AM ESTAssociated Order(s): ADULT OCCUPATIONAL THERAPY CONSULT IP GENERAL EVALUATION - Occupational Therapy [address] [id number] Name: Jimmy Yu Location: [facility] A575/A Date: 08/29/2023 Time: 3:05 PM Jimmy Yu is a 37 year old male. Patient Status: Inpatient Insurance: Payor: Scheduling Employee Scheduling Software Plan: eTelemetry Product Type: *No Product type* Patient Seen: at bedside, nursing cleared patient for therapy Patient Identified By: Name, ID Band and Date Diagnosis: encephalopathy; acute liver failure (08/29/23 114) Status of treatment: Evaluation completed (08/29/23 114) Orders: OT evaluation and treatment;OT OOB (08/29/23 114) Weight Bearing Status: Weight bearing as tolerated (08/29/23 114) Precautions: Alarms;Falls;Safety (08/29/23 114) Total Treatment Time: 15 (08/29/23 114) Past Medical History: Past Medical History: Diagnosis Date Acute liver failure 08/21/2023 [facility] Acute pancreatitis 03/20/2020 [facility] Alcohol use disorder, severe, dependence (HCC) 08/21/2023 Alcoholic cirrhosis of liver without ascites (HCC) 08/24/2023 History of drug abuse (HCC) on Subutex Idiopathic acute pancreatitis without infection or necrosis 09/24/2021 CT showed no necrosis, lipase 770, refused admission Raynaud's phenomenon without gangrene 11/19/2016 Screening for HIV without presence of risk factors 11/19/2016 negative Tobacco abuse disorder Past Surgical History: Past Surgical History: Procedure Laterality Date EGD, FLEXIBLE, DIAGNOSTIC 09/24/2020 reflux esophagitis / ESOPHAGOGASTRODUODENOSCOPY (EGD), FLEXIBLE, TRANSORAL, DIAGNOSTIC performed byNika Langford DO at ENDOSCOPY [facility] EGD, W/ENDOSCOPIC US 09/24/2020 fatty liver / ESOPHAGOGASTRODUODENOSCOPY (EGD), FLEXIBLE, TRANSORAL, ENDOSCOPIC ULTRASOUND performed by Nika Langford DO at ENDOSCOPY [facility] FLUORO UPPER GI WITHOUT AIR WO KUB 08/22/2017 minimal GE reflux, no ulcer or scarring LAPAROSCOPY; CHOLECYSTECTOMY Social History/Disposition Lives with: Friend (08/29/231146) Assistance available: Yes (08/29/231146) Dwelling type: Single story home (08/29/231146) Entry steps: 1 (08/29/231146) Inside steps: None (08/29/231146) Bedroom location: 1st floor (08/29/231146) Bath location: 1st floor full bath (08/29/231146) Prior Level of Function Reported by: Patient (08/29/231146) Ambulation: Ambulatory without device (08/29/231146) Grooming: Independent (08/29/231146) Bathing: Independent (08/29/231146) Dressing: Independent (08/29/231146) Feeding: Independent (08/29/231146) Toileting: Independent (08/29/231146) Meal Prep: Independent (08/29/231146) Homemaking: Independent (08/29/231146) Subjective: Pt agreeable to OT evaluation Pain: Pt reports 4/10 back pain Observations Consciousness: Alert (08/29/231146) Orientation: Oriented times 4 (08/29/231146) Cognitive Limitations: Impulsivity;Problem solving (08/29/231146) Psychosocial: Patient can communicate basic needs (08/29/231146) Sitting posture: Forward head;Rounded shoulders (08/29/231146) Standing posture: Forward head;Rounded shoulders (08/29/231146) Safety awareness: Needs cueing supervision. (08/29/231146) Other Findings Endurance: Functional activity;Fair (08/29/231146) Coordination: Intact (08/29/231146) Current Functional Status: Bilateral Upper Extremity Range of Motion: WFL (08/29/231146) Strength Assessment: (4/5) (08/29/231146) Self Care Able to provide self care: Yes (08/29/231146) Dressing Lower Body: Contact Guard (don socks) (08/29/231146) Functional Ambulation Assistive Device: Rolling walker (08/29/231146) Distance in feet:: 150 (08/29/231146) Level of Assistance: Contact Guard (08/29/231146) Bed Mobility Supine-Sit: Supervision (Please comment) (08/29/231146) Sit-Supine: Supervision (Please comment) (08/29/231146) OT Transfers Sit-Stand: Contact Guard (08/29/231146) Stand-Sit: Contact Guard (08/29/231146) Balance Sit (Static): Fair (08/29/231146) Sit (Dynamic): Fair (08/29/231146) Stand (Static): Fair (08/29/231146) Stand (Dynamic): Fair (-) (08/29/231146) Alarm Status Patient positioned in: Bed (08/29/231146) With: Bed alarm intact and functioning and call cazares in reach (08/29/231146) Patient and Family Goals: to get well Patient Education Education Topic: Role of OT;Plan of care goals (08/29/231146) Review of Precautions: Safety;Fall (08/29/231146) Barriers to learning: Medical status;Willingness to learn (08/29/231146) Preferred learning method: Combination (08/29/231146) Treatment Provided: Evaluation Moderate Complexity 15 minutes - [id number]: Patient was cooperative during treatment session. Moderate complexity evaluation performed and 3-5 activity limitations were identified, including ADL deficit, functional mobility deficit, bed mobility deficit, decreased strength, decreased endurance, and impaired balance. Minimal or moderate modification of the functional task was necessary to complete the evaluation. Deficits Requiring O.T. Treatment: Deficits requiring O.T. treatment needs: ADL/self-care;Balance;Endurance;Functional mobility;Safety;Upper extremity strength;Weakness (08/29/231146) Goal Time Frame: 8 visits Assessment: Pt is a 37 year old male admitted to [facility] with a dx of acute liver failure and encephalopathy. Prior to admission, pt lived with a roommate where he was independent with ADLs and completedmobility without a device. Pt presented with impulsivity during session, and was not receptive to safety education, requiring frequent cues to prevent falls. Pt supine in bed upon therapist arrival. Pt completed bed mobility with supervision. Pt completed LE dressing with CGA, secondary to decreased balance. Pt completed sit to stand transfer from EOB with CGA. Pt completed mobility initially using rolling walker with CGA. During mobility, pt wanted to attempt mobility without device, doing so with Min A and intermittently using unilateral rail in j[place] for balance. Pt returned to sitting at Eob with CGA. Pt was educated on safety and was recommended to use device during ADL tasks in order to decrease risk of falls. Pt would benefit from skilled OT services in order to increase independence and facilitate a safe transition to next level of care. Please consider home with post-acute care services which may include home health or outpatient therapy. The level of care will be determined in collaboration with the patient, family/caregiver and care team members. Goals: BUE Strength/ROM Increase BUE strength to at least one muscle grade. ADLs Increase UE dressing to independence. Increase UE bathing to independence. Increase LE dressing to independence. Increase LE bathing to independence. Increase grooming and basic hygiene tasks while in stance at sink with independence. Bed Mobility/Functional Mobility Increase bed mobility to independence. Increase functional mobility using the least restrictive device to mod I. Functional Transfers Increase functional sit to stand transfers during ADLs to independence. Increase transfers to toilet to independence. Increase transfers from bed to chair with independence. Balance Increase sitting balance at EOB to fair+ during ADLs. Increase standing balance to fair+ during ADLs. Treatment Plan: Safety, Bed mobility training, Functional Ambulation, Transfer training, Upper extremity strengthening, Balance activities, ADL training , and Endurance Anticipated Frequency (on eval): 1 to 3 times per week (08/29/231146) AM-PAC Help From Another Person Eating Meals: None (08/29/231146) Help From Another Person Taking Care of Personal Grooming: None (08/29/231146) Help From Another Person To Put On/Take Off Upper Body Clothing: A little (08/29/231146) Help From Another Person To Put On/Take Off Lower Body Clothing: A little (08/29/231146) Help From Another Person Toileting: A little (08/29/231146) Help From Another Person Bathing: A little (08/29/231146) OT AM-PAC Score: 20 (01/22/24 1147) OT AM-PAC t-Scale Score: 42.03 (08/29/23 1147) A portion of this AM-PAC assessment not scored based on functional assessment, rather clinical decsion making utilized based on current findings and/or prior level of function. Please refer to futureAM-PAC calculations of functional ability as they become available. * Cindy Huerta RDN - 08/28/2023 11:25 AM ESTAssociated Order(s): NUTRITION SERVICES (DIETITIAN) CONSULT IP CLINICAL NUTRITION CONSULT NOTE [facility] [id number] Name: Jimmy Yu Location: [facility] A575/A Date: 08/28/2023 How patient was identified (select 2): date and Name Discussed in interdisciplinary rounds: No Jimmy Yu is a 37 year old male being seen for consult by provider Primary Diagnosis: 37 year old male with active alcohol/opioid abuse disorder admitted 08/26/23 withacute liver failure not responding to steroids. -Recently admitted 08/20- with acute liver failure. Other pertinent information: Last seen by marketing writer 08/23 during last admission. Down 8.7 kg since lastadmission - related to fluid. Reports fair appetite during last admission. Doesn't seem to recall how he liked the Boost High Protein, but willing to try again. Noted he would drink a [place] Boost Breeze since he likes sweet drinks. States feeling off today - somewhat nauseated - not himself. NUTRITION ASSESSMENT: Past medical/surgical history and medications reviewed. Food/Nutrition-Related History Diet: 2 gm Sodium Restricted Previously followed diet: regular Food Allergies/Intolerances: none reported Adult Energy Intake: Less than 75% of estimated energy requirement for greater than 1 month (moderate/severe, chronic illness). Percentage of meal intake: - Oral Nutrition Supplement (ONS): Supplement Shake (1/2 cup provides 200 calories, 6 grams protein, 34 grams carbohydrate) TID Pertinent medications/vitamins/minerals/supplements: folic acid (1 mg/day), Lactulose (20 gm TID), MVI daily, Protonix, Phos-Nak (1 packet TID), pednisolone (40 mg daily), rifaximin (550 mg BID), thiamine (100 mg daily) Pertinent Biochemical Data: Reviewed Latest Reference Range & Units 08/24/23 08:06 08/26/23 22:27 08/27/23 09:34 08/28/23 07:19 Sodium 135 - 146 mmol/L 138 141 143 140 Potassium 3.5 - 5.1 mmol/L 3.6 3.9 3.8 3.9 Chloride 98 - 107 mmol/L 108 (H) 108 (H) 113 (H) 112 (H) CO2 22 - 32 mmol/L 16 (L) 17 (L) 16 (L) 17 (L) BUN 6 - 20 mg/dL 5 (L) 9 11 11 Creatinine 0.6 - 1.2 mg/dL 0.4 (L) 0.5 (L) 0.5 (L) 0.5 (L) Estimated Glomerular Filtration Rate >=60 mL/min >90 >90 >90 >90 Anion Gap 7 - 15 mmol/L 14 16 (H) 14 11 Glucose 70 - 120 mg/dL 94 103 96 113 Calcium 8.4 - 10.2 mg/dL 8.4 8.9 8.4 8.2 (L) Magnesium 1.5 - 2.6 mg/dL 2.0 2.2 Phosphorus 2.5 - 4.8 mg/dL 1.6 (L) 1.8 (L) Nutrition-Focused Physical Findings: Appearance: Jaundice and Thin Respiratory support: Supplemental O2 Delivery: Room Air, None Nasal/Oral: No issues identified Digestive: No issues identified Last Bowel Movement: 08/27/23 (08/27/23 1500) Cognition: Awake, alert Skin: Intact Enteral access: none Nutrition Focused Physical Exam: NFPE completed on 08/28/23 Subcutaneous Fat Loss: Orbital fat pads: WNL Buccal fat: WNL Tricep: Mild Muscle Loss: Temples: Mild Clavicles: Mild Shoulders: Mild Scapula: Mild Quadriceps: Mild Calves: Unable to assess d/t edema Micronutrient Exam: Skin: Jaundice Edema Location: Lower extremities;Both (08/27/231999) Edema Assessment: +2 - Description (08/27/231999) Anthropometrics Measurements Height: 190.5 cm (6' 3") (08/26/232134) Admission weight: 72.8 kg (160 lb 9.6 oz) (08/26/23) Weight: 72.8 kg (160 lb 9.6 oz) (08/26/232134) BMI: 20.07 (08/26/232134) Usual Body Weight: ~77-83 kg (169-182 lb); pt reports ~170 lb [place] weight: 78.7 kg based on BMI 21.7 kg/m Interpretation of Weight Change Prior to Admission Change likely secondary to fluid Weight Changes Since Admission: 8.7 kg (10.7%) loss since last admission (last week) Nutrition Prescription: Energy needs: 30-35 Kcal/kg Kcal/day: ~4670-9255 Based on [place] weight (78.7 kg) Protein needs: 1.3-1.5 gm/kg Protein: 102-118 gm/day Based on [place] weight Fluid needs: 25 ml/kg Fluid: ~1970 ml/day Based on [place] weight Malnutrition: Adult Malnutrition Classification: Unable to determine (with fluid fluctuations hindering weight interpretation and physical exam) (08/28/23 0800) NUTRITION DIAGNOSIS: Increased nutrient needs (calories/protein) related to acute liver failure as evidenced by catabolic nature of disease process; estimated needs. Suboptimal oral intake related to poor appetite, acute illness as evidenced by <75% energy intake for >1 month per pt report. Goals: Patient to consume greater than 75 % of daily meals and 75% of daily supplements within 5 days. NUTRITION INTERVENTION/PLAN: Orders: Oral nutrition supplement adjusted: -Boost Breeze (1 cup provides 250 calories, 9 grams protein, 54 grams carbohydrate) TID -Boost High Protein (1 cup provides 250 calories, 20 grams protein, 28 grams carbohydrate) daily Clinical Nutrition Recommendations: Diet/supplement: -Continue current diet order. -Adjusted supplements as above NUTRITION MONITORING AND EVALUATION: Nursing documentation flowsheets for percent meal intake Tolerance of supplement per patient/nursing report Lab values warranting change with MNT Weight for trends Plan follow-up: Will follow and adjust nutrition plan of care as medical condition requires. Please contact for change(s) in patient condition requiring earlier intervention. Cindy Huerta, MS, RDN, LDN Clinical Dietitian Rosalio documented in this encounter Nursing Notes * Aime Medina RN - 08/29/2023 3:18 AM EST Approximately 0300, patient was found out of bed and searching for room phone which was ringing. [place]rniis nurse was going to obtain the phone for the patient, the patient went to sit down in his chairand sat on the foot of the recliner which caused the foot of the recliner to fall down, causing thepatient to fall from the recliner. Patient hit his buttocks off the floor and did not hit his head.Patient declined any pain after the fall. Patient alert and oriented x 4. Vital signs obtained and WNLs. Glucose obtained and 120. [place] Resident was notified of situation. Patient was then walked to restroom and returned to bed and reoriented to ring call cazares if needing assistance. Bed alarms on, three side rails up. Patient belongings within reach. Patient has non-skid socks on. * Pretty Aguilera RN - 08/27/2023 7:59 AM EST Patient is self turning * Shonda Marie RN - 08/26/2023 9:59 PM EST Dual Licensed Skin Assessment completed by Pretty Aguilera RN and Shonda Marie RN. The patient is/has a N/A Skin Breakdown (includes non blanchable erythema): No Patient has generalized jaundice and scattered ecchymosis. documented in this encounter Miscellaneous Notes * Ancillary Progress Note - Melanie Dockery MSW - 08/29/2023 3:52 PM EST CARE MANAGEMENT - ADULT DISCHARGE NOTE [facility] [address] Name: Jimmy Yu Location: [facility] A[facility]/A Date: 08/29/2023 Time: 3:53 PM The following coordination of care and discharge plan has been coordinated with the care team, patient, family and/or caregiver according to the patients needs and preferences. Discharge Discharge Second Notice Important Message from Medicare delivered: Not Applicable (08/29/231551) Was Caregiver/Family/Facility contacted regarding discharge: Yes (08/29/23 1533) Discharge Transportation: Family/Friends drive (08/29/231551) Date of scheduled discharge transportation: 08/29/23 (08/29/231551) Patient declined post-hospital transition of care recommendation: N/A (08/29/231551) Final Discharge Plan (Complete only at time of Discharge): Home - Self Care (w/ DME) (08/29/231551) Narrative: Pt requesting RW and shower chair to do weakness. RW delivered to bedside from [facility]. Shower chair sent to [facility] for home delivery. * Care Plan - Aime Medina RN - 08/29/2023 5:36 AM EST Clinical Goal(s): No falls (08/28/231999) Possible barriers to meeting goal(s)/advancing plan of care: fall risk Stability of the patient: Moderately stable - low risk of patient condition declining or worsening Summary regarding today's goal(s): Not Met: patient had fall Recommendations: continue bed alarms, frequent rounding, OOB with assist, call cazares and belongings in reach, non-skid socks * Hospital Course - Marilou Dodson DO - 08/28/2023 7:54 PM EST Jimmy Yu is a 37 year old gentleman with a PMH of alcohol use disorder, alcoholic cirrhosis, HCVstatus post treatment, opioid use disorder who presented to [facility] as a transfer from [facility] for worsening liver chemistries compared to recent admission, where he was being treated for Alcoholic Hepatitis. He was followed by Hepatology with instructions to continue his prior course of Prednisolone for alcoholic hepatitis. His MELD labs and symptoms remained stable. * Care Plan - Kelli Moreno RN - 08/28/2023 7:49 PM EST Clinical Goal(s): Maintain safety (08/28/23 1500) Possible barriers to meeting goal(s)/advancing plan of care: recent hospitalization Stability of the patient: Moderately stable - low risk of patient condition declining or worsening Summary regarding today's goal(s): Met: patient has remained free from falls Recommendations: Continue to monitor * Care Plan - Aime Medina RN - 08/28/2023 6:05 AM EST Clinical Goal(s): No falls (08/27/231999) Possible barriers to meeting goal(s)/advancing plan of care: fall risk Stability of the patient: Moderately stable - low risk of patient condition declining or worsening Summary regarding today's goal(s): Met: Recommendations: continue fall precautions * Ancillary Progress Note - Axel Kilpatrick RN - 08/27/2023 3:03 PM EST CARE MANAGEMENT - ADULT INITIAL SCREENING [address] [address] Name: Jimmy Yu [place] [facility] Date: 08/27/2023 Time: 3:03 PM Discussed patient with the interdisciplinary care team. This Project Management Specialist performed a chart review to complete admission screen and assessed needs for transition planning. Chief Complaint: No chief complaint on file. Prior Living Arrangements What was your living situation prior to admission/observation?: Other (Comment) (lievs with roommate) (08/26/232233) Do you have serious difficulty walking or climbing stairs? (5 years old or older): Yes (08/26/232233) History of falling: Yes (08/27/23 08) Prior Level of Functioning Describe the patient's ability prior to admission/observation to perform ADLs: Performs independently (08/26/232233) Describe the patient's mobility status prior to admission: Patient ambulates independently (08/26/232233) Patient uses assistive device: No (08/26/232233) Caregiver Information Patient Contacts Name Relation Home Work Mobile Rosalia Elliott Other - (no specific identity) [phone] Risk Stratification/Psychosocial/Care Gaps Risk Stratification Psycho Social / Medical Concerns Identified: Adjustment to illness/injury (08/27/23 1502) Readmission Risk Score: 17.76 (08/27/23 1200) AM-PAC Score With Stairs : 20 (08/27/23 0800) Prior to Admission Services Outpatient Project Management Specialist: No care state farm agent team member to display Patient/Family Expectations: Home with roommate. Readmitted with Alcohol Cirrhosis. 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 For further screening information, please refer to the Care Management flow document. * Care Plan - Pretty Aguilera RN - 08/27/2023 5:20 AM EST Problem: Pain & Impaired Comfort Goal: Patient's pain & discomfort is manageable. Outcome: Progressing Problem: Safety & Risk for Injury Goal: Patient will remain free from injury. Outcome: Progressing Problem: Risk for Impaired Physical Mobility Goal: Patient will maintain optimal mobility level. Outcome: Progressing Problem: Knowledge Deficit Goal: Patient & caregiver will demonstrate understanding. Outcome: Progressing Problem: Discharge Barriers Goal: Patient's discharge needs are met. Outcome: Progressing Problem: Actual & Potential for Impaired Skin Integrity Goal: Patient will maintain skin integrity. Outcome: Progressing Goal: Patient will maintain adequate nutritional intake. Outcome: Progressing Problem: Actual & Potential for Falls Goal: Patient will remain free of falls. Outcome: Progressing Clinical Goal(s): patient is free of fall (08/26/23 0246) Possible barriers to meeting goal(s)/advancing plan of care: hx of fall, liver problems Stability of the patient: Moderately stable - low risk of patient condition declining or worsening Summary regarding today's goal(s): Met: Recommendations: cont. With plan of care documented in this encounter Plan of Treatment Upcoming Encounters Date Type Department Care Team (Late st Contact Info) Description 10/18/2023 2:20 PM EDT Office Visit Hepatology, [place] [address] [place] [address] Iban Chaidez MD [address] [place] [address] Pending Results Name Type Priority Associated Diagnoses Date /Time CULTURE, BLOOD Lab STAT 08/27/2023 9:40 AM EST CULTURE, BLOOD Lab STAT 08/27/2023 9:34 AM EST Scheduled Orders Name Type Priority Associated Diagnoses Orde r Schedule COMPREHENSIVE METABOLIC PANEL Lab Routine Alcoholic cirrhosis of liver without ascites (HCC) Expected: 09/05/2023, Expires: 08/29/2024 PT INR Lab Routine Alcoholic cirrhosis of liver without ascites (HCC) Expected: 09/05/2023, Expires: 08/29/2024 Health Maintenance Due Date Last Done Comments [...] Not on filedocumented as of this encounter Procedures Procedure Name Priority Date/Time Associated Diagnosis Comments HEPATIC FUNCTION PANEL Routine 08/29/2023 6:37 AM EST BASIC METABOLIC PANEL Routine 08/29/2023 6:37 AM EST PT INR Routine 08/29/2023 6:37 AM EST GLUCOSE METER, POINT OF CARE MINDY 08/29/2023 2:59 AM EST HEPATIC FUNCTION PANEL Routine 08/28/2023 7:19 AM EST BASIC METABOLIC PANEL Routine 08/28/2023 7:19 AM EST PT INR Routine 08/28/2023 7:19 AM EST CBC STAT 08/28/2023 7:19 AM EST CULTURE, BLOOD STAT 08/27/2023 9:40 AM EST HEPATIC FUNCTION PANEL STAT 08/27/2023 9:34 AM EST BASIC METABOLIC PANEL STAT 08/27/2023 9:34 AM EST PT INR STAT 08/27/2023 9:34 AM EST CULTURE, BLOOD STAT 08/27/2023 9:34 AM EST CULTURE, URINE, QUANTITATIVE STAT 08/27/2023 4:04 AM EST URINALYSIS, REFLEX TO MICROSCOPIC Routine 08/27/2023 4:04 AM EST CBC STAT 08/26/2023 11:40 PM EST SARS-COV-2 (COVID-19), NAAT STAT 08/26/2023 10:47 PM EST HEPATIC FUNCTION PANEL STAT 08/26/2023 10:27 PM EST BASIC METABOLIC PANEL STAT 08/26/2023 10:27 PM EST PT INR STAT 08/26/2023 10:27 PM EST PHOSPHORUS STAT 08/26/2023 10:27 PM EST LACTATE STAT 08/26/2023 10:27 PM EST MAGNESIUM STAT 08/26/2023 10:27 PM EST documented in this encounter Results * (ABNORMAL) BASIC METABOLIC PANEL (08/29/2023 6:37 AM EST) BUN 11 6 - 20 mg/dL 08/29/2023 7:05 AM EST [facility] Creatinine 0.5(L) 0.6 - 1.2 mg/dL 08/29/2023 7:05 AM EST [facility] Comment:Result may be falsel y decreased due to icterus. Estimated Glomerular Filtration Rate >90 >=60 mL/min 08/29/2023 7:05 AM EST [facility] Comment:eGFR is calculated b ased on the CKD-EPI 2020 equation Sodium 136 135 - 146 mmol/L 08/29/2023 7:05 AM EST [facility] Potassium 4.3 3.5 - 5.1 mmol/L 08/29/2023 7:05 AM EST [facility] Chloride 107 98 - 107 mmol/L 08/29/2023 7:05 AM EST [facility] CO2 16(L) 22 - 32 mmol/L 08/29/2023 7:05 AM EST [facility] Anion Gap 13 7 - 15 mmol/L 08/29/2023 7:05 AM EST [facility] Glucose 108 70 - 120 mg/dL 08/29/2023 7:05 AM EST [facility] Calcium 8.6 8.4 - 10.2 mg/dL 08/29/2023 7:05 AM EST [facility] Blood Venous blood specimen / Unknown Venipuncture / Unknown 08/29/2023 6:37 AM EST 08/29/2023 6:44 AM EST Marilou Gabi Dodson DO LAB BLOOD O RDERABLES LABORATORY [facility] [address] [place] [address] * (ABNORMAL) HEPATIC FUNCTION PANEL (08/29/2023 6:37 AM EST) [facility] Albumin 2.9(L) 3.8 - 5.0 g/dL 08/29/2023 7:05 AM EST LABORATORY [facility] AST 185(H) 10 - 50 U/L 08/29/2023 7:05 AM EST LABORATORY [facility] Comment:Result may be falsel y elevated due to hemolysis. Alkaline Phosphatase 195(H) 35 - 130 U/L 08/29/2023 7:05 AM EST LABORATORY [facility] ALT 103(H) 10 - 50 U/L 08/29/2023 7:05 AM EST LABORATORY [facility] Bilirubin, Total 29.7(H) <=1.2 mg/dL 08/29/2023 7:05 AM EST LABORATORY [facility] Bilirubin, Direct >10.0(H) 0.0 - 0.3 mg/dL 08/29/2023 7:05 AM EST LABORATORY [facility] Comment:Result may be falsel y decreased due to hemolysis. Protein 6.2 6.0 - 8.3 g/dL 08/29/2023 7:05 AM EST LABORATORY [facility] Comment:Result may be falsel y decreased due to icterus. Blood Venous blood specimen / Unknown Venipuncture / Unknown 08/29/2023 6:37 AM EST 08/29/2023 6:44 AM EST Marilou Dodson DO LAB BLOOD O RDERABLES LABORATORY [facility] [address] [place] [address] * (ABNORMAL) PT INR (08/29/2023 6:37 AM EST) Prothrombin Time 20.4(H) 11.6 - 15.2 seconds 08/29/2023 7:07 AM EST LABORATORY [facility] INR 1.7(H) 0.8 - 1.2 08/29/2023 7:07 AM EST LABORATORY [facility] Blood Venous blood specimen / Unknown Venipuncture / Unknown 08/29/2023 6:37 AM EST 08/29/2023 6:44 AM EST Narrative LABORATORY [facility] - 08/29/2023 7:07 AM EST Warfarin Therapy INR: 2.0-3.0 conventional anticoagulation INR: 2.5-3.5 high intensity anticoagulation Marilou Dodson DO LAB BLOOD O RDERABLES LABORATORY [facility] [address], [place] [id number] * GLUCOSE METER, POINT OF CARE (08/29/2023 2:59 AM EST) Pathologist [facility] Glucose Meter 120 70 - 120 mg/dL 08/29/2023 3:12 AM EST [facility] Blood Whole blood specimen / Unknown 08/29/2023 2:59 AM EST 08/29/2023 3:12 AM EST Robinson Castro DO LAB P OINT OF CARE TEST DOCKED DEVICE UNSOLICITED RESULTS [facility] [address] [place] [address] * (ABNORMAL) BASIC METABOLIC PANEL (08/28/2023 7:19 AM EST) Pathologist [facility] BUN 11 6 - 20 mg/dL 08/28/2023 8:02 AM EST LABORATORY [facility] Creatinine 0.5(L) 0.6 - 1.2 mg/dL 08/28/2023 8:02 AM EST LABORATORY [facility] Comment:Result may be falsel y decreased due to icterus. Estimated Glomerular Filtration Rate >90 >=60 mL/min 08/28/2023 8:02 AM EST [facility] Comment:eGFR is calculated b ased on the CKD-EPI 2020 equation Sodium 140 135 - 146 mmol/L 08/28/2023 8:02 AM EST [facility] Potassium 3.9 3.5 - 5.1 mmol/L 08/28/2023 8:02 AM EST [facility] Chloride 112(H) 98 - 107 mmol/L 08/28/2023 8:02 AM EST [facility] CO2 17(L) 22 - 32 mmol/L 08/28/2023 8:02 AM EST [facility] Anion Gap 11 7 - 15 mmol/L 08/28/2023 8:02 AM EST [facility] Glucose 113 70 - 120 mg/dL 08/28/2023 8:02 AM EST [facility] Calcium 8.2(L) 8.4 - 10.2 mg/dL 08/28/2023 8:02 AM EST LABORATORY [facility] Blood Venous blood specimen / Unknown Venipuncture / Unknown 08/28/2023 7:19 AM EST 08/28/2023 7:26 AM EST Marilou Dodson DO LAB BLOOD O RDERABLES LABORATORY [facility] [address] [place] [address] * (ABNORMAL) HEPATIC FUNCTION PANEL (08/28/2023 7:19 AM EST) Albumin 2.5(L) 3.8 - 5.0 g/dL 08/28/2023 8:02 AM EST [facility] AST 152(H) 10 - 50 U/L 08/28/2023 8:02 AM EST [facility] Comment:Result may be falsel y elevated due to hemolysis. Alkaline Phosphatase 175(H) 35 - 130 U/L 08/28/2023 8:02 AM EST [facility] ALT 83(H) 10 - 50 U/L 08/28/2023 8:02 AM EST [facility] Bilirubin, Total 25.6(H) <=1.2 mg/dL 08/28/2023 8:02 AM EST [facility] Bilirubin, Direct >10.0(H) 0.0 - 0.3 mg/dL 08/28/2023 8:02 AM EST LABORATORY [facility] Protein 5.3(L) 6.0 - 8.3 g/dL 08/28/2023 8:02 AM EST [facility] Comment:Result may be falsel y decreased due to icterus. Blood Venous blood specimen / Unknown Venipuncture / Unknown 08/28/2023 7:19 AM EST 08/28/2023 7:26 AM EST Marilou Gabi Dodson LAB BLOOD O RDERABLES Performing Organization Address [facility] de Phone Number LABORATORY [facility] [address] [place] [address] * (ABNORMAL) PT INR (08/28/2023 7:19 AM EST) Prothrombin Time 20.9(H) 11.6 - 15.2 seconds 08/28/2023 7:42 AM EST LABORATORY [facility] INR 1.8(H) 0.8 - 1.2 08/28/2023 7:42 AM EST LABORATORY [facility] Blood Venous blood specimen / Unknown Venipuncture / Unknown 08/28/2023 7:19 AM EST 08/28/2023 7:24 AM EST Narrative LABORATORY C - 08/28/2023 7:42 AM EST Warfarin Therapy INR: 2.0-3.0 conventional anticoagulation INR: 2.5-3.5 high intensity anticoagulation Marilou Dodson LAB BLOOD O RDERABLES Performing Organization Address [facility] Co de Phone Number LABORATORY [facility] [address] [place] [address] * (ABNORMAL) CBC (08/28/2023 7:19 AM EST) WBC 16.21(H) 4.00 - 10.80 K/uL 08/28/2023 7:39 AM EST [facility] RBC 2.56 4.50 - 5.25 M/uL 08/28/2023 7:39 AM EST LABORATORY [facility] HGB 10.4(L) 14.0 - 16.8 g/dL 08/28/2023 7:39 AM EST [facility] HCT 31.3(L) 40.0 - 48.4 % 08/28/2023 7:39 AM EST [facility] MCV 122.3 82.0 - 99.5 fL 08/28/2023 7:39 AM EST [facility] MCH 40.6 27.0 - 34.0 pg 08/28/2023 7:39 AM EST [facility] MCHC 33.2 32.0 - 36.0 g/dL 08/28/2023 7:39 AM EST [facility] RDW 16.2 11.5 - 15.5 % 08/28/2023 7:39 AM EST [facility] PLT 140 140 - 400 K/uL 08/28/2023 7:39 AM EST [facility] MPV 10.4 6.6 - 11.1 fL 08/28/2023 7:39 AM EST [facility] nRBCs 0 <=0 /100 WBCs 08/28/2023 7:39 AM EST LABORATORY C Blood Venous blood specimen / Unknown Venipuncture / Unknown 08/28/2023 7:19 AM EST 08/28/2023 7:26 AM EST Andrea Gonzalez DO LAB BLOOD ORDERABLES Performing Organization Address City/State/[facility] Co de Phone Number LABORATORY [facility] [address] [place] [address] * (ABNORMAL) PT INR (08/27/2023 9:34 AM EST) Pathologist [facility] Prothrombin Time 19.8(H) 11.6 - 15.2 seconds 08/27/2023 10:12 AM EST [facility] INR 1.7(H) 0.8 - 1.2 08/27/2023 10:12 AM EST LABORATORY C Blood Venous blood specimen / Unknown Venipuncture / Unknown 08/27/2023 9:34 AM EST 08/27/2023 9:47 AM EST Narrative [facility] - 08/27/2023 10:12 AM EST Warfarin Therapy INR: 2.0-3.0 conventional anticoagulation INR: 2.5-3.5 high intensity anticoagulation [facility] LAB BLOOD ORDERABLES Performing Organization Address [facility] Co de Phone Number LABORATORY [facility] [address] [place] [address] * (ABNORMAL) HEPATIC FUNCTION PANEL (08/27/2023 9:34 AM EST) Albumin 2.7(L) 3.8 - 5.0 g/dL 08/27/2023 10:30 AM EST [facility] AST 172(H) 10 - 50 U/L 08/27/2023 10:30 AM EST [facility] Alkaline Phosphatase 195(H) 35 - 130 U/L 08/27/2023 10:30 AM EST [facility] ALT 91(H) 10 - 50 U/L 08/27/2023 10:30 AM EST [facility] Bilirubin, Total 28.0(H) <=1.2 mg/dL 08/27/2023 10:30 AM EST [facility] Bilirubin, Direct >10.0(H) 0.0 - 0.3 mg/dL 08/27/2023 10:30 AM EST [facility] Protein 5.5(L) 6.0 - 8.3 g/dL 08/27/2023 10:30 AM EST [facility] Comment:Result may be falsel y decreased due to icterus. Blood Venous blood specimen / Unknown Venipuncture / Unknown 08/27/2023 9:34 AM EST 08/27/2023 9:47 AM EST [facility] LAB BLOOD ORDERABLES Performing Organization Address [facility]/ZIP Co de Phone Number LABORATORY [facility] [address] [place] [address] * (ABNORMAL) BASIC METABOLIC PANEL (08/27/2023 9:34 AM EST) BUN 11 6 - 20 mg/dL 08/27/2023 10:30 AM EST [facility] Creatinine 0.5(L) 0.6 - 1.2 mg/dL 08/27/2023 10:30 AM EST [facility] Comment:Result may be falsel y decreased due to icterus. Estimated Glomerular Filtration Rate >90 >=60 mL/min 08/27/2023 10:30 AM EST [facility] Comment:eGFR is calculated b ased on the CKD-EPI 2020 equation Sodium 143 135 - 146 mmol/L 08/27/2023 10:30 AM EST [facility] Potassium 3.8 3.5 - 5.1 mmol/L 08/27/2023 10:30 AM EST [facility] Chloride 113(H) 98 - 107 mmol/L 08/27/2023 10:30 AM EST [facility] CO2 16(L) 22 - 32 mmol/L 08/27/2023 10:30 AM EST [facility] Anion Gap 14 7 - 15 mmol/L 08/27/2023 10:30 AM EST [facility] Glucose 96 70 - 120 mg/dL 08/27/2023 10:30 AM EST [facility] Calcium 8.4 8.4 - 10.2 mg/dL 08/27/2023 10:30 AM EST [facility] Blood Venous blood specimen / Unknown Venipuncture / Unknown 08/27/2023 9:34 AM EST 08/27/2023 9:47 AM EST Andrea Gonzalez DO LAB BLOOD ORDERABLES Performing Organization Address City/[facility]/ZIP Co de Phone Number [facility] [address] [place] [address] * CULTURE, URINE, QUANTITATIVE (08/27/2023 4:04 AM EST) Culture Growth No significant growth 08/28/2023 9:25 AM EST LAB[facility] Urine Urine specimen obtained by clean catch procedure / Unknown Non-blood Collection / Unknown 08/27/2023 4:04 AM EST 08/27/2023 4:13 AM EST Juan R Matute MD LAB MICRO - GENER AL ORDERABLES Performing Organization Address City/[facility]/ZIP Co de Phone Number LABORATORY [facility] [address] [place] [address] * (ABNORMAL) URINALYSIS, REFLEX TO MICROSCOPIC (08/27/2023 4:04 AM EST) Color, Urine Dark Yellow Colorless, Light Yellow, Yellow, Dark Yellow 08/27/2023 4:47 AM EST [facility] Clarity, Urine Slightly Cloudy(A) Clear 08/27/2023 4:47 AM EST [facility] Glucose, Urine Negative Negative mg/dL 08/27/2023 4:47 AM EST [facility] Bilirubin, Urine Large(A) Negative 08/27/2023 4:47 AM EST [facility] Ketone, Urine Negative Negative mg/dL 08/27/2023 4:47 AM EST [facility] Specific [place], Urine 1.023 1.003 - 1.030 08/27/2023 4:47 AM EST [facility] Blood, Urine Negative Negative 08/27/2023 4:47 AM EST [facility] pH, Urine 6.5 5.0 - 7.5 Units 08/27/2023 4:47 AM EST [facility] Protein, Urine Trace(A) Negative mg/dL 08/27/2023 4:47 AM EST [facility] Urobilinogen, Urine Normal Normal mg/dL 08/27/2023 4:47 AM EST [facility] Nitrite, Urine Negative Negative 08/27/2023 4:47 AM EST [facility] Esterase, Urine Negative Negative 08/27/2023 4:47 AM EST [facility] RBC, Urine 0-2 0 - 2 /HPF 08/27/2023 4:47 AM EST [facility] WBC, Urine 0-2 0 - 2 /HPF 08/27/2023 4:47 AM EST [facility] Bacteria, Urine 0-25 0 - 25 /HPF 08/27/2023 4:47 AM EST [facility] Calcium Oxalate Crystal, Urine 30-49(A) None /HPF 08/27/2023 4:47 AM EST [facility] Amorphous Crystals, Urine Many(A) None /HPF 08/27/2023 4:47 AM EST [facility] Urine Urine specimen obtained by clean catch procedure / Unknown Non-blood Collection / Unknown 08/27/2023 4:04 AM EST 08/27/2023 4:14 AM EST Juan R Matute MD LAB URINE ORDERAB LES Performing Organization Address City/State/[facility] Co de Phone Number [facility] [address] [place] [address] * (ABNORMAL) CBC (08/26/2023 11:40 PM EST) WBC 20.24(H) 4.00 - 10.80 K/uL 08/27/2023 12:06 AM EST [facility] RBC 2.32 4.50 - 5.25 M/uL 08/27/2023 12:06 AM EST [facility] HGB 9.4(L) 14.0 - 16.8 g/dL 08/27/2023 12:06 AM EST [facility] HCT 27.1(L) 40.0 - 48.4 % 08/27/2023 12:06 AM EST [facility] MCV 116.8 82.0 - 99.5 fL 08/27/2023 12:06 AM EST [facility] MCH 40.5 27.0 - 34.0 pg 08/27/2023 12:06 AM EST [facility] MCHC 34.7 32.0 - 36.0 g/dL 08/27/2023 12:06 AM EST [facility] RDW 17.0 11.5 - 15.5 % 08/27/2023 12:06 AM EST [facility] PLT 138(L) 140 - 400 K/uL 08/27/2023 12:06 AM EST [facility] MPV 10.4 6.6 - 11.1 fL 08/27/2023 12:06 AM EST [facility] nRBCs 0 <=0 /100 WBCs 08/27/2023 12:06 AM EST [facility] Blood Venous blood specimen / Unknown Venipuncture / Unknown 08/26/2023 11:40 PM EST 08/26/2023 11:44 PM EST Juan R Matute MD LAB BLOOD ORDERAB LES [facility] [address] [place] [address] * SARS-COV-2 (COVID-19), NAAT (08/26/2023 10:47 PM EST) [facility] SARS-CoV-2 (COVID-19) Result Negative Negative 08/27/2023 12:17 AM EST [facility]ATORY [facility] Comment: 2019 Novel Coronavirus not detected. This express test was developed and its performance characteristics determined by [facility]. It has not been cleared or approved by the U.S. Food and Drug Administration (FDA). FDA does not require this test to go thru premarket FDA review. This test is used for clinical purposes. It should not be regarded as investigational or for research. This laboratory is certified under the Clinical Laboratory Improvement Amendments (CLIA) as qualified to perform high complexity clinical laboratory testing. This test is a nucleic acid amplification test (NAAT), a reverse transcriptase polymerase chain reaction (RT-PCR) test, or a Centers for Disease Control- acceptable equivalent. The test is performed in a high complexity Clinical Laboratory Improvement Amendments-(CLIA) certified laboratory. The test is acceptable for SARS-CoV-2 diagnosis, surveillance, and travel within the [place] and to most countries. Please check with local testing authorities about requirements before travel. The validation of bronchial specimens, tracheal aspirates, and sputum for this assay was developed and performance characteristics determined by [facility]. The validation of alternate specimen types has not been cleared or approved by the U.S. Food and Drug Administration (FDA). It has been determined that such clearance is not necessary. Upper Respiratory Mid-turbinate nasal swab / Unknown Non-blood Collection / Unknown 08/26/2023 10:47 PM EST 08/26/2023 11:03 PM EST Juan R Matute MD LAB MICRO - GENER AL ORDERABLES Performing Organization Address City/State/[facility] Co de Phone Number LABORATORY [facility] [address] [place] [address] * (ABNORMAL) PT INR (08/26/2023 10:27 PM EST) Prothrombin Time 20.8(H) 11.6 - 15.2 seconds 08/26/2023 11:12 PM EST [facility] INR 1.8(H) 0.8 - 1.2 08/26/2023 11:12 PM EST [facility] Blood Venous blood specimen / Unknown Venipuncture / Unknown 08/26/2023 10:27 PM EST 08/26/2023 10:31 PM EST Narrative LAB[facility]AT[facility] - 08/26/2023 11:12 PM EST Warfarin Therapy INR: 2.0-3.0 conventional anticoagulation INR: 2.5-3.5 high intensity anticoagulation Juan R Matute MD LAB BLOOD ORDERAB LES Performing Organization Address [facility] de Phone Number LABORATORY [facility] [address] [place] [address] * (ABNORMAL) LACTATE (08/26/2023 10:27 PM EST) Lactate 2.1(H) 0.4 - 2.0 mmol/L 08/26/2023 11:06 PM EST LAB[facility] Comment:Icterus may interfer e with result. Blood Venous blood specimen / Unknown Venipuncture / Unknown 08/26/2023 10:27 PM EST 08/26/2023 10:31 PM EST Juan R Matute MD LAB BLOOD ORDERAB LES Performing Organization Address [facility] de Phone Number LAB[facility]ATORY [facility] [address] [place] [address] * (ABNORMAL) HEPATIC FUNCTION PANEL (08/26/2023 10:27 PM EST) Albumin 3.1(L) 3.8 - 5.0 g/dL 08/27/2023 12:19 AM EST [facility] AST 180(H) 10 - 50 U/L 08/27/2023 12:19 AM EST [facility] Alkaline Phosphatase 220(H) 35 - 130 U/L 08/27/2023 12:19 AM EST [facility] ALT 98(H) 10 - 50 U/L 08/27/2023 12:19 AM EST [facility] Bilirubin, Total 30.7(H) <=1.2 mg/dL 08/27/2023 12:19 AM EST [facility] Bilirubin, Direct >10.0(H) 0.0 - 0.3 mg/dL 08/27/2023 12:19 AM EST [facility] Protein 6.0 6.0 - 8.3 g/dL 08/27/2023 12:19 AM EST [facility] Blood Venous blood specimen / Unknown Venipuncture / Unknown 08/26/2023 10:27 PM EST 08/26/2023 10:31 PM EST Juan R Matute MD LAB BLOOD ORDERAB LES Performing Organization Address [facility] Co de Phone Number [facility] [address] [place] [address] * MAGNESIUM (08/26/2023 10:27 PM EST) Magnesium 2.2 1.5 - 2.6 mg/dL 08/26/2023 11:29 PM EST [facility] Blood Venous blood specimen / Unknown Venipuncture / Unknown 08/26/2023 10:27 PM EST 08/26/2023 10:31 PM EST Juan R Matute MD LAB BLOOD ORDERAB LES Performing Organization Address [facility] Co de Phone Number [facility] [address] [place] [address] * (ABNORMAL) PHOSPHORUS (08/26/2023 10:27 PM EST) Phosphorus 1.8(L) 2.5 - 4.8 mg/dL 08/27/2023 12:19 AM EST [facility] Blood Venous blood specimen / Unknown Venipuncture / Unknown 08/26/2023 10:27 PM EST 08/26/2023 10:31 PM EST Juan R Matute MD LAB BLOOD ORDERAB LES Performing Organization Address [facility] de Phone Number [facility] [address] [place] [address] * (ABNORMAL) BASIC METABOLIC PANEL (08/26/2023 10:27 PM EST) BUN 9 6 - 20 mg/dL 08/27/2023 12:19 AM EST [facility] Creatinine 0.5(L) 0.6 - 1.2 mg/dL 08/27/2023 12:19 AM EST [facility] Estimated Glomerular Filtration Rate >90 >=60 mL/min 08/27/2023 12:19 AM EST [facility] Comment:eGFR is calculated b asened on the CKD-EPI 2020 equation Sodium 141 135 - 146 mmol/L 08/27/2023 12:19 AM EST [facility] Potassium 3.9 3.5 - 5.1 mmol/L 08/27/2023 12:19 AM EST [facility] Chloride 108(H) 98 - 107 mmol/L 08/27/2023 12:19 AM EST [facility] CO2 17(L) 22 - 32 mmol/L 08/27/2023 12:19 AM EST [facility] Anion Gap 16(H) 7 - 15 mmol/L 08/27/2023 12:19 AM EST [facility] Glucose 103 70 - 120 mg/dL 08/27/2023 12:19 AM EST [facility] Calcium 8.9 8.4 - 10.2 mg/dL 08/27/2023 12:19 AM EST [facility] Blood Venous blood specimen / Unknown Venipuncture / Unknown 08/26/2023 10:27 PM EST 08/26/2023 10:31 PM EST Juan R Matute MD LAB BLOOD ORDERAB LES [facility] Organization Address City/State/ZIP Co de Phone Number [facility]ORY [facility] [address] [place] [address] documented in this encounter Visit Diagnoses Diagnosis Acute liver failure- Primary Acute and subacute necrosis of liver Acute liver failure Acute and subacute necrosis of liver Chest pain Chest pain, unspecified Alcoholic cirrhosis of liver without ascites (HCC) Alcoholic cirrhosis of liver Alcoholic hepatitis with ascites Acute alcoholic hepatitis Ambulatory dysfunction Alcohol use disorder, severe, dependence (HCC) Alcoholic cirrhosis of liver without ascites (HCC) Alcoholic cirrhosis of liver Gastroesophageal reflux disease without esophagitis Esophageal reflux Atrioventricular block, Mobitz type 1, Wenckebach Other second degree atrioventricular block Opioid use disorder Tobacco abuse disorder Tobacco use disorder Alcoholic hepatitis with ascites Acute alcoholic hepatitis documented in this encounter Administered Medications Inactive Administered Medications - up to 3 most recent administrations Medication Order MAR Action Action Date Dose Rate Site Acetaminophen (Tylenol) tab 650 mg 650 mg, Oral, Q8H PRN Pain, Mild, Pain, Moderate, Pain, Severe, Starting on 08/28/23 at 2046, Until 08/29/23 at 8, Maximum of 2 grams (2000 mg) per day. Given 08/28/2023 9:20 PM EST 650 mg Baclofen (Lioresal) tab 10 mg 10 mg, Oral, TID(AM/NOON/HS), First dose on 08/27/23 at 2200, Until Discontinued Given 08/29/2023 1:06 PM EST 10 mg Given 08/29/2023 6:02 AM EST 10 mg Given 08/28/2023 8:35 PM EST 10 mg Enoxaparin (Lovenox) inj 40 mg 40 mg, Subcutaneous, Daily(AM), First dose on 08/27/23 at 0900, Until Discontinued, If patient is on warfarin, inform provider if daily INR value is 2 or greater! Given 08/29/2023 9:41 AM EST 40 mg Abdom en Right Lower Given 08/28/2023 9:21 AM EST 40 mg Ab domen Right Upper Given 08/27/2023 10:49 AM EST 40 mg A bdomen Left Lower folic acid tab 1 mg 1 mg, Oral, Daily(AM), First dose on 08/27/23 at 0900, Until Discontinued Given 08/29/2023 9:42 AM EST 1 mg Given 08/28/2023 9:21 AM EST 1 mg Given 08/27/2023 8:17 AM EST 1 mg ketorolac (Toradol) 15 MG/ML inj 15 mg 15 mg, IV Push, ONCE, On 08/28/23 at 1100, For 1 dose Given 08/28/2023 11:17 AM EST 15 mg Lactulose (Constulose) oral soln 10 g 10 g, Oral, TID(AM/NOON/HS), First dose (after last modification) on 08/28/23 at 2200, Until Discontinued Given 08/29/2023 6:02 AM EST 10 g Given 08/28/2023 8:35 PM EST 10 g Lactulose (Constulose) oral soln 20 g 20 g, Oral, TID(AM/NOON/HS), First dose on 08/27/23 at 0000, Until Discontinued Given 08/28/2023 11:17 AM EST 20 g Given 08/28/2023 5:26 AM EST 20 g Given 08/27/2023 9:05 PM EST 20 g Lidocaine (Aspercreme) 4 % patch 1 Patch 1 Patch, Transdermal, Daily(AM), First dose on 08/28/23 at 2130, Until Discontinued, Apply patch for 12 hours then remove for 12 hours! Remove any Lidocaine patches the patient may currently be wearing prior to applying the new patch Patch Applied 08/29/2023 5:19 PM EST 1 Patch Back Middle Patch Applied 08/28/2023 9:20 PM EST 1 Patch Back Right multivitamin (Mvi) 1 Tablet 1 Tablet, Oral, DAILY NOON, First dose on 08/27/23 at 1515, Until Discontinued Given 08/29/2023 1:06 PM EST 1 Ta blet Given 08/28/2023 11:17 AM EST 1 Tablet Given 08/27/2023 2:50 PM EST 1 Tablet Nicotine (Nicoderm CQ) 7 MG/24HR patch 1 Patch 1 Patch, Transdermal, Daily(AM), First dose on 08/27/23 at 0900, Until Discontinued, Do NOT cut the patch. Remove any Nicotine patches the patient may currently be wearing prior to applying the new patch. Place on clean hairless area. Remove for patient showers. WASTE INFO: Return packaging and waste medication in zip lock bag to pharmacy - [facility] container. Patch Applied 08/29/2023 8:57 AM EST 1 Patch Arm Right Upper Patch Applied 08/28/2023 9:21 AM EST 1 Patch Shoulder Left Patch Applied 08/27/2023 9:32 AM EST 1 Patch Arm Right Upper pantoprazole (Protonix) tab 40 mg 40 mg, Oral, Daily(AM), First dose on 08/27/23 at 0900, Until Discontinued, This med should NOT be Crushed or Chewed Given 08/29/2023 9:42 AM EST 40 mg Given 08/28/2023 9:21 AM EST 40 mg Given 08/27/2023 8:16 AM EST 40 mg potassium and sodium phosphate (Phos-Nak) oral powder 1 Packet 1 Packet, Oral, TID(AM/NOON/HS), First dose on 08/27/23 at 0000, Until Discontinued, Mix 1 packet in 2.5 ounces (75 mL) of water, stir well and administer promptly. 1 packet contains Phosphorus 250 mg (~8 mMoles) + potassium 280 mg (~7.125 mEq) + sodium 160mg (~7.125 mEq) Given 08/29/2023 1:06 PM EST 1 Packet Given 08/29/2023 6:02 AM EST 1 Packet Given 08/28/2023 8:35 PM EST 1 Packet prednisoLONE (Orapred) oral solution 40 mg 40 mg, Oral, Daily(AM), First dose on 08/27/23 at 0900, Until Discontinued Given 08/29/2023 9:42 AM EST 40 mg Given 08/28/2023 9:21 AM EST 40 mg Given 08/27/2023 8:16 AM EST 40 mg rifAXIMin (Xifaxan) tab 550 mg 550 mg, Oral, BID (.AM/PM), First dose on 08/27/23 at 2100, Until Discontinued Given 08/29/2023 9:42 AM EST 550 mg Given 08/28/2023 8:35 PM EST 550 mg Given 08/28/2023 9:21 AM EST 550 mg sodium chloride 0.9 % flush/inj 3 mL 3 mL, IV Push, PRN Other, Line Patency, Starting on Tue08/26/23 at 2147, Until Tue08/29/23 at 2138, Do not flush if lock, PICC, or central line not in place, IV infusing or unable to flush sodium PHOSphate 45 mmol in NSS 500 mL (NaPhos) ivpb 45 mmol, Peripheral IV, ONCE, 1 dose, On 08/27/23 at 0230 New Bag 08/27/2023 3:39 AM EST 45 mmol 75 .33 mL/hr THIAMINE (vitamin B-1) tab 100 mg 100 mg, Oral, Daily(AM), First dose on 08/27/23 at 0900, Until Discontinued Given 08/29/2023 9:42 AM EST 100 mg Given 08/28/2023 9:21 AM EST 100 mg Given 08/27/2023 8:16 AM EST 100 mg documented in this encounter Active and Recently Administered Medications Times are shown in EST. Scheduled Medication Order 08/27/2023 08/28/2023 08/29/2023 Baclofen (Lioresal) tab 10 mg 10 mg, Oral, TID(AM/NOON/HS), First dose on 08/27/23 at 2200, Until Discontinued 2104 (Given - Provider: Aime Medina RN) 05 (Given - Provider: Aime Medina RN)111 (Given - Provider: Kelli Moreno, EULOGIO)2034 (Given - Provider: Aime Medina, EULOGIO) 06 (Given - Provider: Aime Medina, EULOGIO)1306 (Given - Provider: Hillary Davila, EULOGIO) Enoxaparin (Lovenox) inj 40 mg 40 mg, Subcutaneous, Daily(AM), First dose on 08/27/23 at 0900, Until Discontinued, If patient is on warfarin, inform provider if daily INR value is 2 or greater! 1049 (Given - Provider: Simran Samuel, EULOGIO) 0921 (Given - Provider: Kelli Moreno, EULOGIO) 0941 (Given - Provider: Hillary Davila, EULOGIO) folic acid tab 1 mg 1 mg, Oral, Daily(AM), First dose on 08/27/23 at 0900, Until Discontinued 816 (Given - Provider: Simran Samuel, EULOGIO) 0921 (Given - Provider: Kelli Moreno, EULOGIO) 0942 (Given - Provider: Hillary Davila, EULOGIO) ketorolac (Toradol) 15 MG/ML inj 15 mg (COMPLETED) 15 mg, IV Push, ONCE, On 08/28/23 at 1100, For 1 dose 111 (Given - Provider: Kelli Moreno, EULOGIO) Lactulose (Constulose) oral soln 10 g 10 g, Oral, TID(AM/NOON/HS), First dose (after last modification) on 08/28/23 at 2200, Until Discontinued 2034 (Given - Provider: Aime Medina RN) 06 (Given - Provider: Aime Medina RN)1200 (Not Given - Provider: Hillary Davila RN - Reason: Refused-Notify Provider) Lactulose (Constulose) oral soln 20 g (CANCELED) 20 g, Oral, TID(AM/NOON/HS), First dose on 08/27/23 at 0000, Until Discontinued 0100 (Given - Provider: Pretty Aguilera RN)0714 (Given - Provider: Pretty Aguilera RN)1117 (Given - Provider: Simran Samuel RN)2105 (Given - Provider: Aime Medina, EULOGIO) 0526 (Given - Provider: Aime Medina, EULOGIO)1117 (Given - Provider: Kelli Moreno, EULOGIO) Lidocaine (Aspercreme) 4 % patch 1 Patch 1 Patch, Transdermal, Daily(AM), First dose on 08/28/23 at 2130, Until Discontinued, Apply patch for 12 hours then remove for 12 hours! Remove any Lidocaine patches the patient may currently be wearing prior to applying the new patch 2120 (Patch Applied - Provider: Aime Medina RN) 0900 (Not Given - Provider: Hillary Davila RN - Reason: Refused-Notify Provider)0939 (Patch Removed - Provider: Hillary Davila RN)1719 (Patch Applied - Provider: Leonides Gipson RN)1738 (Due: Patch Removed - Provider: Discharge, Physician - Comment: Time automatically adjusted from order being discontinued) multivitamin (Mvi) 1 Tablet 1 Tablet, Oral, DAILY NOON, First dose on 08/27/23 at 1515, Until Discontinued 1450 (Given - Provider: Simran Samuel RN) 1117 (Given - Provider: Kelli Moreno, EULOGIO) 1306 (Given - Provider: Hillary Davila, RN) Nicotine (Nicoderm CQ) 7 MG/24HR patch 1 Patch 1 Patch, Transdermal, Daily(AM), First dose on 08/27/23 at 0900, Until Discontinued, Do NOT cut the patch. Remove any Nicotine patches the patient may currently be wearing prior to applying the new patch. Place on clean hairless area. Remove for patient showers. WASTE INFO: Return packaging and waste medication in zip lock bag to pharmacy - [facility] container. 0932 (Patch Applied - Provider: Simran Samuel RN) 0859 (Patch Removed - Provider: Kelli Moreno, EULOGIO)0921 (Patch Applied - Provider: Kelli Moreno, EULOGIO) 0857 (Patch Applied - Provider: Hillary Davila RN)0940 (Patch Removed - Provider: Hillary Davila RN)1738 (Due: Patch Removed - Provider: Discharge, Physician - Comment: Time automatically adjusted from order being discontinued) pantoprazole (Protonix) tab 40 mg 40 mg, Oral, Daily(AM), First dose on 08/27/23 at 0900, Until Discontinued, This med should NOT be Crushed or Chewed 0816 (Given - Provider: Simran Samuel RN) 09 (Given - Provider: Kelli Moreno, EULOGIO) 09 (Given - Provider: Hillary Davila RN) potassium and sodium phosphate (Phos-Nak) oral powder 1 Packet 1 Packet, Oral, TID(AM/NOON/HS), First dose on 08/27/23 at 0000, Until Discontinued, Mix 1 packet in 2.5 ounces (75 mL) of water, stir well and administer promptly. 1 packet contains Phosphorus 250 mg (~8 mMoles) + potassium 280 mg (~7.125 mEq) + sodium 160mg (~7.125 mEq) 0100 (Given - Provider: Pretty Aguilera RN)0821 (Given - Provider: Simran Samuel RN - Comment: Not off schedule - due at 0800)1117 (Given - Provider: Simran Samuel RN)210 (Given - Provider: Aime Medina RN) 0526 (Given - Provider: Aime Medina RN)1117 (Given - Provider: Kelli Moreno, EULOGIO)203 (Given - Provider: Aime Medina RN) 0602 (Given - Provider: Aime Medina RN)1306 (Given - Provider: Hillary Davila, EULOGIO) prednisoLONE (Orapred) oral solution 40 mg 40 mg, Oral, Daily(AM), First dose on 08/27/23 at 0900, Until Discontinued 0816 (Given - Provider: Simran Samuel RN) 09 (Given - Provider: Kelli Moreno, EULOGIO) 0942 (Given - Provider: Hillary Davila, RN) rifAXIMin (Xifaxan) tab 550 mg 550 mg, Oral, BID (.AM/PM), First dose on 08/27/23 at 2100, Until Discontinued 2104 (Given - Provider: Aime Medina, RN) 09 (Given - Provider: Kelli Moreno, RN)2034 (Given - Provider: Aime Medina, EULOGIO) 0942 (Given - Provider: Hillary Davila, RN) sodium PHOSphate 45 mmol in NSS 500 mL (NaPhos) ivpb (COMPLETED) 45 mmol, Peripheral IV, ONCE, 1 dose, On 08/27/23 at 0230 0339 (New Bag - Provider: Pretty Aguilera, RN) THIAMINE (vitamin B-1) tab 100 mg 100 mg, Oral, Daily(AM), First dose on 08/27/23 at 0900, Until Discontinued 08 (Given - Provider: Simran Samuel, EULOGIO) 09 (Given - Provider: Kelli Moreno, EULOGIO) 09 (Given - Provider: Hillary Davila, RN) PRN Medication Order 08/27/2023 08/28/2023 08/29/2023 Acetaminophen (Tylenol) tab 650 mg 650 mg, Oral, Q8H PRN Pain, Mild, Pain, Moderate, Pain, Severe, Starting on 08/28/23 at 2047, Until Tue08/29/23 at 2138, Maximum of 2 grams (2000 mg) per day. 2119 (Given - Provider: Teo Medina, EULOGIO) sodium chloride 0.9 % flush/inj 3 mL 3 mL, IV Push, PRN Other, Line Patency, Starting on Tue08/26/23 at 2147, Until Tue08/29/23 at 2138, Do not flush if lock, PICC, or central line not in place, IV infusing or unable to flush documented in this encounter Advance Directives Latest [...] Advance Directives occurred with: Patient Care Teams Medical Communication Specialist Relationship Specialty Start Date End Date Jatinder Low MD [address] [place] [address] VANNA Hancock [phone] PCP - General Family Medicine 11/19/16 documented as of this encounter
--- OUTSIDE RECORDS SUMMARY | 2023-09-16 22:56 | External Medical Summary ---
Author Name Unknown Address Unknown Organization [id number]:[facility] [place] [address] [place] [address] Laboratory Report Ordering Provider Test Date Status RAEGAN CESAR 08/28/2023 07:19:00 Final Observation Date Value Abnormality Reference (Units ) Status Albumin 08/28/2023 07:19:00 2.5 Below low normal 3.8-5.0 (g/dL) Final AST (Aspartate aminotransferase) 08/28/2023 07:19:00 152 Above high normal 10-50 (U/L) Final Result may be falsely elevat ed due to hemolysis. Alk Phos 08/28/2023 07:19:00 175 Above high normal 35 -130 (U/L) Final ALT (Alanine aminotransferase) 08/28/2023 07:19:00 83 Above high normal 10-50 (U/L) Final Bilirubin, Total 08/28/2023 07:19:00 25.6 Above high no rmal <=1.2 (mg/dL) Final Bilirubin, Direct 08/28/2023 07:19:00 >10.0 Above high n ormal 0.0-0.3 (mg/dL) Final Protein 08/28/2023 07:19:00 5.3 Below low normal 6.0 -8.3 (g/dL) Final Result may be falsely decrea sed due to icterus. Performing Location [facility] [place] [address] [place] [id number]
--- OUTSIDE RECORDS SUMMARY | 2023-09-16 22:56 | External Medical Summary ---
Author Name Unknown Address Unknown Organization [id number]:[facility] [place] [address] [place] [id number] Laboratory Report Ordering Provider Test Date Status DANIELA BARBOUR 08/27/2023 09:40:00 Final No anaerobic bottle received . Observation Date Value Abnormality Reference (Units ) Status Bacteria identified in Specimen by Culture 08/27/2023 09:40:00 No growth Final Test: Culture, Blood
Yadira mccray Source: Blood, Venous
Specimen Type: Blood
Specimen Date: 08/27/2023 9:40 AM
Result Date: 09/01/2023 11:01 AM
Result Status: Final result
Resulting Lab: [facility] [place]
[address]
[place] [address]

CULTURE

No growth

No anaerobic bottle received.

null Performing Location [facility] [place] [address] [facility] [address]
--- OUTSIDE RECORDS SUMMARY | 2023-09-16 22:56 | External Medical Summary ---
Author Name Unknown Address Unknown Organization K01:LABORATORY [facility] - [address] [place] [address] Laboratory Report Ordering Provider Test Date Status ANTONIOALVARADO 08/26/2023 22:27:00 Final Observation Date Value Abnormality Reference (Units ) Status BUN 08/26/2023 22:27:00 9 6-20 (mg/dL) Final Creatinine 08/26/2023 22:27:00 0.5 Below low normal 0.6-1.2 (mg/dL) Final Glomerular filtration rate/1.73 sq M.predicted [Volume Rate/Area] in Serum, Plasma or Blood by Creatinine-based formula (CKD-EPI) 08/26/2023 22:27:00 >90 >=60 (mL/min) Final eGFR is calculated based on the CKD-EPI 2020 equation SODIUM 08/26/2023 22:27:00 141 135-146 (m mol/L) Final Potassium 08/26/2023 22:27:00 3.9 3.5-5.1 (m mol/L) Final Cl 08/26/2023 22:27:00 108 Above high normal 98 -107 (mmol/L) Final CO2 08/26/2023 22:27:00 17 Below low normal 22- 32 (mmol/L) Final Anion gap 08/26/2023 22:27:00 16 Above high normal 7- 15 (mmol/L) Final Glucose 08/26/2023 22:27:00 103 70-120 (mg /dL) Final Calcium 08/26/2023 22:27:00 8.9 8.4-10.2 ( mg/dL) Final Performing Location [facility]ATORY [facility] - [address] [place] [address]
--- OUTSIDE RECORDS SUMMARY | 2023-09-16 22:56 | External Medical Summary | Summary of Care ---
Author Name Unknown Organization [facility] Address [address] [facility] [place] [address] Phone [phone] Care Team Providers Care [employer] Specialist Name Role Phone Jatinder Low MD Primary Care Provider [phone] Encounter Details Date Type Department Care Team (Late st Contact Info) Description 08/30/2023 Telephone Ancillary [address] [place] [address] Marylu Galo RN Allergies No known active allergiesdocumented as of [...] EST ----- Patient was admitted again [place] [facility] and needs to est with Dr. Sigala [...] walker and lots of meds. Admitted [place] [facility] 08/10 and again 08/26 Let me know what you suggest. * Telephone Encounter - Marylu Galo RN - 08/30/2023 3:19 PM EST Transitions of Care Note Reason for Referral:Recent Admission Phone visit for follow up: [facility] Admitted to: [facility], Date: 08.26.23 patient was a direct transfer from [facility] Discharged to: home, Date: 08.29.23 [...] Worsening symptoms 3. 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 Identified Care Gaps: Yes Care Gaps [...] 8:20 AM EST Office Visit Family Medicine [address] [address] Brady Royal [address] [place] [address] 10/18/2023 2:20 PM EDT [facility] [address] [place] [address] bIan Chaidez MD [address] [place], [place] [phone] Health Maintenance Due Date Last Done Comments [...] Advance Directives occurred with: Patient Care Teams [employer] Specialist Relationship Specialty Start Date End Date Jatinder Low MD [address] [place] [address] [place] [address] PCP - General Family Medicine 11/19/16 documented as of this encounter
--- OUTSIDE RECORDS SUMMARY | 2023-09-16 22:56 | External Medical Summary | Summary of Care ---
Author Name Unknown Organization [facility] Address [address] [facility] [address] Phone [phone] Care Team Providers Care Boiler Tube Blower Name Role Phone Tamiko Douglas MD Primary Care Provider [phone] Reason for Visit * Reason Onset Date Comments Hospital Follow-Up 08/24/2023 [facility] 1 wk pcp f/u needed. No appt avail. Please assist patient with scheduling. Thank you. Encounter Details Date Type Department Care Team (Late st Contact Info) Description 08/24/2023 Telephone Family [address] [address] Tamiko Douglas MD [address] [place] [address] [place] [address] Hospital Follow-Up ([facility] 08/24/23 1 wk ... Allergies No known active allergiesdocumented as [...] 08/30/2023) Immunizations Name Administration Dates Next Due HEP [...] Comments:2-3 cigarettes a da y as of 7/20/23. No chew in the last month as [...] you have serious difficulty h earing? No 08/20/2023 Are you blind or do you have serious difficulty seeing, even when wearing glasses? No 08/20/2023 Do you have serious difficul ty walking or climbing stairs? (5 years old or older) No 08/20/2023 Do you have difficulty dress ing or bathing? (5 years old or older) No 08/20/2023 Because of a physical, menta l, or emotional condition, do you have difficulty doing errands alone such as visiting a doctor s office or shopping? (15 years old or older) No 08/20/19 24 Cognitive Status Response Date of Assessm ent Because of a physical, menta l, or emotional condition, do you have serious difficulty concentrating, remembering, or making decisions? (5 years old or older) No 08/20/2023 documented as of this encounter Miscellaneous Notes * Telephone Encounter - Ismael Bailey, KHURRAM - 08/30/2023 2:25 PM EST I spoke to Marisa. He is scheduled and aware. * Telephone Encounter - Ismael Bailey OSA - 08/29/2023 2:13 PM EST I called pt and left message on his vm to call me back to make appt. Pt called me back 08/29. Pt is still in [facility]. Getting discharged as we were speaking. He thought [facility] was setting up his HD f/u appt. I didn't schedule it as of right now. We will wait to see what [facility] schedules and if there is no appt. Then we will call pt again. * Telephone Encounter - Marylu Galo RN - 08/25/2023 2:35 PM EST I tried to reach patient for a GLORY call, n/a Left message for the patient to call me re follow up .see other encounter, I did speak to Dr. Sigala and he said first available Hospital discharge appointment was fine. * Telephone Encounter - Ismael Bailey OSA - 08/25/2023 10:57 AM EST Nothing avail until at least 09/09 with [place]. Okay to wait that long. Please advise or schedule pt. Thank you. * Telephone Encounter - Tiana Fink OSA - 08/24/2023 1:45 PM EST [facility] HD 08/24/23 1 wk pcp f/u needed. No appt avail. Please assist patient with scheduling. Thank you. Marisa Mares 08/20/2023 11:22 PM Admission Description: 37 year old male Department: AP5 IP [facility] Message Patient Name: MARISA MARES([id number]) Sex: Male : 1985 PCP: TAMIKO DOUGLAS Center: [facility] Types of orders made on 08/24/2023: IP Post Discharge , Lab, Medications, Referral Order Date:08/24/2023 Ordering User:DAHLIA LOPEZ [[id number]] Attending Pro vider:You Espinoza MD [[id number]] Authorizing Provider: Dahlia Lopez DO [[id number]] Department:AP5 [facility][[id number]] Order Specific Information Order: RETURN APPT [CUSTOM: IP355] Order #: [id number]: [id number] Priority: Routine Class: Nursing Unit Department (Single Entry) -> Family Practice Appt Needed Within: (Specify # of Days, Weeks, Months) -> 1 Wk Provider -> Davina DOUGLAS Released on: 08/24/2023 1:38 PM Priority: Routine Class: Nursing Unit Department (Single Entry) -> Family Practice Appt Needed Within: (Specify # of Days, Weeks, Months) -> 1 Wk Provider -> TAMIKO DOUGLAS Released on: 08/24/2023 1:38 PM documented in this encounter Plan of Treatment Upcoming Encounters Date Type Department Care Team (Late st Contact Info) Description 09/12/2023 8:20 AM EST Office Visit Family Medicine [address] [address] [place] [address] 10/18/2023 2:20 PM EDT Office Visit Hepatology, [place] [address], [place] [phone] Iban Chaidez MD [address] [place], [place] [phone] Health Maintenance Due Date Last Done Comments [...] Advance Directives occurred with: Patient Care Teams Boiler Tube Blower Relationship Specialty Start Date End Date Tamiko Douglas MD [address] [place] [address] [place] [address] PCP - General Family Medicine 11/19/16 documented as of this encounter
--- OUTSIDE RECORDS SUMMARY | 2023-09-16 22:56 | External Medical Summary ---
Author Name Unknown Address Unknown Organization K01:[facility] [place] [address] [place] [address] Laboratory Report Ordering Provider Test Date Status RAEGAN CESAR 08/29/2023 06:37:00 Final Warfarin Therapy
INR: 2 .0-3.0 conventional anticoagulation
INR: 2.5- 3.5 high intensity anticoagulation Observation Date Value Abnormality Reference (Units ) Status PT 08/29/2023 06:37:00 20.4 Above high normal 11 .6-15.2 (seconds) Final INR 08/29/2023 06:37:00 1.7 Above high normal 0. 8-1.2 Final Performing Location [facility] [place] [address] [place] [address]
--- OUTSIDE RECORDS SUMMARY | 2023-09-16 22:56 | External Medical Summary | Summary of Care ---
Author Name Unknown Organization [facility] Address [address] [facility] [address] Phone [phone] Care Team Providers Care Lifter Name Role Phone Tamiko Douglas MD Primary Care Provider [phone] Reason for Visit * Reason Onset Date Comments Hospital Follow-Up 08/24/2023 [facility] 1 wk pcp f/u needed. No appt avail. Please assist patient with scheduling. Thank you. Encounter Details Date Type Department Care Team (Late st Contact Info) Description 08/24/2023 Telephone Family [address] [address] Tamiko Douglas MD [address] [place] [address] [place] [address] Hospital Follow-Up ([facility] 08/24/23 1 wk ... Allergies No known active allergiesdocumented as of this encounter (statuses as of 08/29/2023) Medications Medication Sig Dispensed Refills Start Date End Date Status buprenorphine HCl (SUBUTEX) 8 MG Sublingual tablet 0 08/15/2017 4 Discontinued cloNIDine HCl 0.1 MG Oral Tablet (Catapres)Indica tions:HTN, goal below 140/90 Take 1 Tablet by mouth in the morning and 1 Tablet before bedtime. 60 Tablet 5 01/04/2023 4 Discontinued Pantoprazole Sodium 40 MG Oral Tablet Delayed Release (Protonix)Indica tions:Gastroesop hageal reflux disease without esophagitis,Epig astric pain Take 1 Tablet by mouth in the morning. In the morning.. 90 Tablet 1 08/03/2023 Suspended Additional Information documented as of this encounter (statuses as of 08/29/2023) Active Problems Problem Noted Date Diagnosed Date [...] as of this encounter (statuses as of 08/29/2023) Resolved Problems Problem Noted Date Diagnosed Date Resolved Date Dizziness 02/24/2023 08/24/2023 Routine child health exam 04/18/2002 documented as of this encounter (statuses as of 08/29/2023) Immunizations Name Administration Dates Next Due HEP [...] Telephone Encounter - Ismael Bailey, KHURRAM - 08/29/2023 2:13 PM EST I called pt and left message on his vm to call me back to make appt. Pt called me back 08/29. Pt is still in [facility]. Getting discharged as we were speaking. He thought [facility] was setting up his HD f/u appt. I didn't schedule it as of right now. We will wait to see [facility] and if there is no appt. [...] Nothing avail until at least 09/09 with [place]. Okay to wait that long. Please advise or schedule pt. Thank you. * Telephone Encounter - Tiana Fink OSA - 08/24/2023 1:45 PM EST [facility] HD 08/24/23 1 wk pcp f/u needed. No appt avail. Please assist patient with scheduling. Thank you. Marisa Yu 08/20/2023 11:22 PM Admission Description: 37 year old male Department: AP5 IP [facility] Message Patient Name: MARISA YU([id number]) Sex: Male : 1985 PCP: TAMIKO DOUGLAS Center: [facility] Types of orders made on 08/24/2023: IP Post Discharge , Lab, Medications, Referral Order Date:08/24/2023 Ordering User:DAHLIA LOPEZ [[id number]] Attending Pro vider:You Espinoza MD [[id number]] Authorizing Provider: Dahlia Lopez DO [[id number]] Department:AP5 [facility][[id number]] Order Specific Information Order: RETURN APPT [CUSTOM: IP355] Order #: [id number]: [id number] Priority: Routine Class: Nursing Unit Department [...] 10/18/2023 2:20 PM EDT Office Visit Hepatology, [place] [address] [place] [phone] Iban Chaidez MD [address] [place] [address] Health Maintenance Due Date Last Done Comments [...] Inactivated Comments Full Code 08/26/2023 9:50 PM This order reflects the patients wishes and were consensually agreed upon. Question Answer Comments Discussion of Advance Directives occurred with: Patient Code Status History Code Status Date Activated Date Inactivated Comments Full Code 08/21/2023 12:59 AM 08/24/2023 9:04 PM This order reflects the patients wishes and were consensually agreed upon. Question Answer Comments Discussion of Advance Directives occurred with: Patient Care Teams Lifter Relationship Specialty Start Date End Date Tamiko Douglas MD [address] [place] [address] [place] [address] PCP - General Family Medicine 11/19/16 documented as of this encounter
--- OUTSIDE RECORDS SUMMARY | 2023-09-16 22:56 | External Medical Summary ---
Author Name Unknown Address Unknown Organization K01:LABORATORY [facility] - [facility] [address] [place] [address] Laboratory Report Ordering Provider Test Date Status DANIELA BARBOUR 08/27/2023 09:34:00 Final Observation Date Value Abnormality Reference (Units ) Status BUN 08/27/2023 09:34:00 11 6-20 (mg/d L) Final Creatinine 08/27/2023 09:34:00 0.5 Below low normal 0. 6-1.2 (mg/dL) Final Result may be falsely decrea sed due to icterus. Glomerular filtration rate/1 .73 sq M.predicted [Volume Rate/Area] in Serum, Plasma or Blood by Creatinine-based formula (CKD-EPI) 08/27/2023 09:34:00 >90 >=60 (mL/min) Final eGFR is calculated based on the CKD-EPI 2020 equation SODIUM 08/27/2023 09:34:00 143 135-146 (m mol/L) Final Potassium 08/27/2023 09:34:00 3.8 3.5-5.1 (m mol/L) Final Cl 08/27/2023 09:34:00 113 Above high normal 98 -107 (mmol/L) Final CO2 08/27/2023 09:34:00 16 Below low normal 22- 32 (mmol/L) Final Anion gap 08/27/2023 09:34:00 14 7-15 (mmol /L) Final Glucose 08/27/2023 09:34:00 96 70-120 (mg /dL) Final Calcium 08/27/2023 09:34:00 8.4 8.4-10.2 ( mg/dL) Final Performing Location LABORATORY [facility] - [address] [place] [address]
--- OUTSIDE RECORDS SUMMARY | 2023-09-16 22:56 | External Medical Summary ---
Author Name Unknown Address Unknown Organization K01:[facility] [place] [address] [place] [id number] Laboratory Report Ordering Provider Test Date Status JENNY ALVAREZ 08/27/2023 04:04:42 Final Observation Date Value Abnormality Reference (Units) Status Bacteria identified in Specimen by Culture 08/27/2023 04:04:42 No significant growth Final Test: Culture, Urine, Quanti tative
Specimen Source: Urine, Clean Catch
Specimen Type: Urine
Specimen Date: 08/27/2023 4:04 AM
Result Date: 08/28/2023 9:25 AM
Result Status: Final result
Resulting Lab: [facility]
[address] [place] [address]

CULTURE

No significant growth

null Performing Location [facility] - [address] [facility] [address]
--- OUTSIDE RECORDS SUMMARY | 2023-09-16 22:56 | External Medical Summary | Summary of Care ---
Author Name Unknown Organization [facility] Address [address] [facility] [address] Phone [phone] Care Team Providers Care Lab Coordinator Name Role Phone Tamiko Douglas MD Primary Care Provider Reason for Visit * Reason Onset Date Comments Hospital Follow-Up 08/24/2023 [facility] 1 wk pcp f/u needed. No appt avail. Please assist patient with scheduling. Thank you. Encounter Details Date Type Department Care Team (Late st Contact Info) Description 08/24/2023 Telephone Family [address] [address] Tamiko Douglas MD [address] [place] [address] [place] [address] Hospital Follow-Up ([facility] 08/24/23 1 wk ... Allergies No [...] discharged as we were speaking. He thought [facility] was setting up his HD f/u appt. I didn't schedule it as of right now. We will wait to see what [facility] schedules and if there is no [...] Fink OSA - 08/24/2023 1:45 PM EST [facility] HD 08/24/23 1 wk pcp f/u needed. No appt avail. Please assist patient with scheduling. Thank you. Marisa Mares 08/20/2023 11:22 PM Admission Description: 37 year old male Department: AP5 IP [facility] Message Patient Name: MARISA MARES([id number]) Sex: Male : 1985 PCP: TAMIKO DOUGLAS Center: [facility] Types of orders made on 08/24/2023: IP Post Discharge , Lab, Medications, Referral Order Date:08/24/2023 Ordering User:DAHLIA LOPEZ [[id number]] Attending Pro vider:You Espinoza MD [[id number]] Authorizing Provider: Dahlia Lopez DO [[id number]] Department:AP5 [facility][[id number]] Order Specific Information Order: RETURN APPT [CUSTOM: IP355] Order #: [id number]: [id number] Priority: Routine Class: Nursing Unit Department [...] 8:20 AM EST Office Visit Family Medicine [address] [address] [place] [address] 10/18/2023 2:20 PM EDT Office Visit Hepatology, [place] [address] [place], [place] [phone] Iban Chaidez MD [address] [place], [place] [phone] Health Maintenance Due Date Last Done Comments [...] Advance Directives occurred with: Patient Care Teams Lab Coordinator Relationship Specialty Start Date End Date Tamiko Douglas MD [address] [place] [address] [place] [address] PCP - General Family Medicine 11/19/16 documented as of this encounter
--- OUTSIDE RECORDS SUMMARY | 2023-09-16 22:56 | External Medical Summary ---
Author Name Unknown Address Unknown Organization K01:LABORATORY [facility] [place] - [facility] [address] [facility] [address] Laboratory Report Ordering Provider Test Date Status ANTONIOALVARADO 08/26/2023 23:40:00 Final Observation Date Value Abnormality Reference (Units ) Status WBC, Total 08/26/2023 23:40:00 20.24 Above high normal 4.00-10.80 (K/uL) Final RBC 08/26/2023 23:40:00 2.32 4.50-5.25 (M/uL) Final Hemoglobin 08/26/2023 23:40:00 9.4 Below low normal 14.0-16.8 (g/dL) Final HCT 08/26/2023 23:40:00 27.1 Below low normal 40.0-48.4 (%) Final MCV 08/26/2023 23:40:00 116.8 82.0-99.5 (fL) Final MCH 08/26/2023 23:40:00 40.5 27.0-34.0 (pg) Final MCHC 08/26/2023 23:40:00 34.7 32.0-36.0 (g/dL) Final RDW 08/26/2023 23:40:00 17.0 11.5-15.5 (%) Final Platelets 08/26/2023 23:40:00 138 Below low normal 140-400 (K/uL) Final MPV 08/26/2023 23:40:00 10.4 6.6-11.1 (fL) Final Nucleated erythrocytes/100 leukocytes [Ratio] in Blood by Automated count 08/26/2023 23:40:00 0 <=0 (/100 WBCs) Final Performing Location LABOR[facility]ORY [facility] - [address] [place] [address]
--- OUTSIDE RECORDS SUMMARY | 2023-09-16 22:56 | External Medical Summary ---
Author Name Unknown Address Unknown Organization K01:[facility]ORY [facility] - [address] [place] [address] Laboratory Report Ordering Provider Test Date Status JENNY ALVAREZ 08/26/2023 22:27:00 Final Observation Date Value Abnormality Reference (Units ) Status Albumin 08/26/2023 22:27:00 3.1 Below low normal 3.8-5.0 (g/dL) Final AST (Aspartate aminotransferase) 08/26/2023 22:27:00 180 Above high normal 10-50 (U/L) Final Alk Phos 08/26/2023 22:27:00 220 Above high normal 35-130 (U/L) Final ALT (Alanine aminotransferase) 08/26/2023 22:27:00 98 Above high normal 10-50 (U/L) Final Bilirubin, Total 08/26/2023 22:27:00 30.7 Above high normal <=1.2 (mg/dL) Final Bilirubin, Direct 08/26/2023 22:27:00 >10.0 Above high normal 0.0-0.3 (mg/dL) Final Protein 08/26/2023 22:27:00 6.0 6.0-8.3 (g/dL) Final Performing Location LAB[facility]ORY [facility] - [address] [place] [address]
--- OUTSIDE RECORDS SUMMARY | 2023-09-16 22:56 | External Medical Summary ---
Author Name Unknown Address Unknown Organization K01:LAB[facility]ORY [facility] - [facility] [address] [place] [address] Laboratory Report Ordering Provider Test Date Status RAEGAN CESAR 08/29/2023 06:37:00 Final Observation Date Value Abnormality Reference (Units ) Status BUN 08/29/2023 06:37:00 11 6-20 (mg/d L) Final Creatinine 08/29/2023 06:37:00 0.5 Below low normal 0. 6-1.2 (mg/dL) Final Result may be falsely decrea sed due to icterus. Glomerular filtration rate/1 .73 sq M.predicted [Volume Rate/Area] in Serum, Plasma or Blood by Creatinine-based formula (CKD-EPI) 08/29/2023 06:37:00 >90 >=60 (mL/min) Final eGFR is calculated based on the CKD-EPI 2020 equation SODIUM 08/29/2023 06:37:00 136 135-146 (m mol/L) Final Potassium 08/29/2023 06:37:00 4.3 3.5-5.1 (m mol/L) Final Cl 08/29/2023 06:37:00 107 98-107 (mm ol/L) Final CO2 08/29/2023 06:37:00 16 Below low normal 22- 32 (mmol/L) Final Anion gap 08/29/2023 06:37:00 13 7-15 (mmol /L) Final Glucose 08/29/2023 06:37:00 108 70-120 (mg /dL) Final Calcium 08/29/2023 06:37:00 8.6 8.4-10.2 ( mg/dL) Final Performing Location LABORATORY [facility] - [address] [place] [address]
--- OUTSIDE RECORDS SUMMARY | 2023-09-16 22:56 | External Medical Summary ---
Author Name Unknown Address Unknown Organization K01[place] [place] [address] [facility] [place] [address] Laboratory Report Ordering Provider Test Date Status ANTONIOJENNY 08/27/2023 04:04:42 Final Observation Date Value Abnormality Reference (Units ) Status Color of Urine by Auto 08/27/2023 04:04:42 Dark Yellow Colorless, Light Yellow, Yellow, Dark Yellow Final Clarity, Urine 08/27/2023 04:04:42 Slightly Cloudy Abnormal Clear Final Glucose [Mass/volume] in Urine by Automated test strip 08/27/2023 04:04:42 Negative Negative (mg/dL) Final Bilirubin.total [Presence] in Urine by Automated test strip 08/27/2023 04:04:42 Large Abnormal Negative Final Ketones [Mass/volume] in Urine by Automated test strip 08/27/2023 04:04:42 Negative Negative (mg/dL) Final Specific gravity, Urine 08/27/2023 04:04:42 1.023 1.003-1.030 Final Hemoglobin [Presence] in Urine by Automated test strip 08/27/2023 04:04:42 Negative Negative Final pH, Urine 08/27/2023 04:04:42 6.5 5.0-7.5 (Units) Final Protein [Mass/volume] in Urine by Automated test strip 08/27/2023 04:04:42 Trace Abnormal Negative (mg/dL) Final Urobilinogen [Mass/volume] in Urine by Automated test strip 08/27/2023 04:04:42 Normal Normal (mg/dL) Final Nitrite [Presence] in Urine by Automated test strip 08/27/2023 04:04:42 Negative Negative Final Leukocyte esterase [Presence] in Urine by Automated test strip 08/27/2023 04:04:42 Negative Negative Final RBC, Urine 08/27/2023 04:04:42 0-2 0-2 (/HPF) Final WBC, Urine 08/27/2023 04:04:42 0-2 0-2 (/HPF) Final Bacteria [#/area] in Urine sediment by Microscopy high power field 08/27/2023 04:04:42 0-25 0-25 (/HPF) Final Calcium oxalate crystals [#/area] in Urine sediment by Microscopy high power field 08/27/2023 04:04:42 30-49 Abnormal None (/HPF) Final Crystals.amorphous [#/area] in Urine sediment by Microscopy high power field 08/27/2023 04:04:42 Many Abnormal None (/HPF) Final Performing Location [facility] [place] [address] [facility] [address]
--- OUTSIDE RECORDS SUMMARY | 2023-09-16 22:56 | External Medical Summary | Summary of Care ---
Author Name Unknown Organization [facility] Address [address] [address] Phone [phone] Care Team Providers Care Fiction And Nonfiction Prose Writer Name Role Phone Jatinder Douglas MD Primary Care Provider [phone] Reason for Visit * Reason Onset Date Comments Hospital Follow-Up 08/30/2023 [facility] 1 wk pcp f/u needed. No appt avail. Please assist patient with scheduling. Thank you. Encounter Details Date Type Department Care Team (Late st Contact Info) Description 08/30/2023 Telephone Family [address] [address] Jatinder Douglas MD [address] [place] [address] [place] [address] Hospital Follow-Up ([facility] 08/29/23 1 wk p... Allergies No known [...] 140/90 02/24/2023 Atrioventricular block, Mobitz type 1, Lyndakebac h 02/24/2023 Syncope 02/24/2023 Palpitations 02/24/2023 Gastroesophageal [...] encounter Miscellaneous Notes * Telephone Encounter - Tiana Fink KHURRAM - 08/30/2023 6:06 AM EST [facility] 08/29/23 1 wk pcp f/u needed. No appt avail. Please assist patient with scheduling. Thank you. Jimmy Yu 08/26/2023 9:22 PM Admission Description: 37 year old male Department: 5 [facility] Message Patient Name: JIMMY YU([id number]) Sex: Male : 1985 PCP: JATINDER DOUGLAS Center: [facility] Types of orders made on 08/29/2023: Communication, IP Discharge, IP Post Discharge , Lab, Medications, Point of Care Testing - Unsolicited Res ults Order Date:08/29/2023 Ordering User:MARILOU DODSON [[id number]] Attending Provider:Piedad Mancia MD [[id number]] Authorizing Provider: Marilou Dodson DO [[id number]] Department:AP5 [facility][[id number]] Order Specific Information Order: RETURN APPT [CUSTOM: IP355] Order #: [id number]: [id number] Priority: Routine Class: Nursing Unit Department [...] 10/18/2023 2:20 PM EDT Office Visit Hepatology, [place] [address] [place] [address] Iban Chaidez MD [address] [place] [address] Health Maintenance Due Date Last Done Comments [...] Advance Directives occurred with: Patient Care Teams Fiction And Nonfiction Prose Writer Relationship Specialty Start Date End Date Jatinder Douglas MD [address] [place] [address] [place] [phone] PCP - General Family Medicine 11/19/16 documented as of this encounter
--- OUTSIDE RECORDS SUMMARY | 2023-09-16 22:56 | External Medical Summary ---
Author Name Unknown Address Unknown Organization K01:LABORATORY [facility] - [address] [place] [address] Laboratory Report Ordering Provider Test Date Status JENNY ALVAREZ 08/26/2023 22:27:00 Final Observation Date Value Abnormality Reference (Units ) Status Magnesium 08/26/2023 22:27:00 2.2 1.5-2.6 (m g/dL) Final Performing Location [facility] - [address] [place] [address]
--- OUTSIDE RECORDS SUMMARY | 2023-09-16 22:56 | External Medical Summary ---
Author Name Unknown Address Unknown Organization : Laboratory Report Ordering Provider Test Date Status LEIWS LYNN 08/29/2023 02:59:58 Final Observation Date Value Abnormality Reference (Units ) Status Glucose Point of Care 08/29/2023 02:59:58 120 70-120 (mg/dL) Final Performing Location
--- OUTSIDE RECORDS SUMMARY | 2023-09-16 22:56 | External Medical Summary ---
Author Name Unknown Address Unknown Organization K01:LABORATORY [facility] - [facility] [address] [facility] [address] [place] [address] Laboratory Report Ordering Provider Test Date Status DANIELA BARBOUR 08/28/2023 07:19:00 Final Observation Date Value Abnormality Reference (Units ) Status WBC, Total 08/28/2023 07:19:00 16.21 Above high normal 4.00-10.80 (K/uL) Final RBC 08/28/2023 07:19:00 2.56 4.50-5.25 (M/uL) Final Hemoglobin 08/28/2023 07:19:00 10.4 Below low normal 14.0-16.8 (g/dL) Final HCT 08/28/2023 07:19:00 31.3 Below low normal 40.0-48.4 (%) Final MCV 08/28/2023 07:19:00 122.3 82.0-99.5 (fL) Final MCH 08/28/2023 07:19:00 40.6 27.0-34.0 (pg) Final MCHC 08/28/2023 07:19:00 33.2 32.0-36.0 (g/dL) Final RDW 08/28/2023 07:19:00 16.2 11.5-15.5 (%) Final Platelets 08/28/2023 07:19:00 140 140-400 (K/uL) Final MPV 08/28/2023 07:19:00 10.4 6.6-11.1 (fL) Final Nucleated erythrocytes/100 leukocytes [Ratio] in Blood by Automated count 08/28/2023 07:19:00 0 <=0 (/100 WBCs) Final Performing Location LABORATORY [facility] - [address] [place] [address]
--- OUTSIDE RECORDS SUMMARY | 2023-09-16 22:56 | External Medical Summary ---
Author Name Unknown Address Unknown Organization K01:LABORATORY [facility] - [address] [place] [address] Laboratory Report Ordering Provider Test Date Status DANIELA BARBOUR 08/27/2023 09:34:00 Final No anaerobic bottle received . Observation Date Value Abnormality Reference (Units ) Status Bacteria identified in Specimen by Culture 08/27/2023 09:34:00 No growth Final Test: Culture, Blood (Site 2 )
Specimen Source: Blood, Venous
Specimen Type: Blood
Specimen Date: 08/27/2023 9:34 AM
Result Date: 09/01/2023 11:01 AM
Result Status: Final result
Resulting Lab: LABORATORY [facility]
[address] [place] [address]

CULTURE

No growth

No anaerobic bottle received.

null Performing Location LABORATORY [facility] - [address] [facility] [address]
--- OUTSIDE RECORDS SUMMARY | 2023-09-16 22:56 | External Medical Summary ---
Author Name Unknown Address Unknown Organization K01:LAB[facility]ATORY [facility] - [address] [place] [address] Laboratory Report Ordering Provider Test Date Status JENNY ALVAREZ 08/26/2023 22:27:00 Final Observation Date Value Abnormality Reference (Units ) Status Phosphate 08/26/2023 22:27:00 1.8 Below low normal 2.5 -4.8 (mg/dL) Final Performing Location [facility] - [address] [facility] [address]
--- OUTSIDE RECORDS SUMMARY | 2023-09-16 22:56 | External Medical Summary ---
Author Name Unknown Address Unknown Organization K01:LABORATORY [facility] - [facility] [address] [facility] [address] [place] [address] Laboratory Report Ordering Provider Test Date Status RAEGAN CESAR 08/28/2023 07:19:00 Final Observation Date Value Abnormality Reference (Units ) Status BUN 08/28/2023 07:19:00 11 6-20 (mg/d L) Final Creatinine 08/28/2023 07:19:00 0.5 Below low normal 0. 6-1.2 (mg/dL) Final Result may be falsely decrea sed due to icterus. Glomerular filtration rate/1 .73 sq M.predicted [Volume Rate/Area] in Serum, Plasma or Blood by Creatinine-based formula (CKD-EPI) 08/28/2023 07:19:00 >90 >=60 (mL/min) Final eGFR is calculated based on the CKD-EPI 2020 equation SODIUM 08/28/2023 07:19:00 140 135-146 (m mol/L) Final Potassium 08/28/2023 07:19:00 3.9 3.5-5.1 (m mol/L) Final Cl 08/28/2023 07:19:00 112 Above high normal 98 -107 (mmol/L) Final CO2 08/28/2023 07:19:00 17 Below low normal 22- 32 (mmol/L) Final Anion gap 08/28/2023 07:19:00 11 7-15 (mmol /L) Final Glucose 08/28/2023 07:19:00 113 70-120 (mg /dL) Final Calcium 08/28/2023 07:19:00 8.2 Below low normal 8.4 -10.2 (mg/dL) Final Performing Location LABORATORY [facility] - [address] [place] [address]
--- OUTSIDE RECORDS SUMMARY | 2023-09-16 22:56 | External Medical Summary ---
Author Name Unknown Address Unknown Organization K01:[facility] [place] [address] [place] [address] Laboratory Report Ordering Provider Test Date Status DANIELA BARBOUR 08/27/2023 09:34:00 Final Warfarin Therapy
INR: 2 .0-3.0 conventional anticoagulation
INR: 2.5- 3.5 high intensity anticoagulation Observation Date Value Abnormality Reference (Units ) Status PT 08/27/2023 09:34:00 19.8 Above high normal 11 .6-15.2 (seconds) Final INR 08/27/2023 09:34:00 1.7 Above high normal 0. 8-1.2 Final Performing Location [facility] [place] [address] [place] [address]
--- OUTSIDE RECORDS SUMMARY | 2023-09-16 22:56 | External Medical Summary | Summary of Care ---
Author Name Unknown Organization [facility] Address [address] [facility] [address] Phone [phone] Care Team Providers Care Underwriting Consultant Name Role Phone Jatinder Douglas MD Primary Care Provider Reason for Visit * Reason Onset Date Comments Hospital Follow-Up 08/30/2023 [facility] 1 wk pcp f/u needed. No appt avail. Please assist patient with scheduling. Thank you. Encounter Details Date Type Department Care Team (Late st Contact Info) Description 08/30/2023 Telephone Family [address] [address] Jatinder Douglas MD [address] [place] [address] [place] [address] Hospital Follow-Up ([facility] 08/29/23 1 wk p... Allergies No [...] Fink KHURRAM - 08/30/2023 6:06 AM EST [facility] 08/29/23 1 wk pcp f/u needed. No appt avail. Please assist patient with scheduling. Thank you. Jimmy Yu 08/26/2023 9:22 PM Admission Description: 37 year old male Department: 5 [facility] Message Patient Name: JIMMY YU([id number]) Sex: Male : 1985 PCP: JATINDER DOUGLAS Center: [facility] Types of orders made on 08/29/2023: Communication, IP Discharge, IP Post Discharge , Lab, Medications, Point of Care Testing - Unsolicited Res ults Order Date:08/29/2023 Ordering User:MARILOU DODSON [[id number]] Attending Provider:Piedad Mancia MD [[id number]] Authorizing Provider: Marilou Dodson DO [[id number]] Department:AP5 [facility][[id number]] Order Specific Information Order: RETURN APPT [CUSTOM: IP355] Order #: [id number]: [id number] Priority: Routine Class: Nursing Unit Department [...] 10/18/2023 2:20 PM EDT Office Visit Hepatology, [place] [address] [place] [address] Iban Chaidez MD [address] [place] [address] Health Maintenance Due Date Last Done Comments [...] Advance Directives occurred with: Patient Care Teams Underwriting Consultant Relationship Specialty Start Date End Date Jatinder Douglas MD [address] [place] [address] [place] [phone] PCP - General Family Medicine 11/19/16 documented as of this encounter
--- OUTSIDE RECORDS SUMMARY | 2023-09-16 22:56 | External Medical Summary ---
Author Name Unknown Address Unknown Organization K01:LABORATORY [facility] [facility] - [address] [place] [address] Laboratory Report Ordering Provider Test Date Status RAEGAN CESAR 08/28/2023 07:19:00 Final Warfarin Therapy
INR: 2 .0-3.0 conventional anticoagulation
INR: 2.5- 3.5 high intensity anticoagulation Observation Date Value Abnormality Reference (Units ) Status PT 08/28/2023 07:19:00 20.9 Above high normal 11 .6-15.2 (seconds) Final INR 08/28/2023 07:19:00 1.8 Above high normal 0. 8-1.2 Final Performing Location LAB[facility]ATORY [facility] - [address] [place] [address]
--- OUTSIDE RECORDS SUMMARY | 2023-09-16 22:56 | External Medical Summary ---
Author Name Unknown Address Unknown Organization K01:LABORATORY [facility] [place] - [address] [place] [address] Laboratory Report Ordering Provider Test Date Status JENNY ALVAREZ 08/26/2023 22:27:00 Final Warfarin Therapy
INR: 2 .0-3.0 conventional anticoagulation
INR: 2.5- 3.5 high intensity anticoagulation Observation Date Value Abnormality Reference (Units ) Status PT 08/26/2023 22:27:00 20.8 Above high normal 11 .6-15.2 (seconds) Final INR 08/26/2023 22:27:00 1.8 Above high normal 0. 8-1.2 Final Performing Location LABORATORY [facility] [place] - [address] [place] [address]
--- OUTSIDE RECORDS SUMMARY | 2023-09-16 22:57 | External Medical Summary | Summary of Care ---
Author Name Unknown Organization [facility] Address [address] [facility] [place] [address] Phone [phone] Care Team Providers Care Nuclear Physician Name Role Phone Jatinder Low MD Primary Care Provider Reason for Visit * Reason Onset Date Comments Hospital Follow-Up 08/25/2023 [place] [facility] 2 nd attempt, na needs hospital follow up appointment made Encounter Details Date Type Department Care Team (Late st Contact Info) Description 08/25/2023 Telephone Ancillary [address] [place] [address] Marylu Galo, EULOGIO Hospital Follow-Up ([place] for [facility] 2nd attemp... Allergies No known active allergiesdocumented as of this encounter (statuses as of 08/26/2023) Medications Medication Sig Dispensed Refills Start Date End Date Status Pantoprazole Sodium 40 MG Oral Tablet Delayed Release (Protonix)Indication s:Gastroesophageal reflux disease without esophagitis,Epigastr ic pain Take 1 Tablet by mouth in [...] 25, 2023. 30 Tablet 0 08/25/2023 Active Lactulose 20 GM/30ML Oral Solution (Constulose) Take 30 mL by mouth 3 times daily (morning, noon, before bedtime). 240 mL 12 08/24/2023 Active prednisoLONE Sodium Phosphate 15 MG/5ML Oral Solution (Orapred) Take 13.3 mL by mouth daily in the morning for 21 days. 279.3 mL 0 08/25/2023 2023 Active Phos-NaK 280-160-250 MG Oral Packet (potassium and sodium phosphate) Take 1 Packet by mouth in the morning and 1 Packet at noon and 1 Packet before bedtime. Do all this for 3 days. Mix as directed. 9 Packet 0 08/24/2023 08/27/2023 Active documented as of this encounter (statuses as of 08/26/2023) Active Problems Problem Noted Date Diagnosed Date [...] as of this encounter (statuses as of 08/26/2023) Resolved Problems Problem Noted Date Diagnosed Date Resolved Date Dizziness 02/24/2023 08/24/2023 Routine child health exam 04/18/2002 documented as of this encounter (statuses as of 08/26/2023) Immunizations Name Administration Dates Next Due HEP [...] (15 years old or older) No 08/20/19 Cognitive Status Response Date of Assessm ent Because of a physical, menta l, or emotional condition, do you have serious difficulty concentrating, remembering, or making decisions? (5 years old or older) No 08/20/2023 documented as of this encounter Miscellaneous Notes * Telephone Encounter - Marylu Galo RN - 08/26/2023 4:26 PM EST 2nd attempt and n/a , Per epic patient is currently admitted to [facility] again and transferred from [facility]. * Telephone Encounter - Marylu Galo RN - 08/25/2023 2:10 PM EST Transitions of Care Note Reason for Referral:Recent Admission Phone visit for follow up: [place] Admitted to: [facility], Date: 08.20.23 Discharged to: home, Date: 08.24.23 Diagnosis driving hospitalization: Acute liver failure Left message for the patient to call the office. I did speak to Dr. Sigala first available hospital discharge is 09/[address] Brewer. Patient will need to establish with a new provider since Jatinder Low MD retired Marylu Galo RN documented in this encounter Plan of Treatment Health Maintenance Due Date Last Done Comments COVID-19 Vaccine (#1) 03/15/1985 Albumin/Creatinine Ratio 2002 Hepatitis C Screening 2002 Depression Screening 06/10/2021 06/10/2020 Influenza Vaccine (FLU shot) (#1) 2023 05/28/2022, 04/29/2020, 04/27/2019 GFR 08/24/2024 08/24/2023, 08/08, 08/22/2023, Additional history exists DTaP,Tdap,and Td Vaccines (3 [...] Advance Directives occurred with: Patient Care Teams Nuclear Physician Relationship Specialty Start Date End Date Jatinder Low MD [address] [place] [address] [place] [address] PCP - General Family Medicine 11/19/16 documented as of this encounter
--- OUTSIDE RECORDS SUMMARY | 2023-09-16 22:57 | External Medical Summary | Summary of Care ---
Author Name Unknown Organization [facility] Address [address] [facility] [place] [address] Phone [phone] Care Team Providers Care Sales Professional Bilingual Name Role Phone Jatinder Low MD Primary Care Provider Reason for Visit * Reason Onset Date Comments Hospital Follow-Up 08/25/2023 [place] for [facility] 2 nd attempt, na needs hospital follow up appointment made Encounter Details Date Type Department Care Team (Late st Contact Info) Description 08/25/2023 Telephone Ancillary [address] [place] [address] Marylu Galo, EULOGIO Hospital Follow-Up ([place] for [facility] 2nd attemp... Allergies No known active allergiesdocumented [...] Per epic patient is currently admitted to [facility] again and transferred from [facility]. * Telephone Encounter - Marylu Galo RN - 08/25/2023 2:10 PM EST Transitions of Care Note Reason for Referral:Recent Admission Phone visit for follow up: tigre Admitted to: [facility], Date: 08.20.23 Discharged to: home, Date: 08.24.23 [...] Directives occurred with: Patient Care Teams Sales Professional Bilingual Relationship Specialty Start Date End Date Jatinder Low MD [address] [place] [address] [place] [phone] PCP - General Family Medicine 11/19/16 documented as of this encounter
[2023-09-16 23:42] LABS: iSTAT Creatinine 1.6 mg/dl (0.6-1.3); iSTAT Hemoglobin 12.2 g/dl (14.0-18.0); iSTAT Ionized Calcium 1.03 mmol/l (1.12-1.32); iSTAT Potassium 2.9 mmol/L (3.3-5.0)
[2023-09-17] MEDS ORDERED: LACTULOSE SCH (00:16)
[2023-09-17] MEDS: MAGNESIUM SULFATE / D5W 1 GM/100 ML BAG IV ONE (00:55)
[2023-09-17 01:02] LABS: Base Excess VBG -3.6 mEq/L; HCO3 VBG 20 mmol/L; Oxygen Saturation VBG < 60.0 %; PCO2 VBG 33 mmHg (38-50); PO2 VBG 29 mmHg
[2023-09-17 01:32] LABS: Troponin I High Sensitivity 24.6 pg/ml (0-20)
--- OUTSIDE RECORDS SUMMARY | 2023-09-17 01:32 | External Medical Summary | Summary of Care ---
Author Name Unknown Organization [facility] Address [address] [facility] [place] [address] Phone [phone] Care Team Providers Care Director Of Philanthropy Name Role Phone Radha Sigala MD Primary Care Provide r Reason for Visit * Reason Comments Acute Encounter Details Date Type Department Care Team (Late st Contact Info) Description 09/16/2023 2:30 PM EST Office Visit Family Medicine [address] [place] [phone] [place] [address] [place] [phone] Confusion*; Shortness of breath Allergies No known active allergiesdocumented as of this encounter (statuses as of 09/16/2023) Medications Medication Sig Dispensed Refills Start Date [...] as of this encounter (statuses as of 09/16/2023) Active Problems Problem Noted Date Diagnosed Date [...] as of this encounter (statuses as of 09/16/2023) Resolved Problems Problem Noted Date Diagnosed Date Resolved Date Dizziness 02/24/2023 08/24/2023 Routine child health exam 04/18/2002 documented as of this encounter (statuses as of 09/16/2023) Immunizations Name Administration Dates Next Due Seasonal [...] Sign Reading Time Taken Comments Blood Pressure 106/78 09/16/2023 2:32 PM EST Pulse 110 09/16/2023 2:32 PM EST Temperature - - Respiratory Rate - - Oxygen Saturation 97% 09/16/2023 2:32 PM EST Inhaled Oxygen Concentration - - Weight - - Height - - Body Mass Index - - documented in this encounter Functional Status Functional [...] Yes 08/26/2023 documented as of this encounter Nursing Notes * Lou Bales CMA - 09/16/2023 2:33 PM EST He has been disoriented per his roommate who is with him. She states that he has urinated in several places other than the toilet in the home. She is concerned he is dehydrated. The patient himself is not talking much and seems weak. documented in this encounter Plan of Treatment Upcoming Encounters Date Type Department Care Team (Late st Contact Info) Description 10/18/2023 2:20 PM EDT Office Visit Hepatology, [place] [address] [place] [address] Iban Chaidez MD [address] [place] [address] 10/20/2023 8:20 AM EDT Office Visit Family Medicine [address] [place] [address] [place] [address] [place] [address] Health Maintenance Due Date Last Done Comments [...] as of this encounter Visit Diagnoses Diagnosis Confusion- Primary Unspecified psychosis Shortness of breath documented in this encounter Advance Directives Latest [...] occurred with: Patient Care Teams Director Of Philanthropy Relationship Specialty Start Date End Date Radha Sigala MD [address] [place] [address] [place] [phone] PCP - General Family Medicine 08/31/23 documented as of this encounter
[2023-09-17] MEDS: ALBUMIN 25% 25 GM/100 ML VIAL IV SCH ×2 (03:03→10:05)
[2023-09-17] MEDS: rifAXIMin 550 MG TABLET PO SCH (03:04)
[2023-09-17 07:34] LABS: Estimated Average Glucose 85 mg/dl; Hemoglobin A1C 4.6 % (4.5-5.6)
--- NOTE | 2023-09-17 07:40 | Hospitalist Progress Note ---
Date of Service September 17, 2023 Assessment & Plan (1) Severe sepsis with lactic acidosis: (2) Hepatic failure: (3) Hypokalemia: (4) Acute hyponatremia: (5) Alcohol abuse: (6) Hx of intravenous drug use, in remission: (7) GERD (gastroesophageal reflux disease): Plan Mr. Yu is a 37 year old male with PMhx significant for second-degree AV block type I (Wenckebach), atrial septal aneurysm, HCV status post Rx, chronic pain/Hx of IVDU weaned off of suboxone, GERD, ongoing alcohol/tobacco abuse and liver failure awaiting transplant admitted with possible SBP. Pt was recently admitted 08/18-08/20 for severe sepsis and was transferred to [facility] where he was treated for alcoholic hepatitis with ascites. Today he presents with generalized fatigue and weakness. He reports feeling dizzy as well. Since his hospitalization the only medication changes include a new prescription for prednisone and Lasix and he has been in the process of lowering his lactulose due to increased bowel movements. He started taking his Lasix on Tuesday this week and reports that he has been urinating very infrequently. Reports smoking 3 cigarettes/day, has abstained from alcohol for the last month and a half and his last IV drug use was 1 year ago. Severe sepsis: Spontaneous Bacterial Peritonitis Leukocytosis 25.23, tachycardic on admission, hypothermic lactate 4.8, improved to normal limits after fluid resuscitation UA positive for nitrites, order placed for urine Cx Blood cultures x 2 pending Chest XR unremarkable Abdomen/Pelvis CT: Ascites, wall thickening of small bowel, concerning for enter itis versus spontaneous bacterial peritonitis Ishmael pedraza placed in ER Ceftriaxone started in ED; continue with cefepime. WBC currently wnl GI Consultation placed-appreciate recs -symptoms likely related to SBP -manage ascites outpt with diuretics, fluid and sodium restriction Reportedly in the ER, ascites was minimal and could not be tapped/sampled/ For SBP prophylaxis, consider discontinuing use of ppi, antibiotics Alcoholic Hepatitis: Alcoholic Cirrhosis: Hx of alcohol abuse Secondary to alcohol use Recent admission transferred to [facility] treated for alcohol hepatitis MELD score 21 Ammonia level undetectable on admission; seems to be improving as pt mental status improving AST 224, ALT 168, alk phos 242- continue to trend Thiamine and folate ordered Last alcohol intake 1.5 months ago Takes Xifaxan; continue Recent decrease of Lactulose due to increased BM's, continue Completed steroid treatment for alcoholic hepatitis treatment Elevated Trop Troponin 18.9 to >24, trend until downtrending EKG with sinus tach Doubt ACS Electrolyte abnormalities: Hypokalemia: Hyponatremia: Serum potassium 2.9; replete as needed Serum sodium 130; cautious correction Mag 1.6: replete as needed Anemia Hgb downtrending Noted MCV suggesting macrocytosis AM folate and b12 ordered Also Iron panel and ferritin Replete as needed History of IV drug abuse: Chronic Was weaned off of Suboxone over the last few months Stable Tobacco use: Smokes 3 cigarettes per day Continue Nicotine patch Encourage cessation DVT prophylaxis: Chemical deferred in setting of thrombocytopenia/coagulopathy. SCDs Diet: Low sodium/fluid restriction 1500ml CODE STATUS: Full code Dispo: Home on discharge, PT/OT Next of kin Ros[place], not legal POA: [phone]; technically not his legal power of defense attorney. Discussed on admission and patient has a living father who he is estranged from and a 17-year-old daughter. Goal is to have Rafael Lancaster visit them during this admission for completed decision-maker paperwork. Admission and Anticipated Discharge Date Admission Date: September 16, 2023 Subjective Pt was seen in the AM. States that he is feeling better. Notes that he was weaned off of subutex while in [place]. Review of Systems Review of Systems: All systems reviewed & are unremarkable except as noted in Subjective Physical Exam Physical Exam: General: Alert, oriented. Skin: Jaundiced Psych: Appropriate mood and affect Neuro: Difficulty with movements in the bed HEENT: NC/AT Chest: Nontender to palpation. CV: RRR Resp: Breath sounds clear bilaterally, no increased effort of breathing. Abdomen: Soft, mildly tender Extremities: edema in lower extremities bilaterally. Results & Data Results & Data Vital Signs (Past 12 Hours) Vital Signs Temp Pulse Pulse Resp BP BP Pulse Ox 09/17/23 03:30 36.3 C L 84 18 140/89 99 09/17/23 00:30 09/17/23 00:23 92 H 09/17/23 00:16 09/17/23 00:15 36.3 C L 16 96 09/17/23 00:00 09/16/23 23:56 110/78 09/16/23 21:20 88 15 99 09/16/23 21:10 79 13 98 09/16/23 21:00 78 19 99 09/16/23 20:50 77 16 100 09/16/23 20:43 84 09/16/23 20:40 76 17 100 09/16/23 20:30 81 21 100 09/16/23 20:20 78 17 100 09/16/23 20:12 36.6 C 09/16/23 20:10 82 22 100 09/16/23 20:00 94 H 12 100 09/16/23 19:59 98 09/16/23 19:54 88 20 Pulse Ox O2 Del Method O2 Del Method 09/17/23 03:30 Room Air 09/17/23 00:30 Room Air 09/17/23 00:23 09/17/23 00:16 96 Room Air 09/17/23 00:15 Room Air 09/17/23 00:00 Room Air 09/16/23 23:56 09/16/23 21:20 09/16/23 21:10 09/16/23 21:00 09/16/23 20:50 09/16/23 20:43 09/16/23 20:40 09/16/23 20:30 09/16/23 20:20 09/16/23 20:12 09/16/23 20:10 09/16/23 20:00 09/16/23 19:59 Room Air 09/16/23 19:54
[2023-09-17 08:12] LABS: Albumin Globulin Ratio 2.2 (0.9-2); Albumin Level 3.5 gm/dl (3.4-5.0); BUN Creatinine Ratio 20.4 (10-20); Creatinine Clr Calc Pharmacy 78.9 ml/min; Est GFR (African American) 68.7 ml/min; Est GFR (Non-African American) 59.2 ml/min; Globulin 1.6 gm/dl (2.5-4.0); Potassium 2.8 mmol/L (3.5-5.1); Total Protein 5.1 gm/dl (6.0-8.3)
[2023-09-17] MEDS: THIAMINE HCL 100 MG TAB PO SCH (08:27)
[2023-09-17] MEDS: FOLIC ACID 1 MG TAB PO SCH (08:27)
[2023-09-17] MEDS: PANTOprazole 40 MG TAB PO SCH (08:28)
[2023-09-17] MEDS: LACTULOSE SYRUP 30 GM/45 ML UDP PO SCH (08:28)
[2023-09-17 08:31] LABS: Prothrombin Time 20.6 Seconds (9.0-12.0)
[2023-09-17 09:11] LABS: Hematocrit (blood only) 24.4 % (42.0-52.0); Hemoglobin 8.4 g/dl (14.0-18.0); Mean Corpuscular Hemoglobin 36.8 pg (25.0-34.0); Mean Corpuscular Hgb Conc 34.4 g/dL (32.0-36.0); Mean Platelet Volume 11.6 fL (9.4-12.4); Platelet Count 55 K/uL (130-400); RDW Coefficient of Variation 13.2 % (11.5-14.5); RDW Standard Deviation 52.5 fL (36.4-46.3); Red Blood Count 2.28 M/uL (4.70-6.10); White Blood Count 9.34 K/ul (4.8-10.8)
[2023-09-17 09:24] LABS: Basophils # (auto) 0.02 K/uL (0.00-0.20); Basophils % (auto) 0.2 %; Eosinophils # (auto) 0.07 K/uL (0.00-0.50); Eosinophils % (auto) 0.7 %; Immature Granulocytes # (auto) 0.11 K/uL (0.01-0.20); Immature Granulocytes % (auto) 1.2 %; Lymphocytes % (auto) 7.5 %; Macrocytosis Present; Monocytes # (auto) 0.49 K/uL (0.11-0.59); Monocytes % (auto) 5.2 %; Neutrophils # (auto) 7.95 K/uL (1.40-6.50); Neutrophils % (auto) 85.2 %; Platelet Estimate Decreased (Normal); Polychromasia 1+; Target Cells 1+; Tear Drop Cells 1+
[2023-09-17] MEDS: POTASSIUM CHLORIDE CRTAB 20 MEQ TABCR PO STA (10:03)
[2023-09-17] MEDS: POTASSIUM CHLORIDE / WTR 10 MEQ/100 ML PLCT IV SCH (10:04)
[2023-09-17] MEDS: CEFEPIME 2,000 MG in SYRINGE 0 ML IV SCH (10:05)
[2023-09-17] MEDS: CEROVITE ADV FORMULA TAB PO SCH (10:06)
--- NOTE | 2023-09-17 10:36 | Gastroenterology Progress Note ---
Date of Service September 17, 2023 Assessment & Plan Admission and Anticipated Discharge Date Admission Date: September 16, 2023 Subjective Apparently still seeing dark stools. H/H corrected to 7.7 overnight with three units transfusion. According to hospitalist he is still orthostatic. Patient says he feels fine. Results & Data Vital Signs (Past 12 Hours) Vital Signs Temp Pulse Pulse Resp BP BP Pulse Ox 09/17/23 08:00 09/17/23 07:40 36.6 C 87 17 118/78 98 09/17/23 03:30 36.3 C L 84 18 140/89 99 09/17/23 00:30 09/17/23 00:23 92 H 09/17/23 00:16 09/17/23 00:15 36.3 C L 16 96 09/17/23 00:00 09/16/23 23:56 110/78 Pulse Ox O2 Del Method O2 Del Method 09/17/23 08:00 Room Air 09/17/23 07:40 Room Air 09/17/23 03:30 Room Air 09/17/23 00:30 Room Air 09/17/23 00:23 09/17/23 00:16 96 Room Air 09/17/23 00:15 Room Air 09/17/23 00:00 Room Air 09/16/23 23:56 Laboratory Results 09/17/23 09/17/23 09/17/23 Range/Units 08:23 07:20 07:13 WBC 9.34 D Cancelled (4.8-10.8) K/ul RBC 2.28 L Cancelled (4.70-6.10) M/uL Hgb 8.4 L D Cancelled (14.0-18.0) g/dl POC Hgb (14.0-18.0) g/dl Hct 24.4 L Cancelled (42.0-52.0) % POC Hct (42-52) % MCV 107.0 H Cancelled (80.0-100.0) fL MCH 36.8 H Cancelled (25.0-34.0) pg MCHC 34.4 Cancelled (32.0-36.0) g/dL RDW Std Deviation 52.5 H Cancelled (36.4-46.3) fL RDW Coeff of Danny 13.2 Cancelled (11.5-14.5) % Plt Count 55 L D Cancelled (130-400) K/uL MPV 11.6 Cancelled (9.4-12.4) fL Immature Gran % (Auto) 1.2 Cancelled % Neut % (Auto) 85.2 Cancelled % Lymph % (Auto) 7.5 Cancelled % [place] % (Auto) 5.2 Cancelled % Eos % (Auto) 0.7 Cancelled % Baso % (Auto) 0.2 Cancelled % Neut # (Auto) 7.95 H Cancelled (1.40-6.50) K/uL Lymph # (Auto) 0.70 L Cancelled (1.20-3.40) K/uL [place] # (Auto) 0.49 Cancelled (0.11-0.59) K/uL Eos # (Auto) 0.07 Cancelled (0.00-0.50) K/uL Baso # (Auto) 0.02 Cancelled (0.00-0.20) K/uL Immature Gran # (Auto) 0.11 Cancelled (0.01-0.20) K/uL Absolute Nucleated RBC Cancelled Nucleated RBC % (auto) Cancelled Neutrophils % (Manual) Cancelled Band Neutrophils % Cancelled Lymphocytes % (Manual) Cancelled Prolymphocyte % Cancelled Reactive Lymphs % (Man) Cancelled Monocytes % (Manual) Cancelled Eosinophils % (Manual) Cancelled Basophils % (Manual) Cancelled Metamyelocytes % (Man) Cancelled Myelocytes % (Man) Cancelled Promyelocytes % (Man) Cancelled Blast Cells % (Manual) Cancelled Plasma Cell % (Manual) Cancelled Other Cells % Cancelled Nucleated RBC % Cancelled Neutrophils # (Manual) Cancelled Band Neutrophils # Cancelled Total Absolute Neuts Cancelled Lymphocytes # (Manual) Cancelled Prolymphocyte # Cancelled Reactive Lymphs # Cancelled Total Abs Lymphocytes Cancelled Monocytes # (Manual) Cancelled Eosinophils # (Manual) Cancelled Basophils # (Manual) Cancelled Metamyelocytes # (Man) Cancelled Myelocytes # (Manual) Cancelled Promyelocytes # (Man) Cancelled Blast Cells # (Man) Cancelled Plasma Cell # (Manual) Cancelled Other Cells # Cancelled Nucleated RBCs # (Man) Cancelled Hypersegmented Neuts Cancelled Hyposegmented Neuts Cancelled Hypogranular Neuts Cancelled Large Granular Lymphs Cancelled # Lrg Granular Lymphs Cancelled Hairy Cells Cancelled Smudge Cells Cancelled Toxic Granulation Cancelled Toxic Vacuolation Cancelled Dohle Bodies Cancelled Carlos Rods Cancelled Platelet Estimate Decreased L Cancelled Hypogranular Platelets Cancelled Giant Platelets Cancelled Platelet Satelliting Cancelled RBC Morphology Cancelled Polychromasia 1+ Cancelled Hypochromasia Cancelled Poikilocytosis Cancelled Basophilic Stippling Cancelled Anisocytosis Cancelled Microcytosis Cancelled Macrocytosis Present Cancelled Spherocytes Cancelled Pappenheimer Bodies Cancelled Sickle Cells Cancelled Target Cells 1+ Cancelled Tear Drop Cells 1+ Cancelled Ovalocytes Cancelled Stomatocytes Cancelled [place] Bodies Cancelled Echinocytes Cancelled Acanthocytes (Spur) Cancelled Rouleaux Cancelled RBC Agglutinates Cancelled Schistocytes Cancelled Sezary Cell Cancelled PT 20.6 H (9.0-12.0) Seconds INR 2.0 H (0.9-1.1) VBG pH (7.36-7.41) VBG pCO2 (38-50) mmHg VBG pO2 mmHg VBG HCO3 mmol/L VBG O2 Saturation % VBG Base Excess mEq/L POC Sodium (135-144) mmol/L Sodium 133 L (136-145) mmol/L POC Potassium (3.3-5.0) mmol/L Potassium 2.8 L (3.5-5.1) mmol/L POC Chloride (101-112) mmol/L Chloride 100 (98-107) mmol/L Carbon Dioxide 21 (21-32) mmol/L POC Total CO2 (24-31) mmol/L Anion Gap 12 H (3-11) POC Anion Gap (16-25) mmol/L POC BUN (7-18) mg/dl BUN 30 H Creatinine 1.47 H POC Creatinine (0.6-1.3) mg/dl Est Cr Clr Drug Dosing 78.9 Est GFR ( Amer) 68.7 Est GFR (Non-Af Amer) 59.2 BUN/Creatinine Ratio 20.4 H Glucose 125 H (70-99(Fasting)) mg/dl POC Glucose (other) (70-99) mg/dl Estimat Average Glucose mg/dl Hemoglobin A1c (4.5-5.6) % Osmolality (280-300) mOsm/kg Lactate 2.0 (0.4-2.0) mmol/L Calcium 8.0 L (8.6-10.3) mg/dl POC Ioniz Calcium Margarita (1.12-1.32) mmol/l Magnesium (1.7-2.4) mg/dl Total Bilirubin 18.0 H (0.2-1.0) mg/dl AST 128 H (13-39) U/L ALT 99 H (7-52) U/L Alkaline Phosphatase 139 H (34-104) U/L Ammonia 93.0 H Troponin I High Sens (0-20) pg/ml Total Protein 5.1 L (6.0-8.3) gm/dl Albumin 3.5 (3.4-5.0) gm/dl Globulin 1.6 L (2.5-4.0) gm/dl Albumin/Globulin Ratio 2.2 H (0.9-2) TSH (0.300-4.500) uIu/ml Urine Color Urine Appearance (Clear) Urine pH (4.5-7.5) Ur Specific [place] (1.000-1.030) Urine Protein (Negative) Urine Glucose (UA) (Negative) Urine Ketones (Negative) Urine Blood (Negative) Urine Nitrite (Negative) Urine Bilirubin (Negative) Urine Urobilinogen (Negative) Ur Leukocyte Esterase (Negative) Urine WBC (Auto) (0-5) /hpf Urine RBC (Auto) (0-4) /hpf U Hyaline Cast (Auto) (0-5) /lpf U Epithel Cells (Auto) (0-5) /lpf Urine Bacteria (Auto) (Negative) Blood Parasites ID Cancelled Miscellaneous Test 09/17/23 09/16/23 09/16/23 Range/Units 00:44 22:46 19:02 WBC (4.8-10.8) K/ul RBC (4.70-6.10) M/uL Hgb (14.0-18.0) g/dl POC Hgb 12.2 L (14.0-18.0) g/dl Hct (42.0-52.0) % POC Hct 36 L (42-52) % MCV (80.0-100.0) fL MCH (25.0-34.0) pg MCHC (32.0-36.0) g/dL RDW Std Deviation (36.4-46.3) fL RDW Coeff of Danny (11.5-14.5) % Plt Count (130-400) K/uL MPV (9.4-12.4) fL Immature Gran % (Auto) % Neut % (Auto) % Lymph % (Auto) % [place] % (Auto) % Eos % (Auto) % Baso % (Auto) % Neut # (Auto) (1.40-6.50) K/uL Lymph # (Auto) (1.20-3.40) K/uL [place] # (Auto) (0.11-0.59) K/uL Eos # (Auto) (0.00-0.50) K/uL Baso # (Auto) (0.00-0.20) K/uL Immature Gran # (Auto) (0.01-0.20) K/uL Absolute Nucleated RBC Nucleated RBC % (auto) Neutrophils % (Manual) Band Neutrophils % Lymphocytes % (Manual) Prolymphocyte % Reactive Lymphs % (Man) Monocytes % (Manual) Eosinophils % (Manual) Basophils % (Manual) Metamyelocytes % (Man) Myelocytes % (Man) Promyelocytes % (Man) Blast Cells % (Manual) Plasma Cell % (Manual) Other Cells % Nucleated RBC % Neutrophils # (Manual) Band Neutrophils # Total Absolute Neuts Lymphocytes # (Manual) Prolymphocyte # Reactive Lymphs # Total Abs Lymphocytes Monocytes # (Manual) Eosinophils # (Manual) Basophils # (Manual) Metamyelocytes # (Man) Myelocytes # (Manual) Promyelocytes # (Man) Blast Cells # (Man) Plasma Cell # (Manual) Other Cells # Nucleated RBCs # (Man) Hypersegmented Neuts Hyposegmented Neuts Hypogranular Neuts Large Granular Lymphs # Lrg Granular Lymphs Hairy Cells Smudge Cells Toxic Granulation Toxic Vacuolation Dohle Bodies Carlos Rods Platelet Estimate Hypogranular Platelets Giant Platelets Platelet Satelliting RBC Morphology Polychromasia Hypochromasia Poikilocytosis Basophilic Stippling Anisocytosis Microcytosis Macrocytosis Spherocytes Pappenheimer Bodies Sickle Cells Target Cells Tear Drop Cells Ovalocytes Stomatocytes [place] Bodies Echinocytes Acanthocytes (Spur) Rouleaux RBC Agglutinates Schistocytes Sezary Cell PT (9.0-12.0) Seconds INR (0.9-1.1) VBG pH 7.40 (7.36-7.41) VBG pCO2 33 L (38-50) mmHg VBG pO2 29 mmHg VBG HCO3 20 mmol/L VBG O2 Saturation < 60.0 % VBG Base Excess -3.6 mEq/L POC Sodium 133 L (135-144) mmol/L Sodium 132 L (136-145) mmol/L POC Potassium 2.9 L (3.3-5.0) mmol/L Potassium (3.5-5.1) mmol/L POC Chloride 99 L (101-112) mmol/L Chloride (98-107) mmol/L Carbon Dioxide (21-32) mmol/L POC Total CO2 18 L (24-31) mmol/L Anion Gap (3-11) POC Anion Gap 20.0 (16-25) mmol/L POC BUN 28 H (7-18) mg/dl BUN Creatinine POC Creatinine 1.6 H (0.6-1.3) mg/dl Est Cr Clr Drug Dosing Est GFR ( Amer) Est GFR (Non-Af Amer) BUN/Creatinine Ratio Glucose (70-99(Fasting)) mg/dl POC Glucose (other) 148 H (70-99) mg/dl Estimat Average Glucose mg/dl Hemoglobin A1c (4.5-5.6) % Osmolality (280-300) mOsm/kg Lactate 3.0 H* (0.4-2.0) mmol/L Calcium (8.6-10.3) mg/dl POC Ioniz Calcium Margarita 1.03 L (1.12-1.32) mmol/l Magnesium (1.7-2.4) mg/dl Total Bilirubin (0.2-1.0) mg/dl AST (13-39) U/L ALT (7-52) U/L Alkaline Phosphatase (34-104) U/L Ammonia Troponin I High Sens 24.6 H (0-20) pg/ml Total Protein (6.0-8.3) gm/dl Albumin (3.4-5.0) gm/dl Globulin (2.5-4.0) gm/dl Albumin/Globulin Ratio (0.9-2) TSH (0.300-4.500) uIu/ml Urine Color Urine Appearance (Clear) Urine pH (4.5-7.5) Ur Specific [place] (1.000-1.030) Urine Protein (Negative) Urine Glucose (UA) (Negative) Urine Ketones (Negative) Urine Blood (Negative) Urine Nitrite (Negative) Urine Bilirubin (Negative) Urine Urobilinogen (Negative) Ur Leukocyte Esterase (Negative) Urine WBC (Auto) (0-5) /hpf Urine RBC (Auto) (0-4) /hpf U Hyaline Cast (Auto) (0-5) /lpf U Epithel Cells (Auto) (0-5) /lpf Urine Bacteria (Auto) (Negative) Blood Parasites ID Miscellaneous Test Pending 09/16/23 09/16/23 09/16/23 Range/Units 18:56 18:19 16:24 WBC 25.23 H (4.8-10.8) K/ul RBC 3.36 L (4.70-6.10) M/uL Hgb 12.6 L (14.0-18.0) g/dl POC Hgb (14.0-18.0) g/dl Hct 36.8 L (42.0-52.0) % POC Hct (42-52) % MCV 109.5 H (80.0-100.0) fL MCH 37.5 H (25.0-34.0) pg MCHC 34.2 (32.0-36.0) g/dL RDW Std Deviation 53.4 H (36.4-46.3) fL RDW Coeff of Danny 13.3 (11.5-14.5) % Plt Count 160 (130-400) K/uL MPV 11.1 (9.4-12.4) fL Immature Gran % (Auto) 2.7 % Neut % (Auto) 92.2 % Lymph % (Auto) 1.5 % [place] % (Auto) 3.1 % Eos % (Auto) 0.1 % Baso % (Auto) 0.4 % Neut # (Auto) 23.26 H (1.40-6.50) K/uL Lymph # (Auto) 0.39 L (1.20-3.40) K/uL [place] # (Auto) 0.78 H (0.11-0.59) K/uL Eos # (Auto) 0.02 (0.00-0.50) K/uL Baso # (Auto) 0.09 (0.00-0.20) K/uL Immature Gran # (Auto) 0.69 H (0.01-0.20) K/uL Absolute Nucleated RBC Nucleated RBC % (auto) Neutrophils % (Manual) Band Neutrophils % Lymphocytes % (Manual) Prolymphocyte % Reactive Lymphs % (Man) Monocytes % (Manual) Eosinophils % (Manual) Basophils % (Manual) Metamyelocytes % (Man) Myelocytes % (Man) Promyelocytes % (Man) Blast Cells % (Manual) Plasma Cell % (Manual) Other Cells % Nucleated RBC % Neutrophils # (Manual) Band Neutrophils # Total Absolute Neuts Lymphocytes # (Manual) Prolymphocyte # Reactive Lymphs # Total Abs Lymphocytes Monocytes # (Manual) Eosinophils # (Manual) Basophils # (Manual) Metamyelocytes # (Man) Myelocytes # (Manual) Promyelocytes # (Man) Blast Cells # (Man) Plasma Cell # (Manual) Other Cells # Nucleated RBCs # (Man) Hypersegmented Neuts Hyposegmented Neuts Hypogranular Neuts Large Granular Lymphs # Lrg Granular Lymphs Hairy Cells Smudge Cells Toxic Granulation Toxic Vacuolation Dohle Bodies Carlos Rods Platelet Estimate Hypogranular Platelets Giant Platelets Platelet Satelliting RBC Morphology Polychromasia 1+ Hypochromasia Poikilocytosis Basophilic Stippling Anisocytosis Microcytosis Macrocytosis Present Spherocytes Pappenheimer Bodies Sickle Cells Target Cells Tear Drop Cells 1+ Ovalocytes Stomatocytes Marc[place] Bodies Echinocytes Acanthocytes (Spur) Rouleaux RBC Agglutinates Schistocytes Sezary Cell PT 20.4 H (9.0-12.0) Seconds INR 1.9 H (0.9-1.1) VBG pH (7.36-7.41) VBG pCO2 (38-50) mmHg VBG pO2 mmHg VBG HCO3 mmol/L VBG O2 Saturation % VBG Base Excess mEq/L POC Sodium (135-144) mmol/L Sodium 130 L (136-145) mmol/L POC Potassium (3.3-5.0) mmol/L Potassium 2.9 L (3.5-5.1) mmol/L POC Chloride (101-112) mmol/L Chloride 96 L (98-107) mmol/L Carbon Dioxide 17 L (21-32) mmol/L POC Total CO2 (24-31) mmol/L Anion Gap 17 H (3-11) POC Anion Gap (16-25) mmol/L POC BUN (7-18) mg/dl BUN TNP Creatinine TNP POC Creatinine (0.6-1.3) mg/dl Est Cr Clr Drug Dosing TNP Est GFR ( Amer) TNP Est GFR (Non-Af Amer) TNP BUN/Creatinine Ratio TNP Glucose 219 H (70-99(Fasting)) mg/dl POC Glucose (other) (70-99) mg/dl Estimat Average Glucose 85 mg/dl Hemoglobin A1c 4.6 (4.5-5.6) % Osmolality 291 (280-300) mOsm/kg Lactate 4.8 H* 6.9 H* (0.4-2.0) mmol/L Calcium 7.8 L (8.6-10.3) mg/dl POC Ioniz Calcium Margarita (1.12-1.32) mmol/l Magnesium 1.6 L (1.7-2.4) mg/dl Total Bilirubin 24.9 H (0.2-1.0) mg/dl AST 224 H (13-39) U/L ALT 168 H (7-52) U/L Alkaline Phosphatase 242 H (34-104) U/L Ammonia TNP Troponin I High Sens 18.9 (0-20) pg/ml Total Protein 5.6 L (6.0-8.3) gm/dl Albumin 2.7 L (3.4-5.0) gm/dl Globulin 2.9 (2.5-4.0) gm/dl Albumin/Globulin Ratio 0.9 (0.9-2) TSH 1.418 (0.300-4.500) uIu/ml Urine Color Dark Yellow Urine Appearance Clear (Clear) Urine pH 6.0 (4.5-7.5) Ur Specific [place] 1.016 (1.000-1.030) Urine Protein Negative (Negative) Urine Glucose (UA) Negative (Negative) Urine Ketones Negative (Negative) Urine Blood Negative (Negative) Urine Nitrite Positive A (Negative) Urine Bilirubin 3+ H (Negative) Urine Urobilinogen Negative (Negative) Ur Leukocyte Esterase Trace H (Negative) Urine WBC (Auto) 0 (0-5) /hpf Urine RBC (Auto) 0-4 (0-4) /hpf U Hyaline Cast (Auto) 10-30 H (0-5) /lpf U Epithel Cells (Auto) 0-5 (0-5) /lpf Urine Bacteria (Auto) Negative (Negative) Blood Parasites ID Miscellaneous Test
--- NOTE | 2023-09-17 11:04 | Gastrointestinal Consultation ---
Date of Consultation September 17, 2023 Assessment & Plan (1) Severe sepsis with lactic acidosis: He seems clinically to have had SBP and is responding well to treatment. I think addressing his ascites would best be done after he is over this infectious process. He doesn't seem to have a large amount of ascites and treatment is best directed towards outpatient treatment with diuretics--as he is on--and fluid and sodium restriction. It seems that he is returning to [place] for appointment and further evaluation for transplant. History of Present Illness Reason for Consultation: ascites Attending Physician: Shira Jeffery MD History of Present Illness 38 year old man with alcoholic liver disease recently in [place] for treatment and evaluation for transplant. He is on steroids for alcoholic hepatitis. He came in to the hospital because of weakness and dizziness and shortness of breath. Found to have lactic acidosis and high WBC. Overnight WBC returned to normal and acidosis is resolving. He feels better now as well. Allergies Allergy/AdvReac Type Severity Reaction Status Date / Time carvedilol AdvReac Intermediate "MADE ME Verified 09/16/23 17:49 REALLY SICK". clonidine AdvReac Intermediate "MADE ME Verified 09/16/23 17:49 REALLY SICK". Home Medications Medication Instructions Recorded Confirmed Type pantoprazole 40 mg tablet,delayed 40 mg PO QAM 05/13/20 09/16/23 History release Therapeutic-M/Lutein Tablet 1 tab PO QDL 08/26/23 09/16/23 History baclofen 10 mg tablet 10 mg PO TID 08/26/23 09/16/23 History folic acid 1 mg tablet 1 mg PO QAM 08/26/23 09/16/23 History lactulose 10 gram/15 mL oral See Rx Instructions .Route .COMPLEX 08/26/23 09/16/23 History solution (Constulose) potassium, sodium phosphates 280 1 packet PO TID 08/26/23 09/16/23 History mg-160 mg-250 mg oral powder packet (Phos-NaK) prednisolone sodium phosphate 15 0 mg PO QAM 08/26/23 09/16/23 History mg/5 mL (3 mg/mL) oral solution thiamine HCl (vitamin B1) 100 mg 100 mg PO QAM 08/26/23 09/16/23 History tablet (Vitamin B-1) furosemide 20 mg tablet 20 mg PO QAM 09/16/23 09/16/23 History ondansetron HCl 4 mg tablet 4 mg PO Q8H PRN Nausea And Vomiting 09/16/23 09/16/23 History rifaximin 550 mg tablet (Xifaxan) 550 mg PO BID 09/16/23 09/16/23 History Patient History Medical History Severe sepsis with lactic acidosis GERD (gastroesophageal reflux disease) Hx of intravenous drug use, 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[address] drugs and in remission and on program Surgical History No history of previous surgery Family History Other Family history non-contributory Social History Smoking Status: Current every day smoker Tobacco Type: Cigarettes Cigarettes Per Day: 3; Second Hand Exposure: Yes; Do You Dip or Chew Tobacco: Yes; Tobacco Cessation Education Requested by Patient: Yes Hx Alcohol Use: Yes Alcohol type: hard liquor Hx Substance Use: Yes Last Used Substance Other:: about 1 year ago, finished subutex in [facility] in august Preferred Language: Telugu Communication Ability: Effective [employer] Required: No Beliefs That Will Affect Care: None Current Living Situation: Other Current Living Situation Comment: Lives with friend Feels Safe at Home: Yes Safety Concerns: Feels Safe At This Time Assistive Devices: Walker Review of Systems Review of Systems: All systems reviewed & are unremarkable except as noted in HPI & below Physical Exam Constitutional: WD/WN, vitals as above markedly icteric Eyes: sclerae not anicteric Neck: trachea midline, no thyromegaly Respiratory: normal respiratory effort, lungs clear to auscultation Cardiovascular: RRR, no murmur, no edema Gastrointestinal (Abdomen): normal bowel sounds, soft, nontender, no hepatosplenomegaly (slight distension) Results & Data Vital Signs (Past 12 Hours) Vital Signs Temp Pulse Pulse Resp BP BP Pulse Ox 09/17/23 08:00 09/17/23 07:40 36.6 C 87 17 118/78 98 09/17/23 03:30 36.3 C L 84 18 140/89 99 09/17/23 00:30 09/17/23 00:23 92 H 09/17/23 00:16 09/17/23 00:15 36.3 C L 16 96 09/17/23 00:00 09/16/23 23:56 110/78 Pulse Ox O2 Del Method O2 Del Method 09/17/23 08:00 Room Air 09/17/23 07:40 Room Air 09/17/23 03:30 Room Air 09/17/23 00:30 Room Air 09/17/23 00:23 09/17/23 00:16 96 Room Air 09/17/23 00:15 Room Air 09/17/23 00:00 Room Air 09/16/23 23:56 Laboratory Results 09/17/23 09/17/23 09/17/23 Range/Units 08:23 07:20 07:13 WBC 9.34 D Cancelled (4.8-10.8) K/ul RBC 2.28 L Cancelled (4.70-6.10) M/uL Hgb 8.4 L D Cancelled (14.0-18.0) g/dl POC Hgb (14.0-18.0) g/dl Hct 24.4 L Cancelled (42.0-52.0) % POC Hct (42-52) % MCV 107.0 H Cancelled (80.0-100.0) fL MCH 36.8 H Cancelled (25.0-34.0) pg MCHC 34.4 Cancelled (32.0-36.0) g/dL RDW Std Deviation 52.5 H Cancelled (36.4-46.3) fL RDW Coeff of Danny 13.2 Cancelled (11.5-14.5) % Plt Count 55 L D Cancelled (130-400) K/uL MPV 11.6 Cancelled (9.4-12.4) fL Immature Gran % (Auto) 1.2 Cancelled % Neut % (Auto) 85.2 Cancelled % Lymph % (Auto) 7.5 Cancelled % [place] % (Auto) 5.2 Cancelled % Eos % (Auto) 0.7 Cancelled % Baso % (Auto) 0.2 Cancelled % Neut # (Auto) 7.95 H Cancelled (1.40-6.50) K/uL Lymph # (Auto) 0.70 L Cancelled (1.20-3.40) K/uL [place] # (Auto) 0.49 Cancelled (0.11-0.59) K/uL Eos # (Auto) 0.07 Cancelled (0.00-0.50) K/uL Baso # (Auto) 0.02 Cancelled (0.00-0.20) K/uL Immature Gran # (Auto) 0.11 Cancelled (0.01-0.20) K/uL Absolute Nucleated RBC Cancelled Nucleated RBC % (auto) Cancelled Neutrophils % (Manual) Cancelled Band Neutrophils % Cancelled Lymphocytes % (Manual) Cancelled Prolymphocyte % Cancelled Reactive Lymphs % (Man) Cancelled Monocytes % (Manual) Cancelled Eosinophils % (Manual) Cancelled Basophils % (Manual) Cancelled Metamyelocytes % (Man) Cancelled Myelocytes % (Man) Cancelled Promyelocytes % (Man) Cancelled Blast Cells % (Manual) Cancelled Plasma Cell % (Manual) Cancelled Other Cells % Cancelled Nucleated RBC % Cancelled Neutrophils # (Manual) Cancelled Band Neutrophils # Cancelled Total Absolute Neuts Cancelled Lymphocytes # (Manual) Cancelled Prolymphocyte # Cancelled Reactive Lymphs # Cancelled Total Abs Lymphocytes Cancelled Monocytes # (Manual) Cancelled Eosinophils # (Manual) Cancelled Basophils # (Manual) Cancelled Metamyelocytes # (Man) Cancelled Myelocytes # (Manual) Cancelled Promyelocytes # (Man) Cancelled Blast Cells # (Man) Cancelled Plasma Cell # (Manual) Cancelled Other Cells # Cancelled Nucleated RBCs # (Man) Cancelled Hypersegmented Neuts Cancelled Hyposegmented Neuts Cancelled Hypogranular Neuts Cancelled Large Granular Lymphs Cancelled # Lrg Granular Lymphs Cancelled Hairy Cells Cancelled Smudge Cells Cancelled Toxic Granulation Cancelled Toxic Vacuolation Cancelled Dohle Bodies Cancelled Carlos Rods Cancelled Platelet Estimate Decreased L Cancelled Hypogranular Platelets Cancelled Giant Platelets Cancelled Platelet Satelliting Cancelled RBC Morphology Cancelled Polychromasia 1+ Cancelled Hypochromasia Cancelled Poikilocytosis Cancelled Basophilic Stippling Cancelled Anisocytosis Cancelled Microcytosis Cancelled Macrocytosis Present Cancelled Spherocytes Cancelled Pappenheimer Bodies Cancelled Sickle Cells Cancelled Target Cells 1+ Cancelled Tear Drop Cells 1+ Cancelled Ovalocytes Cancelled Stomatocytes Cancelled [place] Bodies Cancelled Echinocytes Cancelled Acanthocytes (Spur) Cancelled Rouleaux Cancelled RBC Agglutinates Cancelled Schistocytes Cancelled Sezary Cell Cancelled PT 20.6 H (9.0-12.0) Seconds INR 2.0 H (0.9-1.1) VBG pH (7.36-7.41) VBG pCO2 (38-50) mmHg VBG pO2 mmHg VBG HCO3 mmol/L VBG O2 Saturation % VBG Base Excess mEq/L POC Sodium (135-144) mmol/L Sodium 133 L (136-145) mmol/L POC Potassium (3.3-5.0) mmol/L Potassium 2.8 L (3.5-5.1) mmol/L POC Chloride (101-112) mmol/L Chloride 100 (98-107) mmol/L Carbon Dioxide 21 (21-32) mmol/L POC Total CO2 (24-31) mmol/L Anion Gap 12 H (3-11) POC Anion Gap (16-25) mmol/L POC BUN (7-18) mg/dl BUN 30 H Creatinine 1.47 H POC Creatinine (0.6-1.3) mg/dl Est Cr Clr Drug Dosing 78.9 Est GFR ( Amer) 68.7 Est GFR (Non-Af Amer) 59.2 BUN/Creatinine Ratio 20.4 H Glucose 125 H (70-99(Fasting)) mg/dl POC Glucose (other) (70-99) mg/dl Estimat Average Glucose mg/dl Hemoglobin A1c (4.5-5.6) % Osmolality (280-300) mOsm/kg Lactate 2.0 (0.4-2.0) mmol/L Calcium 8.0 L (8.6-10.3) mg/dl POC Ioniz Calcium Margarita (1.12-1.32) mmol/l Magnesium (1.7-2.4) mg/dl Total Bilirubin 18.0 H (0.2-1.0) mg/dl AST 128 H (13-39) U/L ALT 99 H (7-52) U/L Alkaline Phosphatase 139 H (34-104) U/L Ammonia 93.0 H Troponin I High Sens (0-20) pg/ml Total Protein 5.1 L (6.0-8.3) gm/dl Albumin 3.5 (3.4-5.0) gm/dl Globulin 1.6 L (2.5-4.0) gm/dl Albumin/Globulin Ratio 2.2 H (0.9-2) TSH (0.300-4.500) uIu/ml Urine Color Urine Appearance (Clear) Urine pH (4.5-7.5) Ur Specific [place] (1.000-1.030) Urine Protein (Negative) Urine Glucose (UA) (Negative) Urine Ketones (Negative) Urine Blood (Negative) Urine Nitrite (Negative) Urine Bilirubin (Negative) Urine Urobilinogen (Negative) Ur Leukocyte Esterase (Negative) Urine WBC (Auto) (0-5) /hpf Urine RBC (Auto) (0-4) /hpf U Hyaline Cast (Auto) (0-5) /lpf U Epithel Cells (Auto) (0-5) /lpf Urine Bacteria (Auto) (Negative) Blood Parasites ID Cancelled Miscellaneous Test 09/17/23 09/16/23 09/16/23 Range/Units 00:44 22:46 19:02 WBC (4.8-10.8) K/ul RBC (4.70-6.10) M/uL Hgb (14.0-18.0) g/dl POC Hgb 12.2 L (14.0-18.0) g/dl Hct (42.0-52.0) % POC Hct 36 L (42-52) % MCV (80.0-100.0) fL MCH (25.0-34.0) pg MCHC (32.0-36.0) g/dL RDW Std Deviation (36.4-46.3) fL RDW Coeff of Danny (11.5-14.5) % Plt Count (130-400) K/uL MPV (9.4-12.4) fL Immature Gran % (Auto) % Neut % (Auto) % Lymph % (Auto) % [place] % (Auto) % Eos % (Auto) % Baso % (Auto) % Neut # (Auto) (1.40-6.50) K/uL Lymph # (Auto) (1.20-3.40) K/uL [place] # (Auto) (0.11-0.59) K/uL Eos # (Auto) (0.00-0.50) K/uL Baso # (Auto) (0.00-0.20) K/uL Immature Gran # (Auto) (0.01-0.20) K/uL Absolute Nucleated RBC Nucleated RBC % (auto) Neutrophils % (Manual) Band Neutrophils % Lymphocytes % (Manual) Prolymphocyte % Reactive Lymphs % (Man) Monocytes % (Manual) Eosinophils % (Manual) Basophils % (Manual) Metamyelocytes % (Man) Myelocytes % (Man) Promyelocytes % (Man) Blast Cells % (Manual) Plasma Cell % (Manual) Other Cells % Nucleated RBC % Neutrophils # (Manual) Band Neutrophils # Total Absolute Neuts Lymphocytes # (Manual) Prolymphocyte # Reactive Lymphs # Total Abs Lymphocytes Monocytes # (Manual) Eosinophils # (Manual) Basophils # (Manual) Metamyelocytes # (Man) Myelocytes # (Manual) Promyelocytes # (Man) Blast Cells # (Man) Plasma Cell # (Manual) Other Cells # Nucleated RBCs # (Man) Hypersegmented Neuts Hyposegmented Neuts Hypogranular Neuts Large Granular Lymphs # Lrg Granular Lymphs Hairy Cells Smudge Cells Toxic Granulation Toxic Vacuolation Dohle Bodies Carlos Rods Platelet Estimate Hypogranular Platelets Giant Platelets Platelet Satelliting RBC Morphology Polychromasia Hypochromasia Poikilocytosis Basophilic Stippling Anisocytosis Microcytosis Macrocytosis Spherocytes Pappenheimer Bodies Sickle Cells Target Cells Tear Drop Cells Ovalocytes Stomatocytes Marc[place] Bodies Echinocytes Acanthocytes (Spur) Rouleaux RBC Agglutinates Schistocytes Sezary Cell PT (9.0-12.0) Seconds INR (0.9-1.1) VBG pH 7.40 (7.36-7.41) VBG pCO2 33 L (38-50) mmHg VBG pO2 29 mmHg VBG HCO3 20 mmol/L VBG O2 Saturation < 60.0 % VBG Base Excess -3.6 mEq/L POC Sodium 133 L (135-144) mmol/L Sodium 132 L (136-145) mmol/L POC Potassium 2.9 L (3.3-5.0) mmol/L Potassium (3.5-5.1) mmol/L POC Chloride 99 L (101-112) mmol/L Chloride (98-107) mmol/L Carbon Dioxide (21-32) mmol/L POC Total CO2 18 L (24-31) mmol/L Anion Gap (3-11) POC Anion Gap 20.0 (16-25) mmol/L POC BUN 28 H (7-18) mg/dl BUN Creatinine POC Creatinine 1.6 H (0.6-1.3) mg/dl Est Cr Clr Drug Dosing Est GFR ( Amer) Est GFR (Non-Af Amer) BUN/Creatinine Ratio Glucose (70-99(Fasting)) mg/dl POC Glucose (other) 148 H (70-99) mg/dl Estimat Average Glucose mg/dl Hemoglobin A1c (4.5-5.6) % Osmolality (280-300) mOsm/kg Lactate 3.0 H* (0.4-2.0) mmol/L Calcium (8.6-10.3) mg/dl POC Ioniz Calcium Margarita 1.03 L (1.12-1.32) mmol/l Magnesium (1.7-2.4) mg/dl Total Bilirubin (0.2-1.0) mg/dl AST (13-39) U/L ALT (7-52) U/L Alkaline Phosphatase (34-104) U/L Ammonia Troponin I High Sens 24.6 H (0-20) pg/ml Total Protein (6.0-8.3) gm/dl Albumin (3.4-5.0) gm/dl Globulin (2.5-4.0) gm/dl Albumin/Globulin Ratio (0.9-2) TSH (0.300-4.500) uIu/ml Urine Color Urine Appearance (Clear) Urine pH (4.5-7.5) Ur Specific [place] (1.000-1.030) Urine Protein (Negative) Urine Glucose (UA) (Negative) Urine Ketones (Negative) Urine Blood (Negative) Urine Nitrite (Negative) Urine Bilirubin (Negative) Urine Urobilinogen (Negative) Ur Leukocyte Esterase (Negative) Urine WBC (Auto) (0-5) /hpf Urine RBC (Auto) (0-4) /hpf U Hyaline Cast (Auto) (0-5) /lpf U Epithel Cells (Auto) (0-5) /lpf Urine Bacteria (Auto) (Negative) Blood Parasites ID Miscellaneous Test Pending 0209/16/23 09/16/23 Range/Units 18:56 18:19 16:24 WBC 25.23 H (4.8-10.8) K/ul RBC 3.36 L (4.70-6.10) M/uL Hgb 12.6 L (14.0-18.0) g/dl POC Hgb (14.0-18.0) g/dl Hct 36.8 L (42.0-52.0) % POC Hct (42-52) % MCV 109.5 H (80.0-100.0) fL MCH 37.5 H (25.0-34.0) pg MCHC 34.2 (32.0-36.0) g/dL RDW Std Deviation 53.4 H (36.4-46.3) fL RDW Coeff of Danny 13.3 (11.5-14.5) % Plt Count 160 (130-400) K/uL MPV 11.1 (9.4-12.4) fL Immature Gran % (Auto) 2.7 % Neut % (Auto) 92.2 % Lymph % (Auto) 1.5 % [place] % (Auto) 3.1 % Eos % (Auto) 0.1 % Baso % (Auto) 0.4 % Neut # (Auto) 23.26 H (1.40-6.50) K/uL Lymph # (Auto) 0.39 L (1.20-3.40) K/uL [place] # (Auto) 0.78 H (0.11-0.59) K/uL Eos # (Auto) 0.02 (0.00-0.50) K/uL Baso # (Auto) 0.09 (0.00-0.20) K/uL Immature Gran # (Auto) 0.69 H (0.01-0.20) K/uL Absolute Nucleated RBC Nucleated RBC % (auto) Neutrophils % (Manual) Band Neutrophils % Lymphocytes % (Manual) Prolymphocyte % Reactive Lymphs % (Man) Monocytes % (Manual) Eosinophils % (Manual) Basophils % (Manual) Metamyelocytes % (Man) Myelocytes % (Man) Promyelocytes % (Man) Blast Cells % (Manual) Plasma Cell % (Manual) Other Cells % Nucleated RBC % Neutrophils # (Manual) Band Neutrophils # Total Absolute Neuts Lymphocytes # (Manual) Prolymphocyte # Reactive Lymphs # Total Abs Lymphocytes Monocytes # (Manual) Eosinophils # (Manual) Basophils # (Manual) Metamyelocytes # (Man) Myelocytes # (Manual) Promyelocytes # (Man) Blast Cells # (Man) Plasma Cell # (Manual) Other Cells # Nucleated RBCs # (Man) Hypersegmented Neuts Hyposegmented Neuts Hypogranular Neuts Large Granular Lymphs # Lrg Granular Lymphs Hairy Cells Smudge Cells Toxic Granulation Toxic Vacuolation Dohle Bodies Carlos Rods Platelet Estimate Hypogranular Platelets Giant Platelets Platelet Satelliting RBC Morphology Polychromasia 1+ Hypochromasia Poikilocytosis Basophilic Stippling Anisocytosis Microcytosis Macrocytosis Present Spherocytes Pappenheimer Bodies Sickle Cells Target Cells Tear Drop Cells 1+ Ovalocytes Stomatocytes Marc[place] Bodies Echinocytes Acanthocytes (Spur) Rouleaux RBC Agglutinates Schistocytes Sezary Cell PT 20.4 H (9.0-12.0) Seconds INR 1.9 H (0.9-1.1) VBG pH (7.36-7.41) VBG pCO2 (38-50) mmHg VBG pO2 mmHg VBG HCO3 mmol/L VBG O2 Saturation % VBG Base Excess mEq/L POC Sodium (135-144) mmol/L Sodium 130 L (136-145) mmol/L POC Potassium (3.3-5.0) mmol/L Potassium 2.9 L (3.5-5.1) mmol/L POC Chloride (101-112) mmol/L Chloride 96 L (98-107) mmol/L Carbon Dioxide 17 L (21-32) mmol/L POC Total CO2 (24-31) mmol/L Anion Gap 17 H (3-11) POC Anion Gap (16-25) mmol/L POC BUN (7-18) mg/dl BUN TNP Creatinine TNP POC Creatinine (0.6-1.3) mg/dl Est Cr Clr Drug Dosing TNP Est GFR ( Amer) TNP Est GFR (Non-Af Amer) TNP BUN/Creatinine Ratio TNP Glucose 219 H (70-99(Fasting)) mg/dl POC Glucose (other) (70-99) mg/dl Estimat Average Glucose 85 mg/dl Hemoglobin A1c 4.6 (4.5-5.6) % Osmolality 291 (280-300) mOsm/kg Lactate 4.8 H* 6.9 H* (0.4-2.0) mmol/L Calcium 7.8 L (8.6-10.3) mg/dl POC Ioniz Calcium Margarita (1.12-1.32) mmol/l Magnesium 1.6 L (1.7-2.4) mg/dl Total Bilirubin 24.9 H (0.2-1.0) mg/dl AST 224 H (13-39) U/L ALT 168 H (7-52) U/L Alkaline Phosphatase 242 H (34-104) U/L Ammonia TNP Troponin I High Sens 18.9 (0-20) pg/ml Total Protein 5.6 L (6.0-8.3) gm/dl Albumin 2.7 L (3.4-5.0) gm/dl Globulin 2.9 (2.5-4.0) gm/dl Albumin/Globulin Ratio 0.9 (0.9-2) TSH 1.418 (0.300-4.500) uIu/ml Urine Color Dark Yellow Urine Appearance Clear (Clear) Urine pH 6.0 (4.5-7.5) Ur Specific [place] 1.016 (1.000-1.030) Urine Protein Negative (Negative) Urine Glucose (UA) Negative (Negative) Urine Ketones Negative (Negative) Urine Blood Negative (Negative) Urine Nitrite Positive A (Negative) Urine Bilirubin 3+ H (Negative) Urine Urobilinogen Negative (Negative) Ur Leukocyte Esterase Trace H (Negative) Urine WBC (Auto) 0 (0-5) /hpf Urine RBC (Auto) 0-4 (0-4) /hpf U Hyaline Cast (Auto) 10-30 H (0-5) /lpf U Epithel Cells (Auto) 0-5 (0-5) /lpf Urine Bacteria (Auto) Negative (Negative) Blood Parasites ID Miscellaneous Test Diagnostic Findings Chest X-Ray 09/16/23 15:10 SINGLE VIEW CHEST CLINICAL HISTORY: Generalized weakness. FINDINGS: An AP, portable, upright chest radiograph is compared to study dated 08/26/2023. The cardiomediastinal silhouette is unremarkable. There is chronic elevation of the right hemidiaphragm with mild atelectasis. The lungs and pleural spaces are otherwise clear. No pneumothorax is seen. The bony thorax is grossly intact. IMPRESSION: No active disease in the chest. ACT 112: Negative or not required by law. Electronically signed by: Portillo Loja M.D. 09/16/2023 4:18 PM Abdomen/Pelvis CT 09/16/23 18:20 Exam(s): CT ABDOMEN + PELVIS With Contrast IV Amt: 88ML OPTIRAY 320 EXAM: CT Abdomen and Pelvis With Intravenous Contrast CLINICAL HISTORY: Reason for exam: abd pain. TECHNIQUE: Axial computed tomography images of the abdomen and pelvis with intravenous contrast. CTDI is 24.03 mGy and DLP is 1432.15 mGy-cm. Automated exposure control was utilized for the study. A dose lowering technique was utilized adhering to the principles of ALARA. CONTRAST: Patient received 88ML OPTIRAY 320 of IV contrast COMPARISON: No relevant prior studies available. FINDINGS: Lung bases: Unremarkable. No mass. No consolidation. ABDOMEN: Liver: Unremarkable. No mass. Gallbladder and bile ducts: Cholecystectomy. No ductal dilation. Pancreas: Unremarkable. No mass. No ductal dilation. Spleen: Unremarkable. No splenomegaly. Adrenals: Unremarkable. No mass. Kidneys and ureters: Unremarkable. No solid mass. No hydronephrosis. Stomach and bowel: Wall thickening of small bowel, concerning for enteritis versus spontaneous bacterial peritonitis. No obstruction. PELVIS: Appendix: No findings to suggest acute appendicitis. Bladder: Unremarkable. No mass. Reproductive: Unremarkable as visualized. ABDOMEN and PELVIS: Intraperitoneal space: Abdominal and pelvic ascites. No free air. Bones/joints: No acute fracture. No dislocation. Soft tissues: Anasarca. Vasculature: Unremarkable. No abdominal aortic aneurysm. Lymph nodes: Unremarkable. No enlarged lymph nodes. IMPRESSION: Ascites. Wall thickening of small bowel, concerning for enteritis versus spontaneous bacterial peritonitis. Electronically signed by: Ubaldo Soto MD 09/16/23 20:43 PM Chest X-Ray 09/16/23 18:20 SINGLE VIEW CHEST CLINICAL HISTORY: Leukocytosis. FINDINGS: An AP, portable, upright chest radiograph is compared to study performed earlier the same day 09/16/2023. The examination is degraded by portable technique and patient rotation. The cardiomediastinal silhouette is unremarkable. There is chronic elevation of the right hemidiaphragm with bibasilar atelectasis. The lungs and pleural spaces are otherwise clear. No pneumothorax is seen. The bony thorax is grossly intact. IMPRESSION: No active disease in the chest. No change from today's earlier examination. ACT 112: Negative or not required by law. Electronically signed by: Portillo Loja M.D. 09/16/2023 6:51 PM
[2023-09-17] MEDS ORDERED: PANTOPRAZOLE BOLUS/DRIP IV STA (17:55)
[2023-09-17] MEDS ORDERED: SODIUM CHLORIDE 0.9% 250 ML IV PRN (18:21)
[2023-09-17] MEDS: PANTOprazole 80 MG in DEXTROSE 5% 100 ML IV ONE (18:24)
[2023-09-17 18:45] LABS: Hemoglobin 8.4 g/dl (14.0-18.0)
[2023-09-17] MEDS: PANTOprazole 40 MG in DEXTROSE 5% MINI-B 100 ML IV SCH (18:51)
[2023-09-17] MEDS: POTASSIUM CHLORIDE CRTAB 20 MEQ TABCR PO SCH (21:55)
[2023-09-18] MEDS: MELATONIN 3 MG TAB PO PRN (00:15)
[2023-09-18 07:25] LABS: Hematocrit (blood only) 21.9 % (42.0-52.0); Hemoglobin 7.6 g/dl (14.0-18.0); Mean Corpuscular Hemoglobin 37.6 pg (25.0-34.0); Mean Corpuscular Hgb Conc 34.7 g/dL (32.0-36.0); Mean Corpuscular Volume 108.4 fL (80.0-100.0); Mean Platelet Volume 10.7 fL (9.4-12.4); Platelet Count 44 K/uL (130-400); RDW Coefficient of Variation 13.4 % (11.5-14.5); Red Blood Count 2.02 M/uL (4.70-6.10); White Blood Count 9.77 K/ul (4.8-10.8)
[2023-09-18 07:45] LABS: Basophils # (auto) 0.01 K/uL (0.00-0.20); Basophils % (auto) 0.1 %; Lymphocytes # (auto) 0.85 K/uL (1.20-3.40); Lymphocytes % (auto) 8.7 %; Macrocytosis Present; Monocytes # (auto) 0.48 K/uL (0.11-0.59); Monocytes % (auto) 4.9 %; Neutrophils # (auto) 8.23 K/uL (1.40-6.50); Neutrophils % (auto) 84.3 %; Polychromasia 1+; Target Cells 1+; Tear Drop Cells 1+
[2023-09-18 07:46] LABS: Anion Gap 10 (3-11); BUN Creatinine Ratio 17.3 (10-20); Blood Urea Nitrogen 26 mg/dl (6-23); Calcium 8.2 mg/dl (8.6-10.3); Carbon Dioxide 20 mmol/L (21-32); Chloride 104 mmol/L (98-107); Creatinine Clr Calc Pharmacy 77.3 ml/min; Est GFR (Non-African American) 57.8 ml/min; Glucose 141 mg/dl (70-99(Fasting)); Potassium 2.9 mmol/L (3.5-5.1); Sodium 134 mmol/L (136-145)
[2023-09-18 07:51] LABS: Alanine Aminotransferase 76 U/L (7-52); Albumin Globulin Ratio 2.4 (0.9-2); Albumin Level 3.4 gm/dl (3.4-5.0); Alkaline Phosphatase 111 U/L (34-104); Aspartate Aminotransferase 117 U/L (13-39); Bilirubin,Total 17.6 mg/dl (0.2-1.0); Globulin 1.4 gm/dl (2.5-4.0); INR 2.1 (0.9-1.1); Iron 47 mcg/dl (35-175); Magnesium 1.6 mg/dl (1.7-2.4); Phosphorus 1.3 mg/dl (2.5-4.9); Prothrombin Time 21.9 Seconds (9.0-12.0); Total Protein 4.8 gm/dl (6.0-8.3); Troponin I High Sensitivity 32.5 pg/ml (0-20); Unsaturated Iron Binding Cap < 55 mcg/dl (155-355)
[2023-09-18 08:08] LABS: Ferritin 647.4 ng/ml (8-388)
[2023-09-18 08:25] LABS: Folate (Folic Acid),Ser orPlas 15.03 ng/ml (>5.38); Vitamin B12 > 1500 pg/ml (180-914)
[2023-09-18] MEDS ORDERED: POTASSIUM PHOS 3 MMOL/1 ML INFUSION IV STA (08:28)
[2023-09-18] MEDS: POTASSIUM CHLORIDE / WTR 10 MEQ/100 ML PLCT IV SCH (08:46)
[2023-09-18] MEDS: POT PHOSPHATE MONOBASIC W/ SOD TAB PO SCH (10:27)
[2023-09-18] MEDS: MAGNESIUM SULFATE / D5W 1 GM/100 ML BAG IV SCH (10:29)
[2023-09-18] MEDS: MAGNESIUM OXIDE 400 MG TAB PO SCH (10:41)
--- NOTE | 2023-09-18 10:45 | Gastroenterology Progress Note ---
Date of Service September 18, 2023 Assessment & Plan (1) GI bleeding: Plan: By report he had hematochezia yesterday but it seems to have stopped. Hemoglobin dropped a significant amount. Will arrange for EGD and colonoscopy tomorrow by [facility] GI team Admission and Anticipated Discharge Date Admission Date: September 16, 2023 Subjective Got a message yesterday from primary team that patient was passing bright red blood. Apparently this happened four times. patient unaware of it and says "the nurses say I did" but he has no clue what it looks like. Nurse reports he had one brown stool today. He also had a nose bleed last night after all of this was over. Hemoglobin dropped from 12 to 7.8 Physical Exam Physical Exam: He looks pale Constitutional: WD/WN, vitals as above Results & Data Vital Signs (Past 12 Hours) Vital Signs Temp Pulse Resp BP Pulse Ox Pulse Ox O2 Del Method 09/18/23 07:30 36.4 C L 98 H 18 127/73 97 Room Air 09/18/23 00:11 97 09/18/23 00:00 Room Air 09/17/23 23:59 36.7 C 96 H 17 137/78 97 Room Air O2 Del Method 09/18/23 07:30 09/18/23 00:11 Room Air 09/18/23 00:00 09/17/23 23:59 Laboratory Results 09/18/23 09/18/23 09/17/23 Range/Units 10:00 07:06 18:34 WBC 9.77 (4.8-10.8) K/ul RBC 2.02 L (4.70-6.10) M/uL Hgb 7.6 L (14.0-18.0) g/dl Hct 21.9 L (42.0-52.0) % MCV 108.4 H (80.0-100.0) fL MCH 37.6 H (25.0-34.0) pg MCHC 34.7 (32.0-36.0) g/dL RDW Std Deviation 54.0 H (36.4-46.3) fL RDW Coeff of Danny 13.4 (11.5-14.5) % Plt Count 44 L (130-400) K/uL MPV 10.7 (9.4-12.4) fL Immature Gran % (Auto) 1.0 % Neut % (Auto) 84.3 % Lymph % (Auto) 8.7 % [place] % (Auto) 4.9 % Eos % (Auto) 1.0 % Baso % (Auto) 0.1 % Neut # (Auto) 8.23 H (1.40-6.50) K/uL Lymph # (Auto) 0.85 L (1.20-3.40) K/uL [place] # (Auto) 0.48 (0.11-0.59) K/uL Eos # (Auto) 0.10 (0.00-0.50) K/uL Baso # (Auto) 0.01 (0.00-0.20) K/uL Immature Gran # (Auto) 0.10 (0.01-0.20) K/uL Polychromasia 1+ Macrocytosis Present Target Cells 1+ Tear Drop Cells 1+ PT 21.9 H (9.0-12.0) Seconds INR 2.1 H (0.9-1.1) Sodium 134 L (136-145) mmol/L Potassium 2.9 L (3.5-5.1) mmol/L Chloride 104 (98-107) mmol/L Carbon Dioxide 20 L (21-32) mmol/L Anion Gap 10 (3-11) BUN 26 H (6-23) mg/dl Creatinine 1.50 H (0.6-1.4) mg/dl Est Cr Clr Drug Dosing 77.3 ml/min Est GFR ( Amer) 67.0 ml/min Est GFR (Non-Af Amer) 57.8 ml/min BUN/Creatinine Ratio 17.3 (10-20) Glucose 141 H (70-99(Fasting)) mg/dl Calcium 8.2 L (8.6-10.3) mg/dl Phosphorus 1.3 L* (2.5-4.9) mg/dl Magnesium 1.6 L (1.7-2.4) mg/dl Iron 47 (35-175) mcg/dl TIBC TNP Unsaturated IBC < 55 L (155-355) mcg/dl Transferrin % Sat TNP Ferritin 647.4 H (8-388) ng/ml Total Bilirubin 17.6 H (0.2-1.0) mg/dl AST 117 H (13-39) U/L ALT 76 H (7-52) U/L Alkaline Phosphatase 111 H (34-104) U/L Ammonia 97.0 H (18-72) umol/L Troponin I High Sens 32.5 H (0-20) pg/ml Total Protein 4.8 L (6.0-8.3) gm/dl Albumin 3.4 (3.4-5.0) gm/dl Globulin 1.4 L (2.5-4.0) gm/dl Albumin/Globulin Ratio 2.4 H (0.9-2) Vitamin B12 > 1500 H (180-914) pg/ml Folate 15.03 (>5.38) ng/ml Urine Osmolality Pending Ur Random Sodium Pending Blood Type O Positive Antibody Screen NEGATIVE Crossmatch See Detail 09/17/23 Range/Units 18:12 WBC (4.8-10.8) K/ul RBC (4.70-6.10) M/uL Hgb 8.4 L (14.0-18.0) g/dl Hct 24.0 L (42.0-52.0) % MCV (80.0-100.0) fL MCH (25.0-34.0) pg MCHC (32.0-36.0) g/dL RDW Std Deviation (36.4-46.3) fL RDW Coeff of Danny (11.5-14.5) % Plt Count (130-400) K/uL MPV (9.4-12.4) fL Immature Gran % (Auto) % Neut % (Auto) % Lymph % (Auto) % [place] % (Auto) % Eos % (Auto) % Baso % (Auto) % Neut # (Auto) (1.40-6.50) K/uL Lymph # (Auto) (1.20-3.40) K/uL [place] # (Auto) (0.11-0.59) K/uL Eos # (Auto) (0.00-0.50) K/uL Baso # (Auto) (0.00-0.20) K/uL Immature Gran # (Auto) (0.01-0.20) K/uL Polychromasia Macrocytosis Target Cells Tear Drop Cells PT (9.0-12.0) Seconds INR (0.9-1.1) Sodium (136-145) mmol/L Potassium (3.5-5.1) mmol/L Chloride (98-107) mmol/L Carbon Dioxide (21-32) mmol/L Anion Gap (3-11) BUN (6-23) mg/dl Creatinine (0.6-1.4) mg/dl Est Cr Clr Drug Dosing ml/min Est GFR ( Amer) ml/min Est GFR (Non-Af Amer) ml/min BUN/Creatinine Ratio (10-20) Glucose (70-99(Fasting)) mg/dl Calcium (8.6-10.3) mg/dl Phosphorus (2.5-4.9) mg/dl Magnesium (1.7-2.4) mg/dl Iron (35-175) mcg/dl TIBC Unsaturated IBC (155-355) mcg/dl Transferrin % Sat Ferritin (8-388) ng/ml Total Bilirubin (0.2-1.0) mg/dl AST (13-39) U/L ALT (7-52) U/L Alkaline Phosphatase (34-104) U/L Ammonia (18-72) umol/L Troponin I High Sens (0-20) pg/ml Total Protein (6.0-8.3) gm/dl Albumin (3.4-5.0) gm/dl Globulin (2.5-4.0) gm/dl Albumin/Globulin Ratio (0.9-2) Vitamin B12 (180-914) pg/ml Folate (>5.38) ng/ml Urine Osmolality Ur Random Sodium Blood Type Antibody Screen Crossmatch
[2023-09-18] MEDS: POTASSIUM PHOSPHATE 21 MMOL in SODIUM CHLORIDE 0.9% 500 ML IV ONE (11:32)
--- NOTE | 2023-09-18 11:49 | Hospitalist Progress Note ---
Date of Service September 18, 2023 Assessment & Plan (1) Severe sepsis with lactic acidosis: (2) Hepatic failure: (3) Hypokalemia: (4) Acute hyponatremia: (5) Alcohol abuse: (6) Hx of intravenous drug use, in remission: (7) GERD (gastroesophageal reflux disease): Plan Mr. Yu is a 37 year old male with PMhx significant for second-degree AV block type I (Wenckebach), atrial septal aneurysm, HCV status post Rx, chronic pain/Hx of IVDU weaned off of suboxone, GERD, ongoing alcohol/tobacco abuse and liver failure awaiting transplant admitted with possible SBP. Pt was recently admitted 08/18-08/20 for severe sepsis and was transferred to [facility] where he was treated for alcoholic hepatitis with ascites. Today he presents with generalized fatigue and weakness. He reports feeling dizzy as well. Since his hospitalization the only medication changes include a new prescription for prednisone and Lasix and he has been in the process of lowering his lactulose due to increased bowel movements. He started taking his Lasix on Tuesday this week and reports that he has been urinating very infrequently. Reports smoking 3 cigarettes/day, has abstained from alcohol for the last month and a half and his last IV drug use was 1 year ago. Severe sepsis: Spontaneous Bacterial Peritonitis Leukocytosis 25.23, tachycardic on admission, hypothermic lactate 4.8, improved to normal limits after fluid resuscitation UA positive for nitrites, order placed for urine Cx Blood cultures x 2 pending Chest XR unremarkable Abdomen/Pelvis CT: Ascites, wall thickening of small bowel, concerning for enter itis versus spontaneous bacterial peritonitis Bear aliviaer placed in ER Ceftriaxone started in ED; continue with cefepime. WBC currently wnl GI Consultation placed-appreciate recs -symptoms likely related to SBP -manage ascites outpt with diuretics, fluid and sodium restriction Reportedly in the ER, ascites was minimal and could not be tapped/sampled For SBP prophylaxis, consider discontinuing use of ppi, antibiotics Acute Blood Loss Anemia GI Bleed Pt with tc red bloody BMs. Reports of nose bleeds, denies hemoptysis/hematemesis at this time Hgb drop from 12.6 on admission to ~8 currently GI consulted and aware- plan for EGD and Colonoscopy on 09/19. NPO after midnight, on ppi drip Transfuse as needed AM folate and b12, iron-currently wnl/supplemented Continue to monitor Alcoholic Hepatitis: Alcoholic Cirrhosis: Hx of Hepatic Encephalopathy Hx of alcohol abuse Secondary to alcohol use Recent admission transferred [place] [facility] treated for alcohol hepatitis MELD score 21 Ammonia level undetectable on admission; seems to be improving as pt mental status improving, continue lactulose and Xifaxan Recent decrease of Lactulose due to increased BM's AST 224, ALT 168, alk phos 242- continue to trend Thiamine and folate ordered, continue Last alcohol intake 1.5 months ago Completed steroid treatment for alcoholic hepatitis treatment Elevated Trop Troponin 18.9 to >24, trend until downtrending EKG with sinus tach Doubt ACS Electrolyte abnormalities: Hypokalemia: replete as needed Hyponatremia: -Serum sodium 130 on admission, currently 134 after fluid restriction Hypomagnesemia: Mag 1.6 on admission. replete as needed History of IV drug abuse: Chronic Was weaned off of Suboxone over the last few months Stable Tobacco use: Smokes 3 cigarettes per day Continue Nicotine patch Encourage cessation DVT prophylaxis: Chemical deferred in setting of thrombocytopenia/coagulopathy. SCDs Diet: Low sodium/fluid restriction 1500ml CODE STATUS: Full code Dispo: Home on discharge, PT/OT Next of kin Ros[place], not legal POA: [phone]; technically not his legal power of divorce attorney. Discussed on admission and patient has a living father who he is estranged from and a 17-year-old daughter. Goal is to have Rafael Lancaster visit them during this admission for completed decision-maker paperwork. Admission and Anticipated Discharge Date Admission Date: September 16, 2023 Subjective Pt was seen in 280-1. Denies any further episodes of bloody bowel movements. States that he would like to eat. Review of Systems Review of Systems: All systems reviewed & are unremarkable except as noted in Subjective Physical Exam Physical Exam: General: Alert, oriented. Skin: Jaundiced Psych: Appropriate mood and affect Neuro: Difficulty with movements in the bed HEENT: NC/AT Chest: Nontender to palpation. CV: RRR Resp: Breath sounds clear bilaterally, no increased effort of breathing. Abdomen: Soft, mildly tender Extremities: edema in lower extremities bilaterally. Results & Data Results & Data Vital Signs (Past 12 Hours) Vital Signs Temp Pulse Resp BP Pulse Ox Pulse Ox O2 Del Method 09/18/23 11:44 36.6 C 90 16 114/73 97 Room Air 09/18/23 07:30 36.4 C L 98 H 18 127/73 97 Room Air 09/18/23 00:11 97 09/18/23 00:00 Room Air 09/17/23 23:59 36.7 C 96 H 17 137/78 97 Room Air O2 Del Method 09/18/23 11:44 09/18/23 07:30 09/18/23 00:11 Room Air 09/18/23 00:00 09/17/23 23:59
[2023-09-18] MEDS: NICOTINE 14 MG/24 HR PATCH TD SCH (18:09)
[2023-09-18] MEDS: POLYETHYLENE (MIRALAX) 17 GM PACK PO SCH (18:19)
[2023-09-18] MEDS: ALBUMIN 25% 25 GM/100 ML VIAL IV SCH (23:25)
[2023-09-19] MEDS ORDERED: Nursing to Pharmacy Communication SCH (02:15)
[2023-09-19 07:23] LABS: Albumin Globulin Ratio 2.8 (0.9-2); Albumin Level 3.4 gm/dl (3.4-5.0); BUN Creatinine Ratio 14.9 (10-20); Bilirubin,Total 17.7 mg/dl (0.2-1.0); Calcium 8.2 mg/dl (8.6-10.3); Creatinine Clr Calc Pharmacy 82.3 ml/min; Est GFR (African American) 72.2 ml/min; Est GFR (Non-African American) 62.3 ml/min; Globulin 1.2 gm/dl (2.5-4.0); Magnesium 1.8 mg/dl (1.7-2.4); Phosphorus 1.8 mg/dl (2.5-4.9); Potassium 2.6 mmol/L (3.5-5.1); Total Protein 4.6 gm/dl (6.0-8.3)
[2023-09-19 07:52] LABS: Hematocrit (blood only) 20.4 % (42.0-52.0); Mean Corpuscular Hemoglobin 37.4 pg (25.0-34.0); Mean Corpuscular Hgb Conc 34.3 g/dL (32.0-36.0); Mean Corpuscular Volume 109.1 fL (80.0-100.0); Mean Platelet Volume 11.6 fL (9.4-12.4); Platelet Count 41 K/uL (130-400); RDW Coefficient of Variation 13.7 % (11.5-14.5); RDW Standard Deviation 54.8 fL (36.4-46.3); Red Blood Count 1.87 M/uL (4.70-6.10); White Blood Count 9.14 K/ul (4.8-10.8)
[2023-09-19 07:53] LABS: Basophils # (auto) 0.01 K/uL (0.00-0.20); Basophils % (auto) 0.1 %; Eosinophils # (auto) 0.08 K/uL (0.00-0.50); Eosinophils % (auto) 0.9 %; Immature Granulocytes # (auto) 0.12 K/uL (0.01-0.20); Immature Granulocytes % (auto) 1.3 %; Lymphocytes # (auto) 0.73 K/uL (1.20-3.40); Monocytes # (auto) 0.37 K/uL (0.11-0.59); Neutrophils # (auto) 7.83 K/uL (1.40-6.50); Neutrophils % (auto) 85.7 %; Platelet Estimate Decreased (Normal); Polychromasia 1+; Target Cells 2+; Tear Drop Cells 1+
--- NOTE | 2023-09-19 08:06 | Anesthesiology Consultation ---
Date of Service September 19, 2023 History Surgery Operation Date: 09/19/23 17:45 Proposed Procedures p Colonoscopy EGD Dr. Omar Nelson MD Height/Weight Height: 6 ft 3 in Weight: 82.7 kg Allergies Allergy/AdvReac Type Severity Reaction Status Date / Time carvedilol AdvReac Intermediate "MADE ME Verified 09/16/23 17:49 REALLY SICK". clonidine AdvReac Intermediate "MADE ME Verified 09/16/23 17:49 REALLY SICK". Medications Home Medications Medication Instructions Recorded Confirmed Last Taken pantoprazole 40 mg tablet,delayed 40 mg PO QAM 05/13/20 09/16/23 08/17/23 release Therapeutic-M/Lutein Tablet 1 tab PO QDL 08/26/23 09/16/23 08/25/23 baclofen 10 mg tablet 10 mg PO TID 08/26/23 09/16/23 08/26/23 folic acid 1 mg tablet 1 mg PO QAM 08/26/23 09/16/23 08/26/23 lactulose 10 gram/15 mL oral See Rx Instructions .Route .COMPLEX 08/26/23 09/16/23 08/26/23 08:00 solution (Constulose) potassium, sodium phosphates 280 1 packet PO TID 08/26/23 09/16/23 08/26/23 08:00 mg-160 mg-250 mg oral powder packet (Phos-NaK) prednisolone sodium phosphate 15 0 mg PO QAM 08/26/23 09/16/23 08/25/23 mg/5 mL (3 mg/mL) oral solution thiamine HCl (vitamin B1) 100 mg 100 mg PO QAM 08/26/23 09/16/23 08/26/23 tablet (Vitamin B-1) furosemide 20 mg tablet 20 mg PO QAM 09/16/23 09/16/23 Unknown ondansetron HCl 4 mg tablet 4 mg PO Q8H PRN Nausea And Vomiting 09/16/23 09/16/23 Unknown rifaximin 550 mg tablet (Xifaxan) 550 mg PO BID 09/16/23 09/16/23 Unknown Active Medications Generic Name Dose Route Start Last Admin Trade Name Freq PRN Reason Stop Dose Admin Folic Acid 1 mg 09/17/23 09:00 09/19/23 07:31 Folic Acid 1 Mg Tab PO 10/17/23 08:59 1 mg QAM MUNA Administration Cefepime HCl 2,000 mg/ Syringe 20 mls @ 5 mls/min 09/17/23 11:00 09/18/23 23:25 IV 09/27/23 10:59 5 mls/min Q12H MUNA Administration Protocol Pantoprazole Sodium 40 mg/ 100 mls @ 20 mls/hr 09/17/23 18:15 09/19/23 07:26 Dextrose IV 10/17/23 18:14 8 mg/hr Q5H MUNA 20 mls/hr Administration 8 MG/HR Albumin Human 25 gm in 100 mls @ 50 mls/hr 09/18/23 22:00 09/19/23 07:41 Albumin 25% IV 09/21/23 21:59 Infused Q8H MUNA Infusion Lactulose 30 gm 09/17/23 09:00 09/19/23 07:33 Lactulose Syrup 30 Gm/45 Ml Udp PO 10/17/23 08:59 30 gm DAILY MUNA Administration Magnesium Oxide 400 mg 09/18/23 09:00 09/19/23 07:31 Magnesium Oxide 400 Mg Tab PO 10/18/23 08:59 400 mg BID MUNA Administration Melatonin 3 mg 09/16/23 21:37 09/18/23 23:00 Melatonin 3 Mg Tab PO 10/16/23 21:36 3 mg HS PRN Administration Sleep Miscellaneous 1 each 09/19/23 08:59 09/19/23 07:29 Remove Nicoderm Patch N/A 10/19/23 08:58 1 each DAILY@0859 MUNA Administration Multivitamins/Minerals 1 tab 09/17/23 11:30 09/18/23 10:53 Cerovite Adv Formula Tab PO 10/17/23 11:29 1 tab QDL MUNA Administration Nicotine 14 mg 09/18/23 14:45 09/19/23 07:33 Nicotine 14 Mg/24 Hr Patch TD 10/18/23 14:44 14 mg QAM MUNA Administration Potassium Chloride 20 meq 09/17/23 21:00 09/18/23 21:32 Potassium Chloride Crtab 20 Meq Tabcr PO 10/17/23 20:59 20 meq BID MUNA Administration Potassium Phosphate 2 tab 09/18/23 09:00 09/19/23 07:30 Pot Phosphate Monobasic W/ Sod Tab PO 10/18/23 08:59 2 tab QID MUNA Administration Rifaximin 550 mg 09/17/23 00:45 09/19/23 07:30 Rifaximin 550 Mg Tablet PO 10/17/23 00:44 550 mg BID MUNA Administration Thiamine HCl 100 mg 09/17/23 09:00 09/19/23 07:31 Thiamine Hcl 100 Mg Tab PO 10/17/23 08:59 100 mg QAM MUNA Administration Past Medical History Medical History GI bleeding Severe sepsis with lactic acidosis GERD (gastroesophageal reflux disease) Hx of intravenous drug use, 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, [address] drugs and in remission and on program Past Family History Family History Other Family history non-contributory Past Surgical History Surgical History No history of previous surgery Social History Smoking Status: Current every day smoker tobacco type: cigarettes Smoking cigarettes per day: 3 Do You Dip or Chew Tobacco: Yes Hx Alcohol Use: Yes Alcohol type: hard liquor alcohol intake frequency: 3 or more drinks per day Alcohol Intake Frequency Comment: pt drank a half gallon every other day. Last drink was 08/10/2023 Hx Substance Use: Yes substance use type: former substance user Last Used Substance Other:: about 1 year ago, finished subutex in [facility] in august Physical Exam Vital Signs Last Vital Signs Temp 36.6 C 09/19/23 07:47 Pulse 98 H 09/19/23 07:47 Resp 16 09/19/23 07:47 BP 122/80 09/19/23 07:47 Pulse Ox 96 09/19/23 07:47 O2 Del Method Room Air 09/19/23 07:47 Testing Laboratory Results 09/19/23 06:31 09/19/23 06:31 PT 21.9 Seconds (9.0-12.0) H 09/18/23 07:06 INR 2.1 (0.9-1.1) H 09/18/23 07:06 Hemoglobin A1c 4.6 % (4.5-5.6) 09/16/23 16:24 Urine Color Dark Yellow 09/16/23 18:19 Urine Appearance Clear (Clear) 09/16/23 18:19 Urine pH 6.0 (4.5-7.5) 09/16/23 18:19 Ur Specific [place] 1.016 (1.000-1.030) 09/16/23 18:19 Urine Protein Negative (Negative) 09/16/23 18:19 Urine Glucose (UA) Negative (Negative) 09/16/23 18:19 Urine Ketones Negative (Negative) 09/16/23 18:19 Urine Nitrite Positive (Negative) A 09/16/23 18:19 Ur Leukocyte Esterase Trace (Negative) H 09/16/23 18:19 Urine WBC (Auto) 0 /hpf (0-5) 09/16/23 18:19 Urine RBC (Auto) 0-4 /hpf (0-4) 09/16/23 18:19 U Hyaline Cast (Auto) 10-30 /lpf (0-5) H 09/16/23 18:19 U Epithel Cells (Auto) 0-5 /lpf (0-5) 09/16/23 18:19 Urine Bacteria (Auto) Negative (Negative) 09/16/23 18:19 Blood Type O Positive 09/17/23 18:34 Antibody Screen NEGATIVE 09/17/23 18:34 09/16/23 19:18 Aerobic Blood Culture - Preliminary Blood No growth in Aerobic bottle after 48 hours. Anaerobic Blood Culture - Preliminary No growth in Anaerobic bottle after 48 hours. 09/16/23 16:24 Aerobic Blood Culture - Preliminary Blood No growth in Aerobic bottle after 48 hours. Anaerobic Blood Culture - Preliminary No growth in Anaerobic bottle after 48 hours. 09/17/23 20:20 Urine Culture - Preliminary Urine,Clean Catch Pin-point growth present, reincubating.
[2023-09-19 08:08] LABS: INR 2.2 (0.9-1.1); Prothrombin Time 22.5 Seconds (9.0-12.0)
[2023-09-19] MEDS ORDERED: POTASSIUM PHOS 3 MMOL/1 ML INFUSION IV STA ×2 (08:38→15:55)
[2023-09-19] MEDS: POTASSIUM CHLORIDE CRTAB 20 MEQ TABCR PO STA ×2 (08:48→16:57)
[2023-09-19] MEDS: POTASSIUM PHOSPHATE 24 MMOL in SODIUM CHLORIDE 0.9% 500 ML IV ONE (11:22)
--- NOTE | 2023-09-19 13:50 | Gastroenterology Progress Note ---
Date of Service September 19, 2023 Assessment & Plan (1) Acute blood loss anemia: (2) Jaundice: (3) Alcoholic hepatitis: Plan Plan is for EGD/Colonoscopy. To optimize medical management prior to undergoing procedures: 1. K should be >3.0 2. Platelets should be >50. - discussed w Dr. Chilel who will arrange platelet infusion tomorrow morning. 3. Consider blood transfusion to Hb 8.0. 4. DF is high - but would continue to hold prednisolone - contraindicated by apparent sepsis (el lactate, weakness on arrival). Agree w coverage of SBP. 5. Continue PPI drip. 6. If suspect hematemesis then should be on Octreotide drip. 7. Clear liquid diet today. Will give a very small colon prep this evening (2 doses of Miralax). 8. Will continue to follow closely. Hopefully we will be able to complete EGD/Colonoscopy tomorrow. Admission and Anticipated Discharge Date Admission Date: September 16, 2023 Supervising Physician Co-Signing Physician Notes Agree wit pe and plan as documented Jaundiced Alcoholic hepatitis in 08/31 hospitalized in [place] at that time, also + for mono igm at that time Admitted on 09/16 with weakness, reports of hematochezia. He has a high meld driven by inr and tb INR will need to be less than 2 for procedures tomorrow and ideally platelets near 50 and K above 3. Will attempt egd/colon tomorrow. No overt hemodnyamically signficant gi bleed. Platelets are low currently and this appears to be more acute, last egd in 2020 showing esophagitis - no varices at that time, no varices on recent ct imaging. Subjective 38 yr old male admitted on 09/16 for weakness. Hb 12.6 on arrival -> 7 most recently at 6:3 AM. Passing brown BMs. Was recently admitted to [place] for ETOH hepatitis and OP Gi f/u is pending. Has had prior admissions for alcoholic hepatitis and did not show for OP f/u. Pt is significantly jaundiced. Was on prednisolone for ETOH hepatitis, help on arrival - for concern for sepsis (weakness, WBC 25 and el lactate at 6.9 on arrival - all improving on cefepime). Presumed SBP. No large ascites, so no tap completed. Completed colon prep but endoscopy rescheduled to tomorrow to allow correction of K, INR, platelets. This morning awake, alert, oriented. Angry that he can not eat. Threatened to leave. Review of Systems Constitutional: + malaise and + weakness Eyes: + icterus Ear, Nose, Mouth, Throat: no problem reported Respiratory: No SOB, no cough Cardiovascular: Additional Comments: Denies irregular heartbeats or racing heart rate. + significant lower leg edema Gastrointestinal: Denies any gross GI bleeding Genitourinary: no dysuria, no hematuria, no genital pain or no testicle pain Integumentary: jaundice Neurologic: + unsteadiness, + falls and + dizziness; no tremor(s) Psychiatric: Talks about dying. Denies thoughts of self harm Physical Exam Constitutional: generally weak, chronically ill, disagreeable patient who is angry at the time of my interview -related to not being able to eat, saying he'd rather be home. Eyes: icterus ENMT: external ear and nose normal, oropharynx normal Neck: trachea midline, no thyromegaly Respiratory: few crackles at both bases, no rhonchi or wheezes Cardiovascular: regular rhythm, rate 90 - 100, no murmurs. ++ bilat lower leg edema Gastrointestinal (Abdomen): mild/moderate ascites, soft, non tender, mildly tender and enlarged liver Skin: ++ jaundice Neurologic: No asterixes. Alert, oriented. Psychiatric: Eye Contact: good eye contact Speech: normal rate/rhythm/volume of speech Cognition: recent memory grossly intact Judgment: + limited judgement aggitated. Results & Data Vital Signs (Past 12 Hours) Vital Signs Temp Pulse Resp BP Pulse Ox O2 Del Method 09/19/23 11:19 36.7 C 99 H 16 131/84 97 Room Air 09/19/23 07:47 36.6 C 98 H 16 122/80 96 Room Air 09/19/23 04:03 36.6 C 84 18 137/76 95 Room Air Laboratory Results WBC 9, Hb 7, Hct 20, Plts 41, PT 22, INR 2.2, Na 136, K 2.6, Cl 108, CO2 20 BUn 21, Cr 1.41. T Bili 1.7, AST 90, ALT 66, Alk Phos 99. Diagnostic Findings CTAP w IV 09/16/23: Liver: Unremarkable. No mass. Gallbladder and bile ducts: Cholecystectomy. No ductal dilation. Pancreas: Unremarkable. No mass. No ductal dilation. Spleen: Unremarkable. No splenomegaly. Adrenals: Unremarkable. No mass. Kidneys and ureters: Unremarkable. No solid mass. No hydronephrosis. Stomach and bowel: Wall thickening of small bowel, concerning for enteritis versus spontaneous bacterial peritonitis. No obstruction. IMPRESSION: Ascites. Wall thickening of small bowel, concerning for enteritis versus spontaneous bacterial peritonitis.
[2023-09-19 14:50] LABS: Hematocrit (blood only) 21.6 % (42.0-52.0); Hemoglobin 7.6 g/dl (14.0-18.0)
[2023-09-19 15:48] LABS: BUN Creatinine Ratio 12.7 (10-20); Calcium 8.4 mg/dl (8.6-10.3); Creatinine Clr Calc Pharmacy 77.3 ml/min; Est GFR (Non-African American) 57.8 ml/min; Magnesium 1.9 mg/dl (1.7-2.4); Phosphorus 2.3 mg/dl (2.5-4.9); Potassium 3.4 mmol/L (3.5-5.1)
--- NOTE | 2023-09-19 16:19 | Hospitalist Progress Note ---
Date of Service September 19, 2023 Assessment & Plan (1) Severe sepsis with lactic acidosis: (2) Hepatic failure: (3) Hypokalemia: (4) Acute hyponatremia: (5) Alcohol abuse: (6) Hx of intravenous drug use, in remission: (7) GERD (gastroesophageal reflux disease): Plan Mr. Yu is a 37 year old male with PMhx significant for second-degree AV block type I (Wenckebach), atrial septal aneurysm, HCV status post Rx, chronic pain/Hx of IVDU weaned off of suboxone, GERD, ongoing alcohol/tobacco abuse and liver failure awaiting transplant admitted with possible SBP. Pt was recently admitted 08/18-08/20 for severe sepsis and was transferred to [facility] where he was treated for acute liver failure, alcoholic hepatitis with ascites. Today he presents with generalized fatigue and weakness. He reports feeling dizzy as well. Since his hospitalization the only medication changes include a new prescription for prednisone and Lasix and he has been in the process of lowering his lactulose due to increased bowel movements. He started taking his Lasix on Tuesday this week and reports that he has been urinating very infrequently. Reports smoking 3 cigarettes/day, has abstained from alcohol for the last month and a half and his last IV drug use was 1 year ago. Severe sepsis: Spontaneous Bacterial Peritonitis Leukocytosis 25.23, tachycardic on admission, hypothermic lactate 4.8, improved to normal limits after fluid resuscitation UA positive for nitrites, order placed for urine Cx Blood cultures x 2 NGTD Chest XR unremarkable Abdomen/Pelvis CT: Ascites, wall thickening of small bowel, concerning for enteritis versus spontaneous bacterial peritonitis Bear aliviaer placed in ER Ceftriaxone started in ED; continue with cefepime. WBC currently wnl GI Consultation placed-appreciate recs -symptoms likely related to SBP -manage ascites outpt with diuretics, fluid and sodium restriction -appreciate further GI recs Reportedly in the ER, ascites was minimal and could not be tapped/sampled For SBP prophylaxis, consider discontinuing use of ppi, antibiotics Acute Blood Loss Anemia GI Bleed Pt with tc red bloody BMs. Reports of nose bleeds, denies hemoptysis/hematemesis at this time Hgb drop from 12.6 on admission to ~8 currently GI consulted and aware- plan for EGD and Colonoscopy on 09/19. NPO after midnight, on ppi drip Transfuse as needed AM folate and b12, iron-currently wnl/supplemented Continue to monitor 09/19- was due for colonoscopy and EGD but canceled by GI due to decreased electrolytes and platelets. GI requesting platelet transfusion AM of 09/20. Thrombocytopenia Chronically low in setting of liver failure GI requesting Platelet transfusion the AM of 09/20 for colonoscopy and EGD Alcoholic Hepatitis: Alcoholic Cirrhosis: Hx of Hepatic Encephalopathy Hx of alcohol abuse Secondary to alcohol use Recent admission transferred [place] [facility] treated for acute liver failure MELD score 21 Ammonia level undetectable on admission; seems to be improving as pt mental status improving, continue lactulose and Xifaxan Recent decrease of Lactulose due to increased BM's AST 224, ALT 168, alk phos 242- continue to trend Thiamine and folate ordered, continue Last alcohol intake 1.5 months ago Completed steroid treatment for alcoholic hepatitis treatment Reportedly scheduled to discuss liver transplant On 09/19- pt requesting Palliative Care consult Elevated Trop Troponin 18.9 to >24, trend until downtrending EKG with sinus tach Doubt ACS Electrolyte abnormalities: Hypokalemia: replete as needed Hyponatremia: -Serum sodium 130 on admission, currently 134 after fluid restriction Hypomagnesemia: Mag 1.6 on admission. replete as needed History of IV drug abuse: Chronic Was weaned off of Suboxone over the last few months Stable Tobacco use: Smokes 3 cigarettes per day Continue Nicotine patch Encourage cessation DVT prophylaxis: Chemical deferred in setting of thrombocytopenia/coagulopathy. SCDs Diet: Low sodium/fluid restriction 1500ml CODE STATUS: Full code Dispo: Home on discharge, PT/OT Next of kin Rosalia, not legal POA: [phone]; technically not his legal power of transactional attorney. Discussed on admission and patient has a living father who he is estranged from and a 17-year-old daughter. Admission and Anticipated Discharge Date Admission Date: September 16, 2023 Subjective Pt was due for EGD colonoscopy but cancelled by GI due to electrolytes. GI requesting a unit of platelets in the AM before procedure. Pt requested to leave AMA the day before. Discussion with pt and partner at bedside, friend also present. Pt vocalizing that he would like to go home to pass. They are agreeable to a palliative care consult. Review of Systems Review of Systems: All systems reviewed & are unremarkable except as noted in Subjective Physical Exam Physical Exam: General: Alert, oriented. Skin: Jaundiced Psych: Appropriate mood and affect Neuro: Difficulty with movements in the bed HEENT: NC/AT Chest: Nontender to palpation. CV: RRR Resp: Breath sounds clear bilaterally, no increased effort of breathing. Abdomen: Soft, mildly tender Extremities: edema in lower extremities bilaterally. Results & Data Results & Data Vital Signs (Past 12 Hours) Vital Signs Temp Pulse Resp BP Pulse Ox O2 Del Method 09/19/23 11:19 36.7 C 99 H 16 131/84 97 Room Air 09/19/23 07:47 36.6 C 98 H 16 122/80 96 Room Air
[2023-09-19] MEDS: PHYTONADIONE 5 MG TAB PO ONE (16:59)
[2023-09-19] MEDS: POLYETHYLENE (MIRALAX) 17 GM PACK PO ONE (17:00)
[2023-09-19] MEDS: POTASSIUM PHOSPHATE 15 MMOL in SODIUM CHLORIDE 0.9% 250 ML IV ONE (17:02)
[2023-09-19] MEDS: POTASSIUM CHLORIDE CRTAB 20 MEQ TABCR PO SCH (19:59)
[2023-09-20] MEDS: PHYTONADIONE 5 MG TAB PO ONE (04:48)
[2023-09-20 07:16] LABS: Hemoglobin 6.7 g/dl (14.0-18.0); Mean Corpuscular Hemoglobin 37.2 pg (25.0-34.0); Mean Corpuscular Hgb Conc 33.5 g/dL (32.0-36.0); Mean Corpuscular Volume 111.1 fL (80.0-100.0); Mean Platelet Volume 10.8 fL (9.4-12.4); Platelet Count 38 K/uL (130-400); RDW Coefficient of Variation 14.1 % (11.5-14.5); RDW Standard Deviation 57.9 fL (36.4-46.3); White Blood Count 9.42 K/ul (4.8-10.8)
[2023-09-20 07:19] LABS: Albumin Level 3.6 gm/dl (3.4-5.0); BUN Creatinine Ratio 13.4 (10-20); Bilirubin,Total 19.1 mg/dl (0.2-1.0); Calcium 8.5 mg/dl (8.6-10.3); Creatinine Clr Calc Pharmacy 86.6 ml/min; Est GFR (African American) 76.8 ml/min; Est GFR (Non-African American) 66.3 ml/min; Globulin 1.2 gm/dl (2.5-4.0); Magnesium 1.8 mg/dl (1.7-2.4); Phosphorus 2.2 mg/dl (2.5-4.9); Potassium 3.1 mmol/L (3.5-5.1); Total Protein 4.8 gm/dl (6.0-8.3)
[2023-09-20] MEDS ORDERED: SODIUM CHLORIDE 0.9% 250 ML IV PRN (07:23)
[2023-09-20 07:31] LABS: Basophils # (auto) 0.01 K/uL (0.00-0.20); Basophils % (auto) 0.1 %; Eosinophils # (auto) 0.09 K/uL (0.00-0.50); INR 2.2 (0.9-1.1); Immature Granulocytes # (auto) 0.13 K/uL (0.01-0.20); Immature Granulocytes % (auto) 1.4 %; Lymphocytes % (auto) 6.4 %; Macrocytosis Present; Monocytes # (auto) 0.39 K/uL (0.11-0.59); Monocytes % (auto) 4.1 %; Prothrombin Time 23.1 Seconds (9.0-12.0); Target Cells 1+; Tear Drop Cells 1+
[2023-09-20] MEDS ORDERED: POTASSIUM PHOS 3 MMOL/1 ML INFUSION IV STA (08:40)
[2023-09-20] MEDS: POTASSIUM CHLORIDE CRTAB 20 MEQ TABCR PO STA (08:58)
[2023-09-20] MEDS: POTASSIUM PHOSPHATE 15 MMOL in SODIUM CHLORIDE 0.9% 250 ML IV ONE (08:58)
--- NOTE | 2023-09-20 08:59 | Discharge Summary ---
Discharge Summary Date of Service September 20, 2023 Notes For Next Care Provider Pt chose to go home with hospice services. He declined needed blood transfusion on the day of discharge and needed electrolyte repletion. Medication Changes From Visit None Admission HPI Per Admitting Provider Mr. Yu is a 37 year old male who was recently admitted 08/18-08/20 for severe sepsis and was transferred to [facility] where he was treated for alcoholic hepatitis with ascites. Today he presents with generalized fatigue and weakness. He reports feeling dizzy as well. Since his hospitalization the only medication changes include a new prescription for prednisone and Lasix and he has been in the process of lowering his lactulose due to increased bowel movements. He started taking his Lasix on Tuesday this week and reports that he has been urinating very infrequently. He reports that since Tuesday he has only urinated 4 or 5 times. He does not have any hematuria and his stream is uninterrupted but his urine is tea colored and coffee colored as he reports. Patient has a complex past medical history that includes history of AV block type I, atrial septum aneurysm, HCV s/p treatment, chronic pain, GERD, history of IV drug use, and alcoholic pancreatitis. Reports smoking 3 cigarettes/day, has abstained from alcohol for the last month and a half and his last IV drug use was 1 year ago Leukocytosis WBC 25.23, lactic acid 4.8, chronic hyponatremia serum sodium 130, serum potassium 2.9, ammonia level undetectable, AST 2023, ALT 168, alk phos 242. Calculated MELD score 21. Abdomen/pelvis CT: Ascites, wall thickening of small bowel, concerning for enteritis versus spontaneous bacterial peritonitis. Patient significant other Rosalia who can be reached at [phone] is technically not his legal power of biochemical engineer. We discussed this tonight and patient has a living father who is estranged from and a 17-year-old daughter. Goal is to have Rafael Lancaster visit them during this admission for completed decision-maker paperwork. This is an unfortunate gentleman that meets SIRS criteria with lactic acidosis and concerns for SBP. Will admit to PCU for IV antibiotics, IV albumin, electrolyte replacement; slowly correct sodium, will check coag levels, repeat Ammonia level, nicotine patch, teds and SCDs for now pending coagulopathy workup GI consultation, indwelling Mo with bladder scan to monitor oliguria and consider nephrology consultation for input with regards to worsening hepatitis with possible kidney failure with oliguria. Patient will be admitted for further evaluation and management. Please see A/P for further details. Admission Exam Per Admitting Provider Neuro: AAOx4, PERRLA, no aphagia, recent confusion, CNII-XII grossly intact HEENT: head normocephalic, moist mucus membranes CV: S1/S2, (-) M/G/R, (+)3 BL LE edema, cap refill < 3 seconds Resp: Lungs CTA in all jacobsen. On RA GI: Abdomen large, soft, NT/ND, Ax4 bowel sounds, (-) CVA tenderness Musculoskeletal: 5/5 B/L UE strength, 5/5 B/L LE strength. No gait disturbance Skin: (-) rashes , (-) erythema. Psych: euthymic mood Principal Dx & Hospital Course #1 = Principal Diagnosis (1) Severe sepsis with lactic acidosis: (2) Hepatic failure: (3) Hypokalemia: (4) Acute hyponatremia: (5) Alcohol abuse: (6) Hx of intravenous drug use, in remission: (7) GERD (gastroesophageal reflux disease): Plan Mr. Yu is a 37 year old male with PMhx significant for second-degree AV block type I (Wenckebach), atrial septal aneurysm, HCV status post Rx, chronic pain/Hx of IVDU weaned off of suboxone, GERD, ongoing alcohol/tobacco abuse and liver failure awaiting transplant admitted with possible SBP. Pt was recently admitted 08/18-08/20 for severe sepsis and was transferred to [facility] where he was treated for acute liver failure, alcoholic hepatitis with ascites. Today he presents with generalized fatigue and weakness. He reports feeling dizzy as well. Since his hospitalization the only medication changes include a new prescription for prednisone and Lasix and he has been in the process of lowering his lactulose due to increased bowel movements. He started taking his Lasix on Tuesday this week and reports that he has been urinating very infrequently. Reports smoking 3 cigarettes/day, has abstained from alcohol for the last month and a half and his last IV drug use was 1 year ago. On the day of discharge, 09/20 pt stated that he wanted to go home with hospice services. He indicated that he was aware of what this meant and would like to pass at home. He stated that he "knows his God." Before discharge, he refused further GI evaluation and scheduled EGD/colonoscopy, refused needed blood transfusion for hgb of 6.7, refused platelet transfusion in anticipation of EGD and colonoscopy and refused needed electrolyte replacement for potassium, phosphorus and other electrolytes. He was discharged home with hospice services with assistance of case management. His treatment course while hospitalized included the following: Severe sepsis: Spontaneous Bacterial Peritonitis Leukocytosis 25.23, tachycardic on admission, hypothermic lactate 4.8, improved to normal limits after fluid resuscitation UA positive for nitrites, order placed for urine Cx. Urine Cx eventually grew coag negative staph sensitive to macrobid, daptomycin and vancomycin but resistant to oxacillin, tetracycline and bactrim. Blood cultures x 2 NGTD Chest XR unremarkable Abdomen/Pelvis CT: Ascites, wall thickening of small bowel, concerning for enteritis versus spontaneous bacterial peritonitis Bear hugger placed in ER Ceftriaxone started in ED; was treateded with cefepime. WBC currently wnl GI Consultation placed-appreciate recs -symptoms likely related to SBP -manage ascites outpt with diuretics, fluid and sodium restriction Reportedly in the ER, ascites was minimal and could not be tapped/sample On day of discharge, pt declined further treatment. Pt requested discharge home with hospice services. Acute Blood Loss Anemia GI Bleed Pt with tc red bloody BMs. Reports of nose bleeds, denies hemoptysis/hematemesis at this time Hgb drop from 12.6 on admission to 6.7 on day of discharge. Pt declined blood transfusion stating that he wanted to leave. GI consulted and aware- plan for EGD and Colonoscopy was scheduled originally for 09/19. Was postponed to 09/20 as pt's electrolytes and platelets were too low, per GI. Pt ultimately declined the EGD and colonoscopy on 09/20. Was on ppi drip folate, b12, iron-was wnl/supplemented On day of discharge, pt declined blood transfusion, platelet transfusion advised per GI in anticipation of EGD/Colonoscopy for further evaluation. Pt requested discharge home with hospice services. Thrombocytopenia Chronically low in setting of liver failure GI requesting Platelet transfusion the AM of 09/20 for colonoscopy and EGD As above, platelet transfusion advised per GI in anticipation of EGD/Colonoscopy for further evaluation was declined by patient on day of discharge. Pt requested discharge home with hospice services. Alcoholic Hepatitis: Alcoholic Cirrhosis: Hx of Hepatic Encephalopathy Hx of alcohol abuse Secondary to alcohol use Recent admission transferred to [facility] treated for acute liver failure MELD score 21 Ammonia level undetectable on admission; seems to be improving as pt mental status improving, continue lactulose and Xifaxan Recent decrease of Lactulose due to increased BM's AST 224, ALT 168, alk phos 242 on admission and was trended Thiamine and folate ordered, continue Last alcohol intake 1.5 months ago Completed steroid treatment for alcoholic hepatitis treatment Reportedly scheduled to discuss liver transplant On 09/19- pt requesting Palliative Care consult On day of discharge, pt declined further treatment. Pt requested discharge home with hospice services. Elevated Trop Troponin 18.9 to >24, trend until downtrending EKG with sinus tach Doubt ACS Electrolyte abnormalities: Hypokalemia: replete as needed Hyponatremia: -Serum sodium 130 on admission, currently 134 after fluid restriction Hypomagnesemia: Mag 1.6 on admission. replete as needed On day of discharge, pt declined further replacement/treatment. Pt requested discharge home with hospice services. History of IV drug abuse: Chronic Was weaned off of Suboxone over the last few months Stable Tobacco use: Smokes 3 cigarettes per day Continue Nicotine patch Encourage cessation Discharge Exam General: Alert, oriented. Skin: Jaundiced Psych: Appropriate mood and affect Neuro: Difficulty with movements in the bed HEENT: NC/AT Chest: Nontender to palpation. CV: RRR Resp: Breath sounds clear bilaterally, no increased effort of breathing. Abdomen: Soft, mildly tender Extremities: edema in lower extremities bilaterally. Updated Medication List Medication Instructions Recorded Confirmed Type pantoprazole 40 mg tablet,delayed 40 mg PO QAM 05/13/20 09/16/23 History release Therapeutic-M/Lutein Tablet 1 tab PO QDL 08/26/23 09/16/23 History baclofen 10 mg tablet 10 mg PO TID 08/26/23 09/16/23 History folic acid 1 mg tablet 1 mg PO QAM 08/26/23 09/16/23 History lactulose 10 gram/15 mL oral See Rx Instructions .Route .COMPLEX 08/26/23 09/16/23 History solution (Constulose) potassium, sodium phosphates 280 1 packet PO TID 08/26/23 09/16/23 History mg-160 mg-250 mg oral powder packet (Phos-NaK) prednisolone sodium phosphate 15 0 mg PO QAM 08/26/23 09/16/23 History mg/5 mL (3 mg/mL) oral solution thiamine HCl (vitamin B1) 100 mg 100 mg PO QAM 08/26/23 09/16/23 History tablet (Vitamin B-1) furosemide 20 mg tablet 20 mg PO QAM 09/16/23 09/16/23 History ondansetron HCl 4 mg tablet 4 mg PO Q8H PRN Nausea And Vomiting 09/16/23 09/16/23 History rifaximin 550 mg tablet (Xifaxan) 550 mg PO BID 09/16/23 09/16/23 History Hospital Stay Data Consultations 09/16/23 20:40 ED Decision to Admit Stat 09/17/23 00:16 Consult Gastroenterology Routine 09/19/23 15:56 Consult Palliative Care Routine 09/20/23 07:19 Consult Patient Rep [Consult Patient Services] Routine Procedures Performed Operation Date: 09/19/23 17:45 <No data on this case meets the specified criteria> Diagnostic Imagining Performed 09/16/23 18:20 CT abd pelvis IV con only Stat Chest X-Ray 09/16/23 15:10 SINGLE VIEW CHEST CLINICAL HISTORY: Generalized weakness. FINDINGS: An AP, portable, upright chest radiograph is compared to study dated 08/26/2023. The cardiomediastinal silhouette is unremarkable. There is chronic elevation of the right hemidiaphragm with mild atelectasis. The lungs and pleural spaces are otherwise clear. No pneumothorax is seen. The bony thorax is grossly intact. IMPRESSION: No active disease in the chest. ACT 112: Negative or not required by law. Electronically signed by: Portillo Loja M.D. 09/16/2023 4:18 PM Abdomen/Pelvis CT 09/16/23 18:20 Exam(s): CT ABDOMEN + PELVIS With Contrast IV Amt: 88ML OPTIRAY 320 EXAM: CT Abdomen and Pelvis With Intravenous Contrast CLINICAL HISTORY: Reason for exam: abd pain. TECHNIQUE: Axial computed tomography images of the abdomen and pelvis with intravenous contrast. CTDI is 24.03 mGy and DLP is 1432.15 mGy-cm. Automated exposure control was utilized for the study. A dose lowering technique was utilized adhering to the principles of ALARA. CONTRAST: Patient received 88ML OPTIRAY 320 of IV contrast COMPARISON: No relevant prior studies available. FINDINGS: Lung bases: Unremarkable. No mass. No consolidation. ABDOMEN: Liver: Unremarkable. No mass. Gallbladder and bile ducts: Cholecystectomy. No ductal dilation. Pancreas: Unremarkable. No mass. No ductal dilation. Spleen: Unremarkable. No splenomegaly. Adrenals: Unremarkable. No mass. Kidneys and ureters: Unremarkable. No solid mass. No hydronephrosis. Stomach and bowel: Wall thickening of small bowel, concerning for enteritis versus spontaneous bacterial peritonitis. No obstruction. PELVIS: Appendix: No findings to suggest acute appendicitis. Bladder: Unremarkable. No mass. Reproductive: Unremarkable as visualized. ABDOMEN and PELVIS: Intraperitoneal space: Abdominal and pelvic ascites. No free air. Bones/joints: No acute fracture. No dislocation. Soft tissues: Anasarca. Vasculature: Unremarkable. No abdominal aortic aneurysm. Lymph nodes: Unremarkable. No enlarged lymph nodes. IMPRESSION: Ascites. Wall thickening of small bowel, concerning for enteritis versus spontaneous bacterial peritonitis. Electronically signed by: Ubaldo Soto MD 09/16/23 20:43 PM Chest X-Ray 09/16/23 18:20 SINGLE VIEW CHEST CLINICAL HISTORY: Leukocytosis. FINDINGS: An AP, portable, upright chest radiograph is compared to study performed earlier the same day 09/16/2023. The examination is degraded by portable technique and patient rotation. The cardiomediastinal silhouette is unremarkable. There is chronic elevation of the right hemidiaphragm with bibasilar atelectasis. The lungs and pleural spaces are otherwise clear. No pneumothorax is seen. The bony thorax is grossly intact. IMPRESSION: No active disease in the chest. No change from today's earlier examination. ACT 112: Negative or not required by law. Electronically signed by: Portillo Loja M.D. 09/16/2023 6:51 PM Pending Results Patient Have Any Pending Studies at Discharge: No Discharge Instructions Given to Patient (Per Discharging Provider) Jimmy, You have requested that you be discharged and you have chosen to go home with hospice services. You are also refusing treatments at this time, including a blood tranfusion that is needed. Please keep follow up with your hospice services. Take Care. Total Time Total Time Spent Total Time Spent (In Minutes): > 30 minutes
--- NOTE | 2023-09-20 10:18 | Communication Note ---
Date of Service: September 20, 2023 Palliative Medicine Note Consult received, chart reviewed. Advised by nursing this AM: "Patient is stating feelings of wanting to pass at home, and would like to be discharged today with Hospice care along with pain and anxiety medications. Family is visiting at 0800 and are aware of patient's wishes." Care mgt aware - they are coordinating dc - pt/family want to leave [facility]. No acute/urgent indication for IP Palliative medicine for GOC - pt has declared his GOC and CM is handling dispo planning. Consult decline. Pt not seen, NO charge submitted. Primary team and nursing notified by TT. Thank you for allowing us to participate in the ongoing care of this patient. Please don't hesitate to call or page with any additional concerns. Dr. Muriel Doherty DNP Director, Palliative Care
--- NOTE | 2023-09-20 12:52 | Communication Note ---
Date of Service: September 20, 2023 This morning, Mr. Yu's POA approached me in the hallway and told me that Mr. Yu does not want any further testing/procedures/care and wants to go home. She was tearful. I stepped into the room and briefly spoke directly w Mr. Yu who indicated that this is his wish. He acknowledged that he will likely . He said, "I'm Ok with that, I know my Jin." EGD/Colonoscopy were cancelled and I informed Dr. Jeffery, his primary hospitalist.
== END 2023-09-20 09:37 | disposition hospice, home (50) | DRG 871 ==
LOC: ED 15:06 → 2S 21:35 → 2N 09-17 23:47